=== PATIENT | female | born 1930 | race Caucasian/White ===

== ENCOUNTER 2016-12-18 11:19 | Observation (INO) ==
--- NOTE | 2016-12-18 11:42 | Emergency Department Note ---
Disposition Clinical Impression: Near syncope, Acute kidney injury Nausea & vomiting Qualifiers: Vomiting type: unspecified Vomiting Intractability: unspecified Qualified Code( s): R11.2 - Nausea with vomiting, unspecified Disposition: Admitted As Inpatient Condition: Fair Referrals: El Carrillo DO [Primary Care Provider] - Forms: ED Satisfaction Letter Time of Disposition: 13:46 Nausea/Vomiting/Diarrhea HPI - General Chief complaint: ED Nausea/Vomiting/Diarrhea Stated complaint: Nausea Time Seen by Provider: 12/18/16 11:37 Source: patient, EMS Mode of arrival: EMS Limitations: no limitations Nursing Notes Reviewed: Yes Vital Signs Reviewed: Yes - History of Present Illness HPI Narrative: 85-year-old female comes in with nausea vomiting also was had diarrhea. Feels somewhat dehydrated. This morning she had a near syncopal episode since she got dizzy felt like she is going pass out. Pt Subjective Complaint: nausea, vomiting, diarrhea Onset (ago): day(s) Description of emesis: food contents Description of Diarrhea: water If pain, Location of pain: diffuse Severity: mild, moderate Quality: cramping, aching Consistency: constant Improves with: nothing Worsens with: nonthing Associated symptoms: Reports: diaphoresis, nausea/vomiting - Related Data Home Medications Medication Instructions Recorded Confirmed Aspirin Enteric Coated [Aspirin EC] 162 mg PO DAILY 02/17/15 08/24/15 Lisinopril/Hydrochlorothiazide 1 tab PO DAILY 02/17/15 08/24/15 [Zestoretic 20-12.5 mg Tablet] TraMADol [Ultram] 50 mg PO TID 02/17/15 08/24/15 Zolpidem [Ambien] 10 mg PO HS 02/17/15 08/24/15 Previous Rx's Medication Instructions Recorded Levofloxacin [Levaquin] 750 mg PO DAILY #7 tablet 08/25/15 Nystatin Cream [Mycostatin Cream] 1 appl TP TID PRN #1 tube 08/25/15 Allergies Allergy/AdvReac Type Severity Reaction Status Date / Time Penicillins Allergy Rash Verified 08/24/15 11:43 All systems ED: reviewed and negative except as stated. Constitutional: Denies: fever, chills, weakness, weight change Eyes: Denies: eye pain, eye discharge, vision change ENT ED: Denies: ear pain, throat pain, dental pain, hearing loss, epistaxis, congestion, dysphagia Cardiovascular: Denies: chest pain, palpitations, dyspnea on exertion, edema, syncope Respiratory: Denies: cough, dyspnea, wheezes, hemoptysis, stridor Gastrointestinal: Reports: nausea, vomiting, diarrhea. Denies: abdominal pain, constipation, hematemesis, melena, hematochezia Genitourinary: Denies: dysuria, frequency, hematuria, discharge Musculoskeletal: Denies: back pain, neck pain, arthralgia, myalgia Integumentary: Denies: rash, abrasion, lesions Neurological: Denies: headache, weakness, numbness, paresthesias, confusion, abnormal gait, vertigo Psychiatric: Denies: anxiety, depression, suicidal thoughts, homicidal thoughts , auditory hallucinations, visual hallucinations Endocrine: Denies: fatigue Hematological/Lymphatic: Denies: easy bleeding, easy bruising Allergic/Immunologic: Denies: facial swelling, urticaria Past Medical History - Past Medical History Medical history: Reports: hypertension Surgical history: Reports: cholecystectomy Psychiatric history: Reports: no psych history - Social History Smoking Status: Former smoker Smokeless Tobacco Status: No Alcohol use: Reports: none Drug use: Reports: none Physical Exam - General Limitations: no limitations General appearance: alert, in no apparent distress - Head Head exam: atraumatic, normocephalic, normal inspection - Eye Eye exam: Present: normal appearance, PERRL, EOMI - ENT ENT exam: mucous membranes dry, other (Very hard of hearing) - Neck Neck exam: Present: normal inspection, full ROM, trachea midline - Chest Chest inspection: Present: normal inspection, symmetric chest wall rise - Respiratory Respiratory exam: Present: normal lung sounds bilaterally - Cardiovascular Cardiovascular exam: Present: regular rate, normal rhythm, normal heart sounds - Abdominal Exam Abdominal exam: Present: soft, Non-Tender. Absent: tenderness, distention, guarding, rebound, rigidity - Extremities Exam Extremities exam: Present: normal inspection, full ROM. Absent: tenderness, pedal edema - Expanded Lower Extremity Exam Neurovascular/Tendon exam: Absent: motor deficit, sensory deficit, tendon deficit Gait: not tested/not observed - Back Exam Back exam: Present: normal inspection, full ROM. Absent: tenderness - Neurological Exam Neurological exam: Present: alert, oriented X3 - Psychiatric Psychiatric exam: Present: normal affect, normal mood - Skin Skin exam: Present: warm, dry, intact, normal color Course - Reevaluation(s) Reevaluation #1: 85-year-old whose had some nausea and not eating with some diarrhea. Workup CT shows nothing acute however creatinine is elevated more than usual looks that she has some acute kidney injury. Admit for IV fluids she does have 3-5 white cells and leukocyte esterase on her urine and the hospitalist like antibiotics started. Time: 14:37 - Consultations Consultation #1: Discussed with Dr. Mcclain, admit. Time: 14:37 Vital Signs Temperature 97.8 F 12/18/16 11:32 Pulse Rate 80 12/18/16 11:32 Respiratory Rate 18 12/18/16 11:32 Blood Pressure 160/75 12/18/16 11:32 O2 Sat by Pulse Oximetry 100 12/18/16 11:32 Temperature 97.8 F 12/18/16 11:32 Pulse Rate 72 12/18/16 13:56 Respiratory Rate 18 12/18/16 13:56 Blood Pressure 158/71 12/18/16 13:56 O2 Sat by Pulse Oximetry 96 12/18/16 13:56 Oxygen Delivery Oxygen Delivery Room Air Nausea/Vomiting/Diarrhea - Lab Data Lab results reviewed: Yes I reviewed the patient's lab results. Result diagrams: 12/18/16 12:11 12/18/16 12:11 Lab Results 12/18/16 12/18/16 12/18/16 Range/Units 12:11 12:11 12:11 WBC 9.4 (4.3-11.1) K/mcL RBC 3.42 L (3.82-4.97) M/mcL Hgb 11.3 L (11.5-15.4) g/dL Hct 36.3 (35.3-44.9) % MCV 106.1 H (83.0-100.0) fL MCH 33.0 (28.0-33.3) pg MCHC 31.1 L (31.6-35.5) g/dL RDW 14.7 H (11.5-14.5) % Plt Count 319 (140-400) K/mcL MPV 9.2 L (9.4-12.4) fL Immature Gran % 0.4 (0-4) % Seg Neutrophils % 61.4 % Lymphocytes % 25.2 % Monocytes % 9.7 % Eosinophils % 2.7 % Basophils % 0.6 % Neutrophils # 5.7 (1.6-8.9) K/mcL Lymphocytes # 2.4 (0.6-4.6) K/mcL Monocytes # 0.9 (0.0-1.3) K/mcL Eosinophils # 0.3 (0.0-0.6) K/mcL Basophils # 0.1 (0.0-0.2) K/mcL Immature Plt Fraction 1.8 (1.1-6.1) % Sodium 136 (136-145) mEq/L Potassium 4.3 (3.5-4.5) mEq/L Chloride 106 (98-109) mEq/L Carbon Dioxide 21 (19-29) mEq/L BUN 42 H (7-20) mg/dL Creatinine 1.62 H (0.57-1.11) mg/dL Est GFR ( Amer) 37 L (> 60) Est GFR (Non-Af Amer) 30 L (> 60) BUN/Creatinine Ratio 26 (6-26) Glucose 98 (70-99) mg/dL Calculated Osmolality 292 (280-300) Calcium 9.6 (8.6-10.8) mg/dL Total Bilirubin (0.2-1.2) mg/dL Direct Bilirubin (0.0-0.5) mg/dL Indirect Bilirubin (0.0-1.2) mg/dL AST (5-34) Units/L ALT (0-55) Units/L Alkaline Phosphatase (38-126) Units/L Troponin I 0.02 (0-0.03) ng/mL Serum Total Protein (6.0-8.3) g/dL Albumin (3.5-5.0) g/dL Globulin (2.4-3.5) g/dL Albumin/Globulin Ratio (1.1-2.2) Amylase (25-125) Units/L Lipase 46 (8-78) Units/L Urine Color (Yellow) Urine Clarity (Clear) Urine pH (5.0-8.0) pH Units Ur Specific [place] (1.010-1.025) Urine Protein (Neg-Trace) mg/dL Urine Glucose (UA) (Normal) mg/dL Urine Ketones (Negative) mg/dL Urine Blood (Negative) Urine Nitrite (Negative) Urine Bilirubin (Negative) Urine Urobilinogen (Normal) mg/dL Ur Leukocyte Esterase (Negative) Urine Microscopic RBC (0-3) per hpf Urine Microscopic WBC (0-3) per hpf Ur Squamous Epith Cells (None-Few) per lpf Urine Bacteria (None-Few) per hpf Hyaline Casts (None-Few) per lpf Ur Culture Indicated? (NO) 12/18/16 12/18/16 Range/Units 12:11 13:52 WBC (4.3-11.1) K/mcL RBC (3.82-4.97) M/mcL Hgb (11.5-15.4) g/dL Hct (35.3-44.9) % MCV (83.0-100.0) fL MCH (28.0-33.3) pg MCHC (31.6-35.5) g/dL RDW (11.5-14.5) % Plt Count (140-400) K/mcL MPV (9.4-12.4) fL Immature Gran % (0-4) % Seg Neutrophils % % Lymphocytes % % Monocytes % % Eosinophils % % Basophils % % Neutrophils # (1.6-8.9) K/mcL Lymphocytes # (0.6-4.6) K/mcL Monocytes # (0.0-1.3) K/mcL Eosinophils # (0.0-0.6) K/mcL Basophils # (0.0-0.2) K/mcL Immature Plt Fraction (1.1-6.1) % Sodium (136-145) mEq/L Potassium (3.5-4.5) mEq/L Chloride (98-109) mEq/L Carbon Dioxide (19-29) mEq/L BUN (7-20) mg/dL Creatinine (0.57-1.11) mg/dL Est GFR ( Amer) (> 60) Est GFR (Non-Af Amer) (> 60) BUN/Creatinine Ratio (6-26) Glucose (70-99) mg/dL Calculated Osmolality (280-300) Calcium (8.6-10.8) mg/dL Total Bilirubin 0.3 (0.2-1.2) mg/dL Direct Bilirubin 0.1 (0.0-0.5) mg/dL Indirect Bilirubin 0.2 (0.0-1.2) mg/dL AST 24 (5-34) Units/L ALT 14 (0-55) Units/L Alkaline Phosphatase 106 (38-126) Units/L Troponin I (0-0.03) ng/mL Serum Total Protein 7.5 (6.0-8.3) g/dL Albumin 3.5 (3.5-5.0) g/dL Globulin 4.0 H (2.4-3.5) g/dL Albumin/Globulin Ratio 0.9 L (1.1-2.2) Amylase 92 (25-125) Units/L Lipase (8-78) Units/L Urine Color Yellow (Yellow) Urine Clarity Cloudy A (Clear) Urine pH 5.0 (5.0-8.0) pH Units Ur Specific [place] 1.015 (1.010-1.025) Urine Protein Negative (Neg-Trace) mg/dL Urine Glucose (UA) Normal (Normal) mg/dL Urine Ketones Negative (Negative) mg/dL Urine Blood Negative (Negative) Urine Nitrite Negative (Negative) Urine Bilirubin Negative (Negative) Urine Urobilinogen Normal (Normal) mg/dL Ur Leukocyte Esterase Small H (Negative) Urine Microscopic RBC 0-3 (0-3) per hpf Urine Microscopic WBC 3-5 H (0-3) per hpf Ur Squamous Epith Cells Many H (None-Few) per lpf Urine Bacteria Few (None-Few) per hpf Hyaline Casts None Seen (None-Few) per lpf Ur Culture Indicated? YES A (NO) - Radiology Data Radiology results reviewed: Yes I reviewed the patient's radiology results. Abdomen/Pelvis CT 12/18/16 11:38 IMPRESSION: 1. No acute intra- abdominal process identified. 2. Moderate atherosclerotic disease. D/ / Mark Bryson MD / Mark Bryson MD Interpreting Provider: Mark Bryson MD - EKG Data EKG attestation: Yes I reviewed and interpreted this EKG. EKG shows normal: sinus rhythm Rate: normal Rhythm: NSR [place]/QRS: LBBB When compared to previous EKG there are: no significant changes (08/24/2015) Interpretation: no acute changes
[2016-12-18 12:18] LABS: Basophils # 0.1 K/mcL (0.0-0.2); Basophils % 0.6 %; Eosinophils # 0.3 K/mcL (0.0-0.6); Eosinophils % 2.7 %; Hematocrit 36.3 % (35.3-44.9); Hemoglobin 11.3 g/dL (11.5-15.4); Immature Granulocytes % 0.4 % (0-4); Immature Platelets 1.8 % (1.1-6.1); Lymphocytes # 2.4 K/mcL (0.6-4.6); Lymphocytes % 25.2 %; Mean Corpuscular HGB Conc 31.1 g/dL (31.6-35.5); Mean Corpuscular Volume 106.1 fL (83.0-100.0); Mean Platelet Volume 9.2 fL (9.4-12.4); Monocytes # 0.9 K/mcL (0.0-1.3); Monocytes % 9.7 %; Neutrophils # 5.7 K/mcL (1.6-8.9); Platelet Count 319 K/mcL (140-400); Red Blood Count 3.42 M/mcL (3.82-4.97); Red Cell Distribution Width 14.7 % (11.5-14.5); Segmented Neutrophils % 61.4 %
[2016-12-18 12:32] LABS: Albumin 3.5 g/dL (3.5-5.0); Albumin/Globulin Ratio 0.9 (1.1-2.2); Bilirubin,Direct 0.1 mg/dL (0.0-0.5); Bilirubin,Indirect 0.2 mg/dL (0.0-1.2); Bilirubin,Total 0.3 mg/dL (0.2-1.2); Total Protein 7.5 g/dL (6.0-8.3)
[2016-12-18 12:33] LABS: Calcium 9.6 mg/dL (8.6-10.8); Potassium 4.3 mEq/L (3.5-4.5)
[2016-12-18 14:01] LABS: Bilirubin,Urine Negative (Negative); Blood,Urine Negative (Negative); Clarity,Urine Cloudy (Clear); Color,Urine Yellow (Yellow); Glucose,Urine (UA) Normal (Normal); Ketones,Urine Negative (Negative); Leukocyte Esterase,Urine Small (Negative); Nitrite,Urine Negative (Negative); Protein,Urine Negative (Neg-Trace); Specific Gravity,Urine 1.015 (1.010-1.025); Urobilinogen,Urine Normal (Normal)
[2016-12-18 14:03] LABS: Bacteria,Urine Few per hpf (None-Few); Hyaline Casts,Urine None Seen per lpf (None-Few); RBC,Urine 0-3 per hpf (0-3); Squamous Epithelial Cell,Urine Many per lpf (None-Few)
[2016-12-18] MEDS ORDERED: Levofloxacin 500 MG/100 ML 500 MG/100 ML BAG IVPB ONE (14:36)
[2016-12-18] MEDS ORDERED: 0.9 % Sodium Chloride 1,000 ML IVC SCH (14:45)
[2016-12-18] MEDS ORDERED: Naloxone 0.4 MG/ML INJ IVP PRN (15:23)
[2016-12-18] MEDS ORDERED: Ondansetron 4 MG/2 ML VIAL IVP PRN (15:23)
[2016-12-18] MEDS ORDERED: Acetaminophen 325 MG TABLET PO PRN (15:23)
--- NOTE | 2016-12-18 15:40 | Internal Med History&Physical ---
<AmandamarizabraedenPrateek samuels - Last Filed: 12/18/16 16:04> Date of Encounter: 12/18/16 Time of Encounter: 14:30 Assessment and Plan (1) UTI (urinary tract infection) Current visit: Yes Status: Acute Patient presents with symptoms of a urinary tract infection. Patient reports getting up to use the bathroom this morning becoming extremely lightheaded and almost passing out. She states is the same symptoms she has had in the past with previous UTIs, which she has often. Initial urinalysis and ED indicated need for culture, so urine culture ordered stat. IV Levaquin 500 mg daily initiated and ED and will be continued. Follow-up labs ordered to monitor WBC and infection status. Qualifiers: Urinary tract infection type: acute cystitis Hematuria presence: without hematuria Qualified Code(s): N30.00 - Acute cystitis without hematuria (2) Nausea & vomiting Current visit: Yes Status: Acute Patient presents with acute nausea and vomiting which she reports began this morning. She also reports symptoms of feeling hot and near syncope. Patient placed nothing by mouth diet to be advanced as tolerated. Qualifiers: Vomiting type: unspecified Vomiting Intractability: unspecified Qualified Code(s): R11.2 - Nausea with vomiting, unspecified (3) Dehydration Current visit: Yes Status: Acute Patient presents with acute dehydration related to nausea and vomiting. IV fluids 0.9 normal saline ordered at 75 mL per hour due to patient's current GFR 30. Will use IV fluids judiciously. Monitor I and O and daily weight. (4) Dizziness Current visit: Yes Status: Acute Patient presents with acute dizziness related to UTI. Patient reports becoming near syncopal when using the bathroom this morning. Patient placed as falls precautions/up with assist/bedrest with bedside commode with assist only due to current dizziness and lightheadedness. (5) Hypertension Current visit: Yes Status: Chronic Patient presents with history of chronic hypertension. We will continue patient 's lisinopril and aspirin therapy. Monitor patient and vital signs every 4. Qualifiers: Hypertension type: essential hypertension Qualified Code(s): I10 - Essential (primary) hypertension (6) CKD (chronic kidney disease) stage 3, GFR 30-59 ml/min Current visit: Yes Status: Chronic Patient presents with chronic kidney disease stage III with current GFR of 30. Patient is mildly dehydrated currently, so we will administer IV fluids at 75 mL per hour judiciously. We will monitor patient's I and O and daily weight. (7) DVT prophylaxis Current visit: Yes Status: Acute Patient placed on DVT prophylaxis due to admission protocol and current bedrest status. Heparin 5,000 units SQ Q8 ordered. Internal Medicine - H&P: HPI Chief complaint: Nausea and Vomiting Admitted From: Emergency Dept Plans for Post Hospital Care: Home History of present illness: Ms. Alston is a 85 year old female who presents from the ED with chief complaint of nausea, vomiting, and dizziness that began this morning. She states that she went to get up to go to the bathroom this morning and felt like she was going to pass out due to being lightheaded. Patient denies syncope or falling. She also reports that she felt hot when this started as well as having a cough with sputum production. Patient and patient's son report that she has a history of UTIs that present with similar symptoms. Patient has a medical history of hypertension but denies any other history of cardiac issues, diabetes , or respiratory issues. Patient is hard of hearing. Patient's vitals on admission to ED are temp of 97.8, HR of 80, RR of 18, BP of 158/71, and SpO2 of 96% on room air. Patient's initial urinalysis indicated the need for culture. Patient is at moderate risk for UTI and will be admitted as observation status with continuation of IV levaquin 500 mg daily which was started in the ED. Urine culture ordered. Lactic acid ordered. Will order follow-up labs and monitor patient for signs of increased infection. Time spent with patient 40 minutes. Past Med Surg Social Fam HX - Past Medical History Source: patient, obtained from family Medical history: hypertension Psychiatric history: no psych history - Past Surgical History Surgical History: appendectomy, cholecystectomy, orthopedic, other (Left shoulder, bilateral rotator cuffs, bilateral elbows, bilateral ankles, removal of bone spur on left foot), other (Sinus surgery, tonsillectomy) - Social History Smoking Status: Former smoker Packs per day: 1 Pack per month - Quit smoking >30 years ago Smokeless Tobacco Status: No Alcohol use: none Drug use: none Current living situation: Home Activity Level: Independent ambulation, Uses cane/walker Recent Out of Country Travel Within the Last 8 Weeks: No Exposure or Possible Exposure to Illness During Travel: No - Family History Brother Race: Family Member Ethnicity: Non- Living Status: Age at : 70 Cause of : Meningitis Father Race: Family Member Ethnicity: Non- Living Status: Age at : 90 Cause of : Old age Hx Family Medical Disorders: No Mother Race: Family Member Ethnicity: Non- Living Status: Age at : 90 Cause of : Stroke Hx Family Cardiac Disorders: Yes (Stroke) Sister Race: Family Member Ethnicity: Non- Living Status: Still Living Hx Family GI Disorders: Yes (Gallbladder) Internal Medicine - H&P: Meds Aspirin Enteric Coated [Aspirin EC] 162 mg PO DAILY 02/17/15 [History] Lisinopril/Hydrochlorothiazide [Zestoretic 20-12.5 mg Tablet] 1 tab PO DAILY 01/24 [History] TraMADol [Ultram] 50 mg PO TID 02/17/15 [History] Zolpidem [Ambien] 10 mg PO HS 02/17/15 [History] Allergies Penicillins Allergy (Verified 12/18/16 14:57) Rash All Systems PM: A 10-system review of systems was performed and is negative for pertinent findings except as documented above in the HPI. - Constitutional Constitutional: as per HPI, fever(s), no chills, no night sweats - EENT Eyes: no change in vision, no discharge, no pain, no photophobia Ears: no ear discharge, no ear pain, no tinnitus Nose, mouth and throat: no dysphagia, no nasal discharge, no neck pain, no sore throat - Breasts Breasts: as per HPI - Cardiovascular Cardiovascular ROS IM: no chest pain, no diaphoresis, no dyspnea, no lightheadedness, no palpitations, no syncope - Respiratory Respiratory: no cough, no dyspnea, no wheezing, no excessive phlegm production - Gastrointestinal Gastrointestinal: as per HPI, abdominal pain, nausea, vomiting - Genitourinary Genitourinary: no change in urinary stream, no dysuria, no flank pain, no hematuria Menstruation: post menopausal - Musculoskeletal Musculoskeletal ROS IM: no numbness, no tingling - Integumentary Integumentary IM: no rash, no unusual bruising - Neurological Neurological ROS: no confusion, no convulsions, no focal weakness, no numbness, no tingling, no tremor(s) - Psychiatric Psychiatric: as per HPI - Endocrine Endocrine IM: as per HPI - Hematologic/Lymphatic Hematologic/Lymphatic: no easy bruising - Allergic/Immunologic Allergic/Immunologic: as per HPI - Constitutional Vitals: Temp Pulse Resp BP Pulse Ox 97.8 F 94 18 129/72 97 12/18/16 11:32 12/18/16 15:18 12/18/16 15:18 12/18/16 15:18 12/18/16 15:18 General appearance: Present: cooperative, A&O X 3, pleasant, no acute distress, answers questions appropriately - Head Head exam: Present: atraumatic, normocephalic - Eye Eye exam: Present: PERRL, conjuntiva pink, sclera anicteric Pupils: Present: PERRL - ENT ENT exam: Present: mucous membranes dry, normal exam, normal external ear exam - Neck Neck exam general surgery: Present: supple, trachea midline. Absent: lymphadenopathy - Respiratory Respiratory exam: Present: CTAB. Absent: accessory muscle use, rales, rhonchi, wheezes - Cardiovascular Cardiovascular exam: Present: RRR, +S1, +S2. Absent: diastolic murmur, gallop, rubs, systolic murmur - GI/Abdominal GI/Abdominal exam: Present: normal bowel sounds, soft, no peritoneal signs. Absent: distended, tenderness - Rectal Rectal exam: Present: deferred - Additional comments: exam deferred. - Extremities Exam Extremities exam: Present: warm, radial pulses palpable and symetrical. Absent : calf tenderness, cyanotic, pedal edema - Back Exam Back exam: Present: normal inspection - Neurological Exam Neurological exam: Present: CN II-XII intact, oriented X3, no focal deficits. Absent: pronater drift, facial droop, speech deficit - Psychiatric Psychiatric exam: Present: normal affect, normal mood - Skin Skin exam: Present: dry, intact Internal Med - H&P Results - Labs CBC & Chem 7: 12/18/16 12:11 12/18/16 12:11 - EKG Data EKG shows normal: sinus rhythm - EKG Data Prior EKG available for review: no EKG comments: 12/18/16 15:50 EKG dated 12/18/16 shows sinus rhythm with marked left axis deviation and left bundle branch block. - Diagnostic Studies CT scan - abdomen Additional comments: Impressions Abdomen/Pelvis CT 12/18/16 11:38 IMPRESSION: 1. No acute intra- abdominal process identified. 2. Moderate atherosclerotic disease. D/ / Mark Bryson MD / Mark Bryson MD Interpreting Provider: Mark Bryson MD <Willis Ponce - Last Filed: 12/18/16 16:59> Date of Encounter: 12/18/16 Internal Medicine - H&P: HPI History of present illness: Ms. Alston is a 85 year old female All Systems PM: A 10-system review of systems was performed and is negative for pertinent findings except as documented above in the HPI. - Constitutional Vitals: Temp Pulse Resp BP Pulse Ox 98.1 F 94 16 166/82 99 12/18/16 16:24 12/18/16 16:24 12/18/16 16:24 12/18/16 16:24 12/18/16 16:24 Internal Med - H&P Results - Labs CBC & Chem 7: 12/18/16 12:11 12/18/16 12:11 - Impressions ITS Impressions Chest X-Ray 12/18/16 15:52 IMPRESSION: No evidence for acute cardiopulmonary process. D/ / Jose Jiménez MD / Jose Jiménez MD Interpreting Provider: Jose Jiménez MD - Attending Attestation I have seen and examined the patient at around 16:45. I discussed the patient with Prateek Fritz NP. I have reviewed the note and orders. Patient is a 85-year-old female with past history hypertension and chronic kidney disease. Patient presents to ED with complaints of nausea and vomiting. She also complains of dizziness that started this morning. Patient denies having syncope or no fall. Patient states she also had a cough with some mild sputum production. On examination patient is awake and alert. Not in distress. Able to answer questions appropriately. No other acute complaints. Initial ED evaluation revealed mild dehydration with elevated creatinine and a urinary tract infection. Patient will be on IV fluids and also on IV antibiotics. Patient has been explained about her condition and plan of care. She understood and agreed. No unanswered questions. CODE STATUS full code.
[2016-12-18] MEDS: Pantoprazole 40 MG VIAL IVP SCH (18:23)
[2016-12-18] MEDS: 0.9 % Sodium Chloride 1,000 ML IVC SCH ×2 (18:23→18:24)
[2016-12-18] MEDS: *HR* Heparin 5,000 UNIT/ML VIAL SQ SCH (20:28)
[2016-12-18] MEDS: traMADol 50 MG TABLET PO SCH (20:28)
[2016-12-19 04:48] LABS: Basophils % 0.6 %; Eosinophils # 0.2 K/mcL (0.0-0.6); Eosinophils % 4.4 %; Hematocrit 31.1 % (35.3-44.9); Hemoglobin 10.1 g/dL (11.5-15.4); Immature Granulocytes % 0.2 % (0-4); Lymphocytes # 1.9 K/mcL (0.6-4.6); Lymphocytes % 36.9 %; Mean Corpuscular HGB Conc 32.5 g/dL (31.6-35.5); Mean Corpuscular Hemoglobin 34.1 pg (28.0-33.3); Mean Corpuscular Volume 105.1 fL (83.0-100.0); Mean Platelet Volume 9.6 fL (9.4-12.4); Monocytes # 0.5 K/mcL (0.0-1.3); Monocytes % 9.7 %; Neutrophils # 2.5 K/mcL (1.6-8.9); Platelet Count 211 K/mcL (140-400); Red Blood Count 2.96 M/mcL (3.82-4.97); Red Cell Distribution Width 14.6 % (11.5-14.5); Segmented Neutrophils % 48.2 %
[2016-12-19 05:09] LABS: Calcium 9.1 mg/dL (8.6-10.8); Chol/HDL Ratio 3.6 (0-4.9); Magnesium 1.7 mg/dL (1.6-2.6); Potassium 4.6 mEq/L (3.5-4.5)
[2016-12-19] MEDS: 0.9 % Sodium Chloride 1,000 ML IVC SCH ×2 (05:19→05:45)
[2016-12-19] MEDS: *HR* Heparin 5,000 UNIT/ML VIAL SQ SCH ×3 (05:20→21:06)
[2016-12-19] MEDS ORDERED: *HR* OxyCODONE Immed Rel 5 MG TABLET PO STA (05:41)
[2016-12-19 06:25] LABS: INR 1.1; Prothrombin Time 12.2 Seconds (9.4-12.1)
[2016-12-19 06:28] LABS: Activated Partial Thrombo Time 25.7 Seconds (26.0-36.0)
[2016-12-19] MEDS: traMADol 50 MG TABLET PO SCH ×3 (07:43→21:06)
[2016-12-19] MEDS: Aspirin Enteric Coated 81 MG Tablet PO SCH (07:45)
[2016-12-19] MEDS: Levofloxacin 500 MG/100 ML 500 MG/100 ML BAG IVPB SCH (07:47)
[2016-12-19] MEDS: Pantoprazole 40 MG VIAL IVP SCH (07:51)
[2016-12-19] MEDS ORDERED: Lisinopril-HCTZ 20-12.5mg TABLET PO SCH (09:00)
[2016-12-19] MEDS: D5% in 0.45% NACL 1,000 ML IVC SCH ×2 (09:33→23:32)
--- NOTE | 2016-12-19 12:17 | Electrocardiograph Report ---
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
--- NOTE | 2016-12-19 13:48 | Internal Med Progress Note ---
Date of Encounter: 12/19/16 Time of Encounter: 08:15 - Assessment and plan (1) UTI (urinary tract infection) Current Visit: Yes Status: Acute Assessment and plan: Urine culture positive for gram-negative rods. We will continue IV antibiotics while awaiting final culture results. Patient is clinically improving. Continue gentle IV hydration. Monitor vital signs and urine output. Qualifiers: Urinary tract infection type: acute cystitis Hematuria presence: without hematuria Qualified Code(s): N30.00 - Acute cystitis without hematuria (2) Nausea & vomiting Current Visit: Yes Status: Acute Assessment and plan: Improving. Has not required Zofran since yesterday. Qualifiers: Vomiting type: unspecified Vomiting Intractability: unspecified Qualified Code(s): R11.2 - Nausea with vomiting, unspecified (3) Dizziness Current Visit: Yes Status: Acute Assessment and plan: Due to dehydration. Improving. (4) Anemia Current Visit: Yes Status: Chronic Assessment and plan: Hemoglobin 10.1. This is around her baseline. We will monitor blood counts. Qualifiers: Anemia type: due to chronic kidney disease Chronic kidney disease stage: stage 3 (moderate) Qualified Code(s): N18.3 - Chronic kidney disease, stage 3 (moderate); D63.1 - Anemia in chronic kidney disease (5) CKD (chronic kidney disease) stage 3, GFR 30-59 ml/min Current Visit: Yes Status: Chronic Assessment and plan: Creatinine 1.44 today. Baseline is around 1.3. (6) Dehydration Current Visit: Yes Status: Acute Assessment and plan: Continue IV hydration. Patient's diet is improving as her nausea also improves. (7) Hypertension Current Visit: Yes Status: Chronic Assessment and plan: Blood pressure is elevated. On Prinzide. Hydrochlorothiazide. Continue lisinopril. His blood pressure persistently increased, we will add amlodipine or beta lewis. Qualifiers: Hypertension type: essential hypertension Qualified Code(s): I10 - Essential (primary) hypertension - Subjective Interval history: Patient is doing well today. Does have pain in both her shoulders from chronic the arthritis and low back pain. Denies any dysuria. No fever or chills reported overnight. No dizziness or lightheadedness. - Constitutional Vitals: Temp Pulse Resp BP Pulse Ox 98.1 F 81 15 162/69 98 12/19/16 12:37 12/19/16 12:37 12/19/16 12:37 12/19/16 12:37 12/19/16 12:37 General appearance: Present: cooperative, A&O X 3, pleasant, no acute distress, answers questions appropriately - Neck Neck exam general surgery: Present: supple, trachea midline. Absent: lymphadenopathy - Respiratory Respiratory exam: Present: CTAB. Absent: accessory muscle use, rales, rhonchi, wheezes - Cardiovascular Cardiovascular exam: Present: RRR, +S1, +S2. Absent: diastolic murmur, gallop, rubs, systolic murmur - Extremities Exam Extremities exam: Present: warm, radial pulses palpable and symetrical. Absent : calf tenderness, cyanotic, pedal edema - Neurological Exam Neurological exam: Present: alert, CN II-XII intact, oriented X3, no focal deficits. Absent: facial droop, speech deficit - Skin Skin exam: Present: dry, intact Internal Medicine: Result - Labs CBC & Chem 7: 12/19/16 04:39 12/19/16 04:39 Labs: Short CBC 12/19/16 Range/Units 04:39 WBC 5.2 (4.3-11.1) K/mcL Hgb 10.1 L (11.5-15.4) g/dL Hct 31.1 L (35.3-44.9) % Plt Count 211 (140-400) K/mcL Neutrophils # 2.5 (1.6-8.9) K/mcL BMP 12/19/16 04:39 Sodium 137 Potassium 4.6 H Chloride 110 H Carbon Dioxide 18 L BUN 33 H Creatinine 1.44 H Glucose 92 Calcium 9.1 - ABG Interpretation ABG results: PT/INR, D-dimer PT 12.2 Seconds (9.4-12.1) H 12/19/16 05:27 - Impressions Impressions Chest X-Ray 12/18/16 15:52 IMPRESSION: No evidence for acute cardiopulmonary process. D/ / Jose Jiménez MD / Jose Jiménez MD Interpreting Provider: Jose Jiménez MD Consult Discharge Plan - Plan Referrals: El Carrillo DO [Primary Care Provider] -
[2016-12-20 06:03] LABS: Basophils % 0.8 %; Eosinophils # 0.3 K/mcL (0.0-0.6); Eosinophils % 5.7 %; Hemoglobin 9.1 g/dL (11.5-15.4); Immature Granulocytes % 0.2 % (0-4); Lymphocytes # 2.1 K/mcL (0.6-4.6); Lymphocytes % 41.3 %; Mean Corpuscular HGB Conc 31.4 g/dL (31.6-35.5); Mean Corpuscular Hemoglobin 32.6 pg (28.0-33.3); Mean Corpuscular Volume 103.9 fL (83.0-100.0); Mean Platelet Volume 9.2 fL (9.4-12.4); Monocytes # 0.5 K/mcL (0.0-1.3); Monocytes % 9.8 %; Neutrophils # 2.1 K/mcL (1.6-8.9); Platelet Count 219 K/mcL (140-400); Red Blood Count 2.79 M/mcL (3.82-4.97); Red Cell Distribution Width 14.6 % (11.5-14.5); Segmented Neutrophils % 42.2 %
[2016-12-20 06:10] LABS: Calcium 8.9 mg/dL (8.6-10.8); Potassium 4.3 mEq/L (3.5-4.5)
[2016-12-20] MEDS: *HR* Heparin 5,000 UNIT/ML VIAL SQ SCH (06:42)
[2016-12-20] MEDS ORDERED: Lisinopril 20 MG TABLET PO SCH (09:00)
[2016-12-20] MEDS: Pantoprazole 40 MG VIAL IVP SCH (09:23)
[2016-12-20] MEDS: traMADol 50 MG TABLET PO SCH (09:23)
[2016-12-20] MEDS: Aspirin Enteric Coated 81 MG Tablet PO SCH (09:23)
[2016-12-20] MEDS: Levofloxacin 500 MG/100 ML 500 MG/100 ML BAG IVPB SCH (09:24)
--- NOTE | 2016-12-20 11:51 | Discharge Summary ---
Date of Encounter: 12/20/16 Time of Encounter: 11:49 - Discharge Diagnosis (1) UTI (urinary tract infection) Priority: Primary Status: Acute Qualifiers: Urinary tract infection type: acute cystitis Hematuria presence: without hematuria Qualified Code(s): N30.00 - Acute cystitis without hematuria (2) KIRA (acute kidney injury) Priority: Primary Status: Acute (3) Anemia Priority: Secondary Status: Chronic Qualifiers: Anemia type: due to chronic kidney disease Chronic kidney disease stage: stage 3 (moderate) Qualified Code(s): N18.3 - Chronic kidney disease, stage 3 (moderate); D63.1 - Anemia in chronic kidney disease (4) CKD (chronic kidney disease) stage 3, GFR 30-59 ml/min Priority: Secondary Status: Chronic - Discharge Medications Prescriptions: Carvedilol [Coreg] 3.125 mg PO BIDWM #30 tablet Lisinopril [Zestril] 20 mg PO DAILY #60 tablet Home Medications: Aspirin Enteric Coated [Aspirin EC] 162 mg PO DAILY 02/17/15 [History] TraMADol [Ultram] 50 mg PO TID 02/17/15 [History] Zolpidem [Ambien] 10 mg PO HS 02/17/15 [History] Carvedilol [Coreg] 3.125 mg PO BIDWM #30 tablet 12/20/16 [Rx] Lisinopril [Zestril] 20 mg PO DAILY #60 tablet 12/20/16 [Rx] Allergies/Adverse Reactions: Allergies Penicillins Allergy (Verified 12/18/16 14:57) Rash Date of admission: 12/18/16 15:12 Primary care physician: El Carrillo, Consults: 12/18/16 18:40 Consult to Electromatic Typist [CONS] Routine Reason for SW Consult: discharge planning 12/19/16 16:42 Consult to Occupational Therapy [CONS] Routine Comment: Evaluate, develop and implement POC Reason for Consult: Generalized weakness Consult to Physical Therapy [CONS] Routine Comment: Evaluate, develop and implement POC Reason for Consult: Generalized weakness - Patient Status Disposition: Home, Self-Care Condition: Good Functional capacity at discharge: uses cane/walker - Discharge Instructions Instructions: Urinary Tract Infection in Women (DC) Follow Up With: El Carrillo DO [Primary Care Provider] - 01/03/17 9:30 am - Diet and Activity Activity: resume usual activities as tolerated Diet: low fat, low cholesterol, low salt diet Interval History: Patient denies any abdominal pain or urinary symptoms. Hospital course: Ms. Alston is a 85 year old female with a past medical history of hypertension who presented with a chief complaint of nausea and vomiting. She was admitted with diagnosis of urinary tract infection and was started on IV Levaquin. Urine culture grew a sensitive Klebsiella pneumoniae. Patient improved clinically, she was eating and ambulating well at discharge. She completed 3 days of IV Levaquin while inpatient. PLAN: Follow-up with primary care physician in one week. - Time Spent with Patient Total time spent providing and/or coordinating discharge services: - Constitutional Vitals: Temp Pulse Resp BP Pulse Ox 98.0 F 77 16 150/77 100 12/20/16 07:37 12/20/16 07:37 12/20/16 07:37 12/20/16 07:37 12/20/16 09:00 General appearance: Present: cooperative, A&O X 3, pleasant, no acute distress, answers questions appropriately - Respiratory Respiratory exam: Present: CTAB - Cardiovascular Cardiovascular exam: Present: RRR - GI/Abdominal GI/Abdominal exam: Present: normal bowel sounds, soft. Absent: distended, tenderness - Extremities Exam Extremities exam: Absent: pedal edema - Back Exam Back exam: Absent: CVA tenderness (L), CVA tenderness (R) - Neurological Exam Neurological exam: Present: alert, oriented X3, strengths equal and symetr throughout. Absent: facial droop, speech deficit - Skin Skin exam: Absent: rash
[2016-12-20 12:18] VITALS: BP 126/78
[2016-12-21] MEDS ORDERED: Levofloxacin 250 MG/50 ML 250 MG/50 ML BAG IVPB SCH (09:00)
== END 2016-12-20 14:00 | disposition home or self-care (01) ==
LOC: 3BNU 11:19 → EMEROO 11:19 → SUATTDRO 15:12 → 3BNU 15:45
PROVIDERS: ADMIT Family Medicine; ATTEND Internal Medicine

== ENCOUNTER 2017-01-11 22:48 | Observation (INO) ==
[2017-01-11] MEDS ORDERED: Aspirin 81 MG TAB.CHEW PO STA (22:54)
--- NOTE | 2017-01-11 22:56 | Emergency Department Note ---
Disposition Clinical Impression: Elevated serum creatinine Chest pain Qualifiers: Chest pain type: precordial pain Qualified Code(s): R07.2 - Precordial pain Anemia Qualifiers: Anemia type: unspecified type Qualified Code(s): D64.9 - Anemia, unspecified Disposition: Admitted As Inpatient Condition: Good Chest Pain HPI - General Chief Complaint: ED Chest Pain Stated Complaint: Chest Pain Time Seen by Provider: 01/11/17 22:51 Source: patient, EMS Mode of arrival: EMS Limitations: no limitations Vital Signs Reviewed: Yes Nursing Notes Reviewed: Yes - History of Present Illness HPI Narrative: 86-year-old female history of hypertension who presents to the ER with a chief complaint of chest pain. Patient states that earlier today she was just feeling unwell overall. She states that she ate this evening and then went to bed. She reports that she was awoken from sleep with sharp central chest pain. She denies a prior history of any cardiac issues. EMS was called. Patient was given 3 nitroglycerin as well as 4 of morphine prior to arrival. She reports almost full resolution of her symptoms at the time of arrival. No history of cardiac disease. No stents. No history of diabetes or hyperlipidemia. She smoked but quit over 50 years ago. No other complaints. Pt complaint: chest pain Onset (ago): Just [employer] Duration: constant, now resolved Onset: during rest Pain Location: substernal Severity: severe Quality: sharp Pain Radiation: neck, jaw/teeth Improves with: nitroglycerin, medication-other Worsens with: nothing Associated symptoms: Denies: nausea, vomiting, diaphoresis, dyspnea Treatments prior to arrival chest pain: nitroglycerin, other (Morphine) - Related Data On Oral Contraceptives: No Home Medications Medication Instructions Recorded Confirmed Aspirin Enteric Coated [Aspirin EC] 162 mg PO DAILY 02/17/15 01/11/17 TraMADol [Ultram] 50 mg PO TID 02/17/15 01/11/17 Zolpidem [Ambien] 10 mg PO HS 02/17/15 01/11/17 Previous Rx's Medication Instructions Recorded Carvedilol [Coreg] 3.125 mg PO BIDWM #30 tablet 12/20/16 Lisinopril [Zestril] 20 mg PO DAILY #60 tablet 12/20/16 Allergies Allergy/AdvReac Type Severity Reaction Status Date / Time Penicillins Allergy Rash Verified 12/18/16 14:57 All systems ED: reviewed and negative except as stated. Constitutional: Denies: fever Cardiovascular: Reports: chest pain Respiratory: Denies: cough, dyspnea, wheezes Gastrointestinal: Denies: abdominal pain, nausea, vomiting, diarrhea Musculoskeletal: Reports: neck pain. Denies: back pain Chest Pain PMH - Past Medical History Medical history: Reports: hypertension Surgical history: Reports: appendectomy, cholecystectomy, orthopedic, other, other Psychiatric history: Reports: no psych history - Social History Smoking Status: Former smoker Alcohol use: Reports: none Drug use: Reports: none Physical Exam - General Limitations: no limitations General appearance: alert, in no apparent distress - Head Head exam: atraumatic, normocephalic, normal inspection - Eye Eye exam: Present: normal appearance - ENT ENT exam: normal exam - Neck Neck exam: Present: normal inspection - Chest Chest inspection: Present: normal inspection, symmetric chest wall rise. Absent : tenderness - Respiratory Respiratory exam: Present: normal lung sounds bilaterally - Cardiovascular Cardiovascular exam: Present: regular rate, normal rhythm, normal heart sounds - Abdominal Exam Abdominal exam: Present: soft, Non-Tender. Absent: tenderness - Extremities Exam Extremities exam: Present: normal inspection, full ROM - Expanded Upper Extremity Exam Shoulder exam: Present: normal inspection, full ROM Arm exam: Present: normal inspection, full ROM Elbow exam: Present: normal inspection, full ROM Forearm/Wrist exam: Present: normal inspection, full ROM Hand exam: Present: normal inspection, full ROM - Expanded Lower Extremity Exam Hip/Pelvis exam: Present: normal inspection, full ROM Upper leg exam: Present: normal inspection, full ROM Knee exam: Present: normal inspection, full ROM Lower leg exam: Present: normal inspection, full ROM Ankle exam: Present: normal inspection, full ROM Foot/toe exam: Present: normal inspection, full ROM - Neurological Exam Neurological exam: Present: alert - Psychiatric Psychiatric exam: Present: normal affect, normal mood - Skin Skin exam: Present: warm, dry, intact, normal color Course Course Narrative: Patient seen and examined. Vital signs reviewed. EMS EKG reviewed. We will repeat an EKG here, chest x-ray, labs including troponin. Her pain is improved after nitroglycerin and morphine. Patient will require admission to the hospital for ACS rule out. Vital Signs Temperature 98.3 F 01/11/17 22:50 Pulse Rate 78 01/11/17 22:50 Respiratory Rate 16 01/11/17 22:50 Blood Pressure 163/91 01/11/17 22:50 O2 Sat by Pulse Oximetry 100 01/11/17 22:50 Temperature 98.2 F 01/12/17 01:31 Pulse Rate 73 01/12/17 01:31 Respiratory Rate 17 01/12/17 01:31 Blood Pressure 161/72 01/12/17 01:31 O2 Sat by Pulse Oximetry 98 01/12/17 01:31 Oxygen Delivery Oxygen Delivery Room Air Chest Pain - MDM Narrative Medical decision making narrative: 86-year-old female presents to the ER due to chest pain. EKG here is nonischemic with a left bundle branch block that is not new. Troponin within normal limits. She is anemic with a slight elevation of her creatinine. Patient given nitroglycerin and morphine prior to arrival. Improved at this time. Admitted to the hospitalist service. - Lab Data Lab results reviewed: Yes I reviewed the patient's lab results. Result diagrams: 01/11/17 23:05 01/11/17 23:05 Lab Results 01/11/17 01/11/17 01/11/17 Range/Units 23:05 23:05 23:05 WBC 4.9 (4.3-11.1) K/mcL RBC 3.03 L (3.82-4.97) M/mcL Hgb 10.2 L (11.5-15.4) g/dL Hct 31.8 L (35.3-44.9) % MCV 105.0 H (83.0-100.0) fL MCH 33.7 H (28.0-33.3) pg MCHC 32.1 (31.6-35.5) g/dL RDW 14.6 H (11.5-14.5) % Plt Count 221 (140-400) K/mcL MPV 9.3 L (9.4-12.4) fL Immature Gran % 0.2 (0-4) % Seg Neutrophils % 33.6 % Lymphocytes % 50.2 % Monocytes % 8.6 % Eosinophils % 6.6 % Basophils % 0.8 % Neutrophils # 1.6 (1.6-8.9) K/mcL Lymphocytes # 2.5 (0.6-4.6) K/mcL Monocytes # 0.4 (0.0-1.3) K/mcL Eosinophils # 0.3 (0.0-0.6) K/mcL Basophils # 0.0 (0.0-0.2) K/mcL Sodium 135 L (136-145) mEq/L Potassium 4.5 (3.5-4.5) mEq/L Chloride 107 (98-109) mEq/L Carbon Dioxide 21 (19-29) mEq/L BUN 33 H (7-20) mg/dL Creatinine 1.47 H (0.57-1.11) mg/dL Est GFR ( Amer) 41 L (> 60) Est GFR (Non-Af Amer) 34 L (> 60) BUN/Creatinine Ratio 22 (6-26) Glucose 103 H (70-99) mg/dL Calculated Osmolality 288 (280-300) Calcium 8.8 (8.6-10.8) mg/dL Troponin I (0-0.03) ng/mL B-Natriuretic Peptide 146 H (0-100) pg/mL 01/11/17 Range/Units 23:05 WBC (4.3-11.1) K/mcL RBC (3.82-4.97) M/mcL Hgb (11.5-15.4) g/dL Hct (35.3-44.9) % MCV (83.0-100.0) fL MCH (28.0-33.3) pg MCHC (31.6-35.5) g/dL RDW (11.5-14.5) % Plt Count (140-400) K/mcL MPV (9.4-12.4) fL Immature Gran % (0-4) % Seg Neutrophils % % Lymphocytes % % Monocytes % % Eosinophils % % Basophils % % Neutrophils # (1.6-8.9) K/mcL Lymphocytes # (0.6-4.6) K/mcL Monocytes # (0.0-1.3) K/mcL Eosinophils # (0.0-0.6) K/mcL Basophils # (0.0-0.2) K/mcL Sodium (136-145) mEq/L Potassium (3.5-4.5) mEq/L Chloride (98-109) mEq/L Carbon Dioxide (19-29) mEq/L BUN (7-20) mg/dL Creatinine (0.57-1.11) mg/dL Est GFR ( Amer) (> 60) Est GFR (Non-Af Amer) (> 60) BUN/Creatinine Ratio (6-26) Glucose (70-99) mg/dL Calculated Osmolality (280-300) Calcium (8.6-10.8) mg/dL Troponin I 0.00 (0-0.03) ng/mL B-Natriuretic Peptide (0-100) pg/mL - Radiology Data Radiology results reviewed: Yes I reviewed the patient's radiology results. Chest X-Ray 01/11/17 22:51 IMPRESSION: Stable portable study. D/ / Kriss Perry Cha, MD / Kriss Perry Cha, MD Interpreting Provider: Kriss Perry Cha, MD - EKG Data EKG attestation: Yes I reviewed and interpreted this EKG. EKG results narrative: EKG demonstrates sinus rhythm with a rate of 76 bpm with a left bundle branch block. VT interval prolonged at 203, QRS duration prolonged at 144, QTC [address]-T wave changes consistent with bundle branch block. No ST elevations or depressions. No acute ischemic findings. No significant changes from previous EKG dated 12/18/16 Heart Score - Score History: Slightly Suspicious EKG: Non Specific repolarisation Disturbance Age: Greater than 65 Risk Factors: 1-2 risk factors Troponin: Less than normal limit HEART Score Total: 4 S.B.A.R. - S.B.A.R. Situation: Demographics, MOA Background: Presenting Complaint, Relevant PMH, Meds, & Allergies Assessment: Vital Signs, Course and respsone to treatment, Exam Concerns, Patient/Family Expectation, Pertinant Lab Results, Outstanding Labs Recommendation: Barrier(s) to disposition, Recommendation based on pending studies, treatments, or consults S.B.A.R. Report Given to: Dr. Kay S.B.ARalph Repor Time: 00:26 Attestation Statement - Attestation Attestation: IHarry MD, personally evaluated this patient and discussed their management with the resident physician. I reviewed the resident's note and agree with the documented findings, medical decision making, and plan of care. 86-year-old female presents to the emergency department by embolus with a complaint that she awoke from sleep tonight with severe mid chest pain radiating up into her neck and jaw bilaterally. Some mild shortness of breath associated with the chest pain. No diaphoresis. No nausea or vomiting. No palpitations. She denies any known history of heart problems previously. Patient was given nitroglycerin and baby aspirin with improvement in her chest discomfort. On examination patient is a well-developed well-nourished well-appearing elderly female in no acute distress. She is alert and oriented 3. There is no cyanosis or diaphoresis. Chest is nontender to palpation. Breath sounds are clear and equal bilaterally. Heart regular rate and rhythm. Abdomen soft and nontender with normal bowel sounds. Labs reviewed. Troponin normal. Chest x-ray negative. EKG unchanged from prior EKG. The hospitalist, Dr. Kay, was consulted and accepted admission of the patient.
[2017-01-11 23:11] LABS: Basophils % 0.8 %; Eosinophils # 0.3 K/mcL (0.0-0.6); Eosinophils % 6.6 %; Hematocrit 31.8 % (35.3-44.9); Hemoglobin 10.2 g/dL (11.5-15.4); Immature Granulocytes % 0.2 % (0-4); Lymphocytes # 2.5 K/mcL (0.6-4.6); Lymphocytes % 50.2 %; Mean Corpuscular HGB Conc 32.1 g/dL (31.6-35.5); Mean Corpuscular Hemoglobin 33.7 pg (28.0-33.3); Mean Platelet Volume 9.3 fL (9.4-12.4); Monocytes # 0.4 K/mcL (0.0-1.3); Monocytes % 8.6 %; Neutrophils # 1.6 K/mcL (1.6-8.9); Platelet Count 221 K/mcL (140-400); Red Blood Count 3.03 M/mcL (3.82-4.97); Red Cell Distribution Width 14.6 % (11.5-14.5); Segmented Neutrophils % 33.6 %
[2017-01-11 23:25] LABS: Calcium 8.8 mg/dL (8.6-10.8); Potassium 4.5 mEq/L (3.5-4.5)
[2017-01-12] MEDS ORDERED: Naloxone 0.4 MG/ML INJ IVP PRN (02:12)
[2017-01-12] MEDS ORDERED: Ondansetron 4 MG/2 ML VIAL IVP PRN (02:12)
--- NOTE | 2017-01-12 02:19 | Internal Med History&Physical ---
Date of Encounter: 01/12/17 Time of Encounter: 02:17 Assessment and Plan (1) Chest pain Current visit: Yes Status: Acute patient with no known prior CAD hx comes in with Chest pain with both typical and atypical features concerning for ACS, due to her longstanding HTN and advanced age it will be reasonable to r/o the possibility of ACS, her admission EKG was LBBB which is unchanged, her troponin level was unremarkable, we will cycle troponin Q6H x2 more, check A1c and Lipid profile for risk stratification and make NPO for stress test in AM, should the test be unremarkable she can be discharged home Qualifiers: Chest pain type: precordial pain Qualified Code(s): R07.2 - Precordial pain (2) Hypertension Current visit: Yes Status: Chronic her baseline control is unknown but she was hypertensive on presentation with her systolic in the 160's, we will continue her home regimen with BP monitoring Qualifiers: Hypertension type: essential hypertension Qualified Code(s): I10 - Essential (primary) hypertension (3) CKD (chronic kidney disease) stage 3, GFR 30-59 ml/min Current visit: Yes Status: Chronic stable and at baseline, we will minimize the use of nephrotoxins, renally dose al medications and follow BMP Internal Medicine - H&P: HPI Chief complaint: Chest pain Admitted From: Emergency Dept Plans for Post Hospital Care: Home History of present illness: Ms. Alston is a 86 year old female with no known hx of CAD comes in with chest pain. She reports that she was in her usual state of health at home last night and was reading a book when she suddenly had sharp/crushing epigastric pain that radiated through her retrosternal area to her bilateral jaws and her shoulders bilaterally. The pain was constant and had no aggravating factors though it was relieved with tramadol she had at home from a severity of 9/10 to 5/10. She reports associated dyspnea, lightheadedness, feeling of apprehension and nausea with no vomiting or diaphoresis. This is the first time she has had something like this, she is unsure if she has had a stress test before but has not had any stents placed. Past Med Surg Social Fam HX - Past Medical History Source: patient, old records reviewed Medical history: hypertension, renal disease (CKD stage 3), other (Vertigo and chronic pain syndrome) Psychiatric history: no psych history - Past Surgical History Surgical History: appendectomy, cholecystectomy, orthopedic, other, other ( Tonsillectomy, adenoidectomy, left shoulder surgery, right knee replacement, ankle surgery, 2 c-sections, right thumb surgery) - Social History Smoking Status: Former smoker (smoked briefly in her teens and quit) Smokeless Tobacco Status: No Alcohol use: none Drug use: none Current living situation: Home - Independent, With Family Activity Level: Independent ambulation Additional social history: her sons live with her - Family History Father Family Member Ethnicity: Non- Living Status: Mother Family Member Ethnicity: Non- Living Status: Hx Family Cardiac Disorders: Yes (Stroke) Sister Family Member Ethnicity: Non- Living Status: Still Living Hx Family GI Disorders: Yes (Gallbladder) Brother Family Member Ethnicity: Non- Living Status: Hx Family Neurologic Disorders: Yes - Additional Family History Additional family history: Father at the age of 90 and had no known medical problems, mother at the age of 94 years from a stroke, brother at the age of 77 years from meningitis, no known family hx of PA to her knowledge Internal Medicine - H&P: Meds Aspirin Enteric Coated [Aspirin EC] 162 mg PO DAILY 02/17/15 [History] TraMADol [Ultram] 50 mg PO TID 02/17/15 [History] Zolpidem [Ambien] 10 mg PO HS 02/17/15 [History] Carvedilol [Coreg] 3.125 mg PO BIDWM #30 tablet 12/20/16 [Rx] Lisinopril [Zestril] 20 mg PO DAILY #60 tablet 12/20/16 [Rx] Allergies Penicillins Allergy (Verified 12/18/16 14:57) Rash All Systems PM: A 10-system review of systems was performed and is negative for pertinent findings except as documented above in the HPI. - Constitutional Vitals: Temp Pulse Resp BP Pulse Ox 98.2 F 73 17 161/72 98 01/12/17 01:31 01/12/17 01:31 01/12/17 01:31 01/12/17 01:31 01/12/17 01:31 GENERAL: Elderly female, lying in bed in good spirits, Alert, not in acute distress, HEENT: NC/AT, EOMI, PERRLA, anicteric sclera, normal conjunctiva, supple, clear nares, moist mucous membranes, edentulous RESP: Lungs are clear to auscultation bilaterally, good AE bilaterally, No crackles or wheeze CARDIO: Normal hearts sounds; S1 and 2, RRR with no murmurs, no JVD, no ankle edema GI: Soft, full, no tenderness, no organomegaly felt, normal bowel sounds heard MUSCULOSKELETAL: grossly normal movements bilaterally, no deformities noted, no calf tenderness NEUROLOGIC: CN 2-12 intact grossly. No gross motor/sensory deficit appreciated, PSYCHIATRY: AAO x 3. Mood is fair, SKIN: a few patches of ecchymoses on the LUE, Seborrheic keratoses lesions on the back Internal Med - H&P Results - Labs CBC & Chem 7: 01/11/17 23:05 01/11/17 23:05 - EKG Data -: EKG Interpreted by Myself - Diagnostic Studies Chest x-ray Status: image reviewed by me
[2017-01-12] MEDS ORDERED: Ringers Solution, Lactated 1,000 ML IVC SCH (02:45)
[2017-01-12 04:47] LABS: Hemoglobin A1C 5.3 %
[2017-01-12 04:49] LABS: Chol/HDL Ratio 3.9 (0-4.9)
[2017-01-12 04:50] LABS: Calcium 8.7 mg/dL (8.6-10.8)
[2017-01-12] MEDS: *HR* Heparin 5,000 UNIT/ML VIAL SQ SCH ×2 (04:54→14:27)
[2017-01-12] MEDS ORDERED: Regadenoson 0.4 MG/5 ML SYRINGE IVP ONE (06:18)
[2017-01-12] MEDS ORDERED: Lisinopril 20 MG TABLET PO SCH (09:00)
[2017-01-12] MEDS ORDERED: Aspirin Enteric Coated 81 MG Tablet PO SCH (09:00)
--- NOTE | 2017-01-12 11:41 | Nuclear Medicine Stress Report ---
Regadenoson Nuclear Stress Name: Jennifer Alston Date of Study: 01/12/2017 Date: 1930 Ht: 63.0 in Medical Record#: [id number] Age: 86 Wt: 140.0 lb Gender: Female Order #: [id number] Location: [facility] Room: [facility] Supervising Provider: Radha Leblanc CNP Reading Physician: Amirah España DO Ordering Physician: Rasheeda Ferreira CNP Primary Care Physician: Amauri Carrillo DO Stress Technologist: Connor Bernardo CRT Senior Contracts Administrator: Jarek Dobson Indications: Chest Pain Impression: Perfusion imaging was negative for ischemia or infarct. Pharmacologic ECG was non diagnostic for ischemia due to LBBB. Patient had 3/10 chest pain prior to start of study which improved during the study and completely resolved by recovery Gated EF = 57%. History: Hypertension Hypercholesteremia Stress Test Summary: Stress Test Type: Pharmacologic Regadenoson 0.4mg/5ml given IV Baseline Information: Initial Heart Rate: 83 Blood Pressure: 168/84 Stress Information: Test Terminated Due to (primary): As per protocol Maximum Blood Pressure: 164/74 Maximum Heart Rate: 103 Percent Maximum Heart Rate Achieved: 76 Double Product: [id number] METS Reached: 1 Symptoms: Chest pain Nuclear Summary: SPECT myocardial perfusion imaging using Tc99m Sestamibi given intravenously was performed at rest and following cardiac stress testing. The resting images were obtained following initial dose of 10.5 mCi. Following stress an additional dose of 29.6 mCi was given at peak exercise or 30 seconds post regadenoson infusion. Medication Given: Time Medication Dose Units Route Findings: Stress Note * Resting ECG demonstrated normal sinus rhythm with LBBB. * Pharmacologic stress ECG is non diagnostic for ischemia due to baseline LBBB. * No arrhythmias were noted during stress. * Patient had 3/10 chest pain prior to start of study which improved during the study and completely resolved by recovery. Hemodynamic responses * Normal hemodynamic responses to pharmacologic stress. Study Quality * Study quality was fair. Gated EF % * Gated EF = 57%. Left Ventricle * The left ventricle is not dilated. TID * No evidence of transient ischemic dilatation. Lung Uptake * There is no evidence of increase lung uptake. NORMALS * Normal wall motion. PERFUSION * There is a mild to moderate intensity perfusion defect involving the mid to distal anteroseptum and apex that improves with stress. Findings represent artifact, probably secondary to LBBB. * Other segments demonstrate normal rest and stress perfusion. Updated by Amirah España on 01/12/2017 11:35:19 AM electronically signed on 01/12/2017 11:36:46 AM with status of Final
[2017-01-12] MEDS ORDERED: traMADol 50 MG TABLET PO PRN (13:44)
[2017-01-12 15:52] VITALS: BP 157/80
--- NOTE | 2017-01-12 16:27 | Discharge Summary ---
Date of Encounter: 01/12/17 Time of Encounter: 16:05 - Discharge Diagnosis (1) Chest pain Priority: Primary Status: Acute Comments: Pt reports that she had one episode of substernal chest pain that lasted approximately 1 hour, onset while lying in bed reading. She states that the pain was sharp and radiated to her wilfrid jaws and shoulders. She denies any aggravating factors and states that it got better with Tramadol. She states that she has had no chest pain here and that it had resolved prior to getting to the ED. She does say that sometimes she gets heartburn and states that she had eaten pork rinds prior to going to bed. Stress test negative, gated EF 57%. Pt had an echo in 02/2015 that showed LVEF 50 -55% with LV hypertrophy, mild LV diastolic dysfunction, atypical septal motion consistent with BBB, mild TR. EKG showed LBBB, Troponins were negative, chest xray was negative for acute processes. She states that she has never had anything like this in the past and has not had it since. Suspect GI in nature, will follow up with PCP. Qualifiers: Chest pain type: precordial pain Qualified Code(s): R07.2 - Precordial pain (2) Hypertension Priority: Secondary Status: Chronic Comments: Chronic. Continue home medications. Qualifiers: Hypertension type: essential hypertension Qualified Code(s): I10 - Essential (primary) hypertension (3) CKD (chronic kidney disease) stage 3, GFR 30-59 ml/min Priority: Secondary Status: Chronic Comments: Sr Cr 1.47 GFR 34. Avoid nephrotoxins and NSAIDS. (4) DVT prophylaxis Priority: Secondary Status: Acute Comments: SQ Heparin - Discharge Medications Home Medications: Aspirin Enteric Coated [Aspirin EC] 162 mg PO DAILY 02/17/15 [History] TraMADol [Ultram] 50 mg PO TID 02/17/15 [History] Zolpidem [Ambien] 10 mg PO HS PRN 02/17/15 [History] Carvedilol [Coreg] 3.125 mg PO BIDWM #30 tablet 12/20/16 [Rx] Lisinopril [Zestril] 20 mg PO DAILY #60 tablet 12/20/16 [Rx] Allergies/Adverse Reactions: Allergies Penicillins Allergy (Verified 01/12/17 06:43) Rash Procedures/tests Complete & Pending: Procedures Performed prior 72 hours Category Date Time Status NM belem perf SPECT multi [NM] Routine Exams 01/12/17 02:16 Taken SP pharm nuclear stress Routine Y 01/12/17 02:16 Completed Date of admission: 01/12/17 00:35 Primary care physician: PCP NONE Consults: 01/12/17 11:10 Consult to Building Service Worker [CONS] Routine Reason for SW Consult: Re-admission Discharging clinician: Rasheeda Ferreira Anticipated date of discharge: 01/12/17 - Patient Status Disposition: Home, Self-Care Condition: Good Functional capacity at discharge: independent ambulation Overall status at discharge: patient is back to baseline - Discharge Instructions Instructions: Chest Pain (DC), Urinary Tract Infection in Women (DC) Follow Up With: El Carrillo DO [Partnered Physician] - 01/23/17 9:15 am Additional Instructions: Follow up with your PCP in the next 7-10 days for a recheck. Return to the ER immediately if your symptoms return or worsen or for any other problems or concerns. Start your normal home medications again tomorrow. - Diet and Activity Activity: resume usual activities as tolerated Diet: advance to your usual diet, low fat, low cholesterol, low salt diet Hospital course: Ms. Alston is a 86 year old female with past medical history of stage III renal disease, anemia, and hypertension. Patient presented to the emergency department last night after approximately 1 hour long episode of sharp substernal chest pain with radiation to bilateral neck and jaw. Patient describes it as sharp and stabbing, with shortness of breath. Patient denies nausea or vomiting, no diaphoresis. Patient states that the chest pain had resolved prior to coming to the emergency department. She said that it was resolved with some tramadol that she had at home. It began while she was lying in bed reading a book. She has been pain-free since she has been year and denies ever having any symptoms like this in the past. Troponin was negative, patient had an echocardiogram in February, which showed LVEF of 5055% mild concentric LV hypertrophy, mild LVEDD, atypical septal motion consistent with left bundle branch block and mild TR. Stress test today showed perfusion imaging was negative for ischemia or infarct of the gated EF of 57%. Appears that she had 3/10 chest pain prior to the start of the study which improved and was completely gone by recovery. Patient's chest x -ray in the emergency department was negative for any acute processes. I suspect this pain could be GI in nature. She reports that she had eaten some pork grinds immediately prior to going to bed. She says at times she does have some heartburn intermittently. Patient's renal function is at baseline, serum creatinine is 1.47, GFR is 34. Her BNP is negative at 146. Patient's potassium this morning was 5.0, redraw shows that it is 4.1. Patient denies chest pain since prior to arrival in the emergency department last night. Her physical exam is unremarkable. Patient is extremely hard of hearing, but answers questions appropriately. Her vital signs are stable, her labs are within normal limits. Patient is appropriate and stable for discharge. - Time Spent with Patient Total time spent providing and/or coordinating discharge services: Less than 30 minutes - Constitutional Vitals: Temp Pulse Resp BP Pulse Ox 98.3 F 77 17 157/80 97 01/12/17 15:51 01/12/17 15:51 01/12/17 15:51 01/12/17 15:51 01/12/17 15:51 General appearance: Present: cooperative, A&O X 3, pleasant, no acute distress, answers questions appropriately - Head Head exam: Present: normal inspection - Eye Eye exam: Present: normal appearance, conjuntiva pink - ENT ENT exam: Present: mucous membranes moist, normal exam, normal external ear exam - Neck Neck exam general surgery: Present: normal inspection. Absent: lymphadenopathy , tenderness - Respiratory Respiratory exam: Present: decreased breath sounds, CTAB. Absent: rales, respiratory distress, rhonchi, stridor, wheezes - Cardiovascular Cardiovascular exam: Present: RRR, +S1, +S2. Absent: diastolic murmur, systolic murmur - GI/Abdominal GI/Abdominal exam: Present: soft. Absent: distended, hepatomegaly, tenderness - Extremities Exam Extremities exam: Present: warm, radial pulses palpable and symetrical. Absent : pedal edema, tenderness - Neurological Exam Neurological exam: Present: alert, oriented X3. Absent: facial droop, speech deficit - Skin Skin exam: Present: dry, intact, warm
--- NOTE | 2017-01-13 07:48 | Electrocardiograph Report ---
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
== END 2017-01-12 17:10 | disposition home or self-care (01) ==
LOC: EMEROO 22:48 → 3BNU 22:48
PROVIDERS: ADMIT Internal Medicine; ATTEND Registered Nurse

== ENCOUNTER 2017-06-20 13:46 | Inpatient (IN) ==
[2017-06-20 15:04] LABS: Basophils % 0.2 %; Eosinophils % 0.4 %; Hematocrit 23.4 % (35.3-44.9); Immature Granulocytes % 1.8 % (0-4); Lymphocytes # 0.6 K/mcL (0.6-4.6); Lymphocytes % 12.5 %; Mean Corpuscular HGB Conc 32.9 g/dL (31.6-35.5); Mean Corpuscular Volume 124.5 fL (83.0-100.0); Mean Platelet Volume 10.6 fL (9.4-12.4); Monocytes # 0.1 K/mcL (0.0-1.3); Monocytes % 1.8 %; Neutrophils # 4.2 K/mcL (1.6-8.9); Nucleated Red Blood Cells 0.6 /100 WBC (0); Platelet Count 168 K/mcL (140-400); Red Blood Count 1.88 M/mcL (3.82-4.97); Red Cell Distribution Width 16.8 % (11.5-14.5); Segmented Neutrophils % 83.3 %
[2017-06-20 15:06] LABS: Bilirubin,Urine Small (Negative); Blood,Urine Large (Negative); Clarity,Urine Turbid (Clear); Color,Urine Yellow (Yellow); Glucose,Urine (UA) Normal (Normal); Ketones,Urine Trace mg/dL (Negative); Leukocyte Esterase,Urine Large (Negative); Nitrite,Urine Negative (Negative); Protein,Urine 30 mg/dL (Neg-Trace); Specific Gravity,Urine 1.019 (1.010-1.025); Urobilinogen,Urine Normal (Normal)
[2017-06-20 15:09] LABS: Bacteria,Urine Many per hpf (None-Few); Hyaline Casts,Urine None Seen per lpf (None-Few); RBC,Urine 0-3 per hpf (0-3); Squamous Epithelial Cell,Urine Many per lpf (None-Few); WBC,Urine TNTC per hpf (0-3)
[2017-06-20 15:10] LABS: INR 1.2; Prothrombin Time 12.6 Seconds (9.4-12.1)
[2017-06-20 15:11] LABS: Hemoglobin 7.7 g/dL (11.5-15.4)
--- NOTE | 2017-06-20 15:11 | Emergency Department Note ---
Disposition Clinical Impression: Elevated troponin UTI (urinary tract infection) Qualifiers: Urinary tract infection type: site unspecified Hematuria presence: without hematuria Qualified Code(s): N39.0 - Urinary tract infection, site not specified Altered mental status Qualifiers: Altered mental status type: unspecified Qualified Code(s): R41.82 - Altered mental status, unspecified GI bleed Qualifiers: GI bleed type/associated pathology: unspecified gastrointestinal hemorrhage type Qualified Code(s): K92.2 - Gastrointestinal hemorrhage, unspecified Disposition: Transfer [facility] Condition: Fair Time of Disposition: 15:43 General Adult HPI - General Chief complaint: ED Abdominal Pain Stated complaint: "bm, high fever, upset stomach" Time Seen by Provider: 06/20/17 13:52 Source: patient Mode of arrival: EMS Limitations: no limitations Nursing Notes Reviewed: Yes Vital Signs Reviewed: Yes - History of Present Illness HPI Narrative: 86-year-old female who presents for evaluation via EMS. EMS report was given that the patient chief complaint was ill. Patient does not provide a complete history. Patient states that she has been scratching has been having problems with her bowel movements. Patient denies any fevers. Denies abdominal pain. No nausea or vomiting. EMS reports that the patient's house was not well Living alone. Notes that there was stool everywhere. Cats everywhere. There were space heaters as well. Patient had poor living hygiene. Pain Scale: 0 - Related Data Home Medications Medication Instructions Recorded Confirmed Aspirin Enteric Coated [Aspirin EC] 162 mg PO DAILY 02/17/15 06/20/17 TraMADol [Ultram] 50 mg PO BID 02/17/15 06/20/17 Zolpidem [Ambien] 10 mg PO HS PRN 02/17/15 06/20/17 Meclizine HCl [Verticalm] 25 mg PO DAILY PRN 06/20/17 06/20/17 Previous Rx's Medication Instructions Recorded Lisinopril [Zestril] 20 mg PO DAILY #60 tablet 12/20/16 Allergies Allergy/AdvReac Type Severity Reaction Status Date / Time Penicillins Allergy Rash Verified 01/12/17 06:43 All systems ED: reviewed and negative except as stated. Constitutional: Reports: as per HPI. Denies: fever Eyes: Reports: as per HPI ENT ED: Reports: as per HPI Cardiovascular: Reports: as per HPI. Denies: chest pain Respiratory: Reports: as per HPI. Denies: cough, dyspnea Gastrointestinal: Reports: as per HPI. Denies: nausea, vomiting Genitourinary: Reports: as per HPI Musculoskeletal: Reports: as per HPI Integumentary: Reports: as per HPI Neurological: Reports: as per HPI Psychiatric: Reports: as per HPI Endocrine: Reports: as per HPI Hematological/Lymphatic: Reports: as per HPI Past Medical History - Past Medical History Medical history: Reports: hypertension, renal disease, other Surgical history: Reports: appendectomy, cholecystectomy, orthopedic, other, other (Tonsillectomy, adenoidectomy, left shoulder surgery, right knee replacement, ankle surgery, 2 c-sections, right thumb surgery) Psychiatric history: Reports: no psych history - Social History Smoking Status: Former smoker Smokeless Tobacco Status: No Alcohol use: Reports: none Drug use: Reports: none Physical Exam - General Limitations: altered mental status General appearance: alert, other (Poor hygiene) - Head Head exam: atraumatic, normocephalic, normal inspection - Eye Eye exam: Present: normal appearance, EOMI - ENT ENT exam: normal exam, mucous membranes moist - Neck Neck exam: Present: normal inspection - Chest Chest inspection: Present: normal inspection, symmetric chest wall rise - Respiratory Respiratory exam: Present: normal lung sounds bilaterally. Absent: respiratory distress - Cardiovascular Cardiovascular exam: Present: regular rate - Abdominal Exam Abdominal exam: Present: soft, Non-Tender - Extremities Exam Extremities exam: Present: normal inspection. Absent: pedal edema - Back Exam Back exam: Present: normal inspection - Neurological Exam Neurological exam: Present: alert - Skin Skin exam: Present: warm, dry, intact, other (Diffuse excoriations throughout her trunk and lower extremities and upper extremities.) Course Course Narrative: Patient seen and examined. Patient's a poor historian. Social work has been involved and states that the patient has been in poor living conditions. Patient will report he reported to APS per social work recommendations. Patient will get basic lab work, urine including imaging EKG. - Reevaluation(s) Reevaluation #1: Patient was noted to be anemic. With an elevated troponin patient will be transfused 2 units of PRBCs. Pending stool guaiac. Time: 15:42 - Consultations Consultation #1: Spoke with cardiology regarding the elevated troponin and EKG. Time: 15:38 Vital Signs Temperature 98.9 F 06/20/17 13:57 Pulse Rate 101 06/20/17 13:57 Respiratory Rate 16 06/20/17 13:57 Blood Pressure 138/89 06/20/17 13:57 O2 Sat by Pulse Oximetry 100 06/20/17 13:57 Temperature 98.3 F 06/21/17 10:51 Pulse Rate 94 06/21/17 10:51 Respiratory Rate 18 06/21/17 10:51 Blood Pressure 146/67 06/21/17 10:51 O2 Sat by Pulse Oximetry 100 06/21/17 10:51 Oxygen Delivery Oxygen Delivery Room Air Medical Decision Making - MDM Narrative Medical decision making narrative: 86-year-old female with altered mental status and poor history presents for evaluation. History provided via EMS was limited. Patient was found in poor living conditions. Patient does not provide a very thorough accurate history. The patient appears not well kept. Patient had basic screening evaluation with EKG, troponin as well as labs. Patient was found to be anemic with heme- positive 0.7. In the setting of elevated troponin. Patient will be transfused. On stool guaiac the patient's stool did not appear grossly bloody. Patient was not given aspirin due to positive occult blood given the elevated troponin and negative CT head imaging. Patient will be admitted for GI bleed, elevated troponin, anemia, UTI. Patient would also benefit from social services manager input and discharge planning as the patient has had poor living conditions. - Lab Data Lab results reviewed: Yes I reviewed the patient's lab results. Result diagrams: 06/21/17 05:07 06/21/17 05:07 Lab Results 06/20/17 06/20/17 06/20/17 Range/Units 14:01 14:48 14:48 WBC 5.0 (4.3-11.1) K/mcL RBC 1.88 L (3.82-4.97) M/mcL Hgb 7.7 L (11.5-15.4) g/dL Hct 23.4 L (35.3-44.9) % MCV 124.5 H (83.0-100.0) fL MCH 41.0 H (28.0-33.3) pg MCHC 32.9 (31.6-35.5) g/dL RDW 16.8 H (11.5-14.5) % Plt Count 168 (140-400) K/mcL MPV 10.6 (9.4-12.4) fL Immature Gran % 1.8 (0-4) % Seg Neutrophils % 83.3 % Lymphocytes % 12.5 % Monocytes % 1.8 % Eosinophils % 0.4 % Basophils % 0.2 % Neutrophils # 4.2 (1.6-8.9) K/mcL Lymphocytes # 0.6 (0.6-4.6) K/mcL Monocytes # 0.1 (0.0-1.3) K/mcL Eosinophils # 0.0 (0.0-0.6) K/mcL Basophils # 0.0 (0.0-0.2) K/mcL Nucleated RBCs/100 WBC 0.6 H (0) /100 WBC Platelet Estimate Normal (Normal) Hypochromasia (Not Present) Anisocytosis 2+ A (Not Present) Macrocytosis Present A (Not Present) PT 12.6 H (9.4-12.1) Seconds INR 1.2 APTT 22.4 L (26.0-36.0) Seconds Sodium (136-145) mEq/L Potassium (3.5-5.1) mEq/L Chloride (98-107) mEq/L Carbon Dioxide (23-29) mEq/L BUN (8-23) mg/dL Creatinine (0.60-1.20) mg/dL Est GFR ( Amer) (> 60) Est GFR (Non-Af Amer) (> 60) BUN/Creatinine Ratio (6-26) Glucose (70-105) mg/dL Calculated Osmolality (280-300) Lactic Acid (0.5-2.2) mmol/L Calcium (8.6-10.3) mg/dL Magnesium (1.6-2.6) mg/dL Iron (50-170) mcg/dL % Saturation Transferrin (203-362) mg/dL Ferritin (10-120) ng/ml Total Bilirubin (0.3-1.0) mg/dL Direct Bilirubin (0.0-0.2) mg/dL Indirect Bilirubin (0.0-1.2) mg/dL AST (13-39) Units/L ALT (7-52) Units/L Alkaline Phosphatase (34-104) Units/L Troponin I (< 0.04) ng/mL Serum Total Protein (6.4-8.9) g/dL Albumin (3.5-5.7) g/dL Globulin (2.4-3.5) g/dL Albumin/Globulin Ratio (1.1-2.2) Lipase (11-82) Units/L Vitamin B12 (250-1100) pg/mL Folate (3.0-16.0) ng/mL Urine Color Yellow (Yellow) Urine Clarity Turbid A (Clear) Urine pH 5.0 (5.0-8.0) pH Units Ur Specific [place] 1.019 (1.010-1.025) Urine Protein 30 H (Neg-Trace) mg/dL Urine Glucose (UA) Normal (Normal) mg/dL Urine Ketones Trace H (Negative) mg/dL Urine Blood Large H (Negative) Urine Nitrite Negative (Negative) Urine Bilirubin Small H (Negative) Urine Urobilinogen Normal (Normal) mg/dL Ur Leukocyte Esterase Large H (Negative) Urine Microscopic RBC 0-3 (0-3) per hpf Urine Microscopic WBC TNTC H (0-3) per hpf Ur Squamous Epith Cells Many H (None-Few) per lpf Urine Bacteria Many H (None-Few) per hpf Hyaline Casts None Seen (None-Few) per lpf Ur Culture Indicated? NO. (NO) Stool Occult Blood (Negative) Blood Type Antibody Screen Crossmatch 06/20/17 06/20/17 06/20/17 Range/Units 14:48 14:48 14:48 WBC (4.3-11.1) K/mcL RBC (3.82-4.97) M/mcL Hgb (11.5-15.4) g/dL Hct (35.3-44.9) % MCV (83.0-100.0) fL MCH (28.0-33.3) pg MCHC (31.6-35.5) g/dL RDW (11.5-14.5) % Plt Count (140-400) K/mcL MPV (9.4-12.4) fL Immature Gran % (0-4) % Seg Neutrophils % % Lymphocytes % % Monocytes % % Eosinophils % % Basophils % % Neutrophils # (1.6-8.9) K/mcL Lymphocytes # (0.6-4.6) K/mcL Monocytes # (0.0-1.3) K/mcL Eosinophils # (0.0-0.6) K/mcL Basophils # (0.0-0.2) K/mcL Nucleated RBCs/100 WBC (0) /100 WBC Platelet Estimate (Normal) Hypochromasia (Not Present) Anisocytosis (Not Present) Macrocytosis (Not Present) PT (9.4-12.1) Seconds INR APTT (26.0-36.0) Seconds Sodium 133 L (136-145) mEq/L Potassium 4.1 (3.5-5.1) mEq/L Chloride 103 (98-107) mEq/L Carbon Dioxide 22 L (23-29) mEq/L BUN 26 H (8-23) mg/dL Creatinine 1.56 H (0.60-1.20) mg/dL Est GFR ( Amer) 38 L (> 60) Est GFR (Non-Af Amer) 32 L (> 60) BUN/Creatinine Ratio 17 (6-26) Glucose 111 H (70-105) mg/dL Calculated Osmolality 281 (280-300) Lactic Acid 1.4 (0.5-2.2) mmol/L Calcium 8.6 (8.6-10.3) mg/dL Magnesium (1.6-2.6) mg/dL Iron (50-170) mcg/dL % Saturation Transferrin (203-362) mg/dL Ferritin (10-120) ng/ml Total Bilirubin 1.1 H (0.3-1.0) mg/dL Direct Bilirubin 0.4 H (0.0-0.2) mg/dL Indirect Bilirubin 0.7 (0.0-1.2) mg/dL AST 21 (13-39) Units/L ALT 9 (7-52) Units/L Alkaline Phosphatase 70 (34-104) Units/L Troponin I 0.31 H* (< 0.04) ng/mL Serum Total Protein 6.0 L (6.4-8.9) g/dL Albumin 3.3 L (3.5-5.7) g/dL Globulin 2.7 (2.4-3.5) g/dL Albumin/Globulin Ratio 1.2 (1.1-2.2) Lipase 5 L (11-82) Units/L Vitamin B12 (250-1100) pg/mL Folate (3.0-16.0) ng/mL Urine Color (Yellow) Urine Clarity (Clear) Urine pH (5.0-8.0) pH Units Ur Specific [place] (1.010-1.025) Urine Protein (Neg-Trace) mg/dL Urine Glucose (UA) (Normal) mg/dL Urine Ketones (Negative) mg/dL Urine Blood (Negative) Urine Nitrite (Negative) Urine Bilirubin (Negative) Urine Urobilinogen (Normal) mg/dL Ur Leukocyte Esterase (Negative) Urine Microscopic RBC (0-3) per hpf Urine Microscopic WBC (0-3) per hpf Ur Squamous Epith Cells (None-Few) per lpf Urine Bacteria (None-Few) per hpf Hyaline Casts (None-Few) per lpf Ur Culture Indicated? (NO) Stool Occult Blood (Negative) Blood Type Antibody Screen Crossmatch 06/20/17 06/20/17 06/20/17 Range/Units 15:34 16:13 22:29 WBC (4.3-11.1) K/mcL RBC (3.82-4.97) M/mcL Hgb (11.5-15.4) g/dL Hct (35.3-44.9) % MCV (83.0-100.0) fL MCH (28.0-33.3) pg MCHC (31.6-35.5) g/dL RDW (11.5-14.5) % Plt Count (140-400) K/mcL MPV (9.4-12.4) fL Immature Gran % (0-4) % Seg Neutrophils % % Lymphocytes % % Monocytes % % Eosinophils % % Basophils % % Neutrophils # (1.6-8.9) K/mcL Lymphocytes # (0.6-4.6) K/mcL Monocytes # (0.0-1.3) K/mcL Eosinophils # (0.0-0.6) K/mcL Basophils # (0.0-0.2) K/mcL Nucleated RBCs/100 WBC (0) /100 WBC Platelet Estimate (Normal) Hypochromasia (Not Present) Anisocytosis (Not Present) Macrocytosis (Not Present) PT (9.4-12.1) Seconds INR APTT (26.0-36.0) Seconds Sodium (136-145) mEq/L Potassium (3.5-5.1) mEq/L Chloride (98-107) mEq/L Carbon Dioxide (23-29) mEq/L BUN (8-23) mg/dL Creatinine (0.60-1.20) mg/dL Est GFR ( Amer) (> 60) Est GFR (Non-Af Amer) (> 60) BUN/Creatinine Ratio (6-26) Glucose (70-105) mg/dL Calculated Osmolality (280-300) Lactic Acid (0.5-2.2) mmol/L Calcium (8.6-10.3) mg/dL Magnesium (1.6-2.6) mg/dL Iron (50-170) mcg/dL % Saturation Transferrin (203-362) mg/dL Ferritin (10-120) ng/ml Total Bilirubin (0.3-1.0) mg/dL Direct Bilirubin (0.0-0.2) mg/dL Indirect Bilirubin (0.0-1.2) mg/dL AST (13-39) Units/L ALT (7-52) Units/L Alkaline Phosphatase (34-104) Units/L Troponin I 0.32 H* (< 0.04) ng/mL Serum Total Protein (6.4-8.9) g/dL Albumin (3.5-5.7) g/dL Globulin (2.4-3.5) g/dL Albumin/Globulin Ratio (1.1-2.2) Lipase (11-82) Units/L Vitamin B12 (250-1100) pg/mL Folate (3.0-16.0) ng/mL Urine Color (Yellow) Urine Clarity (Clear) Urine pH (5.0-8.0) pH Units Ur Specific [place] (1.010-1.025) Urine Protein (Neg-Trace) mg/dL Urine Glucose (UA) (Normal) mg/dL Urine Ketones (Negative) mg/dL Urine Blood (Negative) Urine Nitrite (Negative) Urine Bilirubin (Negative) Urine Urobilinogen (Normal) mg/dL Ur Leukocyte Esterase (Negative) Urine Microscopic RBC (0-3) per hpf Urine Microscopic WBC (0-3) per hpf Ur Squamous Epith Cells (None-Few) per lpf Urine Bacteria (None-Few) per hpf Hyaline Casts (None-Few) per lpf Ur Culture Indicated? (NO) Stool Occult Blood Positive A (Negative) Blood Type O POSITIVE Antibody Screen NEGATIVE Crossmatch See Detail 06/21/17 06/21/17 06/21/17 Range/Units 05:07 05:07 05:07 WBC 4.8 (4.3-11.1) K/mcL RBC 1.81 L (3.82-4.97) M/mcL Hgb 7.5 L (11.5-15.4) g/dL Hct 22.8 L (35.3-44.9) % MCV 126.0 H (83.0-100.0) fL MCH 41.4 H (28.0-33.3) pg MCHC 32.9 (31.6-35.5) g/dL RDW 17.4 H (11.5-14.5) % Plt Count 122 L (140-400) K/mcL MPV 11.2 (9.4-12.4) fL Immature Gran % 1.5 (0-4) % Seg Neutrophils % 74.1 % Lymphocytes % 20.7 % Monocytes % 2.9 % Eosinophils % 0.6 % Basophils % 0.2 % Neutrophils # 3.6 (1.6-8.9) K/mcL Lymphocytes # 1.0 (0.6-4.6) K/mcL Monocytes # 0.1 (0.0-1.3) K/mcL Eosinophils # 0.0 (0.0-0.6) K/mcL Basophils # 0.0 (0.0-0.2) K/mcL Nucleated RBCs/100 WBC 0.4 H (0) /100 WBC Platelet Estimate Slight Decrease L (Normal) Hypochromasia Present A (Not Present) Anisocytosis (Not Present) Macrocytosis (Not Present) PT (9.4-12.1) Seconds INR APTT (26.0-36.0) Seconds Sodium 134 L (136-145) mEq/L Potassium 3.9 (3.5-5.1) mEq/L Chloride 104 (98-107) mEq/L Carbon Dioxide 19 L (23-29) mEq/L BUN 29 H (8-23) mg/dL Creatinine 1.58 H (0.60-1.20) mg/dL Est GFR ( Amer) 38 L (> 60) Est GFR (Non-Af Amer) 31 L (> 60) BUN/Creatinine Ratio 18 (6-26) Glucose 97 (70-105) mg/dL Calculated Osmolality 284 (280-300) Lactic Acid (0.5-2.2) mmol/L Calcium 8.7 (8.6-10.3) mg/dL Magnesium 1.8 (1.6-2.6) mg/dL Iron < 10 L (50-170) mcg/dL % Saturation TNP Transferrin 144 L (203-362) mg/dL Ferritin 176 H (10-120) ng/ml Total Bilirubin (0.3-1.0) mg/dL Direct Bilirubin (0.0-0.2) mg/dL Indirect Bilirubin (0.0-1.2) mg/dL AST (13-39) Units/L ALT (7-52) Units/L Alkaline Phosphatase (34-104) Units/L Troponin I 0.29 H* (< 0.04) ng/mL Serum Total Protein (6.4-8.9) g/dL Albumin (3.5-5.7) g/dL Globulin (2.4-3.5) g/dL Albumin/Globulin Ratio (1.1-2.2) Lipase (11-82) Units/L Vitamin B12 (250-1100) pg/mL Folate (3.0-16.0) ng/mL Urine Color (Yellow) Urine Clarity (Clear) Urine pH (5.0-8.0) pH Units Ur Specific [place] (1.010-1.025) Urine Protein (Neg-Trace) mg/dL Urine Glucose (UA) (Normal) mg/dL Urine Ketones (Negative) mg/dL Urine Blood (Negative) Urine Nitrite (Negative) Urine Bilirubin (Negative) Urine Urobilinogen (Normal) mg/dL Ur Leukocyte Esterase (Negative) Urine Microscopic RBC (0-3) per hpf Urine Microscopic WBC (0-3) per hpf Ur Squamous Epith Cells (None-Few) per lpf Urine Bacteria (None-Few) per hpf Hyaline Casts (None-Few) per lpf Ur Culture Indicated? (NO) Stool Occult Blood (Negative) Blood Type Antibody Screen Crossmatch 06/21/17 Range/Units 05:07 WBC (4.3-11.1) K/mcL RBC (3.82-4.97) M/mcL Hgb (11.5-15.4) g/dL Hct (35.3-44.9) % MCV (83.0-100.0) fL MCH (28.0-33.3) pg MCHC (31.6-35.5) g/dL RDW (11.5-14.5) % Plt Count (140-400) K/mcL MPV (9.4-12.4) fL Immature Gran % (0-4) % Seg Neutrophils % % Lymphocytes % % Monocytes % % Eosinophils % % Basophils % % Neutrophils # (1.6-8.9) K/mcL Lymphocytes # (0.6-4.6) K/mcL Monocytes # (0.0-1.3) K/mcL Eosinophils # (0.0-0.6) K/mcL Basophils # (0.0-0.2) K/mcL Nucleated RBCs/100 WBC (0) /100 WBC Platelet Estimate (Normal) Hypochromasia (Not Present) Anisocytosis (Not Present) Macrocytosis (Not Present) PT (9.4-12.1) Seconds INR APTT (26.0-36.0) Seconds Sodium (136-145) mEq/L Potassium (3.5-5.1) mEq/L Chloride (98-107) mEq/L Carbon Dioxide (23-29) mEq/L BUN (8-23) mg/dL Creatinine (0.60-1.20) mg/dL Est GFR ( Amer) (> 60) Est GFR (Non-Af Amer) (> 60) BUN/Creatinine Ratio (6-26) Glucose (70-105) mg/dL Calculated Osmolality (280-300) Lactic Acid (0.5-2.2) mmol/L Calcium (8.6-10.3) mg/dL Magnesium (1.6-2.6) mg/dL Iron (50-170) mcg/dL % Saturation Transferrin (203-362) mg/dL Ferritin (10-120) ng/ml Total Bilirubin (0.3-1.0) mg/dL Direct Bilirubin (0.0-0.2) mg/dL Indirect Bilirubin (0.0-1.2) mg/dL AST (13-39) Units/L ALT (7-52) Units/L Alkaline Phosphatase (34-104) Units/L Troponin I (< 0.04) ng/mL Serum Total Protein (6.4-8.9) g/dL Albumin (3.5-5.7) g/dL Globulin (2.4-3.5) g/dL Albumin/Globulin Ratio (1.1-2.2) Lipase (11-82) Units/L Vitamin B12 < 50 L (250-1100) pg/mL Folate > 44.6 H (3.0-16.0) ng/mL Urine Color (Yellow) Urine Clarity (Clear) Urine pH (5.0-8.0) pH Units Ur Specific [place] (1.010-1.025) Urine Protein (Neg-Trace) mg/dL Urine Glucose (UA) (Normal) mg/dL Urine Ketones (Negative) mg/dL Urine Blood (Negative) Urine Nitrite (Negative) Urine Bilirubin (Negative) Urine Urobilinogen (Normal) mg/dL Ur Leukocyte Esterase (Negative) Urine Microscopic RBC (0-3) per hpf Urine Microscopic WBC (0-3) per hpf Ur Squamous Epith Cells (None-Few) per lpf Urine Bacteria (None-Few) per hpf Hyaline Casts (None-Few) per lpf Ur Culture Indicated? (NO) Stool Occult Blood (Negative) Blood Type Antibody Screen Crossmatch - Radiology Data Radiology results reviewed: Yes I reviewed the patient's radiology results. Chest X-Ray 06/20/17 14:20 IMPRESSION: No acute cardiopulmonary disease. D/ / Ignacio Calderon MD / Ignacio Calderon MD Interpreting Provider: Ignacio Calderon MD - EKG Data EKG #1 EKG attestation: Yes I reviewed and interpreted this EKG. EKG shows normal: sinus rhythm Rate: normal Rhythm: NSR Mcwilliams/QRS: left axis deviation Q waves: v1, v2, v3 Interpretation: no acute changes, unchanged when compared to prior tracing (date ) Attestation Statement - Attestation Attestation: I examined this patient and my medical decision-making was reviewed with the Resident Physician. I agree with the documented findings, disposition and treatment plan as described except to the extent set forth below. 86 yo F BIB EMS for failure to thrive. EMS was initially called for "lady sick " when they arrived the place was covered in feces, cats and space heaters. EMS was concerned for CO poisoning but house tested negative by fire department. Pt is unable to give a full history regarding her case and presentation but is incontinent of loose stool in the ED. Pt has UTI on eval in the ED. Given Abx in ED and will be admitted. Pt also has elevated trop. Not given heparin or ASA secondary to anemia and positive blood in stool. Pt will be admitted for further care and eval.
[2017-06-20 15:13] LABS: Activated Partial Thrombo Time 22.4 Seconds (26.0-36.0)
[2017-06-20] MEDS ORDERED: cefTRIAXone 1,000 MG in Water for inj. (sterile) 20 ML 10 ML IVP ONE (15:17)
[2017-06-20 15:23] LABS: Albumin 3.3 g/dL (3.5-5.7); Albumin/Globulin Ratio 1.2 (1.1-2.2); Bilirubin,Direct 0.4 mg/dL (0.0-0.2); Bilirubin,Indirect 0.7 mg/dL (0.0-1.2); Bilirubin,Total 1.1 mg/dL (0.3-1.0); Calcium 8.6 mg/dL (8.6-10.3); Globulin 2.7 g/dL (2.4-3.5); Potassium 4.1 mEq/L (3.5-5.1)
[2017-06-20] MEDS ORDERED: 0.9 % Sodium Chloride 1,000 ML IVC ONE (15:27)
[2017-06-20 15:29] LABS: Anisocytosis 2+ (Not Present); Macrocytosis Present (Not Present); Platelet Estimate Normal (Normal)
[2017-06-20] MEDS ORDERED: Aspirin 81 MG TAB.CHEW PO ONE (16:41)
[2017-06-20] MEDS ORDERED: Naloxone 0.4 MG/ML INJ IVP PRN (20:56)
[2017-06-20] MEDS ORDERED: Ondansetron 4 MG/2 ML VIAL IVP PRN (20:56)
[2017-06-20] MEDS ORDERED: Acetaminophen 325 MG TABLET PO PRN (20:56)
[2017-06-20] MEDS ORDERED: 0.9 % Sodium Chloride 1,000 ML IVC SCH (21:00)
--- NOTE | 2017-06-20 21:41 | Internal Med History&Physical ---
Date of Encounter: 06/20/17 Time of Encounter: 20:00 Assessment and Plan (1) DVT prophylaxis Current visit: No Status: Acute EPCD, no AC b/o GI bleed. (2) UTI (urinary tract infection) Current visit: Yes Status: Acute Will place pt on rocephin iv daily. F/U urine culture. Qualifiers: Urinary tract infection type: site unspecified Hematuria presence: without hematuria Qualified Code(s): N39.0 - Urinary tract infection, site not specified (3) Hypertension Current visit: No Status: Chronic Cont home medication, f/u BP Qualifiers: Hypertension type: essential hypertension Qualified Code(s): I10 - Essential (primary) hypertension (4) Chest pain Current visit: No Status: Acute Pt c/o intermittent chest pain, atypical. No significant EKG changes. However, she has elevated troponin to 0.31. - Place pt on cardiac monitoring. - Track 3 set of troponin. - No anticoagulation b/o low H/H and positive FOBT. - Order an Echo - Cardiac consult in AM Qualifiers: Chest pain type: precordial pain Qualified Code(s): R07.2 - Precordial pain (5) Anemia Current visit: No Status: Acute Pt has anemia with Hgb 7.7. MCV 124. Will check anemia workup. Qualifiers: Anemia type: unspecified type Qualified Code(s): D64.9 - Anemia, unspecified (6) CKD (chronic kidney disease) stage 3, GFR 30-59 ml/min Current visit: No Status: Chronic Cr is stable at baseline (7) GI bleed Current visit: Yes Status: Acute Pt has decreased Hgb and positive FOBT. Need to r/o GI bleeding. No massive or aggressive bleed identified now. - Clear liquid diet. - Low rate IVF. - Closely monitor vitals and H/H - IV PPI - GI consult. Qualifiers: GI bleed type/associated pathology: unspecified gastrointestinal hemorrhage type Qualified Code(s): K92.2 - Gastrointestinal hemorrhage, unspecified Internal Medicine - H&P: HPI Chief complaint: chest pain Admitted From: Home Plans for Post Hospital Care: Home History of present illness: Ms. Alston is a 86 year old female with Hx of HTN present to ER for chest pain. Pt is a poor historian. Pt said pain started since this morning. Located on her mid chest. Intermittent. She feels the pain every time when she eats. Pt has mild SOB. No nausea or diaphoresis. When I saw pt, she is pain free, she is comfortable w/o any acute distress. In ER, she was found elevated troponin. Cardio was consulted. Pt was also found low Hgb and FOBT positive. She was ordered PRBC but pt refuse transfusion per RN. I, together with RN, discussed CODE status with pt, she clearly told me she doesn't want CPR or intubation, DNR/DNI placed. Past Med Surg Social Fam HX - Past Medical History Medical history: hypertension, renal disease, other Psychiatric history: no psych history - Past Surgical History Surgical History: appendectomy, cholecystectomy, orthopedic, other, other ( Tonsillectomy, adenoidectomy, left shoulder surgery, right knee replacement, ankle surgery, 2 c-sections, right thumb surgery) - Social History Smoking Status: Former smoker Smokeless Tobacco Status: No Alcohol use: none Drug use: none - Family History Father Family Member Ethnicity: Non- Living Status: Mother Family Member Ethnicity: Non- Living Status: Hx Family Cardiac Disorders: Yes (Stroke) Hx Family Neurologic Disorders: Yes (CEREBRAL VASCULAR ACCIDENT.) Sister Family Member Ethnicity: Non- Living Status: Still Living Hx Family GI Disorders: Yes (Gallbladder) Brother Family Member Ethnicity: Non- Living Status: Hx Family Neurologic Disorders: Yes Internal Medicine - H&P: Meds Aspirin Enteric Coated [Aspirin EC] 162 mg PO DAILY 02/17/15 [History] TraMADol [Ultram] 50 mg PO BID 02/17/15 [History] Zolpidem [Ambien] 10 mg PO HS PRN 02/17/15 [History] Lisinopril [Zestril] 20 mg PO DAILY #60 tablet 12/20/16 [Rx] Meclizine HCl [Verticalm] 25 mg PO DAILY PRN 06/20/17 [History] 3 Allergy/AdvReac Type Severity Reaction Status Date / Time Penicillins Allergy Rash Verified 01/12/17 06:43 All Systems PM: A 10-system review of systems was performed and is negative for pertinent findings except as documented above in the HPI. - Constitutional Vitals: Temp Pulse Resp BP Pulse Ox 99.6 F 99 17 126/71 96 06/20/17 20:26 06/20/17 20:26 06/20/17 20:26 06/20/17 20:26 06/20/17 20:26 General appearance: Present: A&O X 2, no acute distress, answers questions appropriately - Head Head exam: Present: atraumatic, normocephalic - Eye Eye exam: Present: PERRL, conjuntiva pink, sclera anicteric Pupils: Present: PERRL - Neck Neck exam general surgery: Present: supple, trachea midline. Absent: lymphadenopathy - Respiratory Respiratory exam: Present: CTAB. Absent: accessory muscle use, rales, rhonchi, wheezes - Cardiovascular Cardiovascular exam: Present: RRR, +S1, +S2. Absent: diastolic murmur, gallop, rubs, systolic murmur - GI/Abdominal GI/Abdominal exam: Present: normal bowel sounds, soft, no peritoneal signs. Absent: distended, tenderness - Extremities Exam Extremities exam: Present: warm, radial pulses palpable and symmetrical. Absent : calf tenderness, cyanotic, pedal edema - Neurological Exam Neurological exam: Present: CN II-XII intact, oriented X3, no focal deficits. Absent: pronater drift, facial droop, speech deficit - Skin Skin exam: Present: dry, intact Internal Med - H&P Results - Labs CBC & Chem 7: 06/20/17 14:48 06/20/17 14:48 - EKG Data -: EKG Interpreted by Myself EKG shows normal: sinus rhythm Rate: normal
[2017-06-20] MEDS: cefTRIAXone 1,000 MG in Water for inj. (sterile) 20 ML 10 ML IVP SCH (22:35)
[2017-06-20] MEDS: 0.9 % Sodium Chloride 1,000 ML IVC SCH (22:36)
[2017-06-21 05:39] LABS: Basophils % 0.2 %; Eosinophils % 0.6 %; Hematocrit 22.8 % (35.3-44.9); Hemoglobin 7.5 g/dL (11.5-15.4); Immature Granulocytes % 1.5 % (0-4); Lymphocytes % 20.7 %; Mean Corpuscular HGB Conc 32.9 g/dL (31.6-35.5); Mean Corpuscular Hemoglobin 41.4 pg (28.0-33.3); Mean Platelet Volume 11.2 fL (9.4-12.4); Monocytes # 0.1 K/mcL (0.0-1.3); Monocytes % 2.9 %; Neutrophils # 3.6 K/mcL (1.6-8.9); Nucleated Red Blood Cells 0.4 /100 WBC (0); Platelet Count 122 K/mcL (140-400); Red Blood Count 1.81 M/mcL (3.82-4.97); Red Cell Distribution Width 17.4 % (11.5-14.5); Segmented Neutrophils % 74.1 %
[2017-06-21] MEDS ORDERED: Pantoprazole 40 MG VIAL IVP SCH (06:00)
[2017-06-21 06:21] LABS: BUN/Creatinine Ratio 18 (6-26); Blood Urea Nitrogen 29 mg/dL (8-23); Calcium 8.7 mg/dL (8.6-10.3); Carbon Dioxide 19 mEq/L (23-29); Chloride 104 mEq/L (98-107); Ferritin 176 ng/ml (10-120); Glucose 97 mg/dL (70-105); Iron < 10 mcg/dL (50-170); Magnesium 1.8 mg/dL (1.6-2.6); Osmolality,Calculated 284 (280-300); Potassium 3.9 mEq/L (3.5-5.1); Sodium 134 mEq/L (136-145); Transferrin 144 mg/dL (203-362); eGFR For African Americans 38 (> 60); eGFR For Non-African Americans 31 (> 60)
[2017-06-21 06:40] LABS: Hypochromasia Present (Not Present); Platelet Estimate Slight Decrease (Normal)
[2017-06-21 07:07] LABS: Folate > 44.6 ng/mL (3.0-16.0); Vitamin B12 < 50 pg/mL (250-1100)
[2017-06-21] MEDS: Lisinopril 20 MG TABLET PO SCH (07:48)
--- NOTE | 2017-06-21 08:58 | Internal Med Progress Note ---
Date of Encounter: 06/21/17 Time of Encounter: 08:55 - Assessment and plan (1) UTI (urinary tract infection) Current Visit: Yes Status: Acute Assessment and plan: Urinalysis suggestive of UTI. Patient also has fever up to 102.2 degrees Fahrenheit. Continue IV Rocephin, follow up urine culture. Qualifiers: Urinary tract infection type: acute cystitis Hematuria presence: without hematuria Qualified Code(s): N30.00 - Acute cystitis without hematuria (2) Elevated troponin Current Visit: Yes Status: Acute Assessment and plan: Noted to have troponin leak, currently trending down at 0.29. Peak troponin 0.32. Flat and adynamic. Cardiology consulted. echocardiogram shows ejection fraction around 50%, no segmental wall motion abnormalities. Hold aspirin due to anemia and concern for GI bleed. Continue beta lewis and statin. Patient underwent nuclear stress test in January 2017 which was negative for ischemia or infarct. Continue telemetry monitoring. (3) Anemia Current Visit: Yes Status: Chronic Assessment and plan: Noted to have acute on chronic anemia, hemoglobin today 7.5. GI consulted, EGD shows severe atrophic gastritis. Iron profile shows low iron stores with serum iron at 10. Serum B12 noted to be low, serum folate above normal limits. Start parenteral Vitamin B12 and PO ferrous sulfate supplements; continue to monitor closely; Qualifiers: Anemia type: B12 deficiency Vitamin B12 deficiency anemia type: other B12 deficiency Qualified Code(s): D51.8 - Other vitamin B12 deficiency anemias (4) CKD (chronic kidney disease) stage 3, GFR 30-59 ml/min Current Visit: Yes Status: Chronic Assessment and plan: Serum creatinine noted to be stable around 1.5. Continue to monitor closely. (5) Hypertension Current Visit: Yes Status: Chronic Qualifiers: Hypertension type: essential hypertension Qualified Code(s): I10 - Essential (primary) hypertension (6) Chest pain Current Visit: Yes Status: Acute Assessment and plan: Continues to complain of intermittent chest and epigastric pain. Plan as above. Qualifiers: Chest pain type: precordial pain Qualified Code(s): R07.2 - Precordial pain (7) GI bleed Current Visit: Yes Status: Ruled-out Assessment and plan: EGD shows severe atrophic gastritis. No evidence of active bleeding. Case discussed with GI, no plan for colonoscopy at this time. No signs of overt bleeding. Qualifiers: GI bleed type/associated pathology: unspecified gastrointestinal hemorrhage type Qualified Code(s): K92.2 - Gastrointestinal hemorrhage, unspecified - Subjective Interval history: Slightly drowsy but able to answer appropriately, very hard of hearing. Reports diarrhea and epigastric and lower abdominal pain; noted to have fever spike this morning upto 102.2; per medical staffing coordinator, refused blood transfusion due to judaism reasons; also noted to have dark bowel movements, no diarrhea, nausea , vomiting; - Constitutional Vitals: Temp Pulse Resp BP Pulse Ox 102.2 F H 111 18 128/72 100 06/21/17 06:51 06/21/17 06:51 06/21/17 06:51 06/21/17 06:51 06/21/17 08:03 General appearance: Present: A&O X 2, answers questions appropriately - Respiratory Respiratory exam: Present: CTAB. Absent: accessory muscle use, rales, rhonchi, wheezes - Cardiovascular Cardiovascular exam: Present: RRR, +S1, +S2. Absent: diastolic murmur, gallop, rubs, systolic murmur - GI/Abdominal GI/Abdominal exam: Present: normal bowel sounds, soft (mild tenderness in epigastrium and lower abdomen), no peritoneal signs. Absent: distended, tenderness - Extremities Exam Extremities exam: Present: full ROM, warm, radial pulses palpable and symmetrical. Absent: calf tenderness, cyanotic, pedal edema - Neurological Exam Neurological exam: Present: CN II-XII intact, oriented X3, no focal deficits. Absent: pronater drift, facial droop, speech deficit Internal Medicine: Result - Labs CBC & Chem 7: 06/22/17 08:12 06/22/17 04:41 Labs: Short CBC 06/21/17 Range/Units 05:07 WBC 4.8 (4.3-11.1) K/mcL Hgb 7.5 L (11.5-15.4) g/dL Hct 22.8 L (35.3-44.9) % Plt Count 122 L (140-400) K/mcL Neutrophils # 3.6 (1.6-8.9) K/mcL BMP 06/21/17 05:07 Sodium 134 L Potassium 3.9 Chloride 104 Carbon Dioxide 19 L BUN 29 H Creatinine 1.58 H Glucose 97 Calcium 8.7 Cardiac Enzymes 06/20/17 06/21/17 Range/Units 22:29 05:07 Troponin I 0.32 H* 0.29 H* (< 0.04) ng/mL - ABG Interpretation ABG results: PT/INR, D-dimer PT 12.6 Seconds (9.4-12.1) H 06/20/17 14:48 - VTE Documentation of Mechanical Device: Intermittent pneumatic compression device Consult Discharge Plan - Plan Referrals: El Carrillo DO [Primary Care Provider] - (SNF placement)
[2017-06-21] MEDS ORDERED: Aspirin Enteric Coated 81 MG Tablet PO SCH (09:00)
[2017-06-21] MEDS ORDERED: traMADol 50 MG TABLET PO SCH (09:00)
--- NOTE | 2017-06-21 09:42 | Electrocardiograph Report ---
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
[2017-06-21] MEDS: 0.9 % Sodium Chloride 1,000 ML IVC SCH (10:55)
--- NOTE | 2017-06-21 10:55 | Cardiology Consult Note ---
<Blanca Sofia - Last Filed: 06/21/17 10:52> Date of Encounter: 06/21/17 Time of Encounter: 09:00 Assessment and Plan (1) GI bleed Current Visit: Yes Status: Acute Per cardiology: -Hemoglobin 7.5, baseline 9-10. -Stool positive for OB. -GI consulted. -Patient reports diarrhea. -Management per primary and GI services. Qualifiers: GI bleed type/associated pathology: unspecified gastrointestinal hemorrhage type Qualified Code(s): K92.2 - Gastrointestinal hemorrhage, unspecified (2) UTI (urinary tract infection) Current Visit: No Status: Acute Per cardiology: -UTI noted. -ON IV ATB. -Of note, reported altered mental status on admission. Currently alert and oriented x3. -Management per primary services. Qualifiers: Urinary tract infection type: acute cystitis Hematuria presence: without hematuria Qualified Code(s): N30.00 - Acute cystitis without hematuria (3) Elevated troponin Current Visit: Yes Status: Acute Per cardiology: -Troponin 0.31, 0.32, 0.29. Troponins flat and adynamic in the setting of anemia , GI bleed, UTI. -Denies chest pain. -ECG with no acute ischemic changes, known LBBB. -TTE this admission with LVEF 50%, no segmental wall motion abnormalities. -Previous TTE 02/2015 with LVEF 50-55%, no segmental wall motion abnormalities. -Nuclear stress 01/2017 negative for ischemia or infarct. -Not on asa, plavix, or anticoagulation due to acute GI bleed. -Of note, during previous admission 2014 for UTI, also had elevated troponin 0.72. -Do not suspect NSTEMI, suspect demand ischemia related to above. NO cardiac rehab warranted. -Started home beta lewis. Started statin. -Anticipate cardiology sign off. (4) CKD (chronic kidney disease) stage 3, GFR 30-59 ml/min Current Visit: No Status: Chronic Per cardiology: -Known CKD. -Creatinine 1.58. -Management per primary service. Discussion w patient/family: The assessment and plan as outlined above was discussed with the patient who expressed understanding and agreement. All questions were answered. Thank you for involving us in the care of your patient. Please call with any questions. Discussed and reviewed with . History of Present Illness Consult date: 06/20/17 Requesting physician: Laith Slater Consult reason: elevated troponin Chief complaint: diarrhea History of present illness: Ms. Alston is a 86 year old female with a relevant past medical history of HTN , CKD, syncope. Patient presented to [facility] with complaints of diarrhea. Per review of ER records, patient's living conditions are poor with multiple animals in the house and animal feces in the house. Cardiology has been consulted for elevated troponin. Patient denies chest pain. Denies shortness of breath or increased fatigue. Past Med Surg Social Fam HX - Past Medical History Attestation: Yes The following information was validated with the patient. Source: patient, old records reviewed Medical history: hypertension, renal disease, other Psychiatric history: no psych history - Past Surgical History Surgical History: appendectomy, cholecystectomy, orthopedic, other, other - Social History Smoking Status: Former smoker Smokeless Tobacco Status: No Alcohol use: none Drug use: none - Family History Father Family Member Ethnicity: Non- Living Status: Mother Family Member Ethnicity: Non- Living Status: Hx Family Cardiac Disorders: Yes (Stroke) Hx Family Neurologic Disorders: Yes (CEREBRAL VASCULAR ACCIDENT.) Sister Family Member Ethnicity: Non- Living Status: Still Living Hx Family GI Disorders: Yes (Gallbladder) Brother Family Member Ethnicity: Non- Living Status: Hx Family Neurologic Disorders: Yes Medications and Allergies Aspirin Enteric Coated [Aspirin EC] 162 mg PO DAILY 02/17/15 [History] TraMADol [Ultram] 50 mg PO BID 02/17/15 [History] Zolpidem [Ambien] 10 mg PO HS PRN 02/17/15 [History] Lisinopril [Zestril] 20 mg PO DAILY #60 tablet 12/20/16 [Rx] Meclizine HCl [Verticalm] 25 mg PO DAILY PRN 06/20/17 [History] 3 Allergy/AdvReac Type Severity Reaction Status Date / Time Penicillins Allergy Rash Verified 01/12/17 06:43 All Systems Review: A 10-system review of systems was performed and is negative for pertinent findings except as documented above in the HPI. - Cardiovascular Cardiovascular: as per HPI - Gastrointestinal Gastrointestinal: diarrhea Physical Examination Vital Signs, Last 4 Hours Temp 06/21/17 10:10 98.3 F Vital Signs Temperature 98.9 F 06/20/17 13:57 Pulse Rate 101 01/09/18 13:57 Respiratory Rate 16 06/20/17 13:57 Blood Pressure 138/89 06/20/17 13:57 O2 Sat by Pulse Oximetry 100 06/20/17 13:57 Temperature 98.3 F 06/21/17 10:51 Pulse Rate 94 06/21/17 10:51 Respiratory Rate 18 06/21/17 10:51 Blood Pressure 146/67 06/21/17 10:51 O2 Sat by Pulse Oximetry 100 06/21/17 10:51 Oxygen Delivery Oxygen Delivery Room Air General: Conversant, No Apparent Distress HEENT: Atraumatic, Normocephaly, Mucus Membranes Moist Neck: No JVD, Normal carotid pulses Cardiac: Reg Rate and Rhythm, Normal S1 and S2, No Murmur Lungs: Normal Breath Sounds, No Wheeze, Rales, Rhonchi Neuro: Alert and responsive, No focal deficits noted Abdomen: Soft, Non-Tender Skin: No rashes noted on visualized skin Musculoskeletal: No Chest Wall Tenderness Extremities: No Clubbing, No Cyanosis, No Edema, Normal Pulses Results 06/21/17 05:07 06/21/17 05:07 Impressions Chest X-Ray 06/20/17 14:20 IMPRESSION: No acute cardiopulmonary disease. D/ / Ignacio Calderon MD / Ignacio Calderon MD Interpreting Provider: Ignacio Calderon MD Head CT 06/20/17 14:21 IMPRESSION: No hemorrhage or mass. Atrophy with periventricular and scattered frontal parietal white matter disease, likely due small-vessel ischemic change, increased compared to 05/14/2013 D/ / Mark Muñoz MD / Mark Muñoz MD Interpreting Provider: Mark Muñoz MD Echocardiogram 06/20/17 21:02 Impressions: LVEF 50%. Suboptimal evaluation of LVEF due to tachycardia. Overall, LV function appeared low normal. Normal LV chamber size and wall thickness. Indeterminate diastolic function. Atypical septal motion consistent with bundle branch block. Normal right ventricular structure and function. No evidence of pulmonary hypertension. No significant valvular dysfunction. Left Ventricular Wall Motion: Rest Echo Findings All wall segments showed normal motion. Findings: Study Quality * Technically sub-optimal due to clinical status. ECG Findings * Sinus tachycardia, bundle branch block. Left Ventricle * LVEF 50%. Suboptimal evaluation of LVEF dueto tachycardia. Overall, LV function appeared low normal. * Normal LV chamber size and wall thickness. * Indeterminate diastolic function. * Atypical septal motion consistent with bundle branch block. Right Ventricle * Normal right ventricular structure and function. Left Atrium * Normal left atrial size. Right Atrium * Normal right atrial size. Aortic Valve * Aortic valve not well visualized. * Trace aortic regurgitation. * No aortic stenosis. Mitral Valve * Normal mitral valve structure and function. * No mitral regurgitation. * No mitral stenosis. Tricuspid Valve * Normal tricuspid valve structure and function. * Trace tricuspid regurgitation. * No evidence of pulmonary hypertension. Pulmonic Valve * Normal pulmonic valve structure and function. * No pulmonic regurgitation. Aorta * Normally sized aortic root. Pericardium * The pericardium appears normal. IVC * Normal IVC dimensions and inspiratory collapse. Pulmonary Artery * Normal visualized portions of the main pulmonary artery. Active Medications Acetaminophen (Tylenol) 650 mg PO Q6HR PRN PRN Reason: Mild Pain (1-3) Stop: 12/20/17 20:57 Last Admin: 06/21/17 07:47 Dose: 650 mg Aspirin (Aspirin Ec) 162 mg PO DAILY [facility] Stop: 12/21/17 09:01 Last Admin: 06/21/17 07:48 Dose: 162 mg Atorvastatin Calcium (Lipitor) 40 mg PO HS [facility] Stop: 12/21/17 21:01 Carvedilol (Coreg) 3.125 mg PO BIDWM [facility] PRN Reason: Protocol Stop: 12/21/17 17:01 Ceftriaxone Sodium 1,000 mg/ (Sterile Water) 10 mls @ 300 mls/hr IVP Q24H [facility] Stop: 12/20/17 22:01 Last Admin: 06/20/17 22:35 Dose: 300 mls/hr Sodium Chloride (0.9 % Sodium Chloride) 1,000 mls @ 30 mls/hr IVC .Q24H [facility] Stop: 06/22/17 21:52 Last Admin: 06/20/17 22:36 Dose: 30 mls/hr Sodium Chloride (0.9 % Sodium Chloride) 1,000 mls @ 50 mls/hr IVC .Q20H [facility] Stop: 12/21/17 11:01 Last Admin: 06/21/17 10:55 Dose: 50 mls/hr Lisinopril (Zestril) 20 mg PO DAILY [facility] PRN Reason: Protocol Stop: 12/21/17 09:01 Last Admin: 06/21/17 07:48 Dose: 20 mg Meclizine HCl (Antivert) 25 mg PO DAILY PRN PRN Reason: DIZZINESS Naloxone HCl (Narcan) 0.4 mg IVP Q2MIN PRN PRN Reason: Opioid Reversal Stop: 12/20/17 20:57 Ondansetron HCl (Zofran) 4 mg IVP Q8HR PRN PRN Reason: Nausea And Vomiting Stop: 12/20/17 20:57 Pantoprazole Sodium (Protonix) 40 mg IVP Q12HR [facility] Stop: 12/21/17 06:01 Last Admin: 06/21/17 05:31 Dose: 40 mg Tramadol HCl (Ultram) 50 mg PO BID PRN PRN Reason: Moderate Pain (4-6) Stop: 12/21/17 09:01 Zolpidem Tartrate (Ambien) 5 mg PO HS PRN; Protocol PRN Reason: Sleep Stop: 12/20/17 21:12 Laboratory Tests 12/20/16 01/11/17 01/12/17 05:29 23:05 03:59 Hgb 9.1 L 10.2 L Creatinine 1.47 H Troponin I 06/20/17 06/20/17 06/20/17 14:48 14:48 14:48 Hgb 7.7 L Creatinine 1.56 H Troponin I 0.31 H* 06/20/17 06/21/17 06/21/17 22:29 05:07 05:07 Hgb 7.5 L Creatinine Troponin I 0.32 H* 0.29 H* 06/21/17 05:07 Hgb Creatinine 1.58 H Troponin I - Imaging and Cardiology Chest Xray: report reviewed Stress Test: report reviewed Echo: report reviewed - EKG Interpretation EKG results cardiology: personally reviewed (ECG with Sinus tachycardia, LBBB, HR 108.), other (Telemetry reviewed with average HR previous 12 hours noted to be 99, sinus rhythm. PVCs and PACs noted.) Consult Discharge Plan - Plan Referrals: El Carrillo DO [Primary Care Provider] - (SNF placement) <[email or web address] - Last Filed: 06/21/17 16:28> Date of Encounter: 06/21/17 - Attending Attestation I have personally performed a face to face evaluation on this patient. I have reviewed and agree with the care plan. History and Exam by me shows: 86 YOF with adynamic troponins previously unremarkable NST 01/26 She denies any chest pain, possible sepsis from UTI ECHO with EF 50% No RWMA Continue medical management Assessment and Plan Discussion w patient/family: The assessment and plan as outlined above was discussed with the patient and/or family members who expressed understanding and agreement. All questions were answered. Thank you for involving us in the care of your patient. Please call with any questions. History of Present Illness History of present illness: Ms. Alston is a 86 year old female All Systems Review: A 10-system review of systems was performed and is negative for pertinent findings except as documented above in the HPI. Physical Examination Vital Signs, Last 4 Hours Pulse Resp BP Pulse Ox 06/21/17 14:00 16 105/59 100 06/21/17 13:30 117/62 100 06/21/17 13:00 70 115/50 100 06/21/17 12:45 87 16 117/53 100 06/21/17 12:30 122/58 100 Results 06/21/17 05:07 06/21/17 05:07
--- NOTE | 2017-06-21 11:20 | Anesthesia Evaluation PreOp ---
Date of Encounter: 06/21/17 Time of Encounter: 11:15 - Past History Planned Operation: EGD Cardiac History: HTN, Hyperlipidemia, Other (Anemia) Pulmonary History: Denies Any Significant HX EDI DEVELOPER History: Denies Any Significant HX Other Medical History: Renal (CKD) Anesthesia History: No Prior Anesthetic Complications : No Alcohol Use: none Drug use: none Medications and Allergies Aspirin Enteric Coated [Aspirin EC] 162 mg PO DAILY 02/17/15 [History] TraMADol [Ultram] 50 mg PO BID 02/17/15 [History] Zolpidem [Ambien] 10 mg PO HS PRN 02/17/15 [History] Lisinopril [Zestril] 20 mg PO DAILY #60 tablet 12/20/16 [Rx] Meclizine HCl [Verticalm] 25 mg PO DAILY PRN 06/20/17 [History] 3 Allergy/AdvReac Type Severity Reaction Status Date / Time Penicillins Allergy Rash Verified 01/12/17 06:43 - Meds/Allergy Pre-op Review Medications Reviewed: Yes Allergies Reviewed: Yes Beta Blockers on Current Med List: Yes (Coreg today) Anesthesia Results - Labs 06/21/17 05:07 06/21/17 05:07 - Imaging Additional studies: LVEF 50% Anesthesia Exam O2 Sat Height 1.63 m Weight 66.1 kg Weight 65.317 kg O2 Sat by Pulse Oximetry 100 O2 Sat by Pulse Oximetry 100 O2 Sat by Pulse Oximetry 100 O2 Sat by Pulse Oximetry 100 O2 Sat by Pulse Oximetry 96 O2 Sat by Pulse Oximetry 98 O2 Sat by Pulse Oximetry 100 Vital Signs Temp Pulse Resp BP Pulse Ox 98.9 F 101 16 138/89 100 06/20/17 13:57 06/20/17 13:57 06/20/17 13:57 06/20/17 13:57 06/20/17 13:57 Height: 5'4 Weight: 145 lbs NPO (# of Hours): MN Pain Scale: 0 - HEENT Pupil (Motor): Pupils equal, EOMI Mallampati: III Teeth: Edentulous Oral Opening: Less than or equal to 3 - EDI DEVELOPER LOC: Oriented EDI DEVELOPER Motor: Normal RUE, Normal LUE, Normal RLE, Normal LLE, Normal Face EDI DEVELOPER Sensory: Normal: RUE, LUE, RLE, LLE, Face - Cardiac Rhythm: Regular Murmur: None JVD: No Carotid Bruit: No - Pulmonary Breath Sounds: bilateral Clear Respiratory Effort: Symmetrical Anesthesia Assess/Plan ASA Score: 3 Modified Shanae Scale for Level of Consciousness: Cooperative, oriented, and tranquil Anesthetic Plan: MAC Monitoring Plan: Standard Monitors Recovery Plan: Other (Discussed MAC, agrees to proceed)
[2017-06-21] MEDS ORDERED: *HR* Propofol 200 MG/20 ML VIAL IVP ONE (11:25)
--- NOTE | 2017-06-21 11:31 | Gastroenterology Consult Note ---
<Juno Hayden - Last Filed: 06/21/17 11:29> Date of Encounter: 06/21/17 Time of Encounter: 10:15 - Assessment and plan (1) GI bleed Current Visit: Yes Status: Acute Assessment and plan: Pt with black stool for the past 2 weeks. Fecal occult blood test positive. Plan for EGD today to r/o esophagitis, gastritis, duodenitis, PUD, MW tear, or AVM. Keep NPO. Qualifiers: GI bleed type/associated pathology: unspecified gastrointestinal hemorrhage type Qualified Code(s): K92.2 - Gastrointestinal hemorrhage, unspecified (2) Anemia Current Visit: No Status: Chronic Assessment and plan: Hgb 7.7 on admission and 7.5 this AM. Continue to monitor CBC and transfuse PRBC as needed. Plan for EGD today, keep NPO. Qualifiers: Anemia type: due to chronic kidney disease Chronic kidney disease stage: stage 3 (moderate) Qualified Code(s): N18.3 - Chronic kidney disease, stage 3 (moderate); D63.1 - Anemia in chronic kidney disease (3) Elevated troponin Current Visit: Yes Status: Acute Assessment and plan: Cardiology has been consulted. - Time Spent With Patient Total time spent is greater than 50% in coordination of care (as documented) at patient's floor/unit and/or counseling patient: GI History of Present Illness - Data of Consult Patient: new to practice Consult date: 06/21/17 Requesting Physician: Lisa Montejo MD - Consult Narrative Reason for consult: 1015 History of present illness: Ms. Alston is a 86 year old female with PMHx of HTN, CKD who presented to the ED with intermittent chest pain and mild SOB that started the day of admission. Pain is worsened with eating. Troponin peaked at 0.32 and cardiology was consulted. We were consulted to evaluate her anemia. Hgb 7.7 on admission, and 7.5 this AM. Pt was ordered PRBC but refused transfusion. Fecal occult blood test was positive on admission. Pt reports black tarry stools for the past 2 weeks. Procedures: None NSAIDs: ASA Anticoagulation: None Past Med Surg Social Fam HX - Past Medical History Medical history: hypertension, renal disease, other Psychiatric history: no psych history - Past Surgical History Surgical History: appendectomy, cholecystectomy, orthopedic, other, other - Social History Smoking Status: Former smoker Smokeless Tobacco Status: No Alcohol use: none Drug use: none - Family History Father Family Member Ethnicity: Non- Living Status: Mother Family Member Ethnicity: Non- Living Status: Hx Family Cardiac Disorders: Yes (Stroke) Hx Family Neurologic Disorders: Yes (CEREBRAL VASCULAR ACCIDENT.) Sister Family Member Ethnicity: Non- Living Status: Still Living Hx Family GI Disorders: Yes (Gallbladder) Brother Family Member Ethnicity: Non- Living Status: Hx Family Neurologic Disorders: Yes - Gastrointestinal Gastrointestinal: Present: as per HPI - Constitutional Constitutional: as per HPI - EENT Eyes: as per HPI Ears: Present: as per HPI Nose, mouth and throat: Present: as per HPI - Cardiovascular Cardiovascular ROS: Present: as per HPI - Respiratory Respiratory IM: Present: as per HPI - Genitourinary Genitourinary: Absent: change in color, Urinary frequency - Neurological ROS Neurological GI: Present: as per HPI - Hematologic/Lymphatic Hematologic/Lymphatic pediatric: Present: as per HPI - Musculoskeletal Musculoskeletal ROS GI: Present: as per HPI - Integumentary Integumentary GI: Present: as per HPI - Psychiatric ROS Psychiatric GI: Present: as per HPI - Endocrine Endocrine IM: Present: as per HPI - Constitutional Vitals: Temp Pulse Resp BP Pulse Ox 98.3 F 94 18 146/67 100 06/21/17 10:51 06/21/17 10:51 06/21/17 10:51 06/21/17 10:51 06/21/17 10:51 General appearance: Present: cooperative, A&O X 3, no acute distress, answers questions appropriately - Head Head exam: Present: atraumatic, normocephalic - Eye Eye exam: Present: normal appearance, sclera anicteric - ENT ENT exam: Present: mucous membranes dry - Neck Neck exam general surgery: Present: normal inspection, trachea midline - Respiratory Respiratory exam: Present: CTAB. Absent: rales, rhonchi - Cardiovascular Cardiovascular exam: Present: RRR, +S1, +S2 - GI/Abdominal GI/Abdominal exam: Present: soft, no peritoneal signs. Absent: distended, firm , guarding, tenderness - Rectal Rectal exam: Present: deferred - Extremities Exam Extremities exam: Present: warm - Neurological Exam Neurological exam: Present: no focal deficits - Psychiatric Psychiatric exam: Present: normal affect, normal mood - Skin Skin exam: Present: dry, intact, normal color, warm Results - Labs CBC & Chem 7: 06/21/17 05:07 06/21/17 05:07 Labs: Last Result Calcium 8.7 mg/dL (8.6-10.3) 06/21/17 05:07 Iron < 10 mcg/dL (50-170) L 06/21/17 05:07 % Saturation TNP 06/21/17 05:07 Transferrin 144 mg/dL (203-362) L 06/21/17 05:07 Ferritin 176 ng/ml (10-120) H 06/21/17 05:07 Troponin I 0.29 ng/mL (< 0.04) H* 06/21/17 05:07 Vitamin B12 < 50 pg/mL (250-1100) L 06/21/17 05:07 Folate > 44.6 ng/mL (3.0-16.0) H 06/21/17 05:07 Stool Occult Blood Positive (Negative) A 06/20/17 15:34 Entire Visit Hgb 7.5 g/dL (11.5-15.4) L 06/21/17 05:07 Hct 22.8 % (35.3-44.9) L 06/21/17 05:07 PT 12.6 Seconds (9.4-12.1) H 06/20/17 14:48 Ferritin 176 ng/ml (10-120) H 06/21/17 05:07 Total Bilirubin 1.1 mg/dL (0.3-1.0) H 06/20/17 14:48 AST 21 Units/L (13-39) 06/20/17 14:48 ALT 9 Units/L (7-52) 06/20/17 14:48 Lipase 5 Units/L (11-82) L 06/20/17 14:48 Folate > 44.6 ng/mL (3.0-16.0) H 06/21/17 05:07 - ABG ABG results: PT/INR, D-dimer PT 12.6 Seconds (9.4-12.1) H 06/20/17 14:48 Consult Discharge Plan - Plan Referrals: El Carrillo DO [Primary Care Provider] - (SNF placement) <Beka Davis - Last Filed: 06/21/17 11:55> Date of Encounter: 06/21/17 Time of Encounter: 11:30 - Time Spent With Patient Total time spent is greater than 50% in coordination of care (as documented) at patient's floor/unit and/or counseling patient: GI History of Present Illness - Data of Consult Requesting Physician: Lisa Montejo MD - Consult Narrative History of present illness: Ms. Alston is a 86 year old female - Constitutional Vitals: Temp Pulse Resp BP Pulse Ox 98.3 F 94 18 146/67 100 06/21/17 10:51 06/21/17 10:51 06/21/17 10:51 06/21/17 10:51 06/21/17 10:51 Results - Labs CBC & Chem 7: 06/21/17 05:07 06/21/17 05:07 Labs: Last Result Calcium 8.7 mg/dL (8.6-10.3) 06/21/17 05:07 Iron < 10 mcg/dL (50-170) L 06/21/17 05:07 % Saturation TNP 06/21/17 05:07 Transferrin 144 mg/dL (203-362) L 06/21/17 05:07 Ferritin 176 ng/ml (10-120) H 06/21/17 05:07 Troponin I 0.29 ng/mL (< 0.04) H* 06/21/17 05:07 Vitamin B12 < 50 pg/mL (250-1100) L 06/21/17 05:07 Folate > 44.6 ng/mL (3.0-16.0) H 06/21/17 05:07 Stool Occult Blood Positive (Negative) A 06/20/17 15:34 Entire Visit Hgb 7.5 g/dL (11.5-15.4) L 06/21/17 05:07 Hct 22.8 % (35.3-44.9) L 06/21/17 05:07 PT 12.6 Seconds (9.4-12.1) H 06/20/17 14:48 Ferritin 176 ng/ml (10-120) H 06/21/17 05:07 Total Bilirubin 1.1 mg/dL (0.3-1.0) H 06/20/17 14:48 AST 21 Units/L (13-39) 06/20/17 14:48 ALT 9 Units/L (7-52) 06/20/17 14:48 Lipase 5 Units/L (11-82) L 06/20/17 14:48 Folate > 44.6 ng/mL (3.0-16.0) H 06/21/17 05:07 - ABG ABG results: PT/INR, D-dimer PT 12.6 Seconds (9.4-12.1) H 06/20/17 14:48 - Attending Attestation I examined this patient and my medical decision-making was reviewed with the Resident Physician. I agree with the documented findings, disposition and treatment plan as described except to the extent set forth below. Patient with severe B12 deficiency due to most probably pernicious anemia as her EGD shortness atrophic gastric mucosa. Rec: B 12 IM: 1,000 mcg once daily or every other day for 1 week, then 1,000 mcg weekly for 4 to 8 weeks, then 1,000 mcg once monthly for life. Consider hematology input
--- NOTE | 2017-06-21 11:41 | Anesthesia Evaluation Post Op ---
Date of Encounter: 06/21/17 Time of Encounter: 11:40 - Vital Signs Vital Signs: Vital Signs/O2 Sat, Most Current Temp Pulse Resp BP Pulse Ox 98.3 F 94 18 146/67 100 06/21/17 10:51 06/21/17 10:51 06/21/17 10:51 06/21/17 10:51 06/21/17 10:51 - Lungs Lungs: Clear Ascult./Percussion - Airway Airway: Non-obstructed - Cardiovascular Regular Rate - Mental Status Mental Status: Alert & Oriented, Answers Appropriately - Nausea Vomiting Nausea Vomiting: Not Present - Hydration Hydration: NPO, Has not voided - Discharge PostOp Status: Transfer Patient to floor (awake, VSS, no anesthetic complications)
[2017-06-21] MEDS: Cyanocobalamin (B-12) 1,000 MCG/ML VIAL SQ SCH (17:01)
[2017-06-21] MEDS: cefTRIAXone 1,000 MG in Water for inj. (sterile) 20 ML 10 ML IVP SCH (22:28)
[2017-06-22] MEDS: 0.9 % Sodium Chloride 1,000 ML IVC SCH ×3 (03:49→21:40)
[2017-06-22] MEDS: Acetaminophen 325 MG TABLET PO PRN ×2 (04:08→16:15)
[2017-06-22 05:35] LABS: Eosinophils % 1.9 %; Hematocrit 17.5 % (35.3-44.9); Red Cell Distribution Width 17.2 % (11.5-14.5)
[2017-06-22 05:36] LABS: Eosinophils # 0.1 K/mcL (0.0-0.6); Immature Granulocytes % 1.2 % (0-4); Lymphocytes % 22.2 %; Mean Corpuscular HGB Conc 32.6 g/dL (31.6-35.5); Mean Corpuscular Hemoglobin 40.7 pg (28.0-33.3); Mean Platelet Volume 11.2 fL (9.4-12.4); Monocytes # 0.2 K/mcL (0.0-1.3); Monocytes % 5.6 %; Nucleated Red Blood Cells 0.7 /100 WBC (0); Platelet Count 114 K/mcL (140-400); Segmented Neutrophils % 69.1 %
[2017-06-22 05:42] LABS: Calcium 7.7 mg/dL (8.6-10.3); Potassium 3.8 mEq/L (3.5-5.1)
[2017-06-22 05:52] LABS: Hemoglobin 5.7 g/dL (11.5-15.4)
[2017-06-22 06:24] LABS: Macrocytosis Present (Not Present)
[2017-06-22 06:25] LABS: Anisocytosis 1+ (Not Present); Platelet Estimate Slight Decrease (Normal)
[2017-06-22] MEDS: Cyanocobalamin (B-12) 1,000 MCG/ML VIAL SQ SCH (07:35)
[2017-06-22 08:21] LABS: Basophils % 0.2 %; Eosinophils # 0.2 K/mcL (0.0-0.6); Hematocrit 18.5 % (35.3-44.9); Hemoglobin 6.2 g/dL (11.5-15.4); Immature Granulocytes % 1.6 % (0-4); Lymphocytes # 1.8 K/mcL (0.6-4.6); Lymphocytes % 32.4 %; Mean Corpuscular HGB Conc 33.5 g/dL (31.6-35.5); Mean Corpuscular Hemoglobin 41.6 pg (28.0-33.3); Mean Corpuscular Volume 124.2 fL (83.0-100.0); Mean Platelet Volume 11.6 fL (9.4-12.4); Monocytes # 0.3 K/mcL (0.0-1.3); Neutrophils # 3.1 K/mcL (1.6-8.9); Nucleated Red Blood Cells 0.7 /100 WBC (0); Red Blood Count 1.49 M/mcL (3.82-4.97); Red Cell Distribution Width 17.5 % (11.5-14.5); Segmented Neutrophils % 55.8 %
[2017-06-22 08:22] LABS: Platelet Count 92 K/mcL (140-400)
[2017-06-22 08:40] LABS: Anisocytosis 1+ (Not Present); Macrocytosis Present (Not Present); Platelet Estimate Decreased (Normal)
[2017-06-22] MEDS: Lisinopril 20 MG TABLET PO SCH (08:42)
--- NOTE | 2017-06-22 08:47 | Event Note ---
Date of Encounter: 06/22/17 Time of Encounter: 08:44 - Cardiology Event Note Elevated troponin in the setting of anemia, GI bleed, UTI. Patient denies chest pain. TTE with LVEF 50% (unchanged from previous) and no segmental wall motion abnormalities. Cardiology will sign off and will follow in outpatient setting. Follow up set.
[2017-06-22] MEDS ORDERED: 0.9 % Sodium Chloride 1,000 ML IVC SCH (08:58)
--- NOTE | 2017-06-22 09:28 | Internal Med Progress Note ---
Date of Encounter: 06/22/17 Time of Encounter: 09:26 - Assessment and plan (1) UTI (urinary tract infection) Current Visit: Yes Status: Acute Assessment and plan: Urinalysis suggestive of UTI. Patient also has fever up to 102.2 degrees Fahrenheit. Continue IV Rocephin, urine culture grows Klebsiella pneumoniae, sensitive to cephalosporins. Qualifiers: Urinary tract infection type: acute cystitis Hematuria presence: without hematuria Qualified Code(s): N30.00 - Acute cystitis without hematuria (2) Elevated troponin Current Visit: Yes Status: Acute Assessment and plan: Noted to have troponin leak, Peak troponin 0.32. Flat and adynamic. Cardiology consulted, troponin elevation likely related to anemia and UTI. Hold aspirin due to anemia and concern for GI bleed. Continue beta lewis and statin. Patient underwent nuclear stress test in January 2017 which was negative for ischemia or infarct. Continue telemetry monitoring. Superintendent Renting Managing signed off at this time. Patient reported chest pain today; EKG showed no acute ischemic changes- NSR, LBBB- old changes. 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 Patient is Jain, continues to refuse blood products infusion. GI consulted, EGD shows severe atrophic gastritis. Plan to defer colonoscopy for now. Iron profile shows low iron stores with serum iron at 10. Serum B12 noted to be low, serum folate above normal limits. Start parenteral Vitamin B12 due to malabsorption, and PO ferrous sulfate supplements; will also received IV iron supplements. Will consult Hematology for further recommendations. continue to monitor closely for ongoing drop in Hb; food services manager on board. Physical and occupational therapy evaluation cannot be completed due to severe anemia. Qualifiers: Anemia type: B12 deficiency Vitamin B12 deficiency anemia type: other B12 deficiency Qualified Code(s): D51.8 - Other vitamin B12 deficiency anemias (4) CKD (chronic kidney disease) stage 3, GFR 30-59 ml/min Current Visit: Yes Status: Chronic (5) Hypertension Current Visit: Yes Status: Chronic Qualifiers: Hypertension type: essential hypertension Qualified Code(s): I10 - Essential (primary) hypertension (6) Chest pain Current Visit: Yes Status: Acute Qualifiers: Chest pain type: precordial pain Qualified Code(s): R07.2 - Precordial pain (7) GI bleed Current Visit: Yes Status: Ruled-out Qualifiers: GI bleed type/associated pathology: unspecified gastrointestinal hemorrhage type Qualified Code(s): K92.2 - Gastrointestinal hemorrhage, unspecified - Subjective Interval history: Denies new complaints; no nausea, vomiting but does have some vague upper abdominal pain and poor appetite; improved fever; no chest pain, shortness of breath, fatigue; - Constitutional Vitals: Temp Pulse Resp BP Pulse Ox 98.3 F 84 22 102/54 95 06/22/17 07:16 06/22/17 07:16 06/22/17 07:16 06/22/17 07:45 06/22/17 07:50 General appearance: Present: A&O X 2, answers questions appropriately - Respiratory Respiratory exam: Present: CTAB. Absent: accessory muscle use, rales, rhonchi, wheezes - Cardiovascular Cardiovascular exam: Present: RRR, +S1, +S2. Absent: diastolic murmur, gallop, rubs, systolic murmur - GI/Abdominal GI/Abdominal exam: Present: normal bowel sounds, soft, no peritoneal signs. Absent: distended, tenderness - Extremities Exam Extremities exam: Present: full ROM, pedal edema, warm, radial pulses palpable and symmetrical. Absent: calf tenderness, cyanotic Internal Medicine: Result - Labs CBC & Chem 7: 06/24/17 12:00 06/24/17 12:00 Labs: Short CBC 06/22/17 06/22/17 Range/Units 04:41 08:12 WBC 4.3 5.5 (4.3-11.1) K/mcL Hgb 5.7 L* D 6.2 L (11.5-15.4) g/dL Hct 17.5 L 18.5 L (35.3-44.9) % Plt Count 114 L 92 L (140-400) K/mcL Neutrophils # 3.0 3.1 (1.6-8.9) K/mcL BMP 06/22/17 04:41 Sodium 131 L Potassium 3.8 Chloride 104 Carbon Dioxide 19 L BUN 35 H Creatinine 1.95 H Glucose 94 Calcium 7.7 L - ABG Interpretation ABG results: PT/INR, D-dimer PT 12.6 Seconds (9.4-12.1) H 06/20/17 14:48 - VTE Documentation of Mechanical Device: Intermittent pneumatic compression device Consult Discharge Plan - Plan Referrals: El Carrillo DO [Primary Care Provider] - (SNF placement)
--- NOTE | 2017-06-22 10:20 | Oncology Inp Consult Note ---
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 Patient declines blood products for islam preference. Agree with plan for Iron/B12 replacement. She is already planned to receive Iron Dextran ordered per hospitalist team. Will also order Aranesp 25 mcg dose x1 in the setting of anemia/CKD, as this patient will not be receiving blood products, which will help her hgb to nicely recover. This may be continued by hem/onc as outpatient. Patient states she does not follow with a can closing machine tender. Will arrange for hem/onc follow up. While in room, patient began to experience chest pressure and left sided jaw pain. Nurse in room to assess patient and followed up with hospitalist for management. Patient is not a candidate for anticoagulation due to picture of acute GI bleed and anemia/thrombocytopenia. Cardiology consulted previously and suspect demand ischemia secondary to anemia with recommendation for supportive care and resumed beta lewis/started statin. Qualifiers: Anemia type: due to chronic kidney disease Chronic kidney disease stage: stage 3 (moderate) Qualified Code(s): N18.3 - Chronic kidney disease, stage 3 (moderate); D63.1 - Anemia in chronic kidney disease - Data of Consult Requesting Physician: Lisa Montejo MD Primary Care Provider: El Carrillo, - Consult Narrative History of present illness: Ms. Alston is a 86 year old female with history of CKD and HTN, presented to the ER by EMS on 06/20/2017 with complaints of chest pain, generalized malaise, multiple BMs over the past few days and vertigo. Lab work reveals current hgb 6.2, hct 18.5%, MCV 124, MCH 41, iron <10, B12 <50, folate normal, BUN 35, Creatinine 1.95, GFR 24. Stool occult positive although patient has had no active GI bleeding since admission. Patient admitted with suspected GI bleed, anemia, chest pain, UTI and CKD. Cardiology consulted, suspected chest pain in the setting of demand ischemia, patient not a candidate for anticoagulation due to blood counts with suspected GI bleed. GI consulted, EGD performed and revealed gastric atrophy, biopsied and currently awaiting path report. Patient lives in [place] at home with her two sons. She reports that she typically ambulates well with her walker. Her sons help her with house work and transportation. The history and ROS were gathered to the best of my ability, patient is severely [place] making communication difficult. Past Med Surg Social Fam HX - Past Medical History Medical history: hypertension, renal disease, other Psychiatric history: no psych history - Past Surgical History Surgical History: appendectomy, cholecystectomy, orthopedic, other, other ( Tonsillectomy, adenoidectomy, left shoulder surgery, right knee replacement, ankle surgery, 2 c-sections, right thumb surgery) - Social History Smoking Status: Former smoker Smokeless Tobacco Status: No Alcohol use: none Drug use: none - Family History Father Family Member Ethnicity: Non- Living Status: Mother Family Member Ethnicity: Non- Living Status: Hx Family Cardiac Disorders: Yes (Stroke) Hx Family Neurologic Disorders: Yes (CEREBRAL VASCULAR ACCIDENT.) Sister Family Member Ethnicity: Non- Living Status: Still Living Hx Family GI Disorders: Yes (Gallbladder) Brother Family Member Ethnicity: Non- Living Status: Hx Family Neurologic Disorders: Yes Medications and Allergies Aspirin Enteric Coated [Aspirin EC] 162 mg PO DAILY 02/17/15 [History] TraMADol [Ultram] 50 mg PO BID 02/17/15 [History] Zolpidem [Ambien] 10 mg PO HS PRN 02/17/15 [History] Lisinopril [Zestril] 20 mg PO DAILY #60 tablet 12/20/16 [Rx] Meclizine HCl [Verticalm] 25 mg PO DAILY PRN 06/20/17 [History] 3 Allergy/AdvReac Type Severity Reaction Status Date / Time Penicillins Allergy Rash Verified 01/12/17 06:43 Review of systems: Difficult due to patient being very [place], no family present at this time Constitutional: Present: fatigue, weakness. Absent: fever(s), weight loss Eyes: Absent: dry eye Nose, mouth and throat: Absent: dysphagia Cardiovascular: Present: chest pain, radiating jaw, neck or arm pain. Absent: palpitations, syncope Respiratory: Absent: cough, dyspnea Gastrointestinal: Present: change in bowel habits. Absent: coffee ground emesis , diarrhea, hematemesis, hematochezia, nausea, vomiting Additional comments: patient reports increase in number of bowel movements prior to her admission Genitourinary: Absent: difficulty urinating Musculoskeletal: Present: muscle weakness Integumentary: Present: dry skin Neurological: Present: vertigo. Absent: focal weakness Hematologic/Lymphatic: Present: easy bleeding, easy bruising Oncology - Exam - Constitutional Vitals: Temp Pulse Resp BP Pulse Ox 98.3 F 84 22 102/54 95 06/22/17 07:16 06/22/17 07:16 06/22/17 07:16 06/22/17 07:45 06/22/17 07:50 General appearance: cooperative, no acute distress, no febrile - Head Head exam: Present: atraumatic - Respiratory Respiratory exam: Present: decreased breath sounds, CTAB - Cardiovascular Cardiovascular exam: Present: RRR, +S1, +S2 - GI/Abdominal GI/Abdominal exam: Present: normal bowel sounds, soft. Absent: tenderness - Extremities Exam Extremities exam: Absent: calf tenderness, pedal edema - Neurological Exam Neurological exam: Present: alert, oriented X3, strengths equal and symetr throughout. Absent: no focal deficits, facial droop - Psychiatric Psychiatric exam: Present: normal affect, normal mood - Skin Skin exam: Present: pallor, warm Oncology - Results Labs: Short CBC 06/22/17 06/22/17 Range/Units 04:41 08:12 WBC 4.3 5.5 (4.3-11.1) K/mcL Hgb 5.7 L* D 6.2 L (11.5-15.4) g/dL Hct 17.5 L 18.5 L (35.3-44.9) % Plt Count 114 L 92 L (140-400) K/mcL Neutrophils # 3.0 3.1 (1.6-8.9) K/mcL BMP 06/22/17 04:41 Sodium 131 L Potassium 3.8 Chloride 104 Carbon Dioxide 19 L BUN 35 H Creatinine 1.95 H Glucose 94 Calcium 7.7 L Consult Discharge Plan - Plan Referrals: El Carrillo DO [Primary Care Provider] - (SNF placement) <Chai Engel - Last Filed: 06/22/17 15:20> Date of Encounter: 06/22/17 - Data of Consult Requesting Physician: Lisa Montejo MD Primary Care Provider: El Carrillo, - Consult Narrative History of present illness: Ms. Alsotn is a 86 year old female Oncology - Exam - Constitutional Vitals: Temp Pulse Resp BP Pulse Ox 100.6 F H 101 18 130/57 99 06/22/17 15:10 06/22/17 15:10 06/22/17 15:10 06/22/17 15:10 06/22/17 15:10 Oncology - Results Labs: Short CBC 06/22/17 06/22/17 Range/Units 04:41 08:12 WBC 4.3 5.5 (4.3-11.1) K/mcL Hgb 5.7 L* D 6.2 L (11.5-15.4) g/dL Hct 17.5 L 18.5 L (35.3-44.9) % Plt Count 114 L 92 L (140-400) K/mcL Neutrophils # 3.0 3.1 (1.6-8.9) K/mcL BMP 06/22/17 04:41 Sodium 131 L Potassium 3.8 Chloride 104 Carbon Dioxide 19 L BUN 35 H Creatinine 1.95 H Glucose 94 Calcium 7.7 L - Attending Attestation Seen and examined patient and agree with A/P. Ms. Alston is an 86 y.o. Jehovas witness who presents with a significant macrocytic anemia. Macrocytosis has been evolving over a number of years. She was found to have significant B12 and iron deficiency although folic acid levels were high. given her islam persuasion, she declines blood products. Therefore, agree with subcut B12 and IV iron. Will add darbepo also. EGD does indicate there could be a malabsorptive process. Will plan to monitor patient as outpatient after discharge. thank you for involving us in the care of this lady.
[2017-06-22] MEDS ORDERED: IRON DEXTRAN COMPLEX IVPB ONE (11:00)
[2017-06-22] MEDS ORDERED: SODIUM CHLORIDE 0.9% IVPB ONE (11:00)
[2017-06-22] MEDS ORDERED: Darbepoetin 25 MCG/0.42 ML SYRINGE SQ ONE (15:00)
--- NOTE | 2017-06-22 15:14 | Electrocardiograph Report ---
[place] [id number] Test Date: 2017-06-22 Pat Name: Jennifer Alston Department: 112 Room: 2A Gender: F Legal Support Manager: : [id number] Requested By: Lisa Montejo Order Number: [id number] Reading MD: Amirah España Measurements Intervals [place] Rate: 86 P: 32 IN: 182 QRS: -41 QRSD: 158 T: 103 QT: 402 QTc: 445 Interpretive Statements SINUS RHYTHM LEFT BUNDLE BRANCH BLOCK Electronically Signed On 06-22-2017 15:12:51 EST by Amirah España
[2017-06-22] MEDS: cefTRIAXone 1,000 MG in Water for inj. (sterile) 20 ML 10 ML IVP SCH (21:38)
[2017-06-23] MEDS: Acetaminophen 325 MG TABLET PO PRN (01:32)
[2017-06-23 05:43] LABS: Basophils % 0.3 %; Hematocrit 17.3 % (35.3-44.9); Lymphocytes % 20.3 %; Mean Corpuscular HGB Conc 32.9 g/dL (31.6-35.5)
[2017-06-23 05:45] LABS: Eosinophils # 0.5 K/mcL (0.0-0.6); Eosinophils % 13.2 %; Immature Granulocytes % 1.1 % (0-4); Lymphocytes # 0.7 K/mcL (0.6-4.6); Mean Corpuscular Hemoglobin 41.9 pg (28.0-33.3); Mean Corpuscular Volume 127.2 fL (83.0-100.0); Mean Platelet Volume 11.6 fL (9.4-12.4); Monocytes # 0.4 K/mcL (0.0-1.3); Monocytes % 12.1 %; Neutrophils # 1.9 K/mcL (1.6-8.9); Nucleated Red Blood Cells 0.8 /100 WBC (0); Platelet Count 104 K/mcL (140-400); Red Blood Count 1.36 M/mcL (3.82-4.97); Red Cell Distribution Width 17.5 % (11.5-14.5)
[2017-06-23 05:53] LABS: Hemoglobin 5.7 g/dL (11.5-15.4)
[2017-06-23 05:58] LABS: Calcium 7.8 mg/dL (8.6-10.3); Magnesium 1.9 mg/dL (1.6-2.6); Potassium 3.6 mEq/L (3.5-5.1)
[2017-06-23 06:12] LABS: Anisocytosis 2+ (Not Present); Macrocytosis Present (Not Present); Platelet Estimate Normal (Normal); Poikilocytosis 2+ (Not Present)
[2017-06-23] MEDS: Cyanocobalamin (B-12) 1,000 MCG/ML VIAL SQ SCH (09:05)
[2017-06-23] MEDS ORDERED: Ferumoxytol 510 MG in 0.9 % Sodium Chloride 100 ML IVPB ONE ×2 (09:06→13:45)
[2017-06-23] MEDS: traMADol 50 MG TABLET PO PRN ×2 (09:15→22:16)
--- NOTE | 2017-06-23 10:44 | Internal Med Progress Note ---
Date of Encounter: 06/23/17 Time of Encounter: 10:42 - Assessment and plan (1) UTI (urinary tract infection) Current Visit: Yes Status: Acute Assessment and plan: Urinalysis suggestive of UTI. Patient also has fever up to 102.2 degrees Fahrenheit. Continue IV Rocephin, urine culture grows Klebsiella pneumoniae, sensitive to cephalosporins. Qualifiers: Urinary tract infection type: acute cystitis Hematuria presence: without hematuria Qualified Code(s): N30.00 - Acute cystitis without hematuria (2) Elevated troponin Current Visit: Yes Status: Acute Assessment and plan: Noted to have troponin leak, Peak troponin 0.32. Flat and adynamic. Cardiology consulted, troponin elevation likely related to anemia and UTI. Hold aspirin due to anemia and concern for GI bleed. Continue beta lewis and statin. Patient underwent nuclear stress test in January 2017 which was negative for ischemia or infarct. Continue telemetry monitoring. Child Development Professor signed off at this time. 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 Patient is Yarsani, continues to refuse blood products infusion. Iron profile shows low iron stores with serum iron at 10. Serum B12 noted to be low, serum folate above normal limits. Started parenteral Vitamin B12 due to malabsorption, and PO ferrous sulfate supplements; will also received IV iron supplements. Consulted Hematology, and case discussed in detail- appreciated recommendations- started further IV iron and Aranesp due to underlying CKD. Recommend to monitor for further drop and r/ o lower GI bleed, and to f/up in office; d/w GI- consider colonoscopy if she continues to have a drop in Hb or obvious bleed; procurement services manager on board; APS has been notified due to deplorable living conditions at home; Physical and occupational therapy evaluation cannot be completed due to severe anemia. Possible ECF placement is being contemplated and patient is agreeable. Qualifiers: Anemia type: B12 deficiency Vitamin B12 deficiency anemia type: other B12 deficiency Qualified Code(s): D51.8 - Other vitamin B12 deficiency anemias (4) CKD (chronic kidney disease) stage 3, GFR 30-59 ml/min Current Visit: Yes Status: Chronic (5) Hypertension Current Visit: Yes Status: Chronic Qualifiers: Hypertension type: essential hypertension Qualified Code(s): I10 - Essential (primary) hypertension (6) Chest pain Current Visit: Yes Status: Resolved Qualifiers: Chest pain type: precordial pain Qualified Code(s): R07.2 - Precordial pain (7) GI bleed Current Visit: Yes Status: Ruled-out Qualifiers: GI bleed type/associated pathology: unspecified gastrointestinal hemorrhage type Qualified Code(s): K92.2 - Gastrointestinal hemorrhage, unspecified - Subjective Interval history: Feels somewhat weak but denies chest pain, dyspnea, palpitations; asking about going home; agreeable to ECF placement if feasible; continues to have low Hb; - Constitutional Vitals: Temp Pulse Resp BP Pulse Ox 98 F 90 16 116/65 97 06/23/17 07:06 06/23/17 07:06 06/23/17 07:06 06/23/17 07:06 06/23/17 05:06 General appearance: Present: A&O X 2, answers questions appropriately - Respiratory Respiratory exam: Present: CTAB. Absent: accessory muscle use, rales, rhonchi, wheezes - Cardiovascular Cardiovascular exam: Present: RRR, +S1, +S2, systolic murmur, tachycardia. Absent: diastolic murmur, gallop, rubs - GI/Abdominal GI/Abdominal exam: Present: normal bowel sounds, soft, no peritoneal signs. Absent: distended, tenderness Internal Medicine: Result - Labs CBC & Chem 7: 06/24/17 12:00 06/24/17 12:00 Labs: Short CBC 06/23/17 Range/Units 05:10 WBC 3.6 L (4.3-11.1) K/mcL Hgb 5.7 L* (11.5-15.4) g/dL Hct 17.3 L (35.3-44.9) % Plt Count 104 L (140-400) K/mcL Neutrophils # 1.9 (1.6-8.9) K/mcL BMP 06/23/17 05:10 Sodium 133 L Potassium 3.6 Chloride 109 H Carbon Dioxide 17 L BUN 34 H Creatinine 1.86 H Glucose 76 Calcium 7.8 L - ABG Interpretation ABG results: PT/INR, D-dimer PT 12.6 Seconds (9.4-12.1) H 06/20/17 14:48 - VTE Documentation of Mechanical Device: Intermittent pneumatic compression device Consult Discharge Plan - Plan Referrals: El Carrillo DO [Primary Care Provider] - (SNF placement)
[2017-06-23] MEDS: 0.9 % Sodium Chloride 1,000 ML IVC SCH (13:34)
--- NOTE | 2017-06-23 14:07 | Oncology Inp Progress Note ---
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 Patient declines blood products for roman catholic preference (Jehov[employer]). Agree with plan for Iron/B12 replacement. Her hgb dropped back to 5.7. Plan d/w hospitalist to monitor hgb tomorrow, if improves may check for ECF placement, if drops further may consider GI consult for potential colonoscopy clearance. She received 1 gram Iron Dextran yesterday and planned to receive Feraheme again today. She is also on oral iron as well. We will plan to robustly replace her iron in conjunction with the Aranesp to stimulate her bone marrow. She received Aranesp 25 mcg dose x1 in the setting of anemia/CKD, as this patient will not be receiving blood products, which will help her hgb to nicely recover. This may be continued by hem/onc as outpatient. Patient states she does not follow with a program technician. Continue B12 daily x1 week, then can switch to weekly/monthly. She was given an appointment to follow up with Dr. Kenny next Monday along with further lab work if she is discharged prior to then, she asked that I also communicate this appointment with her son who will be providing transportation. The patient was examined in room along with Dr. Engel, attending oncologist, please refer to his attestation for any further details. Qualifiers: Anemia type: B12 deficiency Vitamin B12 deficiency anemia type: other B12 deficiency Qualified Code(s): D51.8 - Other vitamin B12 deficiency anemias Oncology: Subj Interval history: Resting comfortably, denies overt SOB, chest pain or vertigo. Reports feeling weak/fatigued. - Constitutional Vitals: Vital Signs Temp Pulse Resp BP Pulse Ox 06/23/17 10:42 99 F 91 17 121/69 93 06/23/17 07:06 98 F 90 16 116/65 06/23/17 05:06 98.3 F 85 18 109/65 97 06/23/17 00:25 98.4 F 88 17 125/69 98 06/22/17 19:25 98.2 F 88 19 114/84 97 06/22/17 16:16 130/57 06/22/17 15:10 100.6 F H 101 18 130/57 99 Intake and Output 06/22/17 06/23/17 06/23/17 23:59 07:59 15:59 Intake Total 1060 / 1060 300 / 300 1000 / 1000 Balance 1060 / 1060 300 / 300 1000 / 1000 Intake: IV Fluids 1000 / 1000 1000 / 1000 0.9 % Sodium Chloride 1,000 ML 1000 / 1000 1000 / 1000 @ 75 mls/hr IVC .[id number] FÁTIMA Rx #:[id number] Oral 60 / 60 300 / 300 0 / 0 Other: Meal Dinner Breakfast Percent of Meal Consumed 10% 40% Weight 64.2 kg Patient Weight 06/23/17 23:59 Weight 64.2 kg General appearance: cooperative, no acute distress, no febrile - Respiratory Respiratory exam: Present: decreased breath sounds, CTAB - Cardiovascular Cardiovascular exam: Present: RRR, +S1, +S2 - GI/Abdominal GI/Abdominal exam: Present: normal bowel sounds, soft. Absent: tenderness - Extremities Exam Extremities exam: Present: pedal edema. Absent: calf tenderness - Neurological Exam Neurological exam: Present: alert, oriented X3, strengths equal and symetr throughout. Absent: no focal deficits, facial droop - Psychiatric Psychiatric exam: Present: normal affect, normal mood - Skin Skin exam: Present: pallor, warm Additional comments: multiple, scattered abrasions/bruises, thin/fragile skin Oncology: Obj Data - Labs CBC & Chem 7: 06/23/17 05:10 06/23/17 05:10 Labs: Laboratory Results - last 24 hr 06/23/17 06/23/17 05:10 05:10 WBC 3.6 L RBC 1.36 L Hgb 5.7 L* Hct 17.3 L MCV 127.2 H MCH 41.9 H MCHC 32.9 RDW 17.5 H Plt Count 104 L MPV 11.6 Immature Gran % 1.1 Seg Neutrophils % 53.0 Lymphocytes % 20.3 Monocytes % 12.1 Eosinophils % 13.2 Basophils % 0.3 Neutrophils # 1.9 Lymphocytes # 0.7 Monocytes # 0.4 Eosinophils # 0.5 Basophils # 0.0 Nucleated RBCs/100 WBC 0.8 H Platelet Estimate Normal Poikilocytosis 2+ A Anisocytosis 2+ A Macrocytosis Present A Sodium 133 L Potassium 3.6 Chloride 109 H Carbon Dioxide 17 L BUN 34 H Creatinine 1.86 H Est GFR ( Amer) 31 L Est GFR (Non-Af Amer) 26 L BUN/Creatinine Ratio 18 Glucose 76 Calculated Osmolality 282 Calcium 7.8 L Magnesium 1.9 - ABG Interpretation ABG results: PT/INR, D-dimer PT 12.6 Seconds (9.4-12.1) H 06/20/17 14:48 Consult Discharge Plan - Plan Referrals: El Carrillo DO [Primary Care Provider] - (SNF placement)
[2017-06-23] MEDS: cefTRIAXone 1,000 MG in Water for inj. (sterile) 20 ML 10 ML IVP SCH (22:17)
[2017-06-24] MEDS: 0.9 % Sodium Chloride 1,000 ML IVC SCH ×2 (02:29→03:45)
[2017-06-24] MEDS: Cyanocobalamin (B-12) 1,000 MCG/ML VIAL SQ SCH (08:36)
[2017-06-24 12:23] LABS: Hematocrit 18.8 % (35.3-44.9); Nucleated Red Blood Cells 1.2 /100 WBC (0)
[2017-06-24 12:24] LABS: Eosinophils % 23.7 %; Hemoglobin 6.3 g/dL (11.5-15.4); Immature Platelets 8.1 % (1.1-6.1); Mean Corpuscular HGB Conc 33.5 g/dL (31.6-35.5); Mean Corpuscular Hemoglobin 41.7 pg (28.0-33.3); Mean Corpuscular Volume 124.5 fL (83.0-100.0); Mean Platelet Volume 11.9 fL (9.4-12.4); Monocytes % 19.7 %; Platelet Count 100 K/mcL (140-400); Red Blood Count 1.51 M/mcL (3.82-4.97); Red Cell Distribution Width 17.7 % (11.5-14.5); Segmented Neutrophils % 25.4 %
[2017-06-24 12:25] LABS: Basophils % 0.2 %; Eosinophils # 1.2 K/mcL (0.0-0.6); Lymphocytes # 1.5 K/mcL (0.6-4.6); Neutrophils # 1.3 K/mcL (1.6-8.9)
[2017-06-24 12:37] LABS: Albumin 2.4 g/dL (3.5-5.7); Albumin/Globulin Ratio 0.9 (1.1-2.2); Bilirubin,Indirect 0.3 mg/dL (0.0-1.2); Bilirubin,Total 0.3 mg/dL (0.3-1.0); Calcium 7.9 mg/dL (8.6-10.3); Globulin 2.6 g/dL (2.4-3.5); Potassium 4.6 mEq/L (3.5-5.1)
--- NOTE | 2017-06-24 16:17 | Internal Med Progress Note ---
Date of Encounter: 06/24/17 Time of Encounter: 11:00 - Assessment and plan (1) UTI (urinary tract infection) Current Visit: Yes Status: Acute Assessment and plan: Urinalysis suggestive of UTI. Patient also has fever up to 102.2 degrees Fahrenheit. Continue IV Rocephin, urine culture grows Klebsiella pneumoniae, sensitive to cephalosporins. Qualifiers: Urinary tract infection type: acute cystitis Hematuria presence: without hematuria Qualified Code(s): N30.00 - Acute cystitis without hematuria (2) Elevated troponin Current Visit: Yes Status: Acute Assessment and plan: Noted to have troponin leak, Peak troponin 0.32. Flat and adynamic. Cardiology consulted, troponin elevation likely related to anemia and UTI. Hold aspirin due to anemia and concern for GI bleed. Continue beta lewis and statin. Patient underwent nuclear stress test in January 2017 which was negative for ischemia or infarct. Continue telemetry monitoring. Lasting Floorworker signed off at this time. (3) Anemia Current Visit: Yes Status: Chronic Assessment and plan: Noted to have acute on chronic pernicious anemia, hemoglobin dropped to as low as 5.7 during this admission, 6.3 today . Patient is Sabianism, continues to refuse blood products infusion. GI consulted, EGD shows severe atrophic gastritis. Plan to defer colonoscopy for now unless patient truly has ongoing active blood loss or continued drop in hemoglobin. Iron profile shows low iron stores with serum iron at 10. Serum B12 noted to be low, serum folate above normal limits. Continue parenteral Vitamin B12 and PO ferrous sulfate supplements; patient also received IV iron supplements along with Aranesp due to underlying chronic kidney disease. continue to monitor closely for ongoing drop in Hb; Hematology consult appreciated, acute with current management and recommend outpatient office visit with follow-up of labs. catering convention services manager on board. Physical and occupational therapy evaluation cannot be completed due to severe anemia. Qualifiers: Anemia type: B12 deficiency Vitamin B12 deficiency anemia type: other B12 deficiency Qualified Code(s): D51.8 - Other vitamin B12 deficiency anemias (4) CKD (chronic kidney disease) stage 3, GFR 30-59 ml/min Current Visit: Yes Status: Chronic (5) Hypertension Current Visit: Yes Status: Chronic Qualifiers: Hypertension type: essential hypertension Qualified Code(s): I10 - Essential (primary) hypertension (6) Chest pain Current Visit: Yes Status: Resolved Qualifiers: Chest pain type: precordial pain Qualified Code(s): R07.2 - Precordial pain (7) GI bleed Current Visit: Yes Status: Ruled-out Qualifiers: GI bleed type/associated pathology: unspecified gastrointestinal hemorrhage type Qualified Code(s): K92.2 - Gastrointestinal hemorrhage, unspecified - Subjective Interval history: Reports no new complaints; wants to be discharged home, refuses to be placed in ECF for short term rehab; improved diarrhea; - Constitutional Vitals: Temp Pulse Resp BP Pulse Ox 98.5 F 67 16 141/68 95 06/24/17 15:54 06/24/17 15:54 06/24/17 15:54 06/24/17 15:54 06/24/17 15:54 General appearance: Present: A&O X 2, answers questions appropriately - Respiratory Respiratory exam: Present: CTAB. Absent: accessory muscle use, rales, rhonchi, wheezes - Cardiovascular Cardiovascular exam: Present: RRR, +S1, +S2. Absent: diastolic murmur, gallop, rubs, systolic murmur - GI/Abdominal GI/Abdominal exam: Present: normal bowel sounds, soft, no peritoneal signs. Absent: distended, tenderness Internal Medicine: Result - Labs CBC & Chem 7: 06/24/17 12:00 06/24/17 12:00 Labs: Short CBC 06/24/17 Range/Units 12:00 WBC 5.0 (4.3-11.1) K/mcL Hgb 6.3 L (11.5-15.4) g/dL Hct 18.8 L (35.3-44.9) % Plt Count 100 L (140-400) K/mcL Neutrophils # 1.3 L (1.6-8.9) K/mcL BMP 06/24/17 12:00 Sodium 136 Potassium 4.6 Chloride 115 H Carbon Dioxide 16 L BUN 30 H Creatinine 1.54 H Glucose 96 Calcium 7.9 L Liver Function 06/24/17 Range/Units 12:00 Total Bilirubin 0.3 (0.3-1.0) mg/dL Direct Bilirubin 0.0 (0.0-0.2) mg/dL AST 27 (13-39) Units/L ALT 10 (7-52) Units/L Alkaline Phosphatase 50 (34-104) Units/L Albumin 2.4 L (3.5-5.7) g/dL - ABG Interpretation ABG results: PT/INR, D-dimer PT 12.6 Seconds (9.4-12.1) H 06/20/17 14:48 - VTE Documentation of Mechanical Device: Intermittent pneumatic compression device Consult Discharge Plan - Plan Referrals: El Carrillo DO [Primary Care Provider] - (SNF placement)
[2017-06-24] MEDS: cefTRIAXone 1,000 MG in Water for inj. (sterile) 20 ML 10 ML IVP SCH (21:44)
[2017-06-25 05:18] LABS: Basophils % 0.2 %; Eosinophils # 1.7 K/mcL (0.0-0.6); Eosinophils % 28.1 %; Hematocrit 20.2 % (35.3-44.9); Hemoglobin 6.6 g/dL (11.5-15.4); Immature Granulocytes % 0.8 % (0-4); Lymphocytes % 32.8 %; Mean Corpuscular HGB Conc 32.7 g/dL (31.6-35.5); Mean Corpuscular Volume 125.5 fL (83.0-100.0); Mean Platelet Volume 12.4 fL (9.4-12.4); Monocytes % 16.9 %; Neutrophils # 1.3 K/mcL (1.6-8.9); Platelet Count 115 K/mcL (140-400); Red Blood Count 1.61 M/mcL (3.82-4.97); Red Cell Distribution Width 17.8 % (11.5-14.5); Segmented Neutrophils % 21.2 %
[2017-06-25 05:19] LABS: Monocytes # 1.1 K/mcL (0.0-1.3)
[2017-06-25 05:47] LABS: Anisocytosis 1+ (Not Present); Microcytosis Present (Not Present); Platelet Estimate Decreased (Normal)
[2017-06-25 05:49] LABS: Macrocytosis Present (Not Present)
[2017-06-25] MEDS: Cyanocobalamin (B-12) 1,000 MCG/ML VIAL SQ SCH (08:01)
--- NOTE | 2017-06-25 12:21 | Internal Med Progress Note ---
Date of Encounter: 06/25/17 Time of Encounter: 12:20 - Assessment and plan (1) UTI (urinary tract infection) Current Visit: Yes Status: Acute Assessment and plan: Urinalysis suggestive of UTI. Patient also has fever up to 102.2 degrees Fahrenheit. Continue IV Rocephin- day 5, urine culture grows Klebsiella pneumoniae, sensitive to cephalosporins. Qualifiers: Urinary tract infection type: acute cystitis Hematuria presence: without hematuria Qualified Code(s): N30.00 - Acute cystitis without hematuria (2) Elevated troponin Current Visit: Yes Status: Acute (3) Anemia Current Visit: Yes Status: Chronic Assessment and plan: Noted to have acute on chronic pernicious anemia. Patient is Baptism, continues to refuse blood products infusion. Hb improving- 6.6 today. Iron profile shows low iron stores with serum iron at 10. Serum B12 noted to be low, serum folate above normal limits. Started parenteral Vitamin B12 due to malabsorption, and PO and IV ferrous sulfate supplements; Consulted Hematology, appreciate recommendations, and to f/ up in office; d/w GI- consider colonoscopy if she continues to have a drop in Hb or obvious bleed; account services associate on board; APS has been notified due to deplorable living conditions at home; Physical and occupational therapy evaluation cannot be completed due to severe anemia. Patient refuses ECF placement; Qualifiers: Anemia type: B12 deficiency Vitamin B12 deficiency anemia type: other B12 deficiency Qualified Code(s): D51.8 - Other vitamin B12 deficiency anemias (4) CKD (chronic kidney disease) stage 3, GFR 30-59 ml/min Current Visit: Yes Status: Chronic (5) Hypertension Current Visit: Yes Status: Chronic Assessment and plan: BP well-controlled; continue current meds; Qualifiers: Hypertension type: essential hypertension Qualified Code(s): I10 - Essential (primary) hypertension (6) Chest pain Current Visit: Yes Status: Resolved Qualifiers: Chest pain type: precordial pain Qualified Code(s): R07.2 - Precordial pain (7) GI bleed Current Visit: Yes Status: Ruled-out Qualifiers: GI bleed type/associated pathology: unspecified gastrointestinal hemorrhage type Qualified Code(s): K92.2 - Gastrointestinal hemorrhage, unspecified - Subjective Interval history: Denies new complaints; asks when she can go home; no rectal bleeding, hematemesis; continues to report itching on her back; - Constitutional Vitals: Temp Pulse Resp BP Pulse Ox 98.2 F 97 16 115/90 98 06/25/17 11:16 06/25/17 11:16 06/25/17 11:16 06/25/17 11:16 06/25/17 11:16 General appearance: Present: A&O X 2, answers questions appropriately - Respiratory Respiratory exam: Present: CTAB. Absent: accessory muscle use, rales, rhonchi, wheezes - Cardiovascular Cardiovascular exam: Present: RRR, +S1, +S2. Absent: diastolic murmur, gallop, rubs, systolic murmur - GI/Abdominal GI/Abdominal exam: Present: normal bowel sounds, soft, no peritoneal signs. Absent: distended, tenderness Internal Medicine: Result - Labs CBC & Chem 7: 06/25/17 04:37 06/24/17 12:00 Labs: Short CBC 06/24/17 06/25/17 Range/Units 12:00 04:37 WBC 5.0 6.2 (4.3-11.1) K/mcL Hgb 6.3 L 6.6 L (11.5-15.4) g/dL Hct 18.8 L 20.2 L (35.3-44.9) % Plt Count 100 L 115 L (140-400) K/mcL Neutrophils # 1.3 L 1.3 L (1.6-8.9) K/mcL BMP 06/24/17 12:00 Sodium 136 Potassium 4.6 Chloride 115 H Carbon Dioxide 16 L BUN 30 H Creatinine 1.54 H Glucose 96 Calcium 7.9 L Liver Function 06/24/17 Range/Units 12:00 Total Bilirubin 0.3 (0.3-1.0) mg/dL Direct Bilirubin 0.0 (0.0-0.2) mg/dL AST 27 (13-39) Units/L ALT 10 (7-52) Units/L Alkaline Phosphatase 50 (34-104) Units/L Albumin 2.4 L (3.5-5.7) g/dL - ABG Interpretation ABG results: PT/INR, D-dimer PT 12.6 Seconds (9.4-12.1) H 06/20/17 14:48 - VTE Documentation of Mechanical Device: Intermittent pneumatic compression device Consult Discharge Plan - Plan Referrals: El Carrillo DO [Primary Care Provider] - (SNF placement)
[2017-06-25] MEDS: cefTRIAXone 1,000 MG in Water for inj. (sterile) 20 ML 10 ML IVP SCH (21:36)
[2017-06-25] MEDS: traMADol 50 MG TABLET PO PRN (21:47)
[2017-06-26 06:11] LABS: Basophils % 0.1 %; Eosinophils # 2.1 K/mcL (0.0-0.6); Eosinophils % 28.3 %; Hematocrit 21.4 % (35.3-44.9); Immature Granulocytes % 0.7 % (0-4); Lymphocytes # 1.9 K/mcL (0.6-4.6); Lymphocytes % 25.1 %; Mean Corpuscular HGB Conc 32.7 g/dL (31.6-35.5); Mean Corpuscular Hemoglobin 41.2 pg (28.0-33.3); Mean Corpuscular Volume 125.9 fL (83.0-100.0); Mean Platelet Volume 11.9 fL (9.4-12.4); Monocytes # 1.3 K/mcL (0.0-1.3); Monocytes % 17.7 %; Neutrophils # 2.1 K/mcL (1.6-8.9); Nucleated Red Blood Cells 0.3 /100 WBC (0); Platelet Count 174 K/mcL (140-400); Red Cell Distribution Width 18.9 % (11.5-14.5); Segmented Neutrophils % 28.1 %
[2017-06-26 06:52] LABS: Platelet Estimate Normal (Normal); Polychromasia 1+ (Not Present)
[2017-06-26 06:53] LABS: Anisocytosis 1+ (Not Present)
[2017-06-26 07:27] VITALS: BP 145/73
[2017-06-26] MEDS: Cyanocobalamin (B-12) 1,000 MCG/ML VIAL SQ SCH (08:07)
--- NOTE | 2017-06-26 10:07 | Discharge Summary ---
Date of Encounter: 06/26/17 Time of Encounter: 09:20 - Discharge Diagnosis (1) UTI (urinary tract infection) Priority: Primary Status: Acute Qualifiers: Urinary tract infection type: acute cystitis Hematuria presence: without hematuria Qualified Code(s): N30.00 - Acute cystitis without hematuria (2) Elevated troponin Priority: Primary Status: Acute (3) Anemia Priority: Primary Status: Chronic Qualifiers: Anemia type: B12 deficiency Vitamin B12 deficiency anemia type: other B12 deficiency Qualified Code(s): D51.8 - Other vitamin B12 deficiency anemias (4) CKD (chronic kidney disease) stage 3, GFR 30-59 ml/min Priority: Secondary Status: Chronic (5) Hypertension Priority: Secondary Status: Chronic Qualifiers: Hypertension type: essential hypertension Qualified Code(s): I10 - Essential (primary) hypertension (6) Chest pain Priority: Primary Status: Resolved Qualifiers: Chest pain type: precordial pain Qualified Code(s): R07.2 - Precordial pain (7) GI bleed Priority: Primary Status: Ruled-out Qualifiers: GI bleed type/associated pathology: unspecified gastrointestinal hemorrhage type Qualified Code(s): K92.2 - Gastrointestinal hemorrhage, unspecified - Discharge Medications Prescriptions: Atorvastatin [Lipitor] 40 mg PO HS #30 tablet Cyanocobalamin (Vitamin B-12) [Vitamin B12] 1,000 mcg PO DAILY #10 tablet DiphenhydraMINE [Benadryl] 12.5 mg PO Q8H PRN #20 udc PRN Reason: Itching Ferrous Sulfate 325 mg PO BIDWM #60 tablet Omeprazole [PriLOSEC] 40 mg PO BIDAC #120 capsule.dr Home Medications: TraMADol [Ultram] 50 mg PO BID 02/17/15 [History] Zolpidem [Ambien] 10 mg PO HS PRN 02/17/15 [History] Meclizine HCl [Verticalm] 25 mg PO DAILY PRN 06/20/17 [History] Atorvastatin [Lipitor] 40 mg PO HS #30 tablet 06/26/17 [Rx] Carvedilol [Coreg] 3.125 mg PO BIDWM tablet 06/26/17 [Rx] Cyanocobalamin (Vitamin B-12) [Vitamin B12] 1,000 mcg PO DAILY #10 tablet [Rx] DiphenhydraMINE [Benadryl] 12.5 mg PO Q8H PRN #20 udc 06/26/17 [Rx] Ferrous Sulfate 325 mg PO BIDWM #60 tablet 06/26/17 [Rx] Omeprazole [PriLOSEC] 40 mg PO BIDAC #120 capsule. 06/26/17 [Rx] Allergies/Adverse Reactions: 3 Allergy/AdvReac Type Severity Reaction Status Date / Time Penicillins Allergy Rash Verified 01/12/17 06:43 Date of admission: 06/21/17 09:18 Primary care physician: El Carrillo, Consults: 06/21/17 10:35 Consult to Legal Entity Controller [CONS] Routine Reason for SW Consult: follow up with APS 06/22/17 09:25 Consult to Oncology Hematology [CONS] Routine Consulting Provider: Yoko Stoddard Reason for Consult: Macrocytic anemia, iron and B12 deficiency, refuses blood products Call Completed: Yes 06/23/17 09:57 Consult to Occupational Therapy [CONS] Routine Comment: Evaluate, develop and implement POC Reason for Consult: poss ecf Consult to Physical Therapy [CONS] Routine Comment: Evaluate, develop and implement POC Reason for Consult: poss ecf Discharging clinician: Lisa Montejo Anticipated date of discharge: 06/26/17 - Patient Status Disposition: Home Health Service Condition: Fair Functional capacity at discharge: uses cane/walker Overall status at discharge: patient is progressing back to baseline - Discharge Instructions Instructions: Dehydration (GEN), Urinary Tract Infection in Women (DC) Follow Up With: El Carrillo DO [Primary Care Provider] - 07/03/17 2:30 pm (Please follow up as schedule...) Additional Instructions: F/up with PCP in 1-2 weeks F/up with Hematology in 1 week - Diet and Activity Activity: as per physical therapy Diet: low fat, low cholesterol, low salt diet Hospital course: Ms. Alston is a 86 year old female with the above medical problems who was initially admitted with chest pain. She was noted to have slightly elevated troponin along with some EKG changes. She was also noted to have significant anemia and refuses blood products transfusion due to being Pentecostalism. Lower GI bleed was suspected initially and gastroenterology was consulted. Patient underwent EGD which showed significant atrophic gastritis with no active bleeding. Anemia workup was completed and patient was noted to have significantly low iron stores, serum vitamin B12 was low. Cardiology was consulted and eventually signed off as troponin elevation was thought to be related to significant anemia. Anticoagulation and antiplatelets were held due to anemia. Hematology was consulted and they treated with iron and vitamin B12 repletion with oral and IV iron, subcutaneous vitamin B12. Patient remained asymptomatic and her hemoglobin gradually improved upto about 7 during this hospitalization. Formal physical therapy evaluation could not Be completed due to her significant anemia. Placement in extended care facility was recommended due to poor and deplorable living conditions per social workers report, however patient continues to refuse placement and would like to be discharged home. Adult Protective Services was involved and patient is being discharged home with home health services. She was given outpatient followup with Hematology and Cardiology. - Time Spent with Patient Total time spent providing and/or coordinating discharge services: Greater than 30 minutes (45 min) - Constitutional Vitals: Temp Pulse Resp BP Pulse Ox 98.1 F 93 20 145/73 100 06/26/17 07:24 06/26/17 07:24 06/26/17 07:24 06/26/17 07:24 06/26/17 07:24 General appearance: Present: A&O X 2, answers questions appropriately - Respiratory Respiratory exam: Present: CTAB. Absent: accessory muscle use, rales, rhonchi, wheezes - Cardiovascular Cardiovascular exam: Present: RRR, +S1, +S2. Absent: diastolic murmur, gallop, rubs, systolic murmur - VTE Documentation of Mechanical Device: Intermittent pneumatic compression device
--- NOTE | 2017-06-26 10:09 | Physician Discharge Referral ---
Home Health/Hosp Referral Info Transfer to: Home Health Attending Provider: Lisa Montejo Provider in Charge Post Discharge: PCP - Diagnosis (1) UTI (urinary tract infection) Priority: Primary Status: Acute (2) Elevated troponin Priority: Primary Status: Acute (3) Anemia Priority: Primary Status: Chronic (4) CKD (chronic kidney disease) stage 3, GFR 30-59 ml/min Priority: Secondary Status: Chronic (5) Hypertension Priority: Secondary Status: Chronic (6) Chest pain Priority: Primary Status: Resolved - Respiratory Orders Smoking Cessation: Smoking cessation has been advised. For more information, call the [place] Tobacco Quit Line at 4-486-ZVHI-NOW. - Diet/Nutrition Diet/Nutrition Orders: Renal, Cardiac - Activity Activity Orders: Ambulate, Walker - Services Needed Following services are medically necessary services: Nursing, Physical Therapy, Occupational Therapy - Transfer Medications Prescriptions: Atorvastatin [Lipitor] 40 mg PO HS #30 tablet Cyanocobalamin (Vitamin B-12) [Vitamin B12] 1,000 mcg PO DAILY #10 tablet DiphenhydraMINE [Benadryl] 12.5 mg PO Q8H PRN #20 udc PRN Reason: Itching Ferrous Sulfate 325 mg PO BIDWM #60 tablet Omeprazole [PriLOSEC] 40 mg PO BIDAC #120 capsule. Home Medications: TraMADol [Ultram] 50 mg PO BID 02/17/15 [History] Zolpidem [Ambien] 10 mg PO HS PRN 02/17/15 [History] Meclizine HCl [Verticalm] 25 mg PO DAILY PRN 06/20/17 [History] Atorvastatin [Lipitor] 40 mg PO HS #30 tablet 06/26/17 [Rx] Carvedilol [Coreg] 3.125 mg PO BIDWM tablet 06/26/17 [Rx] Cyanocobalamin (Vitamin B-12) [Vitamin B12] 1,000 mcg PO DAILY #10 tablet [Rx] DiphenhydraMINE [Benadryl] 12.5 mg PO Q8H PRN #20 udc 06/26/17 [Rx] Ferrous Sulfate 325 mg PO BIDWM #60 tablet 06/26/17 [Rx] Omeprazole [PriLOSEC] 40 mg PO BIDAC #120 capsule. 06/26/17 [Rx] Allergies/Adverse Reactions: 3 Allergy/AdvReac Type Severity Reaction Status Date / Time Penicillins Allergy Rash Verified 01/12/17 06:43 Certification: Further, I certify that my clinical findings support that this patient is homebound (i.e. absences from home require considerable and taxing effort and are for medical reasons or episcopal services or infrequently or short duration when for other reasons) because: Homebound Reason: Patient requires assistance of a person or device to safely leave home, Leaving home requires considerable and taxing effort due to condition Attestation: My signature below is to certify that this patient is under my care and that I, or nurse practitioner, or a physician's psychiatric technician assistant working with me, has a face-to -face encounter with this patient.
[2017-06-26] MEDS ORDERED: FLUARIX QUAD 2017-18 36MOS UP/PF 0.5 ML SYRINGE IM ONE (10:14)
== END 2017-06-26 11:50 | disposition home health service (06) | DRG 690 ==
LOC: EMEROO 13:46 → 2ANU 13:46 → SUATTDRO 18:11
PROVIDERS: ADMIT Internal Medicine; ATTEND Internal Medicine
PROC: ENDOEBX (2017-06-21 12:30)

== ENCOUNTER 2017-07-12 10:46 | Inpatient (IN) ==
--- NOTE | 2017-07-12 11:04 | Emergency Department Note ---
Disposition Clinical Impression: Elevated troponin I level, HCAP (healthcare-associated pneumonia) CHF exacerbation Qualifiers: Congestive heart failure type: unspecified Qualified Code(s): I50.9 - Heart failure, unspecified Disposition: Admitted As Inpatient Condition: Fair Time of Disposition: 15:09 SOB HPI - General Chief Complaint: ED Shortness of Breath/Dyspnea Stated Complaint: TAMIKO Time Seen by Provider: 07/12/17 10:50 Nursing Notes Reviewed: Yes Vital Signs Reviewed: Yes - History of Present Illness 86-year-old female complains of shortness of breath that started this morning. Patient denies any chest pain. Patient states her symptoms are worse when she lies flat. Patient is brought in by EMS, and EMS states that patient lives in dirty living conditions. They comment on kerosene heater that was not working properly. They also state that there are numerous cats and the place smells like urine. EMS also states that she lives with her son, but the son does not appear to be able to take care of her. - Related Data Home Medications Medication Instructions Recorded Confirmed TraMADol [Ultram] 50 mg PO BID 02/17/15 07/12/17 Meclizine HCl [Verticalm] 25 mg PO DAILY PRN 06/20/17 07/12/17 Clarithromycin [Biaxin] 500 mg PO BID 07/12/17 07/12/17 Lisinopril [Zestril] 20 mg PO DAILY 07/12/17 07/12/17 Omeprazole [PriLOSEC] 40 mg PO DAILY 07/12/17 07/12/17 metroNIDAZOLE [Metronidazole] 1,000 mg PO BID 07/12/17 07/12/17 Previous Rx's Medication Instructions Recorded Atorvastatin [Lipitor] 40 mg PO HS #30 tablet 06/26/17 Cyanocobalamin (Vitamin B-12) 1,000 mcg PO DAILY #10 tablet 06/26/17 [Vitamin B12] DiphenhydraMINE [Benadryl] 12.5 mg PO Q8H PRN #20 udc 06/26/17 Ferrous Sulfate 325 mg PO BIDWM #60 tablet 06/26/17 Allergies Allergy/AdvReac Type Severity Reaction Status Date / Time Penicillins Allergy Rash Verified 01/12/17 06:43 All systems ED: reviewed and negative except as stated. Review of Systems: As Per HPI Constitutional: Reports: fever, weakness Respiratory: Reports: cough, dyspnea. Denies: wheezes Gastrointestinal: Denies: abdominal pain, nausea, vomiting, diarrhea Past Medical History - Past Medical History Attestation: Yes The following information was validated with the patient. Source: patient, nursing notes reviewed Medical history: Reports: hypertension, renal disease, other Surgical history: Reports: appendectomy, cholecystectomy, orthopedic, other, other (Tonsillectomy, adenoidectomy, left shoulder surgery, right knee replacement, ankle surgery, 2 c-sections, right thumb surgery) Psychiatric history: Reports: no psych history - Social History Smoking Status: Former smoker Smokeless Tobacco Status: No Alcohol use: Reports: none Drug use: Reports: none Physical Exam Vital Signs Temperature 98.2 F 07/12/17 10:49 Pulse Rate 106 07/12/17 10:49 Respiratory Rate 18 07/12/17 10:49 Blood Pressure 143/79 07/12/17 10:49 O2 Sat by Pulse Oximetry 98 07/12/17 10:49 Temperature 97.9 F 07/12/17 17:20 Pulse Rate 103 07/12/17 17:20 Respiratory Rate 18 07/12/17 21:40 Blood Pressure 135/85 07/12/17 17:20 O2 Sat by Pulse Oximetry 100 07/12/17 22:04 Oxygen Delivery Oxygen Delivery Room Air CONSTITUTIONAL: Alert and oriented X3, disheveled -appearing, 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 HEAD: Normocephalic; atraumatic. EYES: PERRL, no scleral icterus. NOSE: The nose is normal in appearance without rhinorrhea RESP: Normal chest excursion with respiration; breath sounds clear and equal bilaterally; no wheezes, rhonchi, or rales CARD: Regular rhythm, without murmurs, rub or gallop ABD: Non-distended; non-tender, soft,without rigidity, rebound or guarding Extremities: Bilateral lower extremity edema at ankles and feet 2+ pitting and tender to palpation. Pulses 2+ all 4 extremities SKIN: Normal for age and race; warm and dry; numerous skin lesions across his chest, upper extremities and lower extremities below the knee. They look like bug bites with associated excoriations from scratching Course - Reevaluation(s) Time: 12:51 Reevaluation #2: Temperature trop elevated at 0.19 but review against previous labs show that this is a decrease from 0.29. Time: 12:51 Vital Signs Temperature 98.2 F 07/12/17 10:49 Pulse Rate 106 07/12/17 10:49 Respiratory Rate 18 07/12/17 10:49 Blood Pressure 143/79 07/12/17 10:49 O2 Sat by Pulse Oximetry 98 07/12/17 10:49 Temperature 97.9 F 07/12/17 17:20 Pulse Rate 103 07/12/17 17:20 Respiratory Rate 18 07/12/17 21:40 Blood Pressure 135/85 07/12/17 17:20 O2 Sat by Pulse Oximetry 100 07/12/17 22:04 Oxygen Delivery Oxygen Delivery Room Air Shortness of Breath/Dyspnea - MDM Narrative Medical decision making narrative: 86-year-old female presents with cough and congestion with relatively clear lung sounds to auscultation. She also has orthopnea with bilateral lower extremity pitting edema concerning for CHF, ACS/UT, the patient has no chest pain at this time. Pertinent lab values show an elevation of BNP for CHF exacerbation, chest x-ray shows bilateral pleural effusions with possible superimposed pneumonia, patient sent for a CT of her chest for clarification. Cultures ordered, and antibiotics ordered to cover for [facility] to include levofloxacin, vancomycin, and aztreonam. On reexamination patient has no wheezing and is stable. Carboxyhemoglobin was negative, troponin is elevated but lower than previous account and patient's BUN and creatinine which also shows elevations in the past is at baseline values for her as well. Patient will need social service manager involved concerning her living conditions, as it may not be safe for her to go home at the end of her treatment and admission Dr. Mccarthy the hospitalist has accepted patient for admission at 1422 hrs. - Lab Data Lab results reviewed: Yes I reviewed the patient's lab results. Result diagrams: 07/12/17 13:12 07/12/17 11:57 Lab Results 07/12/17 07/12/17 07/12/17 Range/Units 11:57 11:57 11:57 WBC (4.3-11.1) K/mcL RBC (3.82-4.97) M/mcL Hgb (11.5-15.4) g/dL Hct (35.3-44.9) % MCV (83.0-100.0) fL MCH (28.0-33.3) pg MCHC (31.6-35.5) g/dL RDW (11.5-14.5) % Plt Count (140-400) K/mcL MPV (9.4-12.4) fL Immature Gran % (0-4) % Seg Neutrophils % % Lymphocytes % % Monocytes % % Eosinophils % % Basophils % % Neutrophils # (1.6-8.9) K/mcL Lymphocytes # (0.6-4.6) K/mcL Monocytes # (0.0-1.3) K/mcL Eosinophils # (0.0-0.6) K/mcL Basophils # (0.0-0.2) K/mcL Nucleated RBCs/100 WBC (0) /100 WBC Platelet Estimate (Normal) Anisocytosis (Not Present) Macrocytosis (Not Present) Carboxyhemoglobin (0-5) % Sodium 135 L (136-145) mEq/L Potassium 3.7 (3.5-5.1) mEq/L Chloride 107 (98-107) mEq/L Carbon Dioxide 20 L (23-29) mEq/L BUN 18 (8-23) mg/dL Creatinine 1.56 H (0.60-1.20) mg/dL Est GFR ( Amer) 38 L (> 60) Est GFR (Non-Af Amer) 32 L (> 60) BUN/Creatinine Ratio 12 (6-26) Glucose 110 H (70-105) mg/dL Calculated Osmolality 283 (280-300) Calcium 8.5 L (8.6-10.3) mg/dL Troponin I 0.19 H* (< 0.04) ng/mL B-Natriuretic Peptide 1689 H (Less than 100) pg/mL Specimen Rejected 07/12/17 07/12/17 07/12/17 Range/Units 11:57 12:46 13:12 WBC 5.3 (4.3-11.1) K/mcL RBC 2.55 L (3.82-4.97) M/mcL Hgb 9.0 L (11.5-15.4) g/dL Hct 29.6 L (35.3-44.9) % MCV 116.1 H D (83.0-100.0) fL MCH 35.3 H (28.0-33.3) pg MCHC 30.4 L (31.6-35.5) g/dL RDW 22.0 H (11.5-14.5) % Plt Count 248 (140-400) K/mcL MPV 11.1 (9.4-12.4) fL Immature Gran % 0.8 (0-4) % Seg Neutrophils % 62.5 % Lymphocytes % 19.6 % Monocytes % 14.0 % Eosinophils % 0.8 % Basophils % 2.3 % Neutrophils # 3.3 (1.6-8.9) K/mcL Lymphocytes # 1.0 (0.6-4.6) K/mcL Monocytes # 0.7 (0.0-1.3) K/mcL Eosinophils # 0.0 (0.0-0.6) K/mcL Basophils # 0.1 (0.0-0.2) K/mcL Nucleated RBCs/100 WBC 0.4 H (0) /100 WBC Platelet Estimate Normal (Normal) Anisocytosis 1+ A (Not Present) Macrocytosis Present A (Not Present) Carboxyhemoglobin 1.5 (0-5) % Sodium (136-145) mEq/L Potassium (3.5-5.1) mEq/L Chloride (98-107) mEq/L Carbon Dioxide (23-29) mEq/L BUN (8-23) mg/dL Creatinine (0.60-1.20) mg/dL Est GFR ( Amer) (> 60) Est GFR (Non-Af Amer) (> 60) BUN/Creatinine Ratio (6-26) Glucose (70-105) mg/dL Calculated Osmolality (280-300) Calcium (8.6-10.3) mg/dL Troponin I (< 0.04) ng/mL B-Natriuretic Peptide (Less than 100) pg/mL Specimen Rejected MCV Delta - Radiology Data Radiology results reviewed: Yes I reviewed the patient's radiology results. Chest X-Ray 07/12/17 10:54 IMPRESSION: Small bilateral effusions and mild pulmonary edema. Basilar opacities favored to reflect atelectasis although superimposed aspiration or pneumonia could have a similar appearance in the appropriate clinical context. D/ / Amauri Isaacs / Amauri Isaacs Interpreting Provider: Amauri Isaacs Chest CT 07/12/17 12:23 IMPRESSION: Motion limited examination. Bilateral effusions, right greater than left, with associated passive atelectasis. Superimposed pneumonia is a possibility in the appropriate clinical setting. Nodular focus of opacity in the anterior left upper lobe. Finding is favored to represent focal airspace disease/atelectasis. However, given nodular morphology, a follow-up chest CT is recommended in 3 months to document resolution (see below for full details). RECOMMENDATIONS: Fleischner Society guidelines for follow-up and management of incidentally detected pulmonary nodules: Single Solid Nodule: Nodule size greater than 8 mm In a low-risk patient, consider CT, PET/CT, or tissue sampling at 3 months. In a high-risk patient, consider CT, PET/CT, or tissue sampling at 3 months. - Low risk patients include individuals with minimal or absent history of smoking and other known risk factors. - High risk patients include individuals with a history or smoking or known risk factors. Radiology 2017 http://pubs.rsna.org/doi/full/10.1148/radiol.[email or web address] D/ / 07/12/2017 12:59:50 Mohit Greenwood MD / [facility] Inter[facility]ting Provider: Mohit Greenwood MD - EKG Data EKG attestation: Yes I reviewed and interpreted this EKG. EKG results narrative: EKG taken 07/12/2017 1160 [address] sinus tachycardia at a rate of 10 2 bpm with left bundle branch block. Previous EKG for comparison taken 06/22/2017 shows the same rhythm and morphology but at 86 bpm also sinus rhythm. Attestation Statement - Attestation Attestation: I examined this patient and my medical decision-making was reviewed with the Resident Physician. I agree with the documented findings, disposition and treatment plan as described except to the extent set forth below. Patient emergency with shortness of breath. Found by EMS with an oxygen saturation 90% on room air. No fever today. Thinks she may have had one yesterday. Patient lives in a house with multiple animals. Also has kerosene heaters. On examination she is in no distress. Lungs with rales. Diminished in bases. Plan. Cardiac workup. Patient in CHF on imaging. He is also cover for pneumonia with antibiotic. Will admit. Discussed with bilingual social worker was already submitted claim with Adult Protective Services.
[2017-07-12 12:24] LABS: Calcium 8.5 mg/dL (8.6-10.3); Potassium 3.7 mEq/L (3.5-5.1)
[2017-07-12 14:00] LABS: Basophils # 0.1 K/mcL (0.0-0.2); Basophils % 2.3 %; Eosinophils % 0.8 %; Hematocrit 29.6 % (35.3-44.9); Immature Granulocytes % 0.8 % (0-4); Lymphocytes % 19.6 %; Mean Corpuscular HGB Conc 30.4 g/dL (31.6-35.5); Mean Corpuscular Hemoglobin 35.3 pg (28.0-33.3); Mean Corpuscular Volume 116.1 fL (83.0-100.0); Mean Platelet Volume 11.1 fL (9.4-12.4); Monocytes # 0.7 K/mcL (0.0-1.3); Neutrophils # 3.3 K/mcL (1.6-8.9); Nucleated Red Blood Cells 0.4 /100 WBC (0); Platelet Count 248 K/mcL (140-400); Red Blood Count 2.55 M/mcL (3.82-4.97); Segmented Neutrophils % 62.5 %
[2017-07-12 14:02] LABS: Anisocytosis 1+ (Not Present); Macrocytosis Present (Not Present); Platelet Estimate Normal (Normal)
[2017-07-12] MEDS ORDERED: Furosemide 40 MG/4 ML VIAL IVP ONE (14:12)
[2017-07-12] MEDS ORDERED: Levofloxacin 750 MG/150 ML 750 MG/150 ML BAG IVPB ONE (14:14)
[2017-07-12] MEDS ORDERED: Aztreonam 2,000 MG in Water for inj. (sterile) 20 ML 20 ML IVP ONE (14:18)
--- NOTE | 2017-07-12 14:40 | Electrocardiograph Report ---
[place] [id number] Test Date: 2017-07-12 Pat Name: Jennifer Alston Department: 103 Room: Gender: F Software Validation Technician: : [id number] Requested By: Ger Unger Order Number: [id number] Reading MD: Rene Liao DO Measurements Intervals [place] Rate: 103 P: 11 DC: 158 QRS: 1 QRSD: 150 T: 133 QT: 412 QTc: 471 Interpretive Statements SINUS TACHYCARDIA LEFT BUNDLE BRANCH BLOCK Electronically Signed On 07-12-2017 14:38:50 EST by Rene Liao DO
[2017-07-12] MEDS ORDERED: Acetaminophen 325 MG TABLET PO PRN (15:25)
[2017-07-12] MEDS ORDERED: Naloxone 0.4 MG/ML INJ IVP PRN (15:25)
[2017-07-12] MEDS ORDERED: Benzonatate 100 MG CAPSULE PO PRN (15:38)
[2017-07-12] MEDS ORDERED: Nitroglycerin 0.4 MG TAB.SUBL SL PRN (15:57)
--- NOTE | 2017-07-12 16:01 | Internal Med History&Physical ---
Date of Encounter: 07/12/17 Time of Encounter: 14:45 Assessment and Plan (1) HCAP (healthcare-associated pneumonia) Current visit: Yes Status: Acute Acute HCAP complicated by acute exacerbation of CHF. Pt. hospitalized in mid- June. Reports SOB that began this morning at 5 a.m. Denies previous occurrence. Reports cough and chest pain w/cough and inspiration. Patient given aztreonam and Levaquin in ED. We will discontinue aztreonam and continue IVPB Levaquin 750 mg every 48, vancomycin pharmacy dosing, and cefepime 1000 mg every 12 for infection coverage. Blood cultures 2 ordered. Sputum culture ordered. Respiratory infection panel ordered. We will adjust abx coverage based on culture results. Supplemental O2 with titration and SPO2 monitoring. DuoNeb every 6 scheduled. Tessalon 100 mg 3 times a day for cough. Will use IV fluids judiciously d/t pts. current exacerbation of CHF and renal dysfunction. Pt. discussed w/Dr. Mccarthy who is in agreement w/plan of care. Pt. is high risk for further infection and possible sepsis due to current symptoms, it Diagnosis related to recent hospitalization, chest pain with currently elevated troponin, history, and risk factors. Inpatient. (2) CHF exacerbation Current visit: Yes Status: Acute Acute exacerbation of CHF w/BNP of 1689 on admission. Pt. denies hx of CHF but states she does have pedal edema. Pt. denies use of lasix or other diuretic. 20 mg IVP lasix BID. 1.5L daily fluid restriction. Monitor I&O and daily weight. Supplemental O2 w/titration and SpO2 monitoring. Monitor pt. closely for signs of cardiac and/or respiratory distress d/t current CHF exacerbation complicated by pneumonia dx and current CP. Cardiology consult ordered and I appreciate the consult. Qualifiers: Congestive heart failure type: unspecified Qualified Code(s): I50.9 - Heart failure, unspecified (3) Chest pain Current visit: Yes Status: Acute Acute chest pain that pt. describes as centralized in her chest. Pt. states chest pain worsens w/cough which could be precordial versus cardiac ischemia. Aspirin now. Continue Lipitor. Continuous cardiac telemetry. SL nitro PRN. Will trend troponin x2. Cardiology consult ordered and discussed w/Dr. Liao and I appreciate the consult. Qualifiers: Chest pain type: precordial pain Qualified Code(s): R07.2 - Precordial pain (4) Elevated troponin Current visit: Yes Status: Chronic Hx of chronically-elevated troponin. Currently 0.16 on admission. Pt. reports centralized chest pain which could be d/t current cough/pneumonia versus cardiac -related ischemia. Echocardiogram on 06/20/17 showed LVEF of 50%, suboptimal evaluation of LVEF due to tachycardia. Overall, LV function appeared low normal. Normal LV chamber size and wall thickness, indeterminate diastolic function, atypical septal motion consistent with bundle branch block, normal right ventricular structure and function, no evidence of pulmonary hypertension , and no significant valvular dysfunction. Aspirin now. Continue Lipitor. Continuous cardiac telemetry. SL nitro PRN. Will trend troponin x2. Cardiology consult ordered and discussed w/Dr. Liao and I appreciate the consult. (5) HTN (hypertension) Current visit: Yes Status: Chronic Hx of chronic HTN. Monitor pt. and VS. Continue pts. Lisinopril. Qualifiers: Hypertension type: essential hypertension Qualified Code(s): I10 - Essential (primary) hypertension (6) HLD (hyperlipidemia) Current visit: Yes Status: Chronic Hx of chronic HLD. Lipid panel in a.m. labs. Continue pts. Lipitor. Qualifiers: Hyperlipidemia type: pure hypercholesterolemia Qualified Code(s): E78.00 - Pure hypercholesterolemia, unspecified; E78.0 - Pure hypercholesterolemia (7) GERD (gastroesophageal reflux disease) Current visit: Yes Status: Chronic Hx of chronic GERD. IVP Zofran 4 mg Q8 for N/V. Continue pts. Prilosec. Qualifiers: Esophagitis presence: esophagitis presence not specified Qualified Code(s) : K21.9 - Gastro-esophageal reflux disease without esophagitis (8) Anemia Current visit: Yes Status: Chronic Hx of chronic anemia r/t B12 deficiency. Current Hgb 9.0 and Hct 29.6 which is higher than pts. baseline. Pt. denies unusual bleeding at this time but has hx of GI bleeding. Monitor H/H in a.m. labs. Continue patient' B12 and ferrous sulfate. Qualifiers: Anemia type: B12 deficiency Vitamin B12 deficiency anemia type: other B12 deficiency Qualified Code(s): D51.8 - Other vitamin B12 deficiency anemias (9) CKD (chronic kidney disease) stage 3, GFR 30-59 ml/min Current visit: Yes Status: Chronic Hx of CKD with current GFR of 32 and creatinine of 1.56. Will use IV fluids judiciously if warranted since pt. is currently in CHF exacerbation and in stage 3 CKD. Monitor I&O and daily weight. (10) DVT prophylaxis Current visit: Yes Status: Acute Bilateral SCDs on pts. LEs for DVT prophylaxis d/t hx of GI bleeds. Monitor pt. for signs of unusual bleeding. Internal Medicine - H&P: HPI Chief complaint: SOB/Dyspnea Admitted From: Emergency Dept Plans for Post Hospital Care: Home History of present illness: Ms. Alston is a 86 year old female with medical hx of vertigo, HTN, HLD, CKD, and GERD presents with the ED with chief complaint shortness of breath that began at 5 AM this morning. Patient reports this never happened before. Patient reports chest pain which is worsened with cough, orthopnea, SOB with and without exertion and weakness/unsteadiness on her feet but denies recent illness, fever, chills, nausea, vomiting, headache, changes in vision, palpitations, unusual bleeding, abdominal pain, diarrhea, constipation, dizziness, lightheadedness, presyncope, or syncope. Past Med Surg Social Fam HX - Past Medical History Source: patient, old records reviewed Medical history: GERD, hyperlipidemia, hypertension, renal disease, other ( Vertigo) Psychiatric history: no psych history - Past Surgical History Surgical History: appendectomy, cholecystectomy, orthopedic, other, other ( Tonsillectomy, adenoidectomy, left shoulder surgery, right knee replacement, ankle surgery, 2 c-sections, right thumb surgery) - Social History Smoking Status: Never smoker Smokeless Tobacco Status: No Alcohol use: none Drug use: none Current living situation: Home Activity Level: Independent ambulation Recent Out of Country Travel Within the Last 8 Weeks: No Exposure or Possible Exposure to Illness During Travel: No - Family History Father Race: Family Member Ethnicity: Non- Living Status: Age at : 90 Cause of : Old age Mother Race: Family Member Ethnicity: Non- Living Status: Age at : 90 Cause of : Old age Sister Race: Family Member Ethnicity: Non- Living Status: Still Living Hx Family Musculoskeletal Disorders: Yes (Compression fxs in spine) Brother Race: Family Member Ethnicity: Non- Living Status: Age at : 50 Cause of : Meningitis Hx Family Neurologic Disorders: Yes Internal Medicine - H&P: Meds TraMADol [Ultram] 50 mg PO BID 02/17/15 [History] Meclizine HCl [Verticalm] 25 mg PO DAILY PRN 06/20/17 [History] Atorvastatin [Lipitor] 40 mg PO HS #30 tablet 06/26/17 [Rx] Cyanocobalamin (Vitamin B-12) [Vitamin B12] 1,000 mcg PO DAILY #10 tablet [Rx] DiphenhydraMINE [Benadryl] 12.5 mg PO Q8H PRN #20 udc 06/26/17 [Rx] Ferrous Sulfate 325 mg PO BIDWM #60 tablet 06/26/17 [Rx] Clarithromycin [Biaxin] 500 mg PO BID 07/12/17 [History] Lisinopril [Zestril] 20 mg PO DAILY 07/12/17 [History] Omeprazole [PriLOSEC] 40 mg PO DAILY 07/12/17 [History] metroNIDAZOLE [Metronidazole] 1,000 mg PO BID 07/12/17 [History] 3 Allergy/AdvReac Type Severity Reaction Status Date / Time Penicillins Allergy Rash Verified 01/12/17 06:43 All Systems PM: A 10-system review of systems was performed and is negative for pertinent findings except as documented above in the HPI. - Constitutional Constitutional: as per HPI, weakness, no chills, no fever(s), no night sweats - EENT Eyes: no change in vision, no discharge, no pain, no photophobia Ears: no ear discharge, no ear pain, no tinnitus Nose, mouth and throat: no dysphagia, no nasal discharge, no neck pain, no sore throat - Breasts Breasts: as per HPI - Cardiovascular Cardiovascular ROS IM: as per HPI, chest pain, dyspnea, dyspnea on exertion, edema (Bilateral LEs), orthopnea, no diaphoresis, no lightheadedness, no palpitations, no syncope - Respiratory Respiratory: as per HPI, cough, dyspnea, dyspnea on exertion, pain on inspiration, pain with cough, no wheezing, no excessive phlegm production - Gastrointestinal Gastrointestinal: no abdominal pain, no diarrhea, no hematemesis, no hematochezia, no melena, no nausea, no vomiting - Genitourinary Genitourinary: no change in urinary stream, no dysuria, no flank pain, no hematuria Menstruation: as per HPI - Musculoskeletal Musculoskeletal ROS IM: no numbness, no tingling - Integumentary Integumentary IM: no rash, no unusual bruising - Neurological Neurological ROS: as per HPI, abnormal hearing (Patient is very hard of hearing and does not have hearing aids in place), no confusion, no convulsions, no focal weakness, no numbness, no tingling, no tremor(s) - Psychiatric Psychiatric: as per HPI - Endocrine Endocrine IM: as per HPI - Hematologic/Lymphatic Hematologic/Lymphatic: no easy bruising - Allergic/Immunologic Allergic/Immunologic: as per HPI - Constitutional Vitals: Temp Pulse Resp BP Pulse Ox 98.2 F 72 18 134/71 99 07/12/17 10:49 07/12/17 13:57 07/12/17 13:57 07/12/17 13:57 07/12/17 13:57 General appearance: Present: cooperative, mild distress (Respiratory), A&O X 3, pleasant, answers questions appropriately (With multiple attempts d/t hearing deficits) - Head Head exam: Present: atraumatic, normocephalic - Eye Eye exam: Present: PERRL, conjuntiva pink, sclera anicteric Pupils: Present: PERRL - ENT ENT exam: Present: normal exam - Neck Neck exam general surgery: Present: supple, trachea midline. Absent: lymphadenopathy - Respiratory Respiratory exam: Present: accessory muscle use, decreased breath sounds - Cardiovascular Cardiovascular exam: Present: tachycardia - GI/Abdominal GI/Abdominal exam: Present: normal bowel sounds, soft, no peritoneal signs. Absent: distended, tenderness - Rectal Rectal exam: Present: deferred - Additional comments: exam deferred. - Extremities Exam Extremities exam: Present: pedal edema, warm, radial pulses palpable and symmetrical - Back Exam Back exam: Present: normal inspection - Neurological Exam Neurological exam: Present: CN II-XII intact, oriented X3, no focal deficits. Absent: pronater drift, facial droop, speech deficit - Psychiatric Psychiatric exam: Present: normal affect, normal mood - Skin Skin exam: Present: dry Additional comments: Patient has scabbed bites covering her body that appear to be insect bites such as from fleas or bed bugs. Internal Med - H&P Results - Labs CBC & Chem 7: 07/12/17 13:12 07/12/17 11:57 - EKG Data EKG shows normal: sinus rhythm Rate: tachycardia - EKG Data Prior EKG available for review: no EKG comments: 07/12/17 16:12 EKG dated 07/12/17 shows sinus tachycardia with left bundle branch block. - Diagnostic Studies Chest x-ray Additional comments: Impressions Chest X-Ray 07/12/17 10:54 IMPRESSION: Small bilateral effusions and mild pulmonary edema. Basilar opacities favored to reflect atelectasis although superimposed aspiration or pneumonia could have a similar appearance in the appropriate clinical context. D/ / Amauri Isaacs / Amauri Isaacs Interpreting Provider: Amauri Isaacs CT scan - chest Additional comments: Impressions Chest CT 07/12/17 12:23 IMPRESSION: Motion limited examination. Bilateral effusions, right greater than left, with associated passive atelectasis. Superimposed pneumonia is a possibility in the appropriate clinical setting. Nodular focus of opacity in the anterior left upper lobe. Finding is favored to represent focal airspace disease/atelectasis. However, given nodular morphology, a follow-up chest CT is recommended in 3 months to document resolution (see below for full details). RECOMMENDATIONS: Fleischner Society guidelines for follow-up and management of incidentally detected pulmonary nodules: Single Solid Nodule: Nodule size greater than 8 mm In a low-risk patient, consider CT, PET/CT, or tissue sampling at 3 months. In a high-risk patient, consider CT, PET/CT, or tissue sampling at 3 months. - Low risk patients include individuals with minimal or absent history of smoking and other known risk factors. - High risk patients include individuals with a history or smoking or known risk factors. Radiology 2017 http://pubs.rsna.org/doi/full/10.1148/[email or web address] D/ / 07/12/2017 12:59:50 Mohit Greenwood MD / kieran Interpreting Provider: Mohit Greenwood MD
[2017-07-12] MEDS ORDERED: Vancomycin 1,000 MG in D5% in Water 250 ML IVPB SCH (17:00)
[2017-07-12] MEDS ORDERED: Vancomycin 1,000 MG in D5% in Water 250 ML IVPB ONE (17:23)
[2017-07-12] MEDS: Furosemide 20 MG/2 ML VIAL IVP SCH (17:38)
[2017-07-12] MEDS: Cefepime HCl 1,000 MG in Water for inj. (sterile) 10 ML IVP SCH (17:38)
[2017-07-12] MEDS ORDERED: Cefepime HCl 1,000 MG in D5% in Water (Mini-Bag+) 100 ML IVPB SCH (18:00)
[2017-07-12] MEDS: Aspirin Enteric Coated 81 MG Tablet PO SCH (18:06)
[2017-07-12] MEDS: Ipratropium/Albuterol Neb 3 ML IH SCH ×2 (19:33→21:39)
[2017-07-12] MEDS: traMADol 50 MG TABLET PO SCH (21:46)
[2017-07-13 03:54] LABS: Basophils # 0.1 K/mcL (0.0-0.2); Basophils % 2.6 %; Eosinophils # 0.2 K/mcL (0.0-0.6); Eosinophils % 4.3 %; Hemoglobin 8.4 g/dL (11.5-15.4); Immature Granulocytes % 0.6 % (0-4); Lymphocytes # 1.4 K/mcL (0.6-4.6); Lymphocytes % 25.8 %; Mean Corpuscular HGB Conc 31.1 g/dL (31.6-35.5); Mean Corpuscular Volume 112.5 fL (83.0-100.0); Monocytes # 0.8 K/mcL (0.0-1.3); Monocytes % 14.8 %; Neutrophils # 2.8 K/mcL (1.6-8.9); Platelet Count 220 K/mcL (140-400); Red Cell Distribution Width 22.3 % (11.5-14.5); Segmented Neutrophils % 51.9 %
[2017-07-13 03:57] LABS: Hemoglobin A1C 4.2 %
[2017-07-13] MEDS: Ipratropium/Albuterol Neb 3 ML IH SCH ×4 (04:13→22:33)
[2017-07-13 04:22] LABS: Albumin 2.7 g/dL (3.5-5.7); Albumin/Globulin Ratio 1.1 (1.1-2.2); Bilirubin,Total 0.6 mg/dL (0.3-1.0); Calcium 8.1 mg/dL (8.6-10.3); Chol/HDL Ratio 2.4 (0-4.9); Globulin 2.5 g/dL (2.4-3.5); Magnesium 1.6 mg/dL (1.6-2.6); Potassium 3.8 mEq/L (3.5-5.1); Total Protein 5.2 g/dL (6.4-8.9)
[2017-07-13 04:30] LABS: Anisocytosis 3+ (Not Present)
[2017-07-13 04:31] LABS: Macrocytosis Present (Not Present); Platelet Estimate Normal (Normal)
[2017-07-13] MEDS: Cefepime HCl 1,000 MG in Water for inj. (sterile) 10 ML IVP SCH (06:39)
[2017-07-13] MEDS: Lisinopril 20 MG TABLET PO SCH (08:02)
[2017-07-13] MEDS: Cyanocobalamin (B-12) 1,000 MCG TABLET PO SCH (08:02)
[2017-07-13] MEDS: Aspirin Enteric Coated 81 MG Tablet PO SCH (08:02)
[2017-07-13] MEDS: traMADol 50 MG TABLET PO SCH ×2 (08:02→20:13)
[2017-07-13] MEDS: Furosemide 20 MG/2 ML VIAL IVP SCH ×2 (08:03→17:30)
[2017-07-13] MEDS ORDERED: Aminoglycoside Consult 1 EACH MC ONE (08:50)
[2017-07-13] MEDS ORDERED: Levofloxacin 250 MG/50 ML 250 MG/50 ML BAG IVPB SCH (09:00)
--- NOTE | 2017-07-13 12:11 | Cardiology Consult Note ---
<Radha Leblanc Zeeshan - Last Filed: 07/13/17 12:16> Date of Encounter: 07/13/17 Time of Encounter: 10:00 Assessment and Plan (1) Elevated troponin Current Visit: Yes Status: Chronic Troponin 0.19, 0.17, 0.15 in the setting of HCAP, anemia, and CKD; non- diagnostic for ACS. Likely demand ischemia. Patient reports reproducible chest pain with cough, likely pleuritic in etiology. ECG unchanged, LBBB. Jun 2017: EF 50%, normal wall motion Nuclear stress January 2017: negative for ischemia or infarct. Recommend conservative medical mgmt, patient [id number]. Continue asa and statin. Will resume home BB. No further inpatient recommendations from cardiology. (2) CKD (chronic kidney disease) stage 3, GFR 30-59 ml/min Current Visit: Yes Status: Chronic Mgmt Primary team. SCr today 1.51. (3) GI bleed Current Visit: Yes Status: Chronic Recent GI bleed . HgB 5.7 H/H now stable, remains anemic, Hbg 8.4 today. Mgmt per primary service. Qualifiers: GI bleed type/associated pathology: unspecified gastrointestinal hemorrhage type Qualified Code(s): K92.2 - Gastrointestinal hemorrhage, unspecified (4) HCAP (healthcare-associated pneumonia) Current Visit: Yes Status: Acute Mgmt per primary team. Discussion w patient/family: The assessment and plan as outlined above was discussed with the patient and/or family members who expressed understanding and agreement. All questions were answered. Thank you for involving us in the care of your patient. Please call with any questions. The patient will be discussed and reviewed with Dr. Rashid Mishra; changes to be made accordingly. History of Present Illness Consult date: 07/13/17 Requesting physician: Prateek Fritz Consult reason: Elevated troponin Chief complaint: Shortness of breath History of present illness: Ms. Alston is a 86 year old female with PMHx significant for HTN, known LBBB, GERD, and recent GI bleed who presented to the ED with shortness of breath. CT chest concerning for PNA. Recent discharge on 06/26/17 after prolonged admission for profound anemia with HgB 5.7. Patient states she does not take blood. Cardiology consulted for elevated troponin. ECG shows LBBB, unchanged from previous. Patient reports chest discomfort that occurs with cough. Otherwise denies chest discomfort. Of note, patient is hard of hearing which limits HPI. Prior CV testing: TTE 2017: EF 50%, normal wall motion Nuclear stress 01/2017: perfusion imaging negative for ischemia or infarct. Past Med Surg Social Fam HX - Past Medical History Attestation: Yes The following information was validated with the patient. Source: patient Medical history: hypertension, renal disease, other Psychiatric history: no psych history - Past Surgical History Surgical History: appendectomy, cholecystectomy, orthopedic, other, other ( Tonsillectomy, adenoidectomy, left shoulder surgery, right knee replacement, ankle surgery, 2 c-sections, right thumb surgery) - Social History Smoking Status: Former smoker Smokeless Tobacco Status: No Alcohol use: none Drug use: none - Family History Father Race: Family Member Ethnicity: Non- Living Status: Age at : 90 Cause of : Old age Mother Race: Family Member Ethnicity: Non- Living Status: Age at : 90 Cause of : Old age Hx Family Cardiac Disorders: Yes (Stroke) Hx Family Neurologic Disorders: Yes (CEREBRAL VASCULAR ACCIDENT.) Sister Race: Family Member Ethnicity: Non- Living Status: Still Living Hx Family GI Disorders: Yes (Gallbladder) Hx Family Musculoskeletal Disorders: Yes (Compression fxs in spine) Brother Race: Family Member Ethnicity: Non- Living Status: Age at : 50 Cause of : Meningitis Hx Family Neurologic Disorders: Yes Medications and Allergies TraMADol [Ultram] 50 mg PO BID 02/17/15 [History] Meclizine HCl [Verticalm] 25 mg PO DAILY PRN 06/20/17 [History] Atorvastatin [Lipitor] 40 mg PO HS #30 tablet 06/26/17 [Rx] Cyanocobalamin (Vitamin B-12) [Vitamin B12] 1,000 mcg PO DAILY #10 tablet [Rx] DiphenhydraMINE [Benadryl] 12.5 mg PO Q8H PRN #20 udc 06/26/17 [Rx] Ferrous Sulfate 325 mg PO BIDWM #60 tablet 06/26/17 [Rx] Clarithromycin [Biaxin] 500 mg PO BID 07/12/17 [History] Lisinopril [Zestril] 20 mg PO DAILY 07/12/17 [History] Omeprazole [PriLOSEC] 40 mg PO DAILY 07/12/17 [History] metroNIDAZOLE [Metronidazole] 1,000 mg PO BID 07/12/17 [History] 3 Allergy/AdvReac Type Severity Reaction Status Date / Time Penicillins Allergy Rash Verified 01/12/17 06:43 All Systems Review: A 10-system review of systems was performed and is negative for pertinent findings except as documented above in the HPI. - Cardiovascular Cardiovascular: as per HPI Physical Examination Vital Signs, Last 4 Hours Pulse Resp BP Pulse Ox 07/13/17 11:00 115 20 138/71 100 07/13/17 10:25 18 100 General: Conversant, Other (hard of hearing ) Cardiac: Reg Rate and Rhythm, Normal S1 and S2 Lungs: Other (decreased bases) Neuro: Alert and responsive Abdomen: Soft Skin: No rashes noted on visualized skin Musculoskeletal: No Chest Wall Tenderness Extremities: Other (mild BLE edema) Results 07/13/17 02:59 07/13/17 02:59 Lab Results 07/12/17 07/12/17 07/12/17 16:38 16:38 21:05 WBC Hgb Hct Plt Count D-Dimer 1199 H Sodium Potassium Chloride Carbon Dioxide BUN Creatinine Glucose Calcium Magnesium Total Bilirubin AST ALT Alkaline Phosphatase Troponin I 0.17 H* 0.15 H* 07/13/17 07/13/17 02:59 02:59 WBC 5.3 Hgb 8.4 L Hct 27.0 L Plt Count 220 D-Dimer Sodium 134 L Potassium 3.8 Chloride 107 Carbon Dioxide 19 L BUN 19 Creatinine 1.51 H Glucose 98 Calcium 8.1 L Magnesium 1.6 Total Bilirubin 0.6 AST 42 H ALT 18 Alkaline Phosphatase 56 Troponin I Active Medications Acetaminophen (Tylenol) 650 mg PO Q6HR PRN PRN Reason: Mild Pain/Fever Stop: 01/11/18 15:26 Albuterol/Ipratropium (Duoneb) 3 ml IH [id number] FÁTIMA Stop: 01/11/18 16:01 Last Admin: 07/13/17 10:25 Dose: 3 ml Aspirin (Aspirin Ec) 81 mg PO DAILY FÁTIMA Stop: 01/11/18 16:01 Last Admin: 07/13/17 08:02 Dose: 81 mg Atorvastatin Calcium (Lipitor) 40 mg PO HS FÁTIMA Stop: 01/11/18 21:01 Last Admin: 07/12/17 21:47 Dose: 40 mg Benzonatate (Tessalon) 100 mg PO TID PRN PRN Reason: Cough Stop: 01/11/18 15:39 Calcium Carbonate (Tums) 1,000 mg PO TID FÁTIMA PRN Reason: Protocol Stop: 01/11/18 21:01 Last Admin: 07/13/17 08:02 Dose: 1,000 mg Cyanocobalamin (Vitamin B12) 1,000 mcg PO DAILY FÁTIMA Stop: 01/12/18 09:01 Last Admin: 07/13/17 08:02 Dose: 1,000 mcg Diphenhydramine HCl (Benadryl) 12.5 mg PO Q8H PRN PRN Reason: Itching Stop: 01/11/18 15:46 Ferrous Sulfate (Ferrous Sulfate) 325 mg PO BIDWM [facility] Stop: 01/11/18 17:01 Last Admin: 07/13/17 08:02 Dose: 325 mg Furosemide (Lasix) 20 mg IVP BIDDIURETIC FÁTIMA Stop: 01/11/18 17:01 Last Admin: 07/13/17 08:03 Dose: 20 mg Levofloxacin/Dextrose (Levaquin Premix 750mg/150 Ml) 750 mg in 150 mls @ 100 mls/hr IVPB Q48H FÁTIMA PRN Reason: Protocol Stop: 01/13/18 15:01 Cefepime HCl 1,000 mg/ Sterile (Water) 10 mls @ 150 mls/hr IVP Q12HR FÁTIMA Stop: 01/11/18 18:01 Last Admin: 07/13/17 06:39 Dose: 150 mls/hr Lisinopril (Zestril) 20 mg PO DAILY FÁTIMA PRN Reason: Protocol Stop: 01/12/18 09:01 Last Admin: 07/13/17 08:02 Dose: 20 mg Meclizine HCl (Antivert) 25 mg PO DAILY PRN PRN Reason: DIZZINESS Naloxone HCl (Narcan) 0.4 mg IVP Q2MIN PRN PRN Reason: SEE COMMENTS Stop: 01/11/18 15:26 Nitroglycerin (Nitroglycerin) 0.4 mg SL Q5MIN PRN PRN Reason: Chest Pain Stop: 01/11/18 15:58 Omeprazole (Prilosec) 40 mg PO 0630 FÁTIMA PRN Reason: Protocol Stop: 01/12/18 06:31 Last Admin: 07/13/17 06:40 Dose: 40 mg Tramadol HCl (Ultram) 50 mg PO BID [facility] Stop: 01/11/18 21:01 Last Admin: 07/13/17 08:02 Dose: 50 mg Vancomycin HCl (Vancocin) 0 each IVPB AD [facility] Stop: 01/11/18 18:01 - Imaging and Cardiology Echo: report reviewed - EKG Interpretation EKG results cardiology: personally reviewed Consult Discharge Plan - Plan Referrals: El Carrillo DO [Primary Care Provider] - <Rashid Mishra - Last Filed: 07/13/17 12:30> Date of Encounter: 07/13/17 - Attending Attestation I have personally performed a face to face evaluation on this patient. I have reviewed and agree with the care plan. History and Exam by me shows: Mild troponin elevation in setting of pneumonia. No further cardiac testing needed. Assessment and Plan Discussion w patient/family: The assessment and plan as outlined above was discussed with the patient and/or family members who expressed understanding and agreement. All questions were answered. Thank you for involving us in the care of your patient. Please call with any questions. History of Present Illness History of present illness: Ms. Alston is a 86 year old female All Systems Review: A 10-system review of systems was performed and is negative for pertinent findings except as documented above in the HPI. Physical Examination Vital Signs, Last 4 Hours Pulse Resp BP Pulse Ox 07/13/17 11:00 115 20 138/71 100 07/13/17 10:25 18 100 Results 07/13/17 02:59 07/13/17 02:59 Lab Results 07/12/17 07/12/17 07/12/17 16:38 16:38 21:05 WBC Hgb Hct Plt Count D-Dimer 1199 H Sodium Potassium Chloride Carbon Dioxide BUN Creatinine Glucose Calcium Magnesium Total Bilirubin AST ALT Alkaline Phosphatase Troponin I 0.17 H* 0.15 H* 07/13/17 07/13/17 02:59 02:59 WBC 5.3 Hgb 8.4 L Hct 27.0 L Plt Count 220 D-Dimer Sodium 134 L Potassium 3.8 Chloride 107 Carbon Dioxide 19 L BUN 19 Creatinine 1.51 H Glucose 98 Calcium 8.1 L Magnesium 1.6 Total Bilirubin 0.6 AST 42 H ALT 18 Alkaline Phosphatase 56 Troponin I
--- NOTE | 2017-07-13 15:25 | Internal Med Progress Note ---
<JohnErik tee - Last Filed: 07/13/17 16:10> Date of Encounter: 07/13/17 Time of Encounter: 09:00 - Assessment and plan (1) CHF exacerbation Current Visit: Yes Status: Acute Assessment and plan: - Patient complaint of SOB. - Most recent Echo on 06/20/17 showing EF of 50% and indeterminate diastolic dysfunction - BNP of 1199 on presentation. Currently tolerating 2L O2 - WBC wnl, afebrile - CXR, CT chest shows bilateral pleural effusions and pulmonary edema - V/Q scan shows low probability for PE Plan - Diuresis with Lasix 40mg IV BID, Strict I/Os, Fluid restriction diet - Supplemental O2 as needed. - Cardiology following, appreciate recommendations Qualifiers: Congestive heart failure type: systolic Qualified Code(s): I50.23 - Acute on chronic systolic (congestive) heart failure (2) Elevated troponin Current Visit: Yes Status: Acute Assessment and plan: Troponin of 0.19/0.17/0.15 - Likely secondary demand ischemia in the setting of CHF exacerbation, CKD stage III - Unlikely ACS at this time. - Cardio following Plan Continue to monitor. 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 - VSS, no WBC, tolerating 2L at 97% Plan - Will continue Vanc, Cefepime, levaquin - De-escalate as able (5) CKD (chronic kidney disease) stage 3, GFR 30-59 ml/min Current Visit: Yes Status: Chronic Assessment and plan: BUN/Cr of 19/1.51, near baseline 1.4-1.5 - Avoid nephrotoxic agents, continue to monitor given heavy diuresis planned. (6) Hypertension Current Visit: Yes Status: Chronic Assessment and plan: Well controlled at 137/69 Continue home meds Qualifiers: Hypertension type: essential hypertension Qualified Code(s): I10 - Essential (primary) hypertension (7) HTN (hypertension) Current Visit: Yes Status: Chronic Qualifiers: Hypertension type: essential hypertension Qualified Code(s): I10 - Essential (primary) hypertension (8) HLD (hyperlipidemia) Current Visit: Yes Status: Chronic Assessment and plan: Continue home meds Qualifiers: Hyperlipidemia type: pure hypercholesterolemia Qualified Code(s): E78.00 - Pure hypercholesterolemia, unspecified; E78.0 - Pure hypercholesterolemia (9) GERD (gastroesophageal reflux disease) Current Visit: Yes Status: Chronic Assessment and plan: No complaints of reflux - Will monitor and continue home meds. Qualifiers: Esophagitis presence: esophagitis presence not specified Qualified Code(s) : K21.9 - Gastro-esophageal reflux disease without esophagitis (10) DVT prophylaxis Current Visit: Yes Status: Acute - Time Spent With Patient 25 - 35 minutes - Subjective Interval history: Patient was seen and examined this morning at bedside. She is very hard of hearing which is making it difficult to communicate her complaints. She does state that she is experiencing a non productive cough. - Constitutional Vitals: Temp Pulse Resp BP Pulse Ox 98.2 F 110 22 132/70 100 07/13/17 15:00 07/13/17 15:00 07/13/17 15:00 07/13/17 15:00 07/13/17 15:00 General appearance: Present: cooperative, mild distress (Respiratory), A&O X 3, pleasant, answers questions appropriately (With multiple attempts d/t hearing deficits) Exam: Gen.: Vitals noted. No acute distress. Difficulty hearing. HEENT: PERRL/EOMI, oropharynx clear, Normocephalic, atraumatic, MMM Cardiac: RRR, no murmur, +S1/S2 Pulmonary: Moderate rales, most prominent on RLL. equal chest expansion Abdomen: soft, nontender, BS noted, no guarding Extremities: no BLE edema, nontender calf, no cyanosis or clubbing Neuro: Unable to assess due to difficulty hearing. Psych: Appropriate mood and behavior Internal Medicine: Result - Labs CBC & Chem 7: 07/13/17 02:59 07/13/17 02:59 Labs: Short CBC 07/13/17 Range/Units 02:59 WBC 5.3 (4.3-11.1) K/mcL Hgb 8.4 L (11.5-15.4) g/dL Hct 27.0 L (35.3-44.9) % Plt Count 220 (140-400) K/mcL Neutrophils # 2.8 (1.6-8.9) K/mcL BMP 07/13/17 02:59 Sodium 134 L Potassium 3.8 Chloride 107 Carbon Dioxide 19 L BUN 19 Creatinine 1.51 H Glucose 98 Calcium 8.1 L Cardiac Enzymes 07/12/17 07/12/17 Range/Units 16:38 21:05 Troponin I 0.17 H* 0.15 H* (< 0.04) ng/mL Liver Function 07/13/17 Range/Units 02:59 Total Bilirubin 0.6 (0.3-1.0) mg/dL AST 42 H (13-39) Units/L ALT 18 (7-52) Units/L Alkaline Phosphatase 56 (34-104) Units/L Albumin 2.7 L (3.5-5.7) g/dL - ABG Interpretation ABG results: PT/INR, D-dimer D-Dimer 1199 ng/mLFEU (0-500) H 07/12/17 16:38 - Impressions Impressions Pulmonary Perfusion Imaging 07/12/17 21:15 IMPRESSION: Multiple moderate matching defects. Low probability for PE appear D/ / Jose Robb MD / Jose Robb MD Interpreting Provider: Jose Robb MD Consult Discharge Plan - Plan Referrals: El Carrillo DO [Primary Care Provider] - <Jesse Mallory - Last Filed: 07/13/17 18:05> Date of Encounter: 07/13/17 - Constitutional Vitals: Temp Pulse Resp BP Pulse Ox 98.2 F 110 18 132/70 100 07/13/17 15:00 07/13/17 15:00 07/13/17 15:38 07/13/17 15:00 07/13/17 15:38 Internal Medicine: Result - Labs CBC & Chem 7: 07/13/17 02:59 07/13/17 02:59 Labs: Short CBC 07/13/17 Range/Units 02:59 WBC 5.3 (4.3-11.1) K/mcL Hgb 8.4 L (11.5-15.4) g/dL Hct 27.0 L (35.3-44.9) % Plt Count 220 (140-400) K/mcL Neutrophils # 2.8 (1.6-8.9) K/mcL BMP 07/13/17 02:59 Sodium 134 L Potassium 3.8 Chloride 107 Carbon Dioxide 19 L BUN 19 Creatinine 1.51 H Glucose 98 Calcium 8.1 L Cardiac Enzymes 07/12/17 Range/Units 21:05 Troponin I 0.15 H* (< 0.04) ng/mL Liver Function 07/13/17 Range/Units 02:59 Total Bilirubin 0.6 (0.3-1.0) mg/dL AST 42 H (13-39) Units/L ALT 18 (7-52) Units/L Alkaline Phosphatase 56 (34-104) Units/L Albumin 2.7 L (3.5-5.7) g/dL - ABG Interpretation ABG results: PT/INR, D-dimer D-Dimer 1199 ng/mLFEU (0-500) H 07/12/17 16:38 - Impressions Impressions Pulmonary Perfusion Imaging 07/12/17 21:15 IMPRESSION: Multiple moderate matching defects. Low probability for PE appear D/ / Jose Robb MD / Jose Robb MD Interpreting Provider: Jose Robb MD - Attending Attestation I examined this patient and my medical decision-making was reviewed with the Resident Physician. I agree with the documented findings, disposition and treatment plan as described except to the extent set forth below.
[2017-07-13] MEDS: Cefepime HCl 2,000 MG in Water for inj. (sterile) 20 ML IVP SCH (17:30)
[2017-07-13] MEDS ORDERED: Vancomycin 1,000 MG in D5% in Water 250 ML IVPB ONE (19:24)
[2017-07-14] MEDS: Ipratropium/Albuterol Neb 3 ML IH SCH ×4 (03:54→22:34)
[2017-07-14 04:43] LABS: Basophils # 0.1 K/mcL (0.0-0.2); Eosinophils # 0.3 K/mcL (0.0-0.6); Eosinophils % 6.3 %; Hematocrit 26.3 % (35.3-44.9); Hemoglobin 8.2 g/dL (11.5-15.4); Immature Granulocytes % 0.4 % (0-4); Lymphocytes # 1.2 K/mcL (0.6-4.6); Mean Corpuscular HGB Conc 31.2 g/dL (31.6-35.5); Mean Corpuscular Hemoglobin 34.2 pg (28.0-33.3); Mean Corpuscular Volume 109.6 fL (83.0-100.0); Monocytes # 0.7 K/mcL (0.0-1.3); Monocytes % 14.2 %; Neutrophils # 2.8 K/mcL (1.6-8.9); Platelet Count 215 K/mcL (140-400); Red Cell Distribution Width 22.2 % (11.5-14.5); Segmented Neutrophils % 54.1 %
[2017-07-14 04:57] LABS: Albumin 2.7 g/dL (3.5-5.7); Bilirubin,Total 0.6 mg/dL (0.3-1.0); Calcium 8.2 mg/dL (8.6-10.3); Globulin 2.7 g/dL (2.4-3.5); Potassium 3.6 mEq/L (3.5-5.1); Total Protein 5.4 g/dL (6.4-8.9)
[2017-07-14] MEDS: Furosemide 20 MG/2 ML VIAL IVP SCH ×2 (07:58→18:00)
[2017-07-14] MEDS: Aspirin Enteric Coated 81 MG Tablet PO SCH (07:59)
[2017-07-14] MEDS: Lisinopril 20 MG TABLET PO SCH (08:00)
[2017-07-14] MEDS: traMADol 50 MG TABLET PO SCH (08:00)
[2017-07-14] MEDS: Cyanocobalamin (B-12) 1,000 MCG TABLET PO SCH (08:00)
[2017-07-14] MEDS ORDERED: *HR* LORazepam 2 MG/ML VIAL IVP ONE (09:54)
--- NOTE | 2017-07-14 10:52 | Internal Med Progress Note ---
<Erik Mcgrath - Last Filed: 07/14/17 15:07> Date of Encounter: 07/14/17 Time of Encounter: 10:49 - Assessment and plan (1) CHF exacerbation Current Visit: Yes Status: Acute Assessment and plan: - Patient complaint of SOB. - Most recent Echo on 06/20/17 showing EF of 50% and indeterminate diastolic dysfunction - BNP of 1199 on presentation. Currently tolerating 2L O2 - WBC wnl, afebrile - CXR, CT chest shows bilateral pleural effusions and pulmonary edema - V/Q scan shows low probability for PE - Minimal I/O of -300 yesterday, however she has had difficulty with IV access. - Increased SOB today, repeat CXR on 07/14/17 showed similar findings of bilateral pleural effusions and pulmonary edema. No new process. Plan - Diuresis with Lasix 40mg IV BID, Strict I/Os, Fluid restriction diet - Supplemental O2 as needed. - Cardiology following, appreciate recommendations Qualifiers: Congestive heart failure type: systolic Qualified Code(s): I50.23 - Acute on chronic systolic (congestive) heart failure (2) Elevated troponin Current Visit: Yes Status: Acute Assessment and plan: Troponin of 0.19/0.17/0.15 - Likely secondary demand ischemia in the setting of CHF exacerbation, CKD stage III - Unlikely ACS at this time. - Cardio following Plan Continue to monitor. No complaints of CP (3) Anemia Current Visit: Yes Status: Chronic Assessment and plan: - Macrocytic anemia with component of iron deficiency - Workup at last visit in June reveled B12 deficiency and iron deficiency - H/H stable at 8.2/26.3, stable from 8.4 - Continue iron and B12 supplementation which was started as outpatient - EGD in June 2017 showed no evidence of bleed. - Patient is notably a [employer] and does not receive blood transfusions -Will continue to carefully monitor given initiation of heparin for DVT as below. Qualifiers: Anemia type: B12 deficiency Vitamin B12 deficiency anemia type: other B12 deficiency Qualified Code(s): D51.8 - Other vitamin B12 deficiency anemias (4) HCAP (healthcare-associated pneumonia) Current Visit: Yes Status: Acute Assessment and plan: Possible underlying PNA on CXR in LLL - Recent admission to hospital less than a month ago. - VSS, no WBC, tolerating 2L at 97% Plan - Will continue Cefepime, levaquin, day 2 - De-escalate as able, will discontinue vancomycin today. (5) CKD (chronic kidney disease) stage 3, GFR 30-59 ml/min Current Visit: Yes Status: Chronic Assessment and plan: BUN/Cr of 20/1.61, near baseline 1.4-1.5 -Mildly increased Cr due to diuresis likely. Will continue current regimen. - Avoid nephrotoxic agents, continue to monitor given heavy diuresis planned. (6) Hypertension Current Visit: Yes Status: Chronic Assessment and plan: Well controlled at 131/67 Continue home meds Qualifiers: Hypertension type: essential hypertension Qualified Code(s): I10 - Essential (primary) hypertension (7) HLD (hyperlipidemia) Current Visit: Yes Status: Chronic Assessment and plan: Continue home meds Qualifiers: Hyperlipidemia type: pure hypercholesterolemia Qualified Code(s): E78.00 - Pure hypercholesterolemia, unspecified; E78.0 - Pure hypercholesterolemia (8) GERD (gastroesophageal reflux disease) Current Visit: Yes Status: Chronic Assessment and plan: No complaints of reflux - Will monitor and continue home meds. Qualifiers: Esophagitis presence: esophagitis presence not specified Qualified Code(s) : K21.9 - Gastro-esophageal reflux disease without esophagitis (9) DVT (deep venous thrombosis) Current Visit: Yes Status: Acute Assessment and plan: - Vascular studies showing positive DVT in right femoral - Patient has a history of anemia with a Hgb of 5.7 at last visit in June - Workup reveled B12 deficiency macrocytic anemia also with iron deficiency. - EGD in June revealed no bleeding. - Patient is notably a Syn[employer] and cannot receive blood transfusions per chart review. - Vascular surgery consulted, appreciate recommendations. Plan - Will start heparin gtt without bolus today. - Pending vascular surgery recommendations. Qualifiers: DVT location: lower extremity Affected thrombotic vein of extremity: femoral Chronicity: unspecified Laterality: right Qualified Code(s): I82.411 - Acute embolism and thrombosis of right femoral vein (10) DVT prophylaxis Current Visit: Yes Status: Acute Assessment and plan: - Start Heparin gtt today - Time Spent With Patient 25 - 35 minutes - Subjective Interval history: Patient was seen and examined this morning at bedside. She is very hard of hearing which is making it difficult to communicate her complaints. She does state is experiencing increased SOB today and is noticeably gasping in short intervals. O2 saturation in high 90s. Nursing reports that she was coughing after her breakfast this morning and bedside swallow evaluation failed. - Constitutional Vitals: Temp Pulse Resp BP Pulse Ox 98.7 F 107 17 131/67 97 07/14/17 06:53 07/14/17 06:53 07/14/17 06:53 07/14/17 06:53 07/14/17 08:13 General appearance: Present: cooperative, mild distress (Respiratory), A&O X 3, pleasant, answers questions appropriately (With multiple attempts d/t hearing deficits) Exam: Gen.: Vitals noted. No acute distress. AAOx3 HEENT: PERRL/EOMI, oropharynx clear, Normocephalic, atraumatic, MMM Cardiac: RRR, no murmur, +S1/S2 Pulmonary: Rales diffusely, stable from previous. Diminished in bases. equal chest expansion Abdomen: soft, nontender, BS noted, no guarding Extremities: no BLE edema, nontender calf, no cyanosis or clubbing Neuro: A&Ox3, moves all extremities, no focal deficits Psych: Appropriate mood and behavior Internal Medicine: Result - Labs CBC & Chem 7: 07/14/17 03:59 07/14/17 03:59 Labs: Short CBC 07/14/17 Range/Units 03:59 WBC 5.1 (4.3-11.1) K/mcL Hgb 8.2 L (11.5-15.4) g/dL Hct 26.3 L (35.3-44.9) % Plt Count 215 (140-400) K/mcL Neutrophils # 2.8 (1.6-8.9) K/mcL BMP 07/14/17 03:59 Sodium 134 L Potassium 3.6 Chloride 105 Carbon Dioxide 20 L BUN 20 Creatinine 1.61 H Glucose 103 Calcium 8.2 L Liver Function 07/14/17 Range/Units 03:59 Total Bilirubin 0.6 (0.3-1.0) mg/dL AST 50 H (13-39) Units/L ALT 22 (7-52) Units/L Alkaline Phosphatase 54 (34-104) Units/L Albumin 2.7 L (3.5-5.7) g/dL - ABG Interpretation ABG results: PT/INR, D-dimer D-Dimer 1199 ng/mLFEU (0-500) H 07/12/17 16:38 - Impressions Impressions Chest X-Ray 07/14/17 09:08 IMPRESSION: No significant change from prior exam. Moderate pleural effusions and bibasilar atelectasis. D/ / Martin Asencio MD / Martin Asencio MD Interpreting Provider: Martin Asencio MD Consult Discharge Plan - Plan Referrals: El Carrillo DO [Primary Care Provider] - 07/20/17 9:30 am <Jesse Mallory - Last Filed: 07/14/17 16:06> Date of Encounter: 07/14/17 - Constitutional Vitals: Temp Pulse Resp BP Pulse Ox 98.4 F 110 16 135/73 100 07/14/17 15:00 07/14/17 15:00 07/14/17 15:54 07/14/17 15:00 07/14/17 15:54 Internal Medicine: Result - Labs CBC & Chem 7: 07/14/17 03:59 07/14/17 03:59 Labs: Short CBC 07/14/17 Range/Units 03:59 WBC 5.1 (4.3-11.1) K/mcL Hgb 8.2 L (11.5-15.4) g/dL Hct 26.3 L (35.3-44.9) % Plt Count 215 (140-400) K/mcL Neutrophils # 2.8 (1.6-8.9) K/mcL BMP 07/14/17 03:59 Sodium 134 L Potassium 3.6 Chloride 105 Carbon Dioxide 20 L BUN 20 Creatinine 1.61 H Glucose 103 Calcium 8.2 L Liver Function 07/14/17 Range/Units 03:59 Total Bilirubin 0.6 (0.3-1.0) mg/dL AST 50 H (13-39) Units/L ALT 22 (7-52) Units/L Alkaline Phosphatase 54 (34-104) Units/L Albumin 2.7 L (3.5-5.7) g/dL Urine 07/14/17 Range/Units 11:30 Urine Color Yellow (Yellow) Urine Clarity Cloudy A (Clear) Urine pH 6.0 (5.0-8.0) pH Units Ur Specific [place] 1.014 (1.010-1.025) Urine Protein Negative (Neg-Trace) mg/dL Urine Glucose (UA) Normal (Normal) mg/dL - ABG Interpretation ABG results: PT/INR, D-dimer PT 15.8 Seconds (9.4-12.1) H 07/14/17 11:52 D-Dimer 1199 ng/mLFEU (0-500) H 07/12/17 16:38 - Impressions Impressions Chest X-Ray 07/14/17 09:08 IMPRESSION: No significant change from prior exam. Moderate pleural effusions and bibasilar atelectasis. D/ / Martin Asencio MD / Martin Asencio MD Interpreting Provider: Martin Asencio MD - Attending Attestation I examined this patient and my medical decision-making was reviewed with the Resident Physician. I agree with the documented findings, disposition and treatment plan as described except to the extent set forth below. 82/female Admitted with CHF exacerbation/elevated troponin. Noted to have an extensive acute deep vein thrombosis. Have a protestant believes for blood transfusion. Evaluated by vascular surgery and recommended anticoagulation. We will follow this patient very closely
[2017-07-14] MEDS ORDERED: *HR* Heparin 5,000 UNIT/ML VIAL IVP PRN (11:29)
[2017-07-14 11:51] LABS: Bilirubin,Urine Negative (Negative); Blood,Urine Negative (Negative); Clarity,Urine Cloudy (Clear); Color,Urine Yellow (Yellow); Glucose,Urine (UA) Normal (Normal); Ketones,Urine Negative (Negative); Leukocyte Esterase,Urine Negative (Negative); Nitrite,Urine Negative (Negative); Protein,Urine Negative (Neg-Trace); Specific Gravity,Urine 1.014 (1.010-1.025); Urobilinogen,Urine Normal (Normal)
[2017-07-14 11:54] LABS: Bacteria,Urine None Seen per hpf (None-Few); Hyaline Casts,Urine None Seen per lpf (None-Few); Squamous Epithelial Cell,Urine Many per lpf (None-Few); WBC,Urine 0-3 per hpf (0-3)
[2017-07-14] MEDS ORDERED: Levofloxacin 750 MG/150 ML 750 MG/150 ML BAG IVPB SCH (12:00)
[2017-07-14 12:13] LABS: INR 1.5; Prothrombin Time 15.8 Seconds (9.4-12.1)
[2017-07-14 12:16] LABS: Activated Partial Thrombo Time 26.7 Seconds (26.0-36.0)
[2017-07-14] MEDS: Heparin 25,000 UNIT/500 ML D5W 25,000 UNIT/500 ML BAG IVC SCH (13:29)
--- NOTE | 2017-07-14 15:11 | Vascular/Endovasc Consult Note ---
Date of Encounter: 07/14/17 Time of Encounter: 13:30 Assessment and Plan (1) Anemia Current Visit: Yes Status: Chronic Patient has chronic anemia. She has mandaen objections to blood transfusions. Qualifiers: Anemia type: unspecified type Qualified Code(s): D64.9 - Anemia, unspecified (2) HCAP (healthcare-associated pneumonia) Current Visit: Yes Status: Acute Patient has been treated with intravenous antibiotics for healthcare associated pneumonia. (3) DVT (deep venous thrombosis) Current Visit: Yes Status: Acute The patient has a nonocclusive right superficial femoral vein deep venous thrombosis. I recommend the patient be treated with anticoagulation. She has a very poor candidate and I do not recommend placement of an IVC filter. Should the patient developed significant anemia the patient will need to be treated without anticoagulation. Qualifiers: DVT location: lower extremity Affected thrombotic vein of extremity: femoral Chronicity: acute Laterality: right Qualified Code(s): I82.411 - Acute embolism and thrombosis of right femoral vein - History of Present Illness Consult date: 07/14/17 Consult reason: Right lower extremity DVT History of present illness: Ms. Alston is a 86 year old female Admitted via the emergency room with blanks of pulmonary issues. The patient was evaluated and is being treated for pneumonia as well as chronic COPD. As part of her evaluation at venous duplex scan was performed yesterday. This demonstrates a partially occlusive acute right thigh superficial femoral vein DVT. Vascular surgery was asked to see the patient for, in regards to her treatment. She has a history of anemia. She recently had had a hemoglobin in the 5-6 g range. Her present hemoglobin is 8.2. The patient objects to transfusion from mandaen standpoint. In addition she is a DNR. Complicating this issue is that is that she is extremely hard of hearing and I' m unable to obtain any information specifically and directly from the patient herself. Past Med Surg Social Fam HX - Past Medical History Medical history: hypertension, renal disease, other Psychiatric history: no psych history - Past Surgical History Surgical History: appendectomy, cholecystectomy, orthopedic, other, other ( Tonsillectomy, adenoidectomy, left shoulder surgery, right knee replacement, ankle surgery, 2 c-sections, right thumb surgery) - Social History Smoking Status: Former smoker Smokeless Tobacco Status: No Alcohol use: none Drug use: none - Family History Father Race: Family Member Ethnicity: Non- Living Status: Age at : 90 Cause of : Old age Mother Race: Family Member Ethnicity: Non- Living Status: Age at : 90 Cause of : Old age Hx Family Cardiac Disorders: Yes (Stroke) Hx Family Neurologic Disorders: Yes (CEREBRAL VASCULAR ACCIDENT.) Sister Race: Family Member Ethnicity: Non- Living Status: Still Living Hx Family GI Disorders: Yes (Gallbladder) Hx Family Musculoskeletal Disorders: Yes (Compression fxs in spine) Brother Race: Family Member Ethnicity: Non- Living Status: Age at : 50 Cause of : Meningitis Hx Family Neurologic Disorders: Yes Medications and Allergies TraMADol [Ultram] 50 mg PO BID 02/17/15 [History] Meclizine HCl [Verticalm] 25 mg PO DAILY PRN 06/20/17 [History] Atorvastatin [Lipitor] 40 mg PO HS #30 tablet 06/26/17 [Rx] Cyanocobalamin (Vitamin B-12) [Vitamin B12] 1,000 mcg PO DAILY #10 tablet [Rx] DiphenhydraMINE [Benadryl] 12.5 mg PO Q8H PRN #20 udc 06/26/17 [Rx] Ferrous Sulfate 325 mg PO BIDWM #60 tablet 06/26/17 [Rx] Clarithromycin [Biaxin] 500 mg PO BID 07/12/17 [History] Lisinopril [Zestril] 20 mg PO DAILY 07/12/17 [History] Omeprazole [PriLOSEC] 40 mg PO DAILY 07/12/17 [History] metroNIDAZOLE [Metronidazole] 1,000 mg PO BID 07/12/17 [History] 3 Allergy/AdvReac Type Severity Reaction Status Date / Time Penicillins Allergy Rash Verified 01/12/17 06:43 All Systems Review: A 10-system review of systems was performed and is negative for pertinent findings except as documented above in the HPI. Exam Vital Signs, Last 4 Hours Temp Pulse Resp BP Pulse Ox 07/14/17 15:00 98.4 F 110 16 135/73 100 General: Present: No Apparent Distress HEENT: Present: Atraumatic, Normocephaly, Trachea midline Neck: Absent: JVD, Left Carotid bruit, Right Carotid bruit, Midline deformity, Tracheal deviation Cardiac: Present: Reg Rate and Rhythm, No Murmur Lungs: Present: Decreased breath sounds Neuro: Present: Alert and responsive, No focal deficits noted Abdomen: Present: Soft, Non-tender Vascular: Present: Pulse, normal, Other (The patient has tenderness on gentle manipulation of both extremities both at the thigh and calf level.). Absent: Cyanosis, Amputation(s) Skin: Present: Other (The patient has diffuse excoriations on her extremities and trunk. By history it is noted that at home there are multiple animals.) Consult Discharge Plan - Plan Referrals: El Carrillo DO [Primary Care Provider] - 07/20/17 9:30 am
[2017-07-14] MEDS ORDERED: traMADol 50 MG TABLET PO PRN (15:30)
[2017-07-14] MEDS: Cefepime HCl 2,000 MG in Water for inj. (sterile) 20 ML IVP SCH (17:59)
[2017-07-14 20:49] LABS: Activated Partial Thrombo Time 130.5 Seconds (26.0-36.0)
[2017-07-14 21:06] LABS: Heparin anti-factor XA UFH 0.64 IU/mL (0.30-0.70)
[2017-07-15] MEDS: Ipratropium/Albuterol Neb 3 ML IH SCH ×4 (03:48→21:44)
[2017-07-15 04:43] LABS: Basophils # 0.1 K/mcL (0.0-0.2); Basophils % 2.1 %; Eosinophils # 0.3 K/mcL (0.0-0.6); Hematocrit 26.4 % (35.3-44.9); Hemoglobin 8.7 g/dL (11.5-15.4); Immature Granulocytes % 0.6 % (0-4); Lymphocytes # 1.1 K/mcL (0.6-4.6); Lymphocytes % 23.6 %; Mean Corpuscular Hemoglobin 34.4 pg (28.0-33.3); Mean Corpuscular Volume 104.3 fL (83.0-100.0); Mean Platelet Volume 11.1 fL (9.4-12.4); Monocytes # 0.7 K/mcL (0.0-1.3); Monocytes % 14.9 %; Neutrophils # 2.6 K/mcL (1.6-8.9); Platelet Count 226 K/mcL (140-400); Red Blood Count 2.53 M/mcL (3.82-4.97); Segmented Neutrophils % 52.8 %
[2017-07-15 05:02] LABS: Albumin 2.8 g/dL (3.5-5.7); Bilirubin,Total 0.6 mg/dL (0.3-1.0); Calcium 8.5 mg/dL (8.6-10.3); Globulin 2.7 g/dL (2.4-3.5); Potassium 3.1 mEq/L (3.5-5.1); Total Protein 5.5 g/dL (6.4-8.9)
[2017-07-15] MEDS: Cyanocobalamin (B-12) 1,000 MCG TABLET PO SCH (08:12)
[2017-07-15] MEDS: Lisinopril 20 MG TABLET PO SCH (08:12)
[2017-07-15] MEDS: Aspirin Enteric Coated 81 MG Tablet PO SCH (08:12)
[2017-07-15] MEDS: Furosemide 20 MG/2 ML VIAL IVP SCH (08:18)
[2017-07-15 11:18] LABS: Adenovirus Not Detected (Not Detect); Bordetella Pertussis Not Detected (Not Detect); Chlamydophila pneumoniae Not Detected (Not Detect); Coronavirus 229E Not Detected (Not Detect); Coronavirus HKU1 Not Detected (Not Detect); Coronavirus NL63 Not Detected (Not Detect); Coronavirus OC43 Not Detected (Not Detect); Human Metapneumovirus Not Detected (Not Detect); Human Rhinovirus/Enterovirus Not Detected (Not Detect); Influenza A Subtype 2009 H1 Not Detected (Not Detect); Influenza A Untypeable Not Detected (Not Detect); Influenza B Not Detected (Not Detect); Mycoplasma pneumoniae Not Detected (Not Detect); Parainfluenza Virus 1 Not Detected (Not Detect); Parainfluenza Virus 2 Not Detected (Not Detect); Parainfluenza Virus 3 Not Detected (Not Detect); Parainfluenza Virus 4 Not Detected (Not Detect); Respiratory Syncytial Virus Not Detected (Not Detect)
--- NOTE | 2017-07-15 15:15 | Internal Med Progress Note ---
Date of Encounter: 07/15/17 Time of Encounter: 15:13 - Assessment and plan (1) CHF exacerbation Current Visit: Yes Status: Acute Assessment and plan: - Patient complaint of SOB. - Most recent Echo on 06/20/17 showing EF of 50% and indeterminate diastolic dysfunction - BNP of 1199 on presentation. Currently tolerating 2L O2 - WBC wnl, afebrile - CXR, CT chest shows bilateral pleural effusions and pulmonary edema - V/Q scan shows low probability for PE - Minimal I/O of -300 yesterday, however she has had difficulty with IV access. - Increased SOB today, repeat CXR on 07/14/17 showed similar findings of bilateral pleural effusions and pulmonary edema. No new process. Plan - Diuresis with Lasix 40mg IV BID, Strict I/Os, Fluid restriction diet - Supplemental O2 as needed. - Cardiology following, appreciate recommendations 07/15/2017 Admitted with worsening of diastolic failure. Responded well to diuretic therapy. Noted that patient has a deep vein thrombosis of the femoral vein. Vascular surgery consultation and recommended anticoagulation. Presently on heparin drip. Overall she is feeling better. Plan: Regarding his CHF exacerbation: Decrease IV Lasix once a day. Close monitoring of the electrolytes and replace as needed. We will talk to family tomorrow regarding plan. Cardiology on the board and we will follow the recommendations Qualifiers: Congestive heart failure type: systolic Qualified Code(s): I50.23 - Acute on chronic systolic (congestive) heart failure (2) HCAP (healthcare-associated pneumonia) Current Visit: Yes Status: Acute Assessment and plan: Possible underlying PNA on CXR in [facility] - Recent admission to hospital less than a month ago. - VSS, no WBC, tolerating 2L at 97% Plan - Will continue Cefepime, levaquin, day 2 - De-escalate as able, will discontinue vancomycin today. 07/15/2017 Continue same antibiotics for now. Today is the third day of antibiotics. (3) Anemia Current Visit: Yes Status: Chronic Assessment and plan: - Macrocytic anemia with component of iron deficiency - Workup at last visit in June reveled B12 deficiency and iron deficiency - H/H stable at 8.2/26.3, stable from 8.4 - Continue iron and B12 supplementation which was started as outpatient - EGD in June 2017 showed no evidence of bleed. - Patient is notably a Congregational and does not receive blood transfusions -Will continue to carefully monitor given initiation of heparin for DVT as below. 07/15/2017 Noted that patient has a persistent drop in hemoglobin. Today's hemoglobin is 8.7. Patient does have some shinto believes that she cannot take blood/blood products. F tomorrow there is a persistent drop in the hemoglobin then we will rethink about heparin drip. Qualifiers: Anemia type: B12 deficiency Vitamin B12 deficiency anemia type: other B12 deficiency Qualified Code(s): D51.8 - Other vitamin B12 deficiency anemias (4) CKD (chronic kidney disease) stage 3, GFR 30-59 ml/min Current Visit: Yes Status: Chronic Assessment and plan: BUN/Cr of 20/1.61, near baseline 1.4-1.5 -Mildly increased Cr due to diuresis likely. Will continue current regimen. - Avoid nephrotoxic agents, continue to monitor given heavy diuresis planned. 07/15/2017 Noted that patient has a worsening trend of creatinine. This is likely secondary to diuretics. Present creatinine is 1.7. Present dose of Lasix is 40 mg twice a day. Patient's potassium is 3.1. Plan: IV Lasix 40 mg once a day. Labs tomorrow. Replace potassium intravenously. (5) Hypertension Current Visit: Yes Status: Chronic Assessment and plan: Well controlled at 129/79 Continue home meds Qualifiers: Hypertension type: essential hypertension Qualified Code(s): I10 - Essential (primary) hypertension (6) DVT prophylaxis Current Visit: Yes Status: Acute Assessment and plan: - Start Heparin gtt today Medical decision making: This patient has a moderate to severe risk of worsening in spite of being on appropriate medication to the underlying chronic comorbid conditions. - Subjective Interval history: Patient seen and examined. Chart reviewed. Patient is comfortably lying in bed. Patient denies any chest pain, shortness of breath, nausea, vomiting, abdominal pain, dizziness and diarrhea. - Constitutional Vitals: Temp Pulse Resp BP Pulse Ox 97.8 F 108 18 129/79 99 18 13:16 07/15/17 13:16 07/15/17 13:16 07/15/17 13:16 07/15/17 13:16 General appearance: Present: cooperative, mild distress (Respiratory), A&O X 3, pleasant, answers questions appropriately (With multiple attempts d/t hearing deficits) - Head Head exam: Present: atraumatic, normocephalic - Eye Eye exam: Present: PERRL, conjuntiva pink, sclera anicteric Pupils: Present: PERRL - Neck Neck exam general surgery: Present: supple, trachea midline. Absent: lymphadenopathy - Respiratory Respiratory exam: Present: CTAB. Absent: accessory muscle use, rales, rhonchi, wheezes - Cardiovascular Cardiovascular exam: Present: RRR, +S1, +S2. Absent: diastolic murmur, gallop, rubs, systolic murmur - GI/Abdominal GI/Abdominal exam: Present: normal bowel sounds, soft, no peritoneal signs. Absent: distended, tenderness - Extremities Exam Extremities exam: Present: warm, radial pulses palpable and symmetrical. Absent : calf tenderness, cyanotic, pedal edema - Neurological Exam Neurological exam: Present: CN II-XII intact, oriented X3, no focal deficits. Absent: pronater drift, facial droop, speech deficit - Skin Skin exam: Present: dry, intact Internal Medicine: Result - Labs CBC & Chem 7: 07/15/17 04:00 07/15/17 04:00 Labs: Short CBC 07/15/17 Range/Units 04:00 WBC 4.8 (4.3-11.1) K/mcL Hgb 8.7 L (11.5-15.4) g/dL Hct 26.4 L (35.3-44.9) % Plt Count 226 (140-400) K/mcL Neutrophils # 2.6 (1.6-8.9) K/mcL BMP 07/15/17 04:00 Sodium 134 L Potassium 3.1 L Chloride 100 Carbon Dioxide 23 BUN 19 Creatinine 1.70 H Glucose 99 Calcium 8.5 L Liver Function 07/15/17 Range/Units 04:00 Total Bilirubin 0.6 (0.3-1.0) mg/dL AST 48 H (13-39) Units/L ALT 24 (7-52) Units/L Alkaline Phosphatase 55 (34-104) Units/L Albumin 2.8 L (3.5-5.7) g/dL - ABG Interpretation ABG results: PT/INR, D-dimer PT 15.8 Seconds (9.4-12.1) H 07/14/17 11:52 D-Dimer 1199 ng/mLFEU (0-500) H 07/12/17 16:38 - Impressions Impressions Videofluoroscopic Swallow 07/15/17 16:20 IMPRESSION: Intermittent shallow transient penetration of pudding thick and thin consistency. No aspiration. Please see separate speech pathology report for full discussion of findings and recommendations. D/ / 07/15/2017 13:55:30 Martin Asencio MD / vilma Interpreting Provider: Martin Asencio MD Consult Discharge Plan - Plan Referrals: El Carrillo DO [Primary Care Provider] - 07/20/17 9:30 am
[2017-07-15] MEDS: Cefepime HCl 2,000 MG in Water for inj. (sterile) 20 ML IVP SCH (17:57)
--- NOTE | 2017-07-15 17:57 | Event Note ---
<Constantino Han - Last Filed: 07/15/17 17:54> Date of Encounter: 07/15/17 Time of Encounter: 17:54 Patient refuses all medications and antibiotics due to her concerns that the medications are all "synthetic". Repeated multiple times to patient importance of medication and the role they play in aiding in her health recovery. At this time, patient is refusing medications. Will consult palliative care for goals of therapy. <Jesse Mallory - Last Filed: 07/16/17 14:45> Date of Encounter: 07/16/17 I examined this patient and my medical decision-making was reviewed with the Resident Physician. I agree with the documented findings, disposition and treatment plan as described except to the extent set forth below.
[2017-07-15] MEDS: Heparin 25,000 UNIT/500 ML D5W 25,000 UNIT/500 ML BAG IVC SCH (23:19)
[2017-07-16] MEDS: Ipratropium/Albuterol Neb 3 ML IH SCH ×2 (04:17→10:04)
[2017-07-16 04:31] LABS: Basophils # 0.1 K/mcL (0.0-0.2); Basophils % 1.5 %; Eosinophils # 0.4 K/mcL (0.0-0.6); Eosinophils % 7.9 %; Hematocrit 24.4 % (35.3-44.9); Hemoglobin 8.3 g/dL (11.5-15.4); Immature Granulocytes % 0.4 % (0-4); Lymphocytes # 1.4 K/mcL (0.6-4.6); Lymphocytes % 28.9 %; Mean Corpuscular Hemoglobin 34.7 pg (28.0-33.3); Mean Corpuscular Volume 102.1 fL (83.0-100.0); Mean Platelet Volume 10.9 fL (9.4-12.4); Monocytes # 0.7 K/mcL (0.0-1.3); Neutrophils # 2.2 K/mcL (1.6-8.9); Platelet Count 201 K/mcL (140-400); Red Blood Count 2.39 M/mcL (3.82-4.97); Red Cell Distribution Width 22.1 % (11.5-14.5); Segmented Neutrophils % 47.3 %
[2017-07-16 04:52] LABS: Albumin 2.6 g/dL (3.5-5.7); Bilirubin,Total 0.5 mg/dL (0.3-1.0); Globulin 2.5 g/dL (2.4-3.5); Total Protein 5.1 g/dL (6.4-8.9)
--- NOTE | 2017-07-16 07:54 | Palliative - Consult Note ---
Date of Encounter: 07/16/17 Time of Encounter: 07:20 - Assessment and Plan (1) Goals of care, counseling/discussion Current Visit: Yes Status: Acute Assessment and plan: No family is available patient is currently DNR [facility] DNI. I believe this is an appropriate status for her. Reviewed the chart rather extensively and found that the patient does live alone, is caused problems with social work in the past. She was reported to go protective services due to the deplorable conditions reported. She is goal is to return home at this time she is agreeable to taking her meds and returning home. Mentation is not complete, and I am not entirely sure if she can fully understand what is going on, however at this time she is compliant. Consultation may be necessary ultimately. Discussed this with Dr. Banerjee from the hospitalist service. I did note in the social work notes that there was some talk about the patient going to a [facility], I also noted that the patient had adamantly refused this in asked discussions. Today she told me her goal was to go home. Already noted I am not entirely sure the patient is able to fully make decisions for herself at this time. This with the hospitalist team. Hospice hospitalist expected to talk to family later today palliative we will continue to follow. (2) UTI (urinary tract infection) Current Visit: No Status: Acute Assessment and plan: And per hospitalist team Qualifiers: Urinary tract infection type: acute cystitis Hematuria presence: without hematuria Qualified Code(s): N30.00 - Acute cystitis without hematuria (3) Failure to thrive in adult Current Visit: No Status: Chronic Assessment and plan: plan per hospitalist team (4) HCAP (healthcare-associated pneumonia) Current Visit: Yes Status: Acute Assessment and plan: She is currently on antibiotics and agrees to take them. Plan per hospitalist team Palliative-CN HPI - Data of Consult Patient: new to practice Requesting Physician: Jesse Mallory MD Primary Care Provider: El Carrillo, - Consult Narrative Palliative Care/Comfort Measures: Palliative care History of present illness: Ms. Alston is a 86 year old female Patient readmitted to the hospital with healthcare associated pneumonia and CHF exacerbation after having been recently seen for and treated for urinary tract infection as well as an elevated troponin at that time. She apparently lives at home alone and the living conditions have been reported in the past. Land had been for patient to go out with [facility]cc, however the patient has been adamantly against this. Yesterday the patient started refusing medications and when the hospitalist team try to discuss things with her she would not discuss things with them. He was therefore consult regarding goals of care. Today the patient is very pleasantly confused is agreeable to treatment. Does wish to go home after treatment is done. See the assessment and plan Is no complaint of pain at this time and states her breathing is okay. CC: Jesse Mallory MD Shortness of breath Past Med Surg Social Fam HX - Past Medical History Medical history: hypertension, renal disease, other Psychiatric history: no psych history - Past Surgical History Surgical History: appendectomy, cholecystectomy, orthopedic, other, other ( Tonsillectomy, adenoidectomy, left shoulder surgery, right knee replacement, ankle surgery, 2 c-sections, right thumb surgery) - Social History Smoking Status: Former smoker Smokeless Tobacco Status: No Alcohol use: none Drug use: none - Family History Father Race: Family Member Ethnicity: Non- Living Status: Age at : 90 Cause of : Old age Mother Race: Family Member Ethnicity: Non- Living Status: Age at : 90 Cause of : Old age Hx Family Cardiac Disorders: Yes (Stroke) Hx Family Neurologic Disorders: Yes (CEREBRAL VASCULAR ACCIDENT.) Sister Race: Family Member Ethnicity: Non- Living Status: Still Living Hx Family GI Disorders: Yes (Gallbladder) Hx Family Musculoskeletal Disorders: Yes (Compression fxs in spine) Brother Race: Family Member Ethnicity: Non- Living Status: Age at : 50 Cause of : Meningitis Hx Family Neurologic Disorders: Yes Medications and Allergies TraMADol [Ultram] 50 mg PO BID 02/17/15 [History] Meclizine HCl [Verticalm] 25 mg PO DAILY PRN 06/20/17 [History] Atorvastatin [Lipitor] 40 mg PO HS #30 tablet 06/26/17 [Rx] Cyanocobalamin (Vitamin B-12) [Vitamin B12] 1,000 mcg PO DAILY #10 tablet [Rx] DiphenhydraMINE [Benadryl] 12.5 mg PO Q8H PRN #20 udc 06/26/17 [Rx] Ferrous Sulfate 325 mg PO BIDWM #60 tablet 06/26/17 [Rx] Clarithromycin [Biaxin] 500 mg PO BID 07/12/17 [History] Lisinopril [Zestril] 20 mg PO DAILY 07/12/17 [History] Omeprazole [PriLOSEC] 40 mg PO DAILY 07/12/17 [History] metroNIDAZOLE [Metronidazole] 1,000 mg PO BID 07/12/17 [History] 3 Allergy/AdvReac Type Severity Reaction Status Date / Time Penicillins Allergy Rash Verified 01/12/17 06:43 Review of systems: Although the patient was able to give me a review of systems she is pleasantly confused and this is very suspect. She really essentially denied everything. At this time she did admit to having had trouble shortness breath and cough earlier. - Constitutional Constitutional ROS PAL: no decreased appetite, no anorexia, no chills - EENT Eyes: no dry eye, no pain Ears: no ear discharge, no ear pain Ears, nose, mouth, throat: no facial pain, no hoarseness, no lip swelling - Cardiovascular Cardiovascular ROS: no chest pain, no chest pain at rest, no chest pain with activity - Respiratory Respiratory: no cough, no dyspnea, no dyspnea on exertion (None at present per patient) - Gastrointestinal Gastrointestinal: no constipation, no nausea, no vomiting - Genitourinary Palliative ROS female: no urinary frequency, no urinary hesitancy, no urinary incontinence - Musculoskeletal Musculoskeletal ROS IM: no back pain, no joint swelling, no muscle weakness - Integumentary ROS Integumentary: no rash, no skin pain, no skin ulcer - Neurological Neurological ROS: no confusion (She denies confusion, liver she does seem to be somewhat confused at times.), no convulsions, no disequilibrium - Psychiatric Psychiatric general PM: no depression, no difficulty concentrating, no homicidal ideation, no suicidal ideation - Endocrine Endocrine IM: as per HPI Palliative Care-Exam - Constitutional Vitals: Temp Pulse Resp BP Pulse Ox 98.5 F 85 14 143/64 100 07/16/17 07:19 07/16/17 07:19 07/16/17 07:19 07/16/17 07:19 07/16/17 07:19 General appearance: Present: no acute distress - Head Head Exam: Present: atraumatic, normal inspection - Eye Eye exam: Present: normal appearance - Respiratory Respiratory exam: Present: decreased breath sounds - Cardiovascular Cardiovascular exam: Present: RRR - GI/Abdominal Exam GI/Abdominal exam: Present: normal bowel sounds, soft. Absent: tenderness - Extremities Exam Extremities exam: Present: normal inspection. Absent: pedal edema, tenderness - Neurological Exam Neurological exam: Present: alert. Absent: oriented X3 (She is oriented to person and place however she thinks that I am somebody that she knows from somewhere else. After reorientation she did I looked just like him. However she Slipping back into that not pattern.) - Psychiatric Psychiatric exam: Absent: agitated, anxious (None at this time.) - Skin Skin exam: Present: dry, warm Internal Medicine - CN: Reslt - Labs CBC & Chem 7: 07/16/17 04:15 07/16/17 04:15 Labs: Short CBC 07/16/17 Range/Units 04:15 WBC 4.7 (4.3-11.1) K/mcL Hgb 8.3 L (11.5-15.4) g/dL Hct 24.4 L (35.3-44.9) % Plt Count 201 (140-400) K/mcL Neutrophils # 2.2 (1.6-8.9) K/mcL BMP 07/16/17 04:15 Sodium 135 L Potassium 3.0 L Chloride 101 Carbon Dioxide 25 BUN 19 Creatinine 1.68 H Glucose 98 Calcium 8.0 L Liver Function 07/16/17 Range/Units 04:15 Total Bilirubin 0.5 (0.3-1.0) mg/dL AST 36 (13-39) Units/L ALT 19 (7-52) Units/L Alkaline Phosphatase 48 (34-104) Units/L Albumin 2.6 L (3.5-5.7) g/dL - ABG Interpretation ABG results: PT/INR, D-dimer PT 15.8 Seconds (9.4-12.1) H 07/14/17 11:52 D-Dimer 1199 ng/mLFEU (0-500) H 07/12/17 16:38 - Impressions Impressions Videofluoroscopic Swallow 07/15/17 16:20 IMPRESSION: Intermittent shallow transient penetration of pudding thick and thin consistency. No aspiration. Please see separate speech pathology report for full discussion of findings and recommendations. D/ / 07/15/2017 13:55:30 Martin Asencio MD / vilma Interpreting Provider: Martin Asencio MD Consult Discharge Plan - Plan Referrals: El Carrillo DO [Primary Care Provider] - 07/20/17 9:30 am Palliative Quality Palliative Quality: Screen for Code Status: Yes, Screen for Goals of Care: Yes, Screen for Pain: Yes, If Pain Regimen Started, Initiate Bowel Regimen: Yes, Screen for Nausea/Vomitting: Yes Code Status: 07/12/17 15:25 Resuscitation Status: Active [RES] Routine Comment: Resuscitation Status: [id number]
[2017-07-16] MEDS ORDERED: Furosemide 40 MG/4 ML VIAL IVP SCH (09:00)
[2017-07-16] MEDS: Aspirin Enteric Coated 81 MG Tablet PO SCH (11:25)
[2017-07-16] MEDS: Lisinopril 20 MG TABLET PO SCH (11:25)
[2017-07-16] MEDS: Cyanocobalamin (B-12) 1,000 MCG TABLET PO SCH (11:25)
[2017-07-16] MEDS ORDERED: Levofloxacin 500 MG/100 ML 500 MG/100 ML BAG IVPB SCH (12:00)
[2017-07-16] MEDS ORDERED: Ipratropium/Albuterol Neb 3 ML IH PRN (14:12)
--- NOTE | 2017-07-16 14:50 | Internal Med Progress Note ---
Date of Encounter: 07/16/17 Time of Encounter: 14:45 - Assessment and plan (1) CHF exacerbation Current Visit: Yes Status: Acute Assessment and plan: - Patient complaint of SOB. - Most recent Echo on 06/20/17 showing EF of 50% and indeterminate diastolic dysfunction - BNP of 1199 on presentation. Currently tolerating 2L O2 - WBC wnl, afebrile - CXR, CT chest shows bilateral pleural effusions and pulmonary edema - V/Q scan shows low probability for PE - Minimal I/O of -300 yesterday, however she has had difficulty with IV access. - Increased SOB today, repeat CXR on 07/14/17 showed similar findings of bilateral pleural effusions and pulmonary edema. No new process. Plan - Diuresis with Lasix 40mg IV BID, Strict I/Os, Fluid restriction diet - Supplemental O2 as needed. - Cardiology following, appreciate recommendations 07/15/2017 Admitted with worsening of diastolic failure. Responded well to diuretic therapy. Noted that patient has a deep vein thrombosis of the femoral vein. Vascular surgery consultation and recommended anticoagulation. Presently on heparin drip. Overall she is feeling better. Plan: Regarding his CHF exacerbation: Decrease IV Lasix once a day. Close monitoring of the electrolytes and replace as needed. We will talk to family tomorrow regarding plan. Cardiology on the board and we will follow the recommendations 07/16/2017 Admitted for worsening diastolic failure She is feeling better. Noted that her potassium is still 3 and creatinine is 1.7(appears to be plateaued) Plan: Will continue present treatment for now. I called personally Mr. Maximino Alston [phone]. Mr. Stanton works in the cancer Center of this hospital. He is willing to come over here tomorrow and will be happy to talk regarding his mother's health. We will discuss regarding plan of care tomorrow. Qualifiers: Congestive heart failure type: systolic Qualified Code(s): I50.23 - Acute on chronic systolic (congestive) heart failure (2) HCAP (healthcare-associated pneumonia) Current Visit: Yes Status: Acute Assessment and plan: Possible underlying PNA on CXR in [facility] - Recent admission to hospital less than a month ago. - VSS, no WBC, tolerating 2L at 97% Plan - Will continue Cefepime, levaquin, day 2 - De-escalate as able, will discontinue vancomycin today. 07/15/2017 Continue same antibiotics for now. Today is the third day of antibiotics. 07/16/2017 Continue antibiotics for now. (3) Anemia Current Visit: Yes Status: Chronic Assessment and plan: - Macrocytic anemia with component of iron deficiency - Workup at last visit in June reveled B12 deficiency and iron deficiency - H/H stable at 8.2/26.3, stable from 8.4 - Continue iron and B12 supplementation which was started as outpatient - EGD in June 2017 showed no evidence of bleed. - Patient is notably a Rastafari and does not receive blood transfusions -Will continue to carefully monitor given initiation of heparin for DVT as below. 07/15/2017 Noted that patient has a persistent drop in hemoglobin. Today's hemoglobin is 8.7. Patient does have some temple believes that she cannot take blood/blood products. F tomorrow there is a persistent drop in the hemoglobin then we will rethink about heparin drip. 07/16/2017 Hemoglobin is 8.3. Close monitoring. Qualifiers: Anemia type: B12 deficiency Vitamin B12 deficiency anemia type: other B12 deficiency Qualified Code(s): D51.8 - Other vitamin B12 deficiency anemias (4) CKD (chronic kidney disease) stage 3, GFR 30-59 ml/min Current Visit: Yes Status: Chronic Assessment and plan: BUN/Cr of 20/1.61, near baseline 1.4-1.5 -Mildly increased Cr due to diuresis likely. Will continue current regimen. - Avoid nephrotoxic agents, continue to monitor given heavy diuresis planned. 07/15/2017 Noted that patient has a worsening trend of creatinine. This is likely secondary to diuretics. Present creatinine is 1.7. Present dose of Lasix is 40 mg twice a day. Patient's potassium is 3.1. Plan: IV Lasix 40 mg once a day. Labs tomorrow. Replace potassium intravenously. 07/16/2017 Creatinine 1.68 It appears that creatinine has plateaued. We will continue present treatment (5) Hypertension Current Visit: Yes Status: Chronic Assessment and plan: Well controlled at 129/79 Continue home meds Qualifiers: Hypertension type: essential hypertension Qualified Code(s): I10 - Essential (primary) hypertension (6) DVT prophylaxis Current Visit: Yes Status: Acute Assessment and plan: - Start Heparin gtt today Medical decision making: This patient has a moderate to severe risk of worsening in spite of being on appropriate medication to the underlying chronic comorbid conditions. - Subjective Interval history: Patient seen and examined. Chart reviewed. Patient is comfortably lying in bed. Patient denies any chest pain, shortness of breath, nausea, vomiting, abdominal pain, dizziness and diarrhea. 07/16/2017 Patient seen and examined. Chart reviewed. Patient is comfortably sitting up in bed. Patient still actively refusing all medications. Patient denies that she is in pain. - Constitutional Vitals: Temp Pulse Resp BP Pulse Ox 98.5 F 85 14 143/64 100 07/16/17 07:19 07/16/17 07:19 07/16/17 10:05 07/16/17 07:19 07/16/17 10:05 General appearance: Present: cooperative, mild distress (Respiratory), A&O X 3, pleasant, answers questions appropriately (With multiple attempts d/t hearing deficits) - Head Head exam: Present: atraumatic, normocephalic - Eye Eye exam: Present: PERRL, conjuntiva pink, sclera anicteric Pupils: Present: PERRL - Neck Neck exam general surgery: Present: supple, trachea midline. Absent: lymphadenopathy - Respiratory Respiratory exam: Present: CTAB. Absent: accessory muscle use, rales, rhonchi, wheezes - Cardiovascular Cardiovascular exam: Present: RRR, +S1, +S2. Absent: diastolic murmur, gallop, rubs, systolic murmur - GI/Abdominal GI/Abdominal exam: Present: normal bowel sounds, soft, no peritoneal signs. Absent: distended, tenderness - Extremities Exam Extremities exam: Present: warm, radial pulses palpable and symmetrical. Absent : calf tenderness, cyanotic, pedal edema - Neurological Exam Neurological exam: Present: CN II-XII intact, oriented X3, no focal deficits. Absent: pronater drift, facial droop, speech deficit - Skin Skin exam: Present: dry, intact Internal Medicine: Result - Labs CBC & Chem 7: 07/16/17 04:15 07/16/17 04:15 Labs: Short CBC 07/16/17 Range/Units 04:15 WBC 4.7 (4.3-11.1) K/mcL Hgb 8.3 L (11.5-15.4) g/dL Hct 24.4 L (35.3-44.9) % Plt Count 201 (140-400) K/mcL Neutrophils # 2.2 (1.6-8.9) K/mcL BMP 07/16/17 04:15 Sodium 135 L Potassium 3.0 L Chloride 101 Carbon Dioxide 25 BUN 19 Creatinine 1.68 H Glucose 98 Calcium 8.0 L Liver Function 07/16/17 Range/Units 04:15 Total Bilirubin 0.5 (0.3-1.0) mg/dL AST 36 (13-39) Units/L ALT 19 (7-52) Units/L Alkaline Phosphatase 48 (34-104) Units/L Albumin 2.6 L (3.5-5.7) g/dL - ABG Interpretation ABG results: PT/INR, D-dimer PT 15.8 Seconds (9.4-12.1) H 07/14/17 11:52 D-Dimer 1199 ng/mLFEU (0-500) H 07/12/17 16:38 - Impressions Impressions Videofluoroscopic Swallow 07/15/17 16:20 IMPRESSION: Intermittent shallow transient penetration of pudding thick and thin consistency. No aspiration. Please see separate speech pathology report for full discussion of findings and recommendations. D/ / 07/15/2017 13:55:30 Martin Asencio MD / bcarter Interpreting Provider: Martin Asencio MD Consult Discharge Plan - Plan Referrals: El Carrillo DO [Primary Care Provider] - 07/20/17 9:30 am
[2017-07-16] MEDS: Cefepime HCl 2,000 MG in Water for inj. (sterile) 20 ML IVP SCH (18:54)
[2017-07-17 04:36] LABS: Basophils # 0.1 K/mcL (0.0-0.2); Basophils % 1.7 %; Eosinophils # 0.5 K/mcL (0.0-0.6); Eosinophils % 10.4 %; Hematocrit 26.7 % (35.3-44.9); Hemoglobin 8.8 g/dL (11.5-15.4); Immature Granulocytes % 0.2 % (0-4); Lymphocytes # 1.5 K/mcL (0.6-4.6); Mean Corpuscular Hemoglobin 33.7 pg (28.0-33.3); Mean Corpuscular Volume 102.3 fL (83.0-100.0); Monocytes # 0.7 K/mcL (0.0-1.3); Monocytes % 15.4 %; Neutrophils # 1.9 K/mcL (1.6-8.9); Platelet Count 226 K/mcL (140-400); Red Blood Count 2.61 M/mcL (3.82-4.97); Red Cell Distribution Width 21.9 % (11.5-14.5); Segmented Neutrophils % 40.3 %
[2017-07-17 04:52] LABS: Albumin 2.6 g/dL (3.5-5.7); Bilirubin,Total 0.6 mg/dL (0.3-1.0); Globulin 2.5 g/dL (2.4-3.5); Potassium 3.3 mEq/L (3.5-5.1); Total Protein 5.1 g/dL (6.4-8.9)
[2017-07-17] MEDS: Heparin 25,000 UNIT/500 ML D5W 25,000 UNIT/500 ML BAG IVC SCH ×2 (05:31→14:46)
[2017-07-17] MEDS ORDERED: Potassium Chloride 40 MEQ, Lidocaine 1% 2 ML in D5% in Water 500 ML IVPB ONE (08:56)
--- NOTE | 2017-07-17 09:33 | Internal Med Progress Note ---
<JohnErik tee - Last Filed: 07/17/17 14:01> Date of Encounter: 07/17/17 Time of Encounter: 09:32 - Assessment and plan (1) CHF exacerbation Current Visit: Yes Status: Acute Assessment and plan: - Patient complaint of SOB. - Most recent Echo on 06/20/17 showing EF of 50% and indeterminate diastolic dysfunction - BNP of 1199 on presentation. Currently tolerating RA - WBC wnl, afebrile - CXR, CT chest shows bilateral pleural effusions and pulmonary edema - V/Q scan shows low probability for PE - Minimal I/O of -2800 mL since admission - Repeat CXR on 07/14/17 showed similar findings of bilateral pleural effusions and pulmonary edema. No new process. - Patient is notably refusing almost all treatment at this time including diet. Plan - Holding diuresis while family is deciding further treatment plan, Strict I/Os , Fluid restriction diet - Supplemental O2 as needed. - Cardiology following, appreciate recommendations - Attempted to contact son, Mr. Maximino Alston [phone]. - Hopeful to discuss further plan with him this afternoon. Qualifiers: Congestive heart failure type: systolic Qualified Code(s): I50.23 - Acute on chronic systolic (congestive) heart failure (2) Elevated troponin Current Visit: Yes Status: Acute Assessment and plan: Troponin of 0.19/0.17/0.15 - Likely secondary demand ischemia in the setting of CHF exacerbation, CKD stage III - Unlikely ACS at this time. - Cardio following Plan Continue to monitor. No complaints of CP (3) Anemia Current Visit: Yes Status: Chronic Assessment and plan: - Macrocytic anemia with component of iron deficiency - Workup at last visit in June reveled B12 deficiency and iron deficiency - H/H stable at 8.8, stable from 8.3 - Continue iron and B12 supplementation which was started as outpatient - EGD in June 2017 showed no evidence of bleed. - Patient is notably a [employer] and does not receive blood transfusions -Will continue to carefully monitor given initiation of heparin for DVT as below. Qualifiers: Anemia type: B12 deficiency Vitamin B12 deficiency anemia type: other B12 deficiency Qualified Code(s): D51.8 - Other vitamin B12 deficiency anemias (4) HCAP (healthcare-associated pneumonia) Current Visit: Yes Status: Acute Assessment and plan: Possible underlying PNA on CXR in [facility] - Recent admission to hospital less than a month ago. - VSS, no WBC, tolerating room air Plan - Will continue Cefepime, levaquin, day 5 - De-escalate as able - Clinically improving (5) CKD (chronic kidney disease) stage 3, GFR 30-59 ml/min Current Visit: Yes Status: Chronic Assessment and plan: BUN/Cr of 18/1.35 near baseline 1.4-1.5 -Stable, previous mild increase due to diuresis likely. Will continue current regimen. - Avoid nephrotoxic agents, continue to monitor given heavy diuresis planned. - K noted to be 3.3 today, will replace IV if patient agrees. (6) Hypertension Current Visit: Yes Status: Chronic Assessment and plan: Well controlled at 139/76 Continue home meds Qualifiers: Hypertension type: essential hypertension Qualified Code(s): I10 - Essential (primary) hypertension (7) HLD (hyperlipidemia) Current Visit: Yes Status: Chronic Assessment and plan: Continue home meds Qualifiers: Hyperlipidemia type: pure hypercholesterolemia Qualified Code(s): E78.00 - Pure hypercholesterolemia, unspecified; E78.0 - Pure hypercholesterolemia (8) GERD (gastroesophageal reflux disease) Current Visit: Yes Status: Chronic Assessment and plan: No complaints of reflux - Will monitor and continue home meds. Qualifiers: Esophagitis presence: esophagitis presence not specified Qualified Code(s) : K21.9 - Gastro-esophageal reflux disease without esophagitis (9) DVT (deep venous thrombosis) Current Visit: Yes Status: Acute Assessment and plan: - Vascular studies showing positive DVT in right femoral - Patient has a history of anemia with a Hgb of 5.7 at last visit in June - Workup reveled B12 deficiency macrocytic anemia also with iron deficiency. - EGD in June revealed no bleeding. - Patient is notably a [employer] and cannot receive blood transfusions per chart review. - Vascular surgery consulted, appreciate recommendations. Plan - Continue heparin gtt - Plan for half-way anticoagulation pending family meeting today Qualifiers: DVT location: lower extremity Affected thrombotic vein of extremity: femoral Chronicity: acute Laterality: right Qualified Code(s): I82.411 - Acute embolism and thrombosis of right femoral vein (10) DVT prophylaxis Current Visit: Yes Status: Acute Assessment and plan: - on heparin gtt - Time Spent With Patient 25 - 35 minutes - Subjective Interval history: Patient was seen and examined this morning at bedside. Patient is very lethargic this morning but is able to communicate that she does not have any complaints or needs at this time. - Constitutional Vitals: Temp Pulse Resp BP Pulse Ox 98.2 F 106 16 139/76 100 07/17/17 07:17 07/17/17 07:17 07/17/17 07:17 07/17/17 07:17 07/17/17 07:17 General appearance: Present: cooperative, mild distress (Respiratory), A&O X 3, pleasant, answers questions appropriately (With multiple attempts d/t hearing deficits) Exam: Gen.: Vitals noted. No acute distress. Patient is sleepy this morning but does awaken to answer short questions. HEENT: PERRL/EOMI, oropharynx clear, Normocephalic, atraumatic, MMM Cardiac: RRR, no murmur, +S1/S2 Pulmonary: Rales diffusely. equal chest expansion Abdomen: soft, nontender, BS noted, no guarding MSK: ROM intact, no joint swelling noted Extremities: no BLE edema, nontender calf, no cyanosis or clubbing Neuro: moves all extremities, unable to assess further to due mental status. Psych: Appropriate mood and behavior Internal Medicine: Result - Labs CBC & Chem 7: 07/17/17 04:00 07/17/17 04:00 Labs: Short CBC 07/17/17 Range/Units 04:00 WBC 4.6 (4.3-11.1) K/mcL Hgb 8.8 L (11.5-15.4) g/dL Hct 26.7 L (35.3-44.9) % Plt Count 226 (140-400) K/mcL Neutrophils # 1.9 (1.6-8.9) K/mcL BMP 07/17/17 04:00 Sodium 136 Potassium 3.3 L Chloride 102 Carbon Dioxide 26 BUN 18 Creatinine 1.35 H Glucose 102 Calcium 8.0 L Liver Function 07/17/17 Range/Units 04:00 Total Bilirubin 0.6 (0.3-1.0) mg/dL AST 35 (13-39) Units/L ALT 17 (7-52) Units/L Alkaline Phosphatase 50 (34-104) Units/L Albumin 2.6 L (3.5-5.7) g/dL - ABG Interpretation ABG results: PT/INR, D-dimer PT 15.8 Seconds (9.4-12.1) H 07/14/17 11:52 D-Dimer 1199 ng/mLFEU (0-500) H 07/12/17 16:38 Consult Discharge Plan - Plan Referrals: El Carrillo DO [Primary Care Provider] - 07/20/17 9:30 am <Jesse Mallory - Last Filed: 07/17/17 16:43> Date of Encounter: 07/17/17 - Assessment and plan (1) CHF exacerbation Current Visit: Yes Status: Acute Qualifiers: Congestive heart failure type: systolic Qualified Code(s): I50.23 - Acute on chronic systolic (congestive) heart failure (2) HCAP (healthcare-associated pneumonia) Current Visit: Yes Status: Acute (3) Anemia Current Visit: Yes Status: Chronic Qualifiers: Anemia type: B12 deficiency Vitamin B12 deficiency anemia type: other B12 deficiency Qualified Code(s): D51.8 - Other vitamin B12 deficiency anemias (4) CKD (chronic kidney disease) stage 3, GFR 30-59 ml/min Current Visit: Yes Status: Chronic (5) Hypertension Current Visit: Yes Status: Chronic Qualifiers: Hypertension type: essential hypertension Qualified Code(s): I10 - Essential (primary) hypertension (6) DVT prophylaxis Current Visit: Yes Status: Acute - Constitutional Vitals: Temp Pulse Resp BP Pulse Ox 97.7 F 102 16 129/78 100 07/17/17 15:16 07/17/17 15:16 07/17/17 15:16 07/17/17 15:16 07/17/17 15:16 Internal Medicine: Result - Labs CBC & Chem 7: 07/17/17 04:00 07/17/17 04:00 Labs: Short CBC 07/17/17 Range/Units 04:00 WBC 4.6 (4.3-11.1) K/mcL Hgb 8.8 L (11.5-15.4) g/dL Hct 26.7 L (35.3-44.9) % Plt Count 226 (140-400) K/mcL Neutrophils # 1.9 (1.6-8.9) K/mcL BMP 07/17/17 04:00 Sodium 136 Potassium 3.3 L Chloride 102 Carbon Dioxide 26 BUN 18 Creatinine 1.35 H Glucose 102 Calcium 8.0 L Liver Function 07/17/17 Range/Units 04:00 Total Bilirubin 0.6 (0.3-1.0) mg/dL AST 35 (13-39) Units/L ALT 17 (7-52) Units/L Alkaline Phosphatase 50 (34-104) Units/L Albumin 2.6 L (3.5-5.7) g/dL - ABG Interpretation ABG results: PT/INR, D-dimer PT 15.8 Seconds (9.4-12.1) H 07/14/17 11:52 D-Dimer 1199 ng/mLFEU (0-500) H 07/12/17 16:38 - Attending Attestation I examined this patient and my medical decision-making was reviewed with the Resident Physician. I agree with the documented findings, disposition and treatment plan as described except to the extent set forth below. spoke with son Mr Maximino Alston he is POA He prefers to continue ongoing treatment.
[2017-07-17] MEDS: Lisinopril 20 MG TABLET PO SCH (09:46)
[2017-07-17] MEDS: Aspirin Enteric Coated 81 MG Tablet PO SCH (11:53)
[2017-07-17] MEDS: Cyanocobalamin (B-12) 1,000 MCG TABLET PO SCH (11:53)
[2017-07-17] MEDS: Cefepime HCl 2,000 MG in Water for inj. (sterile) 20 ML IVP SCH (17:05)
[2017-07-18] MEDS: *HR* Heparin 5,000 UNIT/ML VIAL IVP PRN (00:28)
[2017-07-18 05:12] LABS: Hematocrit 31.4 % (35.3-44.9); Hemoglobin 10.3 g/dL (11.5-15.4); Mean Corpuscular HGB Conc 32.8 g/dL (31.6-35.5); Mean Corpuscular Hemoglobin 33.7 pg (28.0-33.3); Mean Corpuscular Volume 102.6 fL (83.0-100.0); Mean Platelet Volume 11.2 fL (9.4-12.4); Platelet Count 219 K/mcL (140-400); Red Blood Count 3.06 M/mcL (3.82-4.97); Red Cell Distribution Width 22.3 % (11.5-14.5)
[2017-07-18 05:23] LABS: Calcium 8.4 mg/dL (8.6-10.3); Potassium 3.7 mEq/L (3.5-5.1)
--- NOTE | 2017-07-18 09:41 | Internal Med Progress Note ---
<Erik Mcgrath - Last Filed: 07/18/17 11:50> Date of Encounter: 07/18/17 Time of Encounter: 09:40 - Assessment and plan (1) CHF exacerbation Current Visit: Yes Status: Acute Assessment and plan: - Patient complaint of SOB. - Most recent Echo on 06/20/17 showing EF of 50% and indeterminate diastolic dysfunction - BNP of 1199 on presentation. Currently tolerating RA - WBC wnl, afebrile - CXR, CT chest shows bilateral pleural effusions and pulmonary edema - V/Q scan shows low probability for PE - I/O of -2.6L since admission - Repeat CXR on 07/14/17 showed similar findings of bilateral pleural effusions and pulmonary edema. No new process. - Patient is more willing for treatment this morning. No complaints of shortness of breath, she did have some breakfast. Plan - Currently appears euvolemic, will hold off on further diuresis. Strict I/Os, Fluid restriction diet - Supplemental O2 as needed. - Cardiology following, appreciate recommendations - Discussion with son, Maximino Alston, who wishes to pursue full treatment. Palliative care will sign off at this time - Possible discharge tomorrow. - Social work's noted the patient has repeatedly refused home health, SNF placement Qualifiers: Congestive heart failure type: systolic Qualified Code(s): I50.23 - Acute on chronic systolic (congestive) heart failure (2) Elevated troponin Current Visit: Yes Status: Acute Assessment and plan: Troponin of 0.19/0.17/0.15 - Likely secondary demand ischemia in the setting of CHF exacerbation, CKD stage III - Unlikely ACS at this time. - Cardio following - Patient reportedly complaining of chest pain last evening, troponin at that time was 0.09, EKG unchanged Plan - Unlikely acute coronary syndrome - Continue to monitor. No complaints of CP (3) Anemia Current Visit: Yes Status: Chronic Assessment and plan: - Macrocytic anemia with component of iron deficiency - Workup at last visit in June reveled B12 deficiency and iron deficiency - H/H improved at 10.3/31.4, improved from 8.8 - Continue iron and B12 supplementation which was started as outpatient - EGD in June 2017 showed no evidence of bleed. 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 Qualifiers: Anemia type: B12 deficiency Vitamin B12 deficiency anemia type: other B12 deficiency Qualified Code(s): D51.8 - Other vitamin B12 deficiency anemias (4) HCAP (healthcare-associated pneumonia) Current Visit: Yes Status: Acute Assessment and plan: Possible underlying PNA on CXR in [facility] - Recent admission to hospital less than a month ago. - VSS, no WBC, tolerating room air Plan - Will continue levaquin, day 6 - Discontinue cefepime today. - Clinically improving (5) CKD (chronic kidney disease) stage 3, GFR 30-59 ml/min Current Visit: Yes Status: Chronic Assessment and plan: BUN/Cr of 18/1.21 near baseline 1.4-1.5 -Stable. Will continue current regimen. - Avoid nephrotoxic agents, continue to monitor - K noted to be 3.7 today. (6) Hypertension Current Visit: Yes Status: Chronic Assessment and plan: Well controlled at 141/88 Continue home meds Qualifiers: Hypertension type: essential hypertension Qualified Code(s): I10 - Essential (primary) hypertension (7) HLD (hyperlipidemia) Current Visit: Yes Status: Chronic Assessment and plan: Continue home meds Qualifiers: Hyperlipidemia type: pure hypercholesterolemia Qualified Code(s): E78.00 - Pure hypercholesterolemia, unspecified (8) GERD (gastroesophageal reflux disease) Current Visit: Yes Status: Chronic Assessment and plan: No complaints of reflux - Will monitor and continue home meds. Qualifiers: Esophagitis presence: esophagitis presence not specified Qualified Code(s) : K21.9 - Gastro-esophageal reflux disease without esophagitis (9) DVT (deep venous thrombosis) Current Visit: Yes Status: Acute Assessment and plan: - Vascular studies showing positive DVT in right femoral - Patient has a history of anemia with a Hgb of 5.7 at last visit in June - Workup reveled B12 deficiency macrocytic anemia also with iron deficiency. - EGD in June revealed no bleeding. 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 - Vascular surgery consulted, appreciate recommendations. Recommend Anticoagulation, poor IVC filter candidate Plan - Continue heparin gtt - Discussion for long-term anticoagulation will need to be had with family as she is notably poor compliance with oral medications and high bleed risk and chronic anemia. Qualifiers: DVT location: lower extremity Affected thrombotic vein of extremity: femoral Chronicity: acute Laterality: right Qualified Code(s): I82.411 - Acute embolism and thrombosis of right femoral vein (10) DVT prophylaxis Current Visit: Yes Status: Acute - Subjective Interval history: Patient was seen and examined this morning at bedside. She is more awake this morning and her only complaint is itching. She denies any complaints of SOB, chest pain, fevers, chills. - Constitutional Vitals: Temp Pulse Resp BP Pulse Ox 97.5 F L 99 18 141/88 100 07/18/17 06:52 07/18/17 06:52 07/18/17 06:52 07/18/17 06:52 07/18/17 06:52 General appearance: Present: cooperative, mild distress (Respiratory), A&O X 3, pleasant, answers questions appropriately (With multiple attempts d/t hearing deficits) Exam: Gen.: Vitals noted. No acute distress. AAOx3. Very hard of hearing, however patient responds appropriately to questions. HEENT: PERRL/EOMI, oropharynx clear, Normocephalic, atraumatic Cardiac: RRR, no murmur, +S1/S2 Pulmonary: CTA bilaterally, no wheezes, rales or rhonchi, equal chest expansion Abdomen: soft, nontender, BS noted, no guarding MSK: ROM intact, no joint swelling noted Skin: Excoriations on the lower left quadrant due to patient complaint of itching. No erythema appreciated Extremities: no BLE edema, nontender calf, no cyanosis or clubbing Neuro: A&Ox3, moves all extremities, no focal deficits Psych: Appropriate mood and behavior Internal Medicine: Result - Labs CBC & Chem 7: 07/18/17 04:33 07/18/17 04:33 Labs: Short CBC 07/18/17 Range/Units 04:33 WBC 5.5 (4.3-11.1) K/mcL Hgb 10.3 L D (11.5-15.4) g/dL Hct 31.4 L (35.3-44.9) % Plt Count 219 (140-400) K/mcL BMP 07/18/17 04:33 Sodium 135 L Potassium 3.7 Chloride 103 Carbon Dioxide 26 BUN 18 Creatinine 1.21 H Glucose 119 H Calcium 8.4 L Cardiac Enzymes 07/18/17 Range/Units 04:33 Troponin I 0.09 H* (< 0.04) ng/mL - ABG Interpretation ABG results: PT/INR, D-dimer PT 15.8 Seconds (9.4-12.1) H 07/14/17 11:52 D-Dimer 1199 ng/mLFEU (0-500) H 07/12/17 16:38 - VTE Documentation of Mechanical Device: Intermittent pneumatic compression device Consult Discharge Plan - Plan Referrals: El Carrillo DO [Primary Care Provider] - 07/20/17 9:30 am <Basim Pierre - Last Filed: 07/18/17 17:59> Date of Encounter: 07/18/17 - Assessment and plan (1) DVT (deep venous thrombosis) Current Visit: Yes Status: Acute Qualifiers: DVT location: lower extremity Affected thrombotic vein of extremity: femoral Chronicity: acute Laterality: right Qualified Code(s): I82.411 - Acute embolism and thrombosis of right femoral vein (2) CHF exacerbation Current Visit: Yes Status: Acute Qualifiers: Congestive heart failure type: systolic Qualified Code(s): I50.23 - Acute on chronic systolic (congestive) heart failure (3) Community acquired pneumonia Current Visit: Yes Status: Acute Qualifiers: Laterality: unspecified laterality Qualified Code(s): J18.9 - Pneumonia, unspecified organism (4) Anemia Current Visit: Yes Status: Chronic Qualifiers: Anemia type: B12 deficiency Vitamin B12 deficiency anemia type: other B12 deficiency Qualified Code(s): D51.8 - Other vitamin B12 deficiency anemias (5) CKD (chronic kidney disease) stage 3, GFR 30-59 ml/min Current Visit: Yes Status: Chronic (6) HTN (hypertension) Current Visit: Yes Status: Chronic Qualifiers: Hypertension type: essential hypertension Qualified Code(s): I10 - Essential (primary) hypertension (7) HLD (hyperlipidemia) Current Visit: Yes Status: Chronic Qualifiers: Hyperlipidemia type: mixed hyperlipidemia Qualified Code(s): E78.2 - Mixed hyperlipidemia (8) GERD (gastroesophageal reflux disease) Current Visit: Yes Status: Chronic Qualifiers: Esophagitis presence: without esophagitis Qualified Code(s): K21.9 - Gastro -esophageal reflux disease without esophagitis - Constitutional Vitals: Temp Pulse Resp BP Pulse Ox 98.9 F 103 18 137/84 100 07/18/17 16:34 07/18/17 16:34 07/18/17 16:34 07/18/17 16:34 07/18/17 16:34 Internal Medicine: Result - Labs CBC & Chem 7: 07/18/17 04:33 07/18/17 04:33 Labs: Short CBC 07/18/17 Range/Units 04:33 WBC 5.5 (4.3-11.1) K/mcL Hgb 10.3 L D (11.5-15.4) g/dL Hct 31.4 L (35.3-44.9) % Plt Count 219 (140-400) K/mcL BMP 07/18/17 04:33 Sodium 135 L Potassium 3.7 Chloride 103 Carbon Dioxide 26 BUN 18 Creatinine 1.21 H Glucose 119 H Calcium 8.4 L Cardiac Enzymes 07/18/17 07/18/17 07/18/17 Range/Units 04:33 10:18 15:41 Troponin I 0.09 H* 0.08 H* 0.08 H* (< 0.04) ng/mL - ABG Interpretation ABG results: PT/INR, D-dimer PT 15.8 Seconds (9.4-12.1) H 07/14/17 11:52 D-Dimer 1199 ng/mLFEU (0-500) H 07/12/17 16:38 - Attending Attestation I examined this patient and my medical decision-making was reviewed with the Resident Physician on 07/18/17. I agree with the documented findings, disposition and treatment plan as described except to the extent set forth below. Ms Alston is currently admitted for acute CHF and DVT. She remains moderate to high risk due to potential for worsening clinical status. Ms Alston is trying to take her pills and having some difficulty. No fever or chills. Coughing some. Breathing OK today. Exam Alert. Mod distress due to coughing Heart reg Lungs clear at this time Abd soft No edema I/P 1. DVT 2. CHF Further diagnoses and plan as above. Pt has acute DVT. No sure of her reliability to take anticoagulant. 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
[2017-07-18] MEDS: Cyanocobalamin (B-12) 1,000 MCG TABLET PO SCH (09:42)
[2017-07-18] MEDS: Lisinopril 20 MG TABLET PO SCH (09:42)
[2017-07-18] MEDS: Aspirin Enteric Coated 81 MG Tablet PO SCH (09:43)
[2017-07-18] MEDS ORDERED: levoFLOXacin 500 MG TABLET PO SCH (13:00)
--- NOTE | 2017-07-18 14:03 | Palliative Progress Note ---
Date of Encounter: 07/18/17 Time of Encounter: 09:35 - Assessment and plan (1) Goals of care, counseling/discussion Current Visit: Yes Status: Acute Assessment and plan: She is currently DNR [facility] DNI. Her discussion with the hospitalist team Dr. Banerjee from hospitalist group met with the patient's family yesterday plan will be for the patient to go home after discharge s she has refused home health care in the past. As the patient has made her wishes known to the hospitalist team, and the family has concurred, there is nothing further to offer. I will give the opinion that the patient's sensorium has waxed and waned at times and there are definitely moments when she is not able to make decisions for herself. I have discussed this with the hospitalist team. We will go ahead and sign off please feel free to reconsult we can help in any way. (2) UTI (urinary tract infection) Current Visit: No Status: Acute Assessment and plan: Plan per hospitalist team Qualifiers: Urinary tract infection type: acute cystitis Hematuria presence: without hematuria Qualified Code(s): N30.00 - Acute cystitis without hematuria (3) Failure to thrive in adult Current Visit: No Status: Chronic Assessment and plan: Plan per hospitalist team (4) HCAP (healthcare-associated pneumonia) Current Visit: Yes Status: Acute Assessment and plan: Plan per hospitalist team - Time Spent With Patient Total time spent is greater than 50% in coordination of care (as documented) at patient's floor/unit and/or counseling patient: - Subjective Interval history: Patient is complaining of itch. No other complaints of at this time. Hospitalist team is seeing her at the same time. - Constitutional Vitals: Abnormal lab results RBC 3.06 M/mcL (3.82-4.97) L 07/18/17 04:33 Hgb 10.3 g/dL (11.5-15.4) L D 07/18/17 04:33 Hct 31.4 % (35.3-44.9) L 07/18/17 04:33 MCV 102.6 fL (83.0-100.0) H 07/18/17 04:33 MCH 33.7 pg (28.0-33.3) H 07/18/17 04:33 RDW 22.3 % (11.5-14.5) H 07/18/17 04:33 Nucleated RBCs/100 WBC 0.4 /100 WBC (0) H 07/12/17 13:12 Anisocytosis 3+ (Not Present) A 07/13/17 02:59 Macrocytosis Present (Not Present) A 07/13/17 02:59 PT 15.8 Seconds (9.4-12.1) H 07/14/17 11:52 APTT 104.8 Seconds (26.0-36.0) H D 07/18/17 07:02 D-Dimer 1199 ng/mLFEU (0-500) H 07/12/17 16:38 Sodium 135 mEq/L (136-145) L 07/18/17 04:33 Creatinine 1.21 mg/dL (0.60-1.20) H 07/18/17 04:33 Est GFR ( Amer) 51 (> 60) L 07/18/17 04:33 Est GFR (Non-Af Amer) 42 (> 60) L 07/18/17 04:33 Glucose 119 mg/dL (70-105) H 07/18/17 04:33 POC Glucose 96 (58-89) H 07/15/17 12:01 Calcium 8.4 mg/dL (8.6-10.3) L 07/18/17 04:33 Troponin I 0.08 ng/mL (< 0.04) H* 07/18/17 10:18 B-Natriuretic Peptide 1689 pg/mL (Less than 100) H 07/12/17 11:57 Serum Total Protein 5.1 g/dL (6.4-8.9) L 07/17/17 04:00 Albumin 2.6 g/dL (3.5-5.7) L 07/17/17 04:00 Albumin/Globulin Ratio 1.0 (1.1-2.2) L 07/17/17 04:00 HDL Cholesterol 28 mg/dL (40-59) L 07/13/17 02:59 Urine Clarity Cloudy (Clear) A 07/14/17 11:30 Urine Microscopic RBC 5-15 per hpf (0-3) H 07/14/17 11:30 Ur Squamous Epith Cells Many per lpf (None-Few) H 07/14/17 11:30 General appearance: Present: no acute distress - Head Head exam: Present: atraumatic, normal inspection - Eye Eye exam: Present: normal appearance - Neck Neck exam: Present: normal inspection - Respiratory Respiratory exam: Present: CTAB - Cardiovascular Cardiovascular exam: Present: RRR - GI/Abdominal GI/Abdominal exam: Present: normal bowel sounds, soft. Absent: tenderness - Extremities Exam Extremities exam: Absent: pedal edema - Neurological Exam Neurological exam: Present: alert - Psychiatric Psychiatric exam: Absent: agitated, anxious - Skin Skin exam: Present: dry, warm Palliative Quality Palliative Quality: Screen for Code Status: Yes, Screen for Goals of Care: Yes, Screen for Pain: Yes, If Pain Regimen Started, Initiate Bowel Regimen: Yes, Screen for Nausea/Vomitting: Yes Code Status: 07/12/17 15:25 Resuscitation Status: Active [RES] Routine Comment: Resuscitation Status: [id number] - Labs CBC & Chem 7: 07/18/17 04:33 07/18/17 04:33 Labs: Laboratory Results - last 24 hr 07/17/17 07/18/17 07/18/17 22:47 04:33 04:33 WBC 5.5 RBC 3.06 L Hgb 10.3 L D Hct 31.4 L MCV 102.6 H MCH 33.7 H MCHC 32.8 RDW 22.3 H Plt Count 219 MPV 11.2 APTT 51.2 H Sodium 135 L Potassium 3.7 Chloride 103 Carbon Dioxide 26 BUN 18 Creatinine 1.21 H Est GFR ( Amer) 51 L Est GFR (Non-Af Amer) 42 L BUN/Creatinine Ratio 15 Glucose 119 H Calculated Osmolality 283 Calcium 8.4 L Troponin I 07/18/17 07/18/17 07/18/17 04:33 07:02 10:18 WBC RBC Hgb Hct MCV MCH MCHC RDW Plt Count MPV APTT 104.8 H D Sodium Potassium Chloride Carbon Dioxide BUN Creatinine Est GFR ( Amer) Est GFR (Non-Af Amer) BUN/Creatinine Ratio Glucose Calculated Osmolality Calcium Troponin I 0.09 H* 0.08 H* - ABG Interpretation ABG results: PT/INR, D-dimer PT 15.8 Seconds (9.4-12.1) H 07/14/17 11:52 D-Dimer 1199 ng/mLFEU (0-500) H 07/12/17 16:38 Consult Discharge Plan - Plan Referrals: El Carrillo DO [Primary Care Provider] - 07/20/17 9:30 am
--- NOTE | 2017-07-18 21:03 | Electrocardiograph Report ---
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
[2017-07-19] MEDS: *HR* Heparin 5,000 UNIT/ML VIAL IVP PRN (00:22)
[2017-07-19] MEDS: Heparin 25,000 UNIT/500 ML D5W 25,000 UNIT/500 ML BAG IVC SCH (05:20)
[2017-07-19 06:58] LABS: Hematocrit 32.9 % (35.3-44.9); Hemoglobin 10.7 g/dL (11.5-15.4); Mean Corpuscular HGB Conc 32.5 g/dL (31.6-35.5); Mean Corpuscular Volume 104.4 fL (83.0-100.0); Mean Platelet Volume 11.6 fL (9.4-12.4); Platelet Count 204 K/mcL (140-400); Red Blood Count 3.15 M/mcL (3.82-4.97); Red Cell Distribution Width 22.1 % (11.5-14.5)
[2017-07-19] MEDS: Cyanocobalamin (B-12) 1,000 MCG TABLET PO SCH (10:22)
[2017-07-19] MEDS: Lisinopril 20 MG TABLET PO SCH (10:23)
[2017-07-19] MEDS: Aspirin Enteric Coated 81 MG Tablet PO SCH (10:23)
[2017-07-19] MEDS: *HR* Enoxaparin 60 MG/0.6 ML SYRINGE SQ SCH (11:55)
--- NOTE | 2017-07-19 16:21 | Internal Med Progress Note ---
<Erik Mcgrath - Last Filed: 07/19/17 16:17> Date of Encounter: 07/19/17 Time of Encounter: 09:00 - Assessment and plan (1) CHF exacerbation Current Visit: Yes Status: Acute Assessment and plan: - Patient complaint of SOB. - Most recent Echo on 06/20/17 showing EF of 50% and indeterminate diastolic dysfunction - BNP of 1199 on presentation. Currently tolerating RA - WBC wnl, afebrile - CXR, CT chest shows bilateral pleural effusions and pulmonary edema - V/Q scan shows low probability for PE - I/O of -2.6L since admission Plan - Currently appears euvolemic, will hold off on further diuresis. Strict I/Os, Fluid restriction diet - Supplemental O2 as needed. - Cardiology following, appreciate recommendations - Discussion with son, Maximino Alston, who wishes to pursue full treatment. Palliative care will sign off at this time - Social work's noted the patient has repeatedly refused home health, SNF placement Patient continues to deny medications, diet, other treatment options. Concern of compliance with medication forced to patient and patient's son. She will be started on Lovenox injections. Social work is currently following for possible placement and assistance in her medications as well as a reported deplorable living situation. Qualifiers: Congestive heart failure type: systolic Qualified Code(s): I50.23 - Acute on chronic systolic (congestive) heart failure (2) Elevated troponin Current Visit: Yes Status: Acute Assessment and plan: Troponin of 0.19/0.17/0.15 - Likely secondary demand ischemia in the setting of CHF exacerbation, CKD stage III - Unlikely ACS at this time. - Cardio following - Patient reportedly complaining of chest pain last evening, troponin at that time was 0.09, EKG unchanged Plan - Unlikely acute coronary syndrome - Continue to monitor. No complaints of CP (3) Anemia Current Visit: Yes Status: Chronic Assessment and plan: - Macrocytic anemia with component of iron deficiency - Workup at last visit in June reveled B12 deficiency and iron deficiency - H/H improved at 10.7/32.9, stable - Continue iron and B12 supplementation which was started as outpatient - EGD in June 2017 showed no evidence of bleed. - Patient is notably a [employer] and does not receive blood transfusions Plan -Will continue to carefully monitor given initiation of heparin for DVT as below. Qualifiers: Anemia type: B12 deficiency Vitamin B12 deficiency anemia type: other B12 deficiency Qualified Code(s): D51.8 - Other vitamin B12 deficiency anemias (4) HCAP (healthcare-associated pneumonia) Current Visit: Yes Status: Acute Assessment and plan: Possible underlying PNA on CXR in [facility] - Recent admission to hospital less than a month ago. - VSS, no WBC, tolerating room air Plan - Will continue levaquin, day 7 - Clinically improving (5) CKD (chronic kidney disease) stage 3, GFR 30-59 ml/min Current Visit: Yes Status: Chronic Assessment and plan: BUN/Cr of 18/1.21 near baseline 1.4-1.5 -Stable. Will continue current regimen. - Avoid nephrotoxic agents, continue to monitor - K noted to be 3.7 most recently (6) Hypertension Current Visit: Yes Status: Chronic Assessment and plan: Well controlled at 128/70 Continue home meds Qualifiers: Hypertension type: essential hypertension Qualified Code(s): I10 - Essential (primary) hypertension (7) HLD (hyperlipidemia) Current Visit: Yes Status: Chronic Assessment and plan: Continue home meds Qualifiers: Hyperlipidemia type: mixed hyperlipidemia Qualified Code(s): E78.2 - Mixed hyperlipidemia (8) GERD (gastroesophageal reflux disease) Current Visit: Yes Status: Chronic Assessment and plan: No complaints of reflux - Will monitor and continue home meds. Qualifiers: Esophagitis presence: without esophagitis Qualified Code(s): K21.9 - Gastro -esophageal reflux disease without esophagitis (9) DVT (deep venous thrombosis) Current Visit: Yes Status: Acute Assessment and plan: - Vascular studies showing positive DVT in right femoral - Patient has a history of anemia with a Hgb of 5.7 at last visit in June - Workup reveled B12 deficiency macrocytic anemia also with iron deficiency. - EGD in June revealed no bleeding. 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 - Vascular surgery consulted, appreciate recommendations. Recommend Anticoagulation, poor IVC filter candidate Plan - Continue heparin gtt. we will bridge to Lovenox today with intention; home on Lovenox injections. - This was discussed with patient's son are currently pursuing nursing facilities for discharge with social work following Qualifiers: DVT location: lower extremity Affected thrombotic vein of extremity: femoral Chronicity: acute Laterality: right Qualified Code(s): I82.411 - Acute embolism and thrombosis of right femoral vein (10) DVT prophylaxis Current Visit: Yes Status: Acute Assessment and plan: - Lovenox as above - Time Spent With Patient 25 - 35 minutes - Subjective Interval history: Patient was seen and examined this morning at bedside. She is more awake this morning but dismisses any form of questioning this morning only replying with "no". - Constitutional Vitals: Temp Pulse Resp BP Pulse Ox 99.2 F 102 16 129/80 100 07/19/17 15:22 07/19/17 15:22 07/19/17 15:22 07/19/17 15:22 07/19/17 15:22 General appearance: Present: cooperative, mild distress (Respiratory), A&O X 3, pleasant, answers questions appropriately (With multiple attempts d/t hearing deficits) Exam: Gen.: Vitals noted. No acute distress. HEENT: PERRL/EOMI, oropharynx clear, Normocephalic, atraumatic Cardiac: RRR, no murmur, +S1/S2 Pulmonary: CTA bilaterally, no wheezes, rales or rhonchi, equal chest expansion Extremities: no BLE edema, nontender calf, no cyanosis or clubbing Neuro: moves all extremities, no focal deficits Psych: Appropriate mood and behavior Internal Medicine: Result - Labs CBC & Chem 7: 07/19/17 06:41 07/18/17 04:33 Labs: Short CBC 07/19/17 Range/Units 06:41 WBC 6.3 (4.3-11.1) K/mcL Hgb 10.7 L (11.5-15.4) g/dL Hct 32.9 L (35.3-44.9) % Plt Count 204 (140-400) K/mcL Cardiac Enzymes 07/18/17 Range/Units 15:41 Troponin I 0.08 H* (< 0.04) ng/mL - ABG Interpretation ABG results: PT/INR, D-dimer PT 15.8 Seconds (9.4-12.1) H 07/14/17 11:52 D-Dimer 1199 ng/mLFEU (0-500) H 07/12/17 16:38 - VTE Documentation of Mechanical Device: Intermittent pneumatic compression device Consult Discharge Plan - Plan Referrals: El Carrillo DO [Primary Care Provider] - 07/20/17 9:30 am <Basim Pierre - Last Filed: 07/19/17 17:47> Date of Encounter: 07/19/17 - Assessment and plan (1) DVT (deep venous thrombosis) Current Visit: Yes Status: Acute Qualifiers: DVT location: lower extremity Affected thrombotic vein of extremity: femoral Chronicity: acute Laterality: right Qualified Code(s): I82.411 - Acute embolism and thrombosis of right femoral vein (2) CHF exacerbation Current Visit: Yes Status: Acute Qualifiers: Congestive heart failure type: systolic Qualified Code(s): I50.23 - Acute on chronic systolic (congestive) heart failure (3) Community acquired pneumonia Current Visit: Yes Status: Acute Qualifiers: Laterality: unspecified laterality Qualified Code(s): J18.9 - Pneumonia, unspecified organism (4) Anemia Current Visit: Yes Status: Chronic Qualifiers: Anemia type: B12 deficiency Vitamin B12 deficiency anemia type: other B12 deficiency Qualified Code(s): D51.8 - Other vitamin B12 deficiency anemias (5) CKD (chronic kidney disease) stage 3, GFR 30-59 ml/min Current Visit: Yes Status: Chronic (6) HTN (hypertension) Current Visit: Yes Status: Chronic Qualifiers: Hypertension type: essential hypertension Qualified Code(s): I10 - Essential (primary) hypertension (7) HLD (hyperlipidemia) Current Visit: Yes Status: Chronic Qualifiers: Hyperlipidemia type: mixed hyperlipidemia Qualified Code(s): E78.2 - Mixed hyperlipidemia (8) GERD (gastroesophageal reflux disease) Current Visit: Yes Status: Chronic Qualifiers: Esophagitis presence: without esophagitis Qualified Code(s): K21.9 - Gastro -esophageal reflux disease without esophagitis - Constitutional Vitals: Temp Pulse Resp BP Pulse Ox 99.2 F 102 16 129/80 100 07/19/17 15:22 07/19/17 15:22 07/19/17 15:22 07/19/17 15:22 07/19/17 15:22 Internal Medicine: Result - Labs CBC & Chem 7: 07/19/17 06:41 07/18/17 04:33 Labs: Short CBC 07/19/17 Range/Units 06:41 WBC 6.3 (4.3-11.1) K/mcL Hgb 10.7 L (11.5-15.4) g/dL Hct 32.9 L (35.3-44.9) % Plt Count 204 (140-400) K/mcL - ABG Interpretation ABG results: PT/INR, D-dimer PT 15.8 Seconds (9.4-12.1) H 07/14/17 11:52 D-Dimer 1199 ng/mLFEU (0-500) H 07/12/17 16:38 - Attending Attestation I examined this patient and my medical decision-making was reviewed with the Resident Physician on 07/19/17. I agree with the documented findings, disposition and treatment plan as described except to the extent set forth below. Ms Alston is currently admitted for acute CHF exacerbation. She remains moderate to high risk due to potential for worsening clinical status. Ms Alston continues to refuse meds, diet, blood draws. Her son was contacted and now will be working to get her to SNF. She will be transitioned to Lovenox today. Exam alert. Moderate distress Heart distant Lungs with scattered rhonchi. Abd soft I/P 1. CHF 2. anemia Due to continued fluctuation in mental status and her refusal of meds, etc. I do not feel she is competent to be making decisions at this time. Her son is POA. Further diagnoses and plan as above
[2017-07-20 06:22] LABS: Hematocrit 36.5 % (35.3-44.9); Hemoglobin 11.4 g/dL (11.5-15.4); Mean Corpuscular HGB Conc 31.2 g/dL (31.6-35.5); Mean Corpuscular Volume 105.8 fL (83.0-100.0); Mean Platelet Volume 11.5 fL (9.4-12.4); Platelet Count 210 K/mcL (140-400); Red Blood Count 3.45 M/mcL (3.82-4.97); Red Cell Distribution Width 22.1 % (11.5-14.5)
[2017-07-20 06:43] LABS: Calcium 8.8 mg/dL (8.6-10.3); Potassium 3.9 mEq/L (3.5-5.1)
[2017-07-20 06:56] VITALS: BP 153/86
[2017-07-20] MEDS: Lisinopril 20 MG TABLET PO SCH (08:52)
[2017-07-20] MEDS: Cyanocobalamin (B-12) 1,000 MCG TABLET PO SCH (08:52)
[2017-07-20] MEDS: Aspirin Enteric Coated 81 MG Tablet PO SCH (08:52)
--- NOTE | 2017-07-20 09:25 | Discharge Summary ---
<Erik Mcgrath - Last Filed: 07/20/17 14:39> Date of Encounter: 07/20/17 Time of Encounter: 09:23 - Discharge Diagnosis (1) CHF exacerbation Priority: Primary Status: Acute Qualifiers: Congestive heart failure type: systolic Qualified Code(s): I50.23 - Acute on chronic systolic (congestive) heart failure (2) Elevated troponin Priority: Secondary Status: Acute (3) Anemia Priority: Secondary Status: Chronic Qualifiers: Anemia type: B12 deficiency Vitamin B12 deficiency anemia type: other B12 deficiency Qualified Code(s): D51.8 - Other vitamin B12 deficiency anemias (4) HCAP (healthcare-associated pneumonia) Priority: Secondary Status: Acute (5) CKD (chronic kidney disease) stage 3, GFR 30-59 ml/min Priority: Secondary Status: Chronic (6) Hypertension Priority: Secondary Status: Chronic Qualifiers: Hypertension type: essential hypertension Qualified Code(s): I10 - Essential (primary) hypertension (7) HLD (hyperlipidemia) Priority: Secondary Status: Chronic Qualifiers: Hyperlipidemia type: mixed hyperlipidemia Qualified Code(s): E78.2 - Mixed hyperlipidemia (8) GERD (gastroesophageal reflux disease) Priority: Secondary Status: Chronic Qualifiers: Esophagitis presence: without esophagitis Qualified Code(s): K21.9 - Gastro -esophageal reflux disease without esophagitis (9) DVT (deep venous thrombosis) Priority: Secondary Status: Acute Qualifiers: DVT location: lower extremity Affected thrombotic vein of extremity: femoral Chronicity: acute Laterality: right Qualified Code(s): I82.411 - Acute embolism and thrombosis of right femoral vein (10) DVT prophylaxis Priority: Secondary Status: Acute - Discharge Medications Prescriptions: Enoxaparin [Lovenox] 60 mg SQ Q24H #14 syringe Home Medications: TraMADol [Ultram] 50 mg PO BID 02/17/15 [History] Meclizine HCl [Verticalm] 25 mg PO DAILY PRN 06/20/17 [History] Atorvastatin [Lipitor] 40 mg PO HS #30 tablet 06/26/17 [Rx] Cyanocobalamin (Vitamin B-12) [Vitamin B12] 1,000 mcg PO DAILY #10 tablet [Rx] DiphenhydraMINE [Benadryl] 12.5 mg PO Q8H PRN #20 udc 06/26/17 [Rx] Ferrous Sulfate 325 mg PO BIDWM #60 tablet 06/26/17 [Rx] Clarithromycin [Biaxin] 500 mg PO BID 07/12/17 [History] Lisinopril [Zestril] 20 mg PO DAILY 07/12/17 [History] Omeprazole [PriLOSEC] 40 mg PO DAILY 07/12/17 [History] metroNIDAZOLE [Metronidazole] 1,000 mg PO BID 07/12/17 [History] Enoxaparin [Lovenox] 60 mg SQ Q24H #14 syringe 07/20/17 [Rx] Allergies/Adverse Reactions: 3 Allergy/AdvReac Type Severity Reaction Status Date / Time Penicillins Allergy Rash Verified 01/12/17 06:43 Procedures/tests Complete & Pending: Procedures Performed prior 72 hours Category Date Time Status EKG [ECG 12 lead ECG] [ECG] Stat Y 07/18/17 03:28 Completed Date of admission: 07/12/17 15:24 Primary care physician: El Carrillo, Consults: 07/12/17 15:28 Consult to Airplane Navigator [CONS] Routine Reason for SW Consult: Patient, according to EMS, lives in terrible living conditions w/multiple animals and smell of feces/urine inside and outside house. Pt. also has scabbed bites all over body which could be d/t fleas and/or bed bugs. Please assess patient for possible placement post-discharge. 07/12/17 15:30 Consult to Occupational Therapy [CONS] Routine Comment: Evaluate, develop and implement POC Reason for Consult: Patient reports some weakness/instability w/ambulation. Please assess patient for ambulation strength, stability, safety, and possible home assistive needs for post-discharge planning. 07/12/17 15:31 Consult to Physical Therapy [CONS] Routine Comment: Evaluate, develop and implement POC Reason for Consult: Patient reports some weakness/instability w/ambulation. Please assess patient for ambulation strength, stability, safety, and possible home assistive needs for post-discharge planning. 07/12/17 15:48 Consult to Cardiology [CONS] Routine Comment: Consulting Provider: Cardiology Jeni Reason for Consult: Elevated initial troponin of 0.16. Pt. has hx of chronically elevated troponin but is reporting chest pain centralized in chest. Pt. had echo on 06/20/17 which showed LVEF of 50%. Trending trop x2 w/continuous tele. SL nitro PRN. Aspirin. Continue Lipitor. Call Completed: Yes 07/14/17 09:50 Consult to Speech Therapy [CONS] Routine Comment: Evaluate, develop and implement POC Reason for Consult: Failed [place] swallow test Time Notified: 09:51 Call Completed: Yes 07/14/17 11:15 Consult to Vascular Surgery [CONS] Routine Consulting Provider: Vascular Surgery Jeni Reason for Consult: DVT, anemia, restoration Call Completed: Yes 07/15/17 17:59 Consult to Palliative Care [CONS] Routine Comment: Consulting Provider: Palliative Care Jeni Reason for Consult: goals of therapy Call Completed: Yes Discharging clinician: Erik Mcgrath Anticipated date of discharge: 07/20/17 - Patient Status Disposition: Transfer SNF Condition: Fair Overall status at discharge: patient is progressing back to baseline - Discharge Instructions Instructions: Chest Pain (DC), Urinary Tract Infection in Women (DC), Sepsis ( DC), Chronic Hypertension (DC), Anemia (GEN), Fall Prevention (DC) Follow Up With: El Carrillo DO [Primary Care Provider] - 07/20/17 9:30 am Additional Instructions: Please follow up with her primary care physician within one week of discharge. Take All medications as prescribed - Diet and Activity Activity: increase activity as tolerated, resume usual activities as tolerated Diet: advance to your usual diet Hospital course: Ms. Alston is a 86 year old female with past medical history of reflux, hyperlipidemia, hypertension, stage III CKD present emergency department with a chief complaint of shortness of breath 1 day. She also complained of chest pain which was pleuritic, orthopnea at rest and weakness. Vital signs in emergency room is significant for tachycardia at 106, blood pressure of 143/79. Chest x-ray in emergency department showed bilateral pleural effusions with mild pulmonary edema and bibasilar opacities which may represent either atelectasis or pneumonia. Labs significant for stable chronic anemia at 9.0/ 29.6, BUNs/creatinine of 18/1.56, troponin elevated at 0.19, BNP of 1689 and d- dimer at 1199. CT chest on emergency department showing similar bilateral pleural effusions with atelectasis versus pneumonia. V/q scan showed low probability of pulmonary embolism. Patient was admitted to the hospital for further evaluation and management of CHF exacerbation with possible underlying pneumonia. During course possible study, patient gradually improved. She was treated with diuretics and Anaprox including vancomycin, cefepime, Levaquin which were de- escalating this patient improved to Levaquin. Patient was found to have a right femoral DVT for which she was placed on heparin drip and transitioned to Lovenox injections. Patient is notably a [employer] and at most recent hospital visit in June 2017 had a hemoglobin as low as 5.7. Vascular surgery was consult and agreed with adequate ablation but felt she was a candidate for IVC filter. Cardiology also followed during admission and assisted with diuresis. Troponin was trended and is adynamic, likely secondary to demand ischemia. She is breathing status improved and on day of discharge she is currently tolerating room air. Labs were trended and return to baseline levels. We also had a discussion with patient's son who is power of deputy attorney general regarding her disposition and we have agreed to senior living facility on discharge. Patient has notably refused medication, blood draws, diet the previous 3 days and she was deemed not able to make her own decisions. She will be discharged to SNF in stable medical condition and instructed to take all medications as prescribed. She will be sent home with Lovenox injections as we feel she would be a poor candidate for Coumadin or NOAC given poor compliance. - Time Spent with Patient Total time spent providing and/or coordinating discharge services: - Constitutional Vitals: Temp Pulse Resp BP Pulse Ox 98.1 F 105 14 153/86 100 07/20/17 06:49 07/20/17 06:49 07/20/17 06:49 07/20/17 06:49 07/20/17 06:49 General appearance: Present: mild distress (Respiratory), A&O X 3, answers questions appropriately (With multiple attempts d/t hearing deficits) Exam: Gen.: Vitals noted. No acute distress. Un cooperative. HEENT: PERRL/EOMI, oropharynx clear, Normocephalic, atraumatic Cardiac: RRR, no murmur, +S1/S2 Pulmonary: Mild rhonchi. Otherwise CTA bilaterally, no wheezes, rales or rhonchi , equal chest expansion Abdomen: soft, nontender, BS noted, no guarding Extremities: no BLE edema, nontender calf, no cyanosis or clubbing Neuro: Unable to assess. Patient only states "go home" - VTE Documentation of Mechanical Device: Intermittent pneumatic compression device <Basim Pierre Ольга - Last Filed: 07/20/17 18:27> Date of Encounter: 07/20/17 - Discharge Diagnosis (1) DVT (deep venous thrombosis) Status: Acute Qualifiers: DVT location: lower extremity Affected thrombotic vein of extremity: femoral Chronicity: acute Laterality: right Qualified Code(s): I82.411 - Acute embolism and thrombosis of right femoral vein (2) CHF exacerbation Status: Acute Qualifiers: Congestive heart failure type: systolic Qualified Code(s): I50.23 - Acute on chronic systolic (congestive) heart failure (3) Community acquired pneumonia Priority: Secondary Status: Acute Qualifiers: Laterality: unspecified laterality Qualified Code(s): J18.9 - Pneumonia, unspecified organism (4) Anemia Status: Chronic Qualifiers: Anemia type: B12 deficiency Vitamin B12 deficiency anemia type: other B12 deficiency Qualified Code(s): D51.8 - Other vitamin B12 deficiency anemias (5) CKD (chronic kidney disease) stage 3, GFR 30-59 ml/min Status: Chronic (6) HTN (hypertension) Priority: Secondary Status: Chronic Qualifiers: Hypertension type: essential hypertension Qualified Code(s): I10 - Essential (primary) hypertension (7) HLD (hyperlipidemia) Status: Chronic Qualifiers: Hyperlipidemia type: mixed hyperlipidemia Qualified Code(s): E78.2 - Mixed hyperlipidemia (8) GERD (gastroesophageal reflux disease) Status: Chronic Qualifiers: Esophagitis presence: without esophagitis Qualified Code(s): K21.9 - Gastro -esophageal reflux disease without esophagitis Procedures/tests Complete & Pending: Procedures Performed prior 72 hours Category Date Time Status EKG [ECG 12 lead ECG] [ECG] Stat Y 07/18/17 03:28 Completed Date of admission: 07/12/17 15:24 Primary care physician: El Carrillo, Consults: 07/12/17 15:28 Consult to Airplane Navigator [CONS] Routine Reason for SW Consult: Patient, according to EMS, lives in terrible living conditions w/multiple animals and smell of feces/urine inside and outside house. Pt. also has scabbed bites all over body which could be d/t fleas and/or bed bugs. Please assess patient for possible placement post-discharge. 07/12/17 15:30 Consult to Occupational Therapy [CONS] Routine Comment: Evaluate, develop and implement POC Reason for Consult: Patient reports some weakness/instability w/ambulation. Please assess patient for ambulation strength, stability, safety, and possible home assistive needs for post-discharge planning. 07/12/17 15:31 Consult to Physical Therapy [CONS] Routine Comment: Evaluate, develop and implement POC Reason for Consult: Patient reports some weakness/instability w/ambulation. Please assess patient for ambulation strength, stability, safety, and possible home assistive needs for post-discharge planning. 07/12/17 15:48 Consult to Cardiology [CONS] Routine Comment: Consulting Provider: Cardiology Jeni Reason for Consult: Elevated initial troponin of 0.16. Pt. has hx of chronically elevated troponin but is reporting chest pain centralized in chest. Pt. had echo on 06/20/17 which showed LVEF of 50%. Trending trop x2 w/continuous tele. SL nitro PRN. Aspirin. Continue Lipitor. Call Completed: Yes 07/14/17 09:50 Consult to Speech Therapy [CONS] Routine Comment: Evaluate, develop and implement POC Reason for Consult: Failed [place] swallow test Time Notified: 09:51 Call Completed: Yes 07/14/17 11:15 Consult to Vascular Surgery [CONS] Routine Consulting Provider: Vascular Surgery Jeni Reason for Consult: DVT, anemia, restoration Call Completed: Yes 07/15/17 17:59 Consult to Palliative Care [CONS] Routine Comment: Consulting Provider: Palliative Care Jeni Reason for Consult: goals of therapy Call Completed: Yes Hospital course: Ms. Alston is a 86 year old female - Time Spent with Patient Total time spent providing and/or coordinating discharge services: 37min - Constitutional Vitals: Temp Pulse Resp BP Pulse Ox 98.1 F 105 14 153/86 100 07/20/17 06:49 07/20/17 06:49 07/20/17 06:49 07/20/17 06:49 07/20/17 09:00 - VTE Deep Vein Thrombosis/Pulmonary Embolism Present on Admission: Yes - Attending Attestation I examined this patient and my medical decision-making was reviewed with the Resident Physician on 07/20/17. I agree with the documented findings, disposition and treatment plan as described except to the extent set forth below. Ms Alston has been admitted for pneumonia. She has been intermittently refusing treatments and meds. She has been noted to have a DVT on admit. She has been placed on Lovenox. Discussion with son occurred and she will be admitted to SNF. She is currently with stable vitals. Exam alert. Heart distant - she pushes my hands away so no other exam can be done Plan D/C to SNF.
--- NOTE | 2017-07-20 09:30 | Physician Discharge Referral ---
ExtendedCare Referral Info Provider in Charge after Transfer: PCP Institutional Level of Care: Skilled - Diagnosis (1) CHF exacerbation Priority: Primary Status: Acute (2) Elevated troponin Priority: Secondary Status: Acute (3) Anemia Priority: Secondary Status: Chronic (4) HCAP (healthcare-associated pneumonia) Priority: Secondary Status: Acute (5) CKD (chronic kidney disease) stage 3, GFR 30-59 ml/min Priority: Secondary Status: Chronic (6) Hypertension Priority: Secondary Status: Chronic (7) HLD (hyperlipidemia) Priority: Secondary Status: Chronic (8) GERD (gastroesophageal reflux disease) Priority: Secondary Status: Chronic (9) DVT (deep venous thrombosis) Priority: Secondary Status: Acute (10) DVT prophylaxis Priority: Secondary Status: Acute Prognosis: Poor Aware of Diagnosis: Family Aware of Prognosis: Family - Transfer Medications Prescriptions: Enoxaparin [Lovenox] 60 mg SQ Q24H #14 syringe Home Medications: TraMADol [Ultram] 50 mg PO BID 02/17/15 [History] Meclizine HCl [Verticalm] 25 mg PO DAILY PRN 06/20/17 [History] Atorvastatin [Lipitor] 40 mg PO HS #30 tablet 06/26/17 [Rx] Cyanocobalamin (Vitamin B-12) [Vitamin B12] 1,000 mcg PO DAILY #10 tablet [Rx] DiphenhydraMINE [Benadryl] 12.5 mg PO Q8H PRN #20 udc 06/26/17 [Rx] Ferrous Sulfate 325 mg PO BIDWM #60 tablet 06/26/17 [Rx] Clarithromycin [Biaxin] 500 mg PO BID 07/12/17 [History] Lisinopril [Zestril] 20 mg PO DAILY 07/12/17 [History] Omeprazole [PriLOSEC] 40 mg PO DAILY 07/12/17 [History] metroNIDAZOLE [Metronidazole] 1,000 mg PO BID 07/12/17 [History] Enoxaparin [Lovenox] 60 mg SQ Q24H #14 syringe 07/20/17 [Rx] Allergies/Adverse Reactions: 3 Allergy/AdvReac Type Severity Reaction Status Date / Time Penicillins Allergy Rash Verified 01/12/17 06:43 - Respiratory Orders Smoking Cessation: Smoking cessation has been advised. For more information, call the [facility] Tobacco Quit Line at 7-983-CCVD-NOW. - Mobility Orders Ambulate - Rehabiliation Orders Rehab Potential: Fair Rehab Orders: Evaluation for Physical Therapy, Evaluation for Occupational Therapy - Diet Orders Regular CERTIFICATION: I certify that the transfer of the above named patient to an Extended Care Facility is necessary for the continuing treatment of the diagnosis listed. The above information is true and accurate reflection of patient's current condition. Confidential - Redisclosure prohibited without a patient's written consent.
[2017-07-20] MEDS: *HR* Enoxaparin 60 MG/0.6 ML SYRINGE SQ SCH (12:06)
== END 2017-07-20 15:19 | DRG 291 ==
LOC: EMEROO 10:46 → 2NENU 15:24 → SUATTDRO 15:24 → 2NENU 16:59
PROVIDERS: ADMIT Internal Medicine Cardiovascular Disease; ATTEND Internal Medicine

== ENCOUNTER 2017-11-14 12:07 | Inpatient (IN) ==
--- NOTE | 2017-11-14 12:19 | Emergency Department Note ---
Disposition Clinical Impression: Congestive heart failure Qualifiers: Heart failure type: unspecified Heart failure chronicity: acute Qualified Code( s): I50.9 - Heart failure, unspecified Disposition: Admitted As Inpatient Condition: Fair Referrals: El Carrillo DO [Primary Care Provider] - Forms: ED Satisfaction Letter Time of Disposition: 13:38 SOB HPI - General Chief Complaint: ED Shortness of Breath/Dyspnea Stated Complaint: TAMIKO Time Seen by Provider: 11/14/17 12:10 Source: patient, EMS Mode of arrival: EMS Limitations: no limitations Nursing Notes Reviewed: Yes Vital Signs Reviewed: Yes - History of Present Illness 86-year-old female who comes in with shortness of breath since last night she has had a cough that began last night and said that her shirt was soaked last night thinks she may have had a fever. Pneumonia 3 times in the past Pt Subjective Complaint: shortness of breath, cough Onset (ago): Just [employer] Context: recent illness Severity: moderate Consistency/Duration: constant Improves with: nothing Worsens with: nothing Known history of: recurrent pneumonia Associated symptoms: Reports: denies other symptoms Cough present: Yes Cough Description: Involuntary Cough Frequency: Intermittent - Related Data Home Medications Medication Instructions Recorded Confirmed TraMADol [Ultram] 50 mg PO BID 02/17/15 07/12/17 Meclizine HCl [Verticalm] 25 mg PO DAILY PRN 06/20/17 07/12/17 Clarithromycin [Biaxin] 500 mg PO BID 07/12/17 07/12/17 Lisinopril [Zestril] 20 mg PO DAILY 07/12/17 07/12/17 Omeprazole [PriLOSEC] 40 mg PO DAILY 07/12/17 07/12/17 metroNIDAZOLE [Metronidazole] 1,000 mg PO BID 07/12/17 07/12/17 Previous Rx's Medication Instructions Recorded Atorvastatin [Lipitor] 40 mg PO HS #30 tablet 06/26/17 Cyanocobalamin (Vitamin B-12) 1,000 mcg PO DAILY #10 tablet 06/26/17 [Vitamin B12] DiphenhydraMINE [Benadryl] 12.5 mg PO Q8H PRN #20 udc 06/26/17 Ferrous Sulfate 325 mg PO BIDWM #60 tablet 06/26/17 Enoxaparin [Lovenox] 60 mg SQ Q24H #14 syringe 07/20/17 Allergies Allergy/AdvReac Type Severity Reaction Status Date / Time Penicillins Allergy Rash Verified 01/12/17 06:43 All systems ED: reviewed and negative except as stated. Constitutional: Denies: fever, chills, weakness, weight change Eyes: Denies: eye pain, eye discharge, vision change ENT ED: Denies: ear pain, throat pain, dental pain, hearing loss, epistaxis, congestion, dysphagia Cardiovascular: Denies: chest pain, palpitations, dyspnea on exertion, edema, syncope Respiratory: Reports: cough, dyspnea. Denies: wheezes, hemoptysis, stridor Gastrointestinal: Denies: abdominal pain, nausea, vomiting, diarrhea, constipation, hematemesis, melena, hematochezia Genitourinary: Denies: dysuria, frequency, hematuria, discharge Musculoskeletal: Denies: back pain, neck pain, arthralgia, myalgia Integumentary: Denies: rash, abrasion, lesions Neurological: Denies: headache, weakness, numbness, paresthesias, confusion, abnormal gait, vertigo Psychiatric: Denies: anxiety, depression, suicidal thoughts, homicidal thoughts , auditory hallucinations, visual hallucinations Endocrine: Denies: fatigue Hematological/Lymphatic: Denies: easy bleeding, easy bruising Allergic/Immunologic: Denies: facial swelling, urticaria Past Medical History - Past Medical History Medical history: Reports: hypertension, renal disease, other Surgical history: Reports: appendectomy, cholecystectomy, orthopedic, other, other (Tonsillectomy, adenoidectomy, left shoulder surgery, right knee replacement, ankle surgery, 2 c-sections, right thumb surgery) Psychiatric history: Reports: no psych history - Social History Smoking Status: Former smoker Smokeless Tobacco Status: No Alcohol use: Reports: none Drug use: Reports: none Physical Exam - General Limitations: no limitations General appearance: alert, in no apparent distress - Head Head exam: atraumatic, normocephalic, normal inspection - Eye Eye exam: Present: normal appearance, PERRL, EOMI - ENT ENT exam: normal exam, normal oropharynx, mucous membranes moist - Neck Neck exam: Present: normal inspection, full ROM, trachea midline - Chest Chest inspection: Present: normal inspection, symmetric chest wall rise - Respiratory Respiratory exam: Present: normal lung sounds bilaterally - Cardiovascular Cardiovascular exam: Present: regular rate, normal rhythm, normal heart sounds - Abdominal Exam Abdominal exam: Present: soft, Non-Tender. Absent: tenderness, distention, guarding, rebound, rigidity - Extremities Exam Extremities exam: Present: normal inspection, full ROM. Absent: tenderness, pedal edema - Expanded Lower Extremity Exam Neurovascular/Tendon exam: Absent: motor deficit, sensory deficit, tendon deficit Gait: observed and normal - Back Exam Back exam: Present: normal inspection, full ROM. Absent: tenderness - Neurological Exam Neurological exam: Present: alert, oriented X3 - Psychiatric Psychiatric exam: Present: normal affect, normal mood - Skin Skin exam: Present: warm, dry, intact, normal color Course - Reevaluation(s) Reevaluation #1: 86-year-old with shortness of breath is found to have an elevated BNP and findings of congestive heart failure on her chest x-ray. Her troponin is slightly positive at 0.07. Patient will be admitted for further evaluation and treatment. Time: 13:38 - Consultations Consultation #1: Discussed with , admit. Time: 13:49 Vital Signs Temperature 97.8 F 11/14/17 12:12 Pulse Rate 100 11/14/17 12:12 Respiratory Rate 19 11/14/17 12:12 Blood Pressure 155/104 11/14/17 12:12 O2 Sat by Pulse Oximetry 97 11/14/17 12:12 Temperature 97.8 F 11/14/17 12:12 Pulse Rate 100 11/14/17 12:12 Respiratory Rate 19 11/14/17 12:12 Blood Pressure 155/104 11/14/17 12:12 O2 Sat by Pulse Oximetry 97 11/14/17 12:18 Oxygen Delivery Oxygen Delivery Room Air Shortness of Breath/Dyspnea - Lab Data Lab results reviewed: Yes I reviewed the patient's lab results. Result diagrams: 11/14/17 12:11 11/14/17 12:11 Lab Results 11/14/17 11/14/17 11/14/17 Range/Units 12:11 12:11 12:11 WBC 5.3 (4.3-11.1) K/mcL RBC 3.69 L (3.82-4.97) M/mcL Hgb 12.3 (11.5-15.4) g/dL Hct 39.5 (35.3-44.9) % MCV 107.0 H (83.0-100.0) fL MCH 33.3 (28.0-33.3) pg MCHC 31.1 L (31.6-35.5) g/dL RDW 16.8 H (11.5-14.5) % Plt Count 230 (140-400) K/mcL MPV 11.0 (9.4-12.4) fL Immature Gran % 0.4 (0-4) % Seg Neutrophils % 61.0 % Lymphocytes % 26.6 % Monocytes % 7.6 % Eosinophils % 3.4 % Basophils % 1.0 % Neutrophils # 3.2 (1.6-8.9) K/mcL Lymphocytes # 1.4 (0.6-4.6) K/mcL Monocytes # 0.4 (0.0-1.3) K/mcL Eosinophils # 0.2 (0.0-0.6) K/mcL Basophils # 0.1 (0.0-0.2) K/mcL Sodium 137 (136-145) mEq/L Potassium 4.9 (3.5-5.1) mEq/L Chloride 108 H (98-107) mEq/L Carbon Dioxide 22 L (23-29) mEq/L BUN 28 H (8-23) mg/dL Creatinine 1.12 (0.60-1.20) mg/dL Est GFR ( Amer) 56 L (> 60) Est GFR (Non-Af Amer) 46 L (> 60) BUN/Creatinine Ratio 25 (6-26) Glucose 107 H (70-105) mg/dL Calculated Osmolality 290 (280-300) Lactic Acid (0.5-2.2) mmol/L Calcium 9.5 (8.6-10.3) mg/dL Troponin I 0.05 H* (< 0.04) ng/mL B-Natriuretic Peptide 3860 H (Less than 100) pg/mL 11/14/17 Range/Units 12:32 WBC (4.3-11.1) K/mcL RBC (3.82-4.97) M/mcL Hgb (11.5-15.4) g/dL Hct (35.3-44.9) % MCV (83.0-100.0) fL MCH (28.0-33.3) pg MCHC (31.6-35.5) g/dL RDW (11.5-14.5) % Plt Count (140-400) K/mcL MPV (9.4-12.4) fL Immature Gran % (0-4) % Seg Neutrophils % % Lymphocytes % % Monocytes % % Eosinophils % % Basophils % % Neutrophils # (1.6-8.9) K/mcL Lymphocytes # (0.6-4.6) K/mcL Monocytes # (0.0-1.3) K/mcL Eosinophils # (0.0-0.6) K/mcL Basophils # (0.0-0.2) K/mcL Sodium (136-145) mEq/L Potassium (3.5-5.1) mEq/L Chloride (98-107) mEq/L Carbon Dioxide (23-29) mEq/L BUN (8-23) mg/dL Creatinine (0.60-1.20) mg/dL Est GFR ( Amer) (> 60) Est GFR (Non-Af Amer) (> 60) BUN/Creatinine Ratio (6-26) Glucose (70-105) mg/dL Calculated Osmolality (280-300) Lactic Acid 1.5 (0.5-2.2) mmol/L Calcium (8.6-10.3) mg/dL Troponin I (< 0.04) ng/mL B-Natriuretic Peptide (Less than 100) pg/mL - Radiology Data Radiology results reviewed: Yes I reviewed the patient's radiology results. Chest X-Ray 11/14/17 12:11 IMPRESSION: Cardiomegaly with pulmonary vascular congestion, interstitial edema, and pleural effusions D/ / Shine Blanca MD / Shine Blanca MD Interpreting Provider: Shine Blanca MD - EKG Data EKG attestation: Yes I reviewed and interpreted this EKG. Rate: Reports: normal Rhythm: Reports: NSR [place]/QRS: Reports: LBBB When compared to previous EKG there are: no significant changes (07/18/2017) Interpretation: Reports: no acute changes
[2017-11-14 12:58] LABS: Basophils # 0.1 K/mcL (0.0-0.2); Eosinophils # 0.2 K/mcL (0.0-0.6); Eosinophils % 3.4 %; Hematocrit 39.5 % (35.3-44.9); Hemoglobin 12.3 g/dL (11.5-15.4); Immature Granulocytes % 0.4 % (0-4); Lymphocytes # 1.4 K/mcL (0.6-4.6); Lymphocytes % 26.6 %; Mean Corpuscular HGB Conc 31.1 g/dL (31.6-35.5); Mean Corpuscular Hemoglobin 33.3 pg (28.0-33.3); Monocytes # 0.4 K/mcL (0.0-1.3); Monocytes % 7.6 %; Neutrophils # 3.2 K/mcL (1.6-8.9); Platelet Count 230 K/mcL (140-400); Red Blood Count 3.69 M/mcL (3.82-4.97); Red Cell Distribution Width 16.8 % (11.5-14.5)
[2017-11-14 13:27] LABS: Calcium 9.5 mg/dL (8.6-10.3); Potassium 4.9 mEq/L (3.5-5.1); Troponin I 0.05 ng/mL (< 0.04)
[2017-11-14] MEDS ORDERED: Furosemide 40 MG/4 ML VIAL IVP ONE (13:37)
[2017-11-14 13:56] LABS: Bilirubin,Urine Negative (Negative); Blood,Urine Moderate (Negative); Color,Urine Dark Yellow (Yellow); Glucose,Urine (UA) Normal (Normal); Ketones,Urine Negative (Negative); Leukocyte Esterase,Urine Moderate (Negative); Nitrite,Urine Positive (Negative); PH,Urine 5.5 pH Units (5.0-8.0); Protein,Urine 30 mg/dL (Neg-Trace); Specific Gravity,Urine 1.027 (1.010-1.025); Urobilinogen,Urine Normal (Normal)
[2017-11-14 13:58] LABS: Bacteria,Urine Many per hpf (None-Few); Hyaline Casts,Urine None Seen per lpf (None-Few); Squamous Epithelial Cell,Urine Many per lpf (None-Few); WBC,Urine 50-100 per hpf (0-3)
[2017-11-14 14:01] LABS: Clarity,Urine Clear (Clear)
[2017-11-14 14:16] LABS: RBC,Urine 0-3 per hpf (0-3)
--- NOTE | 2017-11-14 15:41 | Internal Med History&Physical ---
Date of Encounter: 11/14/17 Time of Encounter: 15:40 Internal Medicine - H&P: HPI Admitted From: Home Plans for Post Hospital Care: Home History of present illness: Ms. Alston is a 86 year old female Pt states she developed SOB 2 days ago. Pt states she lives with her 2 sons. She is poorly groomed and foul smelling. States about the same time she also noted some chest discomfort. Denies SOB or diaphoresis. Denies radiation of chest discomfort. Denies chest discomfort at this time and states it's resolved. She denies LE edema. She denies previous hx of CHF. Past Med Surg Social Fam HX - Past Medical History Medical history: hypertension, renal disease, other Additional medical history: vertigo, Psychiatric history: no psych history - Past Surgical History Surgical History: appendectomy, cholecystectomy, orthopedic, other, other ( Tonsillectomy, adenoidectomy, left shoulder surgery, right knee replacement, ankle surgery, 2 c-sections, right thumb surgery) Additional surgical history: TONSILECTOMY AND ADNOIDECTOMY, BILATERAL ROTATOR CUFF REPAIRS, RIGHT KNEE REPLACEMENT, LEFT SHOULDER REPLACEMENT, BILATERAL CARPAL TUNNEL SURGERIES, BILATERAL ANKLE SURGERIES, - Social History Smoking Status: Former smoker Smokeless Tobacco Status: No Alcohol use: none Drug use: none - Family History Father Family Member Ethnicity: Non- Living Status: Mother Family Member Ethnicity: Non- Living Status: Hx Family Cardiac Disorders: Yes (Stroke) Hx Family Neurologic Disorders: Yes (CEREBRAL VASCULAR ACCIDENT.) Sister Family Member Ethnicity: Non- Living Status: Still Living Hx Family GI Disorders: Yes (Gallbladder) Brother Family Member Ethnicity: Non- Living Status: Hx Family Neurologic Disorders: Yes Internal Medicine - H&P: Meds Ferrous Sulfate 325 mg PO BIDWM #60 tablet 06/26/17 [Rx] Lisinopril [Zestril] 20 mg PO DAILY 07/12/17 [History] Omeprazole [PriLOSEC] 40 mg PO DAILY 07/12/17 [History] Tramadol HCl [Ultram] 50 mg PO BID PRN 11/14/17 [History] Warfarin [Coumadin] 2 mg PO MORGAN 11/14/17 [History] Warfarin [Coumadin] 3 mg PO [id number] 11/14/17 [History] 3 Allergy/AdvReac Type Severity Reaction Status Date / Time Penicillins Allergy Rash Verified 01/12/17 06:43 All Systems PM: A 10-system review of systems was performed and is negative for pertinent findings except as documented above in the HPI. - Constitutional Vitals: Temp Pulse Resp BP Pulse Ox 97.8 F 100 19 155/104 97 11/14/17 12:12 11/14/17 12:12 11/14/17 12:12 11/14/17 12:12 11/14/17 12:18 General appearance: Present: A&O X 3, no acute distress Exam: Pt is poorly groomed, and foul smelling. She is extremely hard of hearing but reads lips. - Head Head exam: Present: atraumatic, normocephalic - Eye Eye exam: Present: PERRL, conjuntiva pink, sclera anicteric Pupils: Present: PERRL - Neck Neck exam general surgery: Present: supple, trachea midline. Absent: lymphadenopathy - Respiratory Respiratory exam: Present: CTAB. Absent: accessory muscle use, rales, rhonchi, wheezes - Cardiovascular Cardiovascular exam: Present: RRR, +S1, +S2. Absent: diastolic murmur, gallop, rubs, systolic murmur - GI/Abdominal GI/Abdominal exam: Present: normal bowel sounds, soft, no peritoneal signs. Absent: distended, tenderness - Extremities Exam Extremities exam: Present: warm, radial pulses palpable and symmetrical. Absent : calf tenderness, cyanotic, pedal edema - Neurological Exam Neurological exam: Present: CN II-XII intact, oriented X3, no focal deficits. Absent: pronater drift, facial droop, speech deficit Internal Med - H&P Results - Labs CBC & Chem 7: 11/14/17 12:11 11/14/17 12:11 Labs: Short CBC 11/14/17 Range/Units 12:11 WBC 5.3 (4.3-11.1) K/mcL Hgb 12.3 (11.5-15.4) g/dL Hct 39.5 (35.3-44.9) % Plt Count 230 (140-400) K/mcL Neutrophils # 3.2 (1.6-8.9) K/mcL BMP 11/14/17 12:11 Sodium 137 Potassium 4.9 Chloride 108 H Carbon Dioxide 22 L BUN 28 H Creatinine 1.12 Glucose 107 H Calcium 9.5 Cardiac Enzymes 11/14/17 Range/Units 12:11 Troponin I 0.05 H* (< 0.04) ng/mL Urine 11/14/17 Range/Units 13:23 Urine Color Dark Yellow (Yellow) Urine Clarity Clear (Clear) Urine pH 5.5 (5.0-8.0) pH Units Ur Specific [place] 1.027 H (1.010-1.025) Urine Protein 30 H (Neg-Trace) mg/dL Urine Glucose (UA) Normal (Normal) mg/dL - Impressions ITS Impressions Chest X-Ray 11/14/17 12:11 IMPRESSION: Cardiomegaly with pulmonary vascular congestion, interstitial edema, and pleural effusions D/ / Shine Blanca MD / Shine Blanca MD Interpreting Provider: Shine Blanca MD - Assessment and plan (1) CHF exacerbation Current Visit: No Status: Acute Assessment and plan: Given Lasix in ED and will give another dose. Will check Echo. Will monitor I and O's, fluid and slat restriction. Daily weights. Qualifiers: Qualified Code(s): I50.23 - Acute on chronic systolic (congestive) heart failure (2) Chest pain Current Visit: No Status: Acute Assessment and plan: Pt denies CP at this time. WIll cycle troponin. Nitro SL pn. ASA daily. Lipid panel in am. Qualifiers: Chest pain type: precordial pain Qualified Code(s): R07.2 - Precordial pain (3) UTI (urinary tract infection) Current Visit: No Status: Acute Assessment and plan: urine analysis appears abnormal. Will straight cath and repeat urine analysis . First UA has too many squamous cells. Qualifiers: Urinary tract infection type: acute cystitis Hematuria presence: without hematuria Qualified Code(s): N30.00 - Acute cystitis without hematuria (4) CKD (chronic kidney disease) stage 3, GFR 30-59 ml/min Current Visit: No Status: Chronic Assessment and plan: Will monitor renal function. (5) DVT (deep venous thrombosis) Current Visit: No Status: Acute Assessment and plan: On Coumadin. Will monitor PT/INR daily Qualifiers: DVT location: lower extremity Affected thrombotic vein of extremity: femoral Chronicity: acute Laterality: right Qualified Code(s): I82.411 - Acute embolism and thrombosis of right femoral vein (6) HTN (hypertension) Current Visit: No Status: Chronic Assessment and plan: Lisinopril Qualifiers: Hypertension type: essential hypertension Qualified Code(s): I10 - Essential (primary) hypertension - Time Spent With Patient Total time spent is greater than 50% in coordination of care (as documented) at patient's floor/unit and/or counseling patient: 25 - 35 minutes
[2017-11-14] MEDS ORDERED: Nitroglycerin 0.4 MG TAB.SUBL SL PRN (17:13)
[2017-11-14 18:43] LABS: INR 1.4
[2017-11-14] MEDS: *HR* Warfarin 3 MG TABLET PO SCH (20:36)
[2017-11-15] MEDS: traMADol 50 MG TABLET PO PRN ×2 (00:08→20:43)
[2017-11-15 01:27] LABS: Bilirubin,Urine Negative (Negative); Blood,Urine Small (Negative); Clarity,Urine Cloudy (Clear); Color,Urine Yellow (Yellow); Glucose,Urine (UA) Normal (Normal); Ketones,Urine Negative (Negative); Leukocyte Esterase,Urine Negative (Negative); Nitrite,Urine Positive (Negative); Protein,Urine Negative (Neg-Trace); Specific Gravity,Urine 1.015 (1.010-1.025); Urobilinogen,Urine Normal (Normal)
[2017-11-15 01:29] LABS: Bacteria,Urine Many per hpf (None-Few); Hyaline Casts,Urine None Seen per lpf (None-Few); RBC,Urine 0-3 per hpf (0-3); Squamous Epithelial Cell,Urine Moderate per lpf (None-Few)
[2017-11-15 07:30] LABS: INR 1.3; Prothrombin Time 13.8 Seconds (9.4-12.1)
[2017-11-15 07:45] LABS: Calcium 9.5 mg/dL (8.6-10.3); Chol/HDL Ratio 3.5 (0-4.9); Potassium 4.2 mEq/L (3.5-5.1)
[2017-11-15 08:35] LABS: Eosinophils # 0.1 K/mcL (0.0-0.6); Eosinophils % 3.1 %; Hematocrit 37.8 % (35.3-44.9); Immature Granulocytes % 0.2 % (0-4); Lymphocytes # 1.1 K/mcL (0.6-4.6); Lymphocytes % 26.4 %; Mean Corpuscular HGB Conc 31.7 g/dL (31.6-35.5); Mean Corpuscular Hemoglobin 33.1 pg (28.0-33.3); Mean Corpuscular Volume 104.4 fL (83.0-100.0); Mean Platelet Volume 11.4 fL (9.4-12.4); Monocytes # 0.4 K/mcL (0.0-1.3); Monocytes % 8.7 %; Platelet Count 165 K/mcL (140-400); Red Blood Count 3.62 M/mcL (3.82-4.97); Red Cell Distribution Width 16.6 % (11.5-14.5); Segmented Neutrophils % 60.6 %
[2017-11-15 09:22] LABS: Macrocytosis Present (Not Present); Neutrophils # 2.6 K/mcL (1.6-8.9); Platelet Estimate Normal (Normal)
[2017-11-15] MEDS: Furosemide Oral Soln 40 MG/4 ML UDC PO SCH (09:27)
[2017-11-15] MEDS: Lisinopril 20 MG TABLET PO SCH (09:27)
--- NOTE | 2017-11-15 10:51 | Electrocardiograph Report ---
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
[2017-11-15] MEDS: Aspirin 81 MG TAB.CHEW PO SCH (12:27)
[2017-11-15] MEDS: cefTRIAXone 1,000 MG in Water for inj. (sterile) 20 ML 10 ML IVP SCH (13:18)
[2017-11-15] MEDS: *HR* Warfarin 3 MG TABLET PO SCH (16:30)
[2017-11-15 18:20] LABS: Magnesium 1.8 mg/dL (1.6-2.6)
[2017-11-15 18:33] LABS: Thyroid Stimulating Hormone 0.952 mcIU/mL (0.340-5.600)
--- NOTE | 2017-11-15 20:04 | Internal Med Progress Note ---
Date of Encounter: 11/15/17 Time of Encounter: 10:50 - Assessment and plan (1) Chest pain Current Visit: Yes Status: Acute Assessment and plan: Echocardiogram still pending. Patient denies chest pain during exam this morning. Patient with mild, flat, adynamic troponin elevation in the setting of acute exacerbation of CHF. EKG shows sinus rhythm with left bundle branch block. Chest x-ray shows cardiomegaly with pulmonary vascular congestion, interstitial edema, pleural effusions. Continue telemetry Treat chest pain aspirin nitroglycerin when necessary Qualifiers: Chest pain type: precordial pain Qualified Code(s): R07.2 - Precordial pain (2) CHF exacerbation Current Visit: Yes Status: Acute Assessment and plan: Patient with acute exacerbation of CHF. Chest x-ray shows cardiomegaly with pulmonary vascular congestion, interstitial edema, pleural effusions. Patient reports shortness of breath and orthopnea at home. Elevated BNP. Patient has no peripheral edema. She is on room air. Continue Lasix 40 mg by mouth daily Continue strict I and O, daily weights, fluid and sodium restriction. Qualifiers: Qualified Code(s): I50.23 - Acute on chronic systolic (congestive) heart failure (3) CKD (chronic kidney disease) stage 3, GFR 30-59 ml/min Current Visit: Yes Status: Chronic Assessment and plan: GFR 48, serum creatinine 1.09. Within normal limits. Continue to avoid nephrotoxins and monitor labs. (4) DVT prophylaxis Current Visit: Yes Status: Acute Assessment and plan: Patient is on warfarin. Pharmacy to dose. INR is currently subtherapeutic at 1.3. (5) HLD (hyperlipidemia) Current Visit: Yes Status: Chronic Assessment and plan: Chronic. Continue home medications. Qualifiers: Hyperlipidemia type: mixed hyperlipidemia Qualified Code(s): E78.2 - Mixed hyperlipidemia (6) HTN (hypertension) Current Visit: Yes Status: Chronic Assessment and plan: Chronic. Stable. Continue home medications. Qualifiers: Hypertension type: essential hypertension Qualified Code(s): I10 - Essential (primary) hypertension (7) UTI (urinary tract infection) Current Visit: Yes Status: Acute Assessment and plan: Urine was repeated today, indicative of UTI. Culture is indicated. Continue Rocephin narrowing antibiotic choices with final culture and sensitivity. Qualifiers: Urinary tract infection type: acute cystitis Hematuria presence: without hematuria Qualified Code(s): N30.00 - Acute cystitis without hematuria - Time Spent With Patient Total time spent is greater than 50% in coordination of care (as documented) at patient's floor/unit and/or counseling patient: less than 15 minutes - Subjective Interval history: Patient was seen and assessed at bedside at 10:50 AM. She denies any chest pain , nausea, vomiting, diarrhea. She reports shortness of breath but does not report any orthopnea. Patient is exceptionally hard of hearing. At this time in the morning, echocardiogram was still pending. - Constitutional Vitals: Temp Pulse Resp BP Pulse Ox 97.9 F 97 16 149/84 99 11/15/17 19:40 11/15/17 19:40 11/15/17 19:40 11/15/17 19:40 11/15/17 19:40 General appearance: Present: cooperative, A&O X 3, no acute distress, answers questions appropriately - Head Head exam: Present: atraumatic, normal inspection, normocephalic - Eye Eye exam: Present: normal appearance, conjuntiva pink, sclera anicteric - Neck Neck exam general surgery: Present: supple, trachea midline. Absent: lymphadenopathy - Respiratory Respiratory exam: Present: CTAB. Absent: accessory muscle use, rales, respiratory distress, rhonchi, wheezes - Cardiovascular Cardiovascular exam: Present: RRR, +S1, +S2. Absent: diastolic murmur, gallop, rubs, systolic murmur - GI/Abdominal GI/Abdominal exam: Present: normal bowel sounds, soft, no peritoneal signs. Absent: distended, hepatomegaly, tenderness - Extremities Exam Extremities exam: Present: normal capillary refill, normal inspection, warm, radial pulses palpable and symmetrical. Absent: calf tenderness, cyanotic, pedal edema, tenderness - Neurological Exam Neurological exam: Present: alert, oriented X3, no focal deficits. Absent: facial droop, speech deficit - Skin Skin exam: Present: dry, intact, normal color, warm. Absent: rash Internal Medicine: Result - Labs CBC & Chem 7: 11/15/17 06:57 11/15/17 06:57 Labs: Short CBC 11/15/17 Range/Units 06:57 WBC 4.2 L (4.3-11.1) K/mcL Hgb 12.0 (11.5-15.4) g/dL Hct 37.8 (35.3-44.9) % Plt Count 165 (140-400) K/mcL Neutrophils # 2.6 (1.6-8.9) K/mcL BMP 11/15/17 06:57 Sodium 138 Potassium 4.2 Chloride 105 Carbon Dioxide 23 BUN 26 H Creatinine 1.09 Glucose 85 Calcium 9.5 Cardiac Enzymes 11/14/17 11/15/17 Range/Units 22:54 06:57 Troponin I 0.05 H* 0.05 H* (< 0.04) ng/mL Urine 11/15/17 Range/Units 01:15 Urine Color Yellow (Yellow) Urine Clarity Cloudy A (Clear) Urine pH 5.0 (5.0-8.0) pH Units Ur Specific [place] 1.015 (1.010-1.025) Urine Protein Negative (Neg-Trace) mg/dL Urine Glucose (UA) Normal (Normal) mg/dL - ABG Interpretation ABG results: PT/INR, D-dimer PT 13.8 Seconds (9.4-12.1) H 11/15/17 06:57 - Impressions Impressions Chest X-Ray 11/15/17 04:00 IMPRESSION: CHF and pulmonary edema with stable small pleural effusions. D/ / Ignacio Melendrez MD / Ignacio Melendrez MD Interpreting Provider: Ignacio Melendrez MD Consult Discharge Plan - Plan Referrals: El Carrillo DO [Primary Care Provider] -
[2017-11-16 02:07] LABS: INR 1.4
[2017-11-16] MEDS: Aspirin 81 MG TAB.CHEW PO SCH (08:29)
[2017-11-16] MEDS: Furosemide Oral Soln 40 MG/4 ML UDC PO SCH (08:29)
[2017-11-16] MEDS: cefTRIAXone 1,000 MG in Water for inj. (sterile) 20 ML 10 ML IVP SCH (08:30)
[2017-11-16] MEDS: Lisinopril 20 MG TABLET PO SCH (08:30)
--- NOTE | 2017-11-16 14:42 | Cardiology Consult Note ---
Date of Encounter: 11/16/17 Time of Encounter: 14:35 Assessment and Plan (1) Acute systolic CHF (congestive heart failure), NYHA class 3 Current Visit: Yes Status: Acute Presents with acute systolic CHFrEF. EF newly reduced at 25%. NYHA class III symptoms. Previous TTE 06/2017 showed EF 50%. CXR showed pulmonary edema/ CHF. BNP 3860. Will give IV lasix 40 mg x1 now. Repeat as needed. Low sodium diet. Daily weights, and strict I&O. Mild troponin elevation at 0.05 x4. Suspect demand ischemia from CHF. Ideally LHC would be recommended for ischemic evaluation. R/B/A discussed. She is considering. Reports that she is a Jehovah witness and does not want blood transfusion. Hold coumadin for possible LHC. NPO after midnight. (2) Elevated troponin Current Visit: No Status: Acute Mild troponin elevation likely demand ischemia in the setting of CHF. EKG shows LBBB, unchanged from previous. See plan above. Discussion w patient/family: The assessment and plan as outlined above was discussed with the patient and/or family members who expressed understanding and agreement. All questions were answered. Thank you for involving us in the care of your patient. Please call with any questions. History of Present Illness Consult date: 11/16/17 Requesting physician: Rasheeda Ferreira Consult reason: New cardiomyoapthy Chief complaint: SOB for two days History of present illness: Ms. Alston is a 86 year old female with past medical history of LBBB, DVT on coumadin, CKD stage III, GI bleed 06/2017 who presents with SOB for two days. C/ O SOB with activity and chest tightness. Cardiology consulted after she was found to have newly low EF at 25%. Previously 50% in June. She was previously seen by cardiology 07/2017 for elevated troponin up to 0.19 and LBBB. Medical management recommended in the setting of anemia with GI bleed, CKD stage III, and pneumonia. She denies prior history of CAD. She notes that she is a johava witness and does not want blood transfusion for any reason. Past Med Surg Social Fam HX - Past Medical History Medical history: DVT, hypertension, renal disease, other (LBBB) Additional medical history: vertigo, spinal stenosis Psychiatric history: no psych history - Past Surgical History Surgical History: appendectomy, cholecystectomy, orthopedic, other, other Additional surgical history: TONSILECTOMY AND ADNOIDECTOMY, BILATERAL ROTATOR CUFF REPAIRS, RIGHT KNEE REPLACEMENT, LEFT SHOULDER REPLACEMENT, BILATERAL CARPAL TUNNEL SURGERIES, BILATERAL ANKLE SURGERIES, - Social History Smoking Status: Former smoker Smokeless Tobacco Status: No Alcohol use: none Drug use: none - Family History Father Family Member Ethnicity: Non- Living Status: Mother Family Member Ethnicity: Non- Living Status: Hx Family Cardiac Disorders: Yes (Stroke) Hx Family Neurologic Disorders: Yes (CEREBRAL VASCULAR ACCIDENT.) Sister Family Member Ethnicity: Non- Living Status: Still Living Hx Family GI Disorders: Yes (Gallbladder) Brother Family Member Ethnicity: Non- Living Status: Hx Family Neurologic Disorders: Yes Medications and Allergies Ferrous Sulfate 325 mg PO BIDWM #60 tablet 06/26/17 [Rx] Lisinopril [Zestril] 20 mg PO DAILY 07/12/17 [History] Omeprazole [PriLOSEC] 40 mg PO DAILY 07/12/17 [History] Tramadol HCl [Ultram] 50 mg PO BID PRN 11/14/17 [History] Warfarin [Coumadin] 2 mg PO MORGAN 11/14/17 [History] Warfarin [Coumadin] 3 mg PO [id number] 11/14/17 [History] 3 Allergy/AdvReac Type Severity Reaction Status Date / Time Iodinated Contrast- Oral and Allergy Chest Pain Verified 11/15/17 06:12 IV Dye Penicillins Allergy Rash Verified 01/12/17 06:43 All Systems Review: The remainder of the systems were reviewed and are negative Physical Examination Vital Signs, Last 4 Hours Temp Pulse Resp BP Pulse Ox 11/16/17 12:23 97.8 F 90 18 143/83 96 General: Conversant, No Apparent Distress, Other (Very [place]) HEENT: Atraumatic, Normocephaly, Mucus Membranes Moist Neck: No JVD, Normal carotid pulses Cardiac: Reg Rate and Rhythm, Normal S1 and S2, No Murmur Lungs: Normal Breath Sounds, No Wheeze, Rales, Rhonchi Neuro: Alert and responsive, No focal deficits noted Abdomen: Soft, Non-Tender Skin: No rashes noted on visualized skin Musculoskeletal: No Chest Wall Tenderness Extremities: No Clubbing, No Cyanosis, No Edema, Normal Pulses Results 11/15/17 06:57 11/15/17 06:57 Lab Results 11/15/17 11/16/17 06:57 01:44 INR 1.4 Sodium 138 Potassium 4.2 Chloride 105 Carbon Dioxide 23 BUN 26 H Creatinine 1.09 Glucose 85 Calcium 9.5 Magnesium 1.8 TSH 0.952 Chest X-Ray 11/15/17 04:00 IMPRESSION: CHF and pulmonary edema with stable small pleural effusions. D/ / Ignacio Melendrez MD / Ignacio Melendrez MD Interpreting Provider: Ignacio Melendrez MD Echocardiogram 11/15/17 17:09 Impressions: LVEF 25%. Normal LV chamber size. Global left ventricular systolic dysfunction. Indeterminate diastolic function. Normal right ventricular structure and function. No evidence of pulmonary hypertension. Ordering physician notified via [employer]. Left Ventricular Wall Motion: Rest Echo Findings The apex, apical inferior, mid inferior, basal inferior, apical anterior, mid anterior, basal anterior, apical septal, mid inferior septal, basal inferior septal, apical lateral, mid anterior lateral, basal anterior lateral, mid anterior septal, mid inferior lateral, basal anterior septal and basal inferior lateral mckeon were hypokinetic. Findings: Study Quality * Technically adequate exam. ECG Findings * Normal sinus rhythm. Left Ventricle * LVEF 25%. * Normal LV chamber size. * Global left ventricular systolic dysfunction. * Indeterminate diastolic function. Right Ventricle * Normal right ventricular structure and function. Left Atrium * Normal left atrial size. Right Atrium * Normal right atrial size. Aortic Valve * Trileaflet aortic valve. * Mildly sclerotic aortic valve leaflets. * Trace aortic regurgitation. * No aortic stenosis. Mitral Valve * Mildly thickened mitral valve leaflets. * Trace mitral regurgitation. * No mitral stenosis. Tricuspid Valve * Normal tricuspid valve structure and function. * Trace tricuspid regurgitation. * No evidence of pulmonary hypertension. Pulmonic Valve * Normal pulmonic valve structure and function. * Trace pulmonic regurgitation. Aorta * Normally sized aortic root. Pericardium * There is a trivial pericardial effusion present. IVC * Normal IVC dimensions and inspiratory collapse. Pulmonary Artery * Normal visualized portions of the main pulmonary artery. Pleural Effusion * Pleural effusion noted. - Imaging and Cardiology Chest Xray: report reviewed Echo: report reviewed - EKG Interpretation EKG results cardiology: personally reviewed Consult Discharge Plan - Plan Referrals: El Carrillo DO [Primary Care Provider] -
[2017-11-16] MEDS ORDERED: Furosemide 40 MG/4 ML VIAL IVP ONE (14:44)
[2017-11-16] MEDS: traMADol 50 MG TABLET PO PRN (16:50)
--- NOTE | 2017-11-16 17:21 | Internal Med Progress Note ---
Date of Encounter: 11/16/17 Time of Encounter: 11:05 - Assessment and plan (1) Chest pain Current Visit: Yes Status: Acute Assessment and plan: Patient denies chest pain during exam this morning. Patient with mild, flat, adynamic troponin elevation in the setting of acute exacerbation of CHF. EKG shows sinus rhythm with left bundle branch block. Chest x-ray shows cardiomegaly with pulmonary vascular congestion, interstitial edema, pleural effusions. Echocardiogram with LVEF of 25% which is decreased from 50% approximately 6 months ago. There is global LV systolic dysfunction. Cardiology has been consulted and has seen the patient today. They have recommended LHC, will proceed in the morning. Coumadin is been held. Nothing by mouth after midnight. Continue telemetry Treat chest pain aspirin nitroglycerin when necessary Qualifiers: Chest pain type: precordial pain Qualified Code(s): R07.2 - Precordial pain (2) CHF exacerbation Current Visit: Yes Status: Acute Assessment and plan: Patient with acute exacerbation of CHF. Chest x-ray shows cardiomegaly with pulmonary vascular congestion, interstitial edema, pleural effusions. Patient reports shortness of breath and orthopnea at home. Elevated BNP. Echo with EF 25%. LHC plan for morning. Cardiology was given IV Lasix 40 mg 1 dose now. Patient has no peripheral edema. She is on room air. Continue Lasix 40 mg by mouth daily Continue strict I and O, daily weights, fluid and sodium restriction. Qualifiers: Qualified Code(s): I50.23 - Acute on chronic systolic (congestive) heart failure (3) CKD (chronic kidney disease) stage 3, GFR 30-59 ml/min Current Visit: Yes Status: Chronic Assessment and plan: Stable Continue to avoid nephrotoxins and monitor labs. (4) DVT prophylaxis Current Visit: Yes Status: Acute Assessment and plan: Patient is on warfarin. Pharmacy to dose. Holding dose tonight for LHC in the morning. INR is currently subtherapeutic at 1.4. (5) HLD (hyperlipidemia) Current Visit: Yes Status: Chronic Assessment and plan: Chronic. Continue home medications. Qualifiers: Hyperlipidemia type: mixed hyperlipidemia Qualified Code(s): E78.2 - Mixed hyperlipidemia (6) HTN (hypertension) Current Visit: Yes Status: Chronic Assessment and plan: Chronic. Stable and within normal limits. Continue home medications. Qualifiers: Hypertension type: essential hypertension Qualified Code(s): I10 - Essential (primary) hypertension (7) UTI (urinary tract infection) Current Visit: Yes Status: Acute Assessment and plan: Urine was repeated today, indicative of UTI. Initial culture shows gram- negative rods. Continue Rocephin narrowing antibiotic choices with final culture and sensitivity. Qualifiers: Urinary tract infection type: acute cystitis Hematuria presence: without hematuria Qualified Code(s): N30.00 - Acute cystitis without hematuria - Time Spent With Patient Total time spent is greater than 50% in coordination of care (as documented) at patient's floor/unit and/or counseling patient: less than 15 minutes - Subjective Interval history: Patient was seen and assessed at bedside at 1105 AM. She denies any chest pain , nausea, vomiting, diarrhea. She reports shortness of breath but does not report any orthopnea. Patient is exceptionally hard of hearing. She was made aware of echocardiogram results, cardiology is following patient. - Constitutional Vitals: Temp Pulse Resp BP Pulse Ox 97.8 F 89 18 131/73 96 11/16/17 15:25 11/16/17 15:25 11/16/17 15:25 11/16/17 15:25 11/16/17 12:23 General appearance: Present: cooperative, A&O X 3, pleasant, no acute distress, answers questions appropriately - Head Head exam: Present: atraumatic, normal inspection, normocephalic - Eye Eye exam: Present: normal appearance, conjuntiva pink, sclera anicteric - Neck Neck exam general surgery: Present: supple, trachea midline. Absent: lymphadenopathy, tenderness - Respiratory Respiratory exam: Present: CTAB. Absent: accessory muscle use, rales, rhonchi, wheezes - Cardiovascular Cardiovascular exam: Present: RRR, +S1, +S2. Absent: diastolic murmur, gallop, rubs, systolic murmur - GI/Abdominal GI/Abdominal exam: Present: normal bowel sounds, soft, no peritoneal signs. Absent: distended, hepatomegaly, tenderness - Extremities Exam Extremities exam: Present: normal capillary refill, normal inspection, warm, radial pulses palpable and symmetrical. Absent: calf tenderness, cyanotic, pedal edema, tenderness - Neurological Exam Neurological exam: Present: alert, oriented X3, no focal deficits. Absent: altered, facial droop, speech deficit - Skin Skin exam: Present: dry, intact, normal color, warm. Absent: rash Internal Medicine: Result - Labs CBC & Chem 7: 11/15/17 06:57 11/15/17 06:57 Labs: BMP 11/15/17 06:57 Sodium 138 Potassium 4.2 Chloride 105 Carbon Dioxide 23 BUN 26 H Creatinine 1.09 Glucose 85 Calcium 9.5 - ABG Interpretation ABG results: PT/INR, D-dimer PT 15.0 Seconds (9.4-12.1) H 11/16/17 01:44 - Impressions Impressions Echocardiogram 11/15/17 17:09 Impressions: LVEF 25%. Normal LV chamber size. Global left ventricular systolic dysfunction. Indeterminate diastolic function. Normal right ventricular structure and function. No evidence of pulmonary hypertension. Ordering physician notified via [employer]. Left Ventricular Wall Motion: Rest Echo Findings The apex, apical inferior, mid inferior, basal inferior, apical anterior, mid anterior, basal anterior, apical septal, mid inferior septal, basal inferior septal, apical lateral, mid anterior lateral, basal anterior lateral, mid anterior septal, mid inferior lateral, basal anterior septal and basal inferior lateral mckeon were hypokinetic. Findings: Study Quality * Technically adequate exam. ECG Findings * Normal sinus rhythm. Left Ventricle * LVEF 25%. * Normal LV chamber size. * Global left ventricular systolic dysfunction. * Indeterminate diastolic function. Right Ventricle * Normal right ventricular structure and function. Left Atrium * Normal left atrial size. Right Atrium * Normal right atrial size. Aortic Valve * Trileaflet aortic valve. * Mildly sclerotic aortic valve leaflets. * Trace aortic regurgitation. * No aortic stenosis. Mitral Valve * Mildly thickened mitral valve leaflets. * Trace mitral regurgitation. * No mitral stenosis. Tricuspid Valve * Normal tricuspid valve structure and function. * Trace tricuspid regurgitation. * No evidence of pulmonary hypertension. Pulmonic Valve * Normal pulmonic valve structure and function. * Trace pulmonic regurgitation. Aorta * Normally sized aortic root. Pericardium * There is a trivial pericardial effusion present. IVC * Normal IVC dimensions and inspiratory collapse. Pulmonary Artery * Normal visualized portions of the main pulmonary artery. Pleural Effusion * Pleural effusion noted. Consult Discharge Plan - Plan Referrals: El Carrillo DO [Primary Care Provider] -
[2017-11-16] MEDS ORDERED: Melatonin 3 MG TABLET PO PRN (20:58)
[2017-11-17 06:10] LABS: Basophils # 0.1 K/mcL (0.0-0.2); Basophils % 0.7 %; Eosinophils # 0.1 K/mcL (0.0-0.6); Eosinophils % 2.1 %; Hematocrit 40.4 % (35.3-44.9); Hemoglobin 13.1 g/dL (11.5-15.4); Immature Granulocytes % 0.3 % (0-4); Lymphocytes # 1.1 K/mcL (0.6-4.6); Lymphocytes % 15.8 %; Mean Corpuscular HGB Conc 32.4 g/dL (31.6-35.5); Mean Corpuscular Hemoglobin 33.2 pg (28.0-33.3); Mean Corpuscular Volume 102.3 fL (83.0-100.0); Monocytes # 0.6 K/mcL (0.0-1.3); Monocytes % 8.6 %; Neutrophils # 4.9 K/mcL (1.6-8.9); Platelet Count 259 K/mcL (140-400); Red Blood Count 3.95 M/mcL (3.82-4.97); Red Cell Distribution Width 16.4 % (11.5-14.5); Segmented Neutrophils % 72.5 %
[2017-11-17 06:19] LABS: INR 1.3; Prothrombin Time 14.1 Seconds (9.4-12.1)
[2017-11-17 06:25] LABS: Calcium 9.5 mg/dL (8.6-10.3); Potassium 3.4 mEq/L (3.5-5.1)
--- NOTE | 2017-11-17 08:47 | Event Note ---
Date of Encounter: 11/17/17 Time of Encounter: 08:45 - Cardiology Event Note Patient agreeable to [facility] today for ischemic evaluation. Found to have new CMP with EF 25%. IV lasix given yesterday for acute CHF. Will hold lasix. Noted that Scr 1.37, still within patients baseline. She has CKD stage III. Net negative 2500ml currently. Euvolemic on exam.
[2017-11-17] MEDS: Metoprolol XL (24 HR) Succ 25 MG TAB.ER.24H PO SCH (10:27)
[2017-11-17] MEDS: Lisinopril 20 MG TABLET PO SCH (10:27)
[2017-11-17] MEDS: Aspirin 81 MG TAB.CHEW PO SCH (10:27)
[2017-11-17] MEDS: Cefdinir 300 MG CAPSULE PO SCH (10:27)
[2017-11-17] MEDS ORDERED: 0.9 % Sodium Chloride 1,000 ML ONE ×2 (13:25→13:59)
[2017-11-17] MEDS ORDERED: Heparin 1,000 UNITS/500 mL 500 ML ONE (13:25)
[2017-11-17] MEDS ORDERED: *HR* Heparin 10,000 UNIT/10 ML VIAL ONE (13:25)
[2017-11-17] MEDS ORDERED: Nitroglycerin 1,000 MCG/10 ML VIAL IV ONE (13:26)
[2017-11-17] MEDS ORDERED: ISOVUE-370 200 ML INFUS..BTL IV ONE (13:26)
[2017-11-17] MEDS ORDERED: Verapamil 5 MG/2 ML VIAL ONE (13:36)
[2017-11-17] MEDS ORDERED: Potassium Chloride Elixir 20 MEQ/15 ML UDC PO ONE (13:50)
[2017-11-17] MEDS ORDERED: *HR* Midazolam HCl 2 MG/2 ML VIAL ONE (13:54)
[2017-11-17] MEDS ORDERED: *HR* FentaNYL (PF) 100 MCG/2 ML VIAL ONE (13:55)
[2017-11-17] MEDS ORDERED: Ondansetron 4 MG/2 ML VIAL ONE ×2 (13:55→13:57)
[2017-11-17] MEDS ORDERED: Nitroglycerin Spray 4.9 GM BOTTLE ONE (13:55)
--- NOTE | 2017-11-17 14:11 | Pre-Sedation Evaluation ---
Pre-sedation evaluation - Pre-sedation checklist Date of procedure: 11/17/17 Procedure: heart cath Recent Vitals: Last Vital Signs Temp 97.6 F 11/17/17 11:38 Pulse 94 11/17/17 11:38 Resp 16 11/17/17 11:38 BP 120/68 11/17/17 11:38 Pulse Ox 95 11/17/17 11:38 H&P (including ROS) documented in medical record: Yes Previous reaction to sedatives/anesthetics: No Dietary Status: NPO after Midnight Dentition: dentures removed ASA Classification *see protocol: CLASS II-Mild systemic disease Plan of Care: Pt appropriate candidate for procedure/moderate/conscious sedation , Risks/benefits of procedure/sedation discussed w/ patient/family
[2017-11-17] MEDS ORDERED: methylPREDNISolone 125 MG/2 ML VIAL ONE (14:12)
[2017-11-17] MEDS ORDERED: Tirofiban 5 MG/100 mL 5 MG/100 ML VIAL IV ONE (14:39)
[2017-11-17] MEDS ORDERED: Acetaminophen 325 MG TABLET PO PRN (15:03)
--- NOTE | 2017-11-17 15:03 | Internal Med Progress Note ---
Date of Encounter: 11/17/17 Time of Encounter: 10:55 - Assessment and plan (1) Chest pain Current Visit: Yes Status: Acute Assessment and plan: Patient denies chest pain. [facility] today Continue telemetry Qualifiers: Chest pain type: precordial pain Qualified Code(s): R07.2 - Precordial pain (2) CHF exacerbation Current Visit: Yes Status: Acute Assessment and plan: Patient with acute exacerbation of CHF. Echo with EF 25%. [facility] today. Patient has no peripheral edema. She is on room air. Continue Lasix 40 mg by mouth daily Continue strict I and O, daily weights, fluid and sodium restriction. Qualifiers: Qualified Code(s): I50.23 - Acute on chronic systolic (congestive) heart failure (3) CKD (chronic kidney disease) stage 3, GFR 30-59 ml/min Current Visit: Yes Status: Chronic Assessment and plan: Stable Serum creatinine 1.37, GFR 37. Continue to avoid nephrotoxins and monitor labs. (4) DVT prophylaxis Current Visit: Yes Status: Acute Assessment and plan: Patient is on warfarin. Pharmacy to dose. Dose held for [facility] today INR is currently subtherapeutic at 1.3. (5) HLD (hyperlipidemia) Current Visit: Yes Status: Chronic Assessment and plan: Chronic. Continue home medications. Qualifiers: Hyperlipidemia type: mixed hyperlipidemia Qualified Code(s): E78.2 - Mixed hyperlipidemia (6) HTN (hypertension) Current Visit: Yes Status: Chronic Assessment and plan: Stable, within normal limits. Continue home medications. Qualifiers: Hypertension type: essential hypertension Qualified Code(s): I10 - Essential (primary) hypertension (7) UTI (urinary tract infection) Current Visit: Yes Status: Acute Assessment and plan: Urine indicative of UTI. Initial culture shows gram-negative rods. Discussed antibiotic choices with pharmacy, decided on Omnicef 300mg po daily for 10 days. Qualifiers: Urinary tract infection type: acute cystitis Hematuria presence: without hematuria Qualified Code(s): N30.00 - Acute cystitis without hematuria - Time Spent With Patient Total time spent is greater than 50% in coordination of care (as documented) at patient's floor/unit and/or counseling patient: less than 15 minutes - Subjective Interval history: Patient was seen and assessed at bedside at 1055 AM. She denies any chest pain , nausea, vomiting, diarrhea. She states that she is nervous for the heart cath and I explained the procedure to her again. Patient is exceptionally hard of hearing. She has been made aware of her UTI and that we are waiting on culture results and will treat it and watch sensitivity. - Constitutional Vitals: Temp Pulse Resp BP Pulse Ox 97.6 F 94 16 120/68 95 11/17/17 11:38 11/17/17 11:38 11/17/17 11:38 11/17/17 11:38 11/17/17 11:38 General appearance: Present: cooperative, A&O X 3, pleasant, no acute distress, answers questions appropriately - Head Head exam: Present: atraumatic, normal inspection, normocephalic - Eye Eye exam: Present: normal appearance, conjuntiva pink, sclera anicteric - Neck Neck exam general surgery: Present: normal inspection, supple, trachea midline. Absent: lymphadenopathy, tenderness - Respiratory Respiratory exam: Present: CTAB. Absent: accessory muscle use, rales, rhonchi, wheezes - Cardiovascular Cardiovascular exam: Present: RRR, +S1, +S2. Absent: diastolic murmur, gallop, rubs, systolic murmur - GI/Abdominal GI/Abdominal exam: Present: normal bowel sounds, soft. Absent: distended, hepatomegaly, tenderness - Extremities Exam Extremities exam: Present: normal inspection, warm, radial pulses palpable and symmetrical. Absent: calf tenderness, cyanotic, pedal edema - Neurological Exam Neurological exam: Present: alert, oriented X3, no focal deficits. Absent: facial droop, speech deficit - Skin Skin exam: Present: dry, intact, normal color, warm. Absent: rash Internal Medicine: Result - Labs CBC & Chem 7: 11/17/17 05:12 11/17/17 05:12 Labs: Short CBC 11/17/17 Range/Units 05:12 WBC 6.8 D (4.3-11.1) K/mcL Hgb 13.1 (11.5-15.4) g/dL Hct 40.4 (35.3-44.9) % Plt Count 259 D (140-400) K/mcL Neutrophils # 4.9 (1.6-8.9) K/mcL BMP 11/17/17 05:12 Sodium 138 Potassium 3.4 L Chloride 97 L Carbon Dioxide 31 H BUN 34 H Creatinine 1.37 H Glucose 88 Calcium 9.5 - ABG Interpretation ABG results: PT/INR, D-dimer PT 14.1 Seconds (9.4-12.1) H 11/17/17 05:12 Consult Discharge Plan - Plan Referrals: El Carrillo DO [Primary Care Provider] -
[2017-11-17] MEDS ORDERED: Tirofiban 12.5 MG/250ML 12.5 MG/250 ML BAG IVC SCH (15:15)
--- NOTE | 2017-11-17 15:19 | Invasive Diagnostic Lab Proc ---
Name: Jennifer Alston Date of Study: 11/17/2017 Date: 1930 Ht: 61.0in Medical Record#: [id number] Age: 86 Wt: 108.03lb Gender: Female BSA: 1.45 Order #: [id number] BMI: 20.4 Physicians Procedure Physician: Jas Cardona MD, FACC Referring MD: Referring MD: Staff Name Position Time In Alexia Dario RN Analytical Technician 01:53 PM Alexis Spear RT (R) 01:53 PM Chelsy Rabago RT (R) Scrub 01:58 PM Yves Han RN Monitor 02:01 PM Yves Han RN Monitor 02:06 PM Indications Indication Unstable Angina Procedures Performed Procedure L HRT ARTERY/VENTRICLE ANGIO PRQ CARD ZO STENT W/ANGIO 1 VSL Pre-Procedure Checklist Informed consent is complete signed and on chart. H&P is on chart. ID band is on and ID verified with patient. Patient NPO for procedure The procedure was described for the patient and questions were answered. ECG is on chart. Plan of Care Patient will tolerate the procedure without complications. Adequate level of comfort will be maintained. Hemodynamics will remain stable Patient will recover from procedure without complications. Respiratory function will be maintained. Cardiac rhythm will remain stable. Patient temperature will be maintained. Patient and/or family have verbalized understanding of the procedure. Patient Education Chief Complaint/Reason for Test: Cardiac Cath Developmental Category: Geriatric (65+ years) Developmentally Appropriate for Age: Yes Learning Barriers: None Education Needs: Procedure Education Method: Verbal Information Taught: Cardiac Cath Educational Evaluation: Able to repeat information Intravenous Access Time IV Size Location DC'd Fluid/Drip Rate Units RN 22g 1" Patent On Arrival Lt Arm Allergies PCN,PLAVIX,VICODIN,IVP DYE,NEURONTIN,PERCOCET Iodinated Contrast- Oral and IV Dye Penicillin Contrast Media, Iodine Related Acetaminophen Oxycodone Hydrocodone Penicillins Vital Signs Time BP (mmHg) HR (bpm) O2 Sat. RR (bpm) LOC 104 / 72 91 96 % 16 02:13 PM / % 5 = Fully awake and oriented or at pre-proc level 02:13 PM / % 4 = Oriented but drowsy 02:24 PM 127 / 55 76 100 % 02:28 PM 137 / 61 75 100 % 02:33 PM 137 / 64 75 100 % 02:38 PM 131 / 67 73 100 % 02:43 PM 143 / 72 72 100 % 02:48 PM 148 / 75 74 % 02:04 PM 139 / 79 83 96 % 02:08 PM 142 / 70 80 100 % 02:13 PM 129 / 71 81 100 % 02:18 PM 116 / 61 81 100 % Procedural Medications Time Medication Dose Units Method Given By 01:56 PM Oxygen 2 L/min nasal cannula Alexis Spear RT (R) 02:10 PM Versed 2 mg Intravenous Henthorne, Dario RN 02:11 PM Fentanyl 25 mcg Intravenous Henthorne, Dario RN 02:11 PM Nitroglycerin 1 spray Sublingual [place]enthorne, Dario RN 02:11 PM Zofran 8 mg Intravenous Henthorne, Dario RN 02:14 PM Lidocaine 2% 0.5 ml Subcutaneous Jas Cardona MD, FAC 02:14 PM Benadryl 25 mg Intravenous [place]ent[place]ne, Dario RN 02:14 PM Solu-medrol 125 mg Intravenous Henthorne, Dario RN 02:17 PM Benadryl 25 mg Intravenous Henthorne, Dario RN 02:17 PM Heparin 4000 units Nitroglycerin 200 mcg Verapamil 2.5 mg Intraarterial Jas Cardona MD, FACC 02:38 PM Nitroglycerin 200 mcg Intracoronary Jas Cardona MD 02:55 PM Plavix 300 mg Orally Henthorne, Dario RN 02:42 PM Aggrastat Bolus: 25 ml Intravenous Henthorne, Dario RN 02:42 PM Aggrastat 5mg/100ml 4.5 ml/hr Intravenous Henthorndavid, Dario KERR ASA Classification: CLASS II- Mild systemic disease (i.e. well-controlled diabetes, hypertension, asthma, cigarette smoking) Eliud Score Preprocedure Postprocedure Activity 2- Moves 4 extremities sustained head lift Activity 2- Moves 4 extremities sustained head lift Circulation 2- SBP +/= 20 points of pre-anesthetic level Circulation 2- SBP +/= 20 points of pre-anesthetic level Consciousness 2- Awake and alert oriented x 3 Consciousness 2- Awake and alert oriented x 3 O2 Saturation 2- Able to maintain O2 satruation of 92% on room air O2 Saturation 2- Able to maintain O2 satruation of 92% on room air Respiratory 2- Able to deep breathe and cough well Respiratory 2- Able to deep breathe and cough well Total Score 10 Total Score 10 Contrast Agent: Isovue Diagnostic Contrast: 76 ml Total Contrast: 76 ml Fluoro Dose: 185 mGy Activated Clotting Time Time Seconds to Clot 02:37 PM 362 Procedure Log Time Note Enter By 01:53 PM CathStat 01:53 PM Pt arrived to slab lifting engineer 2 at 13:53 [email or web address] 01:53 PM Dario Hale RN Position: Analytical Technician Time in: 13:53 [email or web address] 01:53 PM Alexis Spear RT (R) Position: Scrub Time in: 13:53 [email or web address] :54 PM Patient charges- Angio tray pack, Navilyst 3mm J, Pulse Oximetry and ACIST tubing and transducer kkallner :54 PM IV Supplies used: J loop Angio Cath. kkallner :54 PM Case Delayed No kkallner :54 PM Physician arrived 13:54 kkner :54 PM Meet and greet completed kk:54 PM Sign in performed according to hospital policy. kkallner :54 PM Procedure start 13:54 [email or web address] 01:57 PM Time: 13:56 Oxygen on at 2 L/min per nasal cannula by Alexis Spear RT (R) [email or web address] 01:58 PM Recorded ECG: HR=88 Condition=Condition 1 01:59 PM Chelsy Rabago RT (R) Position:Scrub Time in: 13:58 dspell 02:02 PM Vitals capture started with the following parameters, Patient=Adult, Interval=5 min, Initial Jdkiqdsk=316 mmHg, Deflation Rate=5 mmHg, Cuff placed on Right Arm 02:04 PM HR=83 bpm, NYGM=883/79 mmhg, SpO2=96.0 %, Comment=sr bbb 02:07 PM Yves Han RN Position: Monitor [facility]: 14:[facility] 02:08 PM HR=80 bpm, WJFM=213/70 mmhg, DlC0=126.0 %, Comment=sr bbb 02:09 PM Pressure channel 1 zero failed. 02:09 PM Pressure channel 1 zeroed. 02:10 PM Time: 14:10 Versed 2 mg Intravenous Given by Dario Hale RN 02:11 PM Time: 14:11 Fentanyl 25 mcg Intravenous Given by Dario Hale RN 02:11 PM Time: 14:11 Nitroglycerin 1 spray Sublingual Given by Dario Hale RN dsphemal 02:11 PM Time: 14:11 Zofran 8 mg Intravenous Given by Dario Hale RN kirk 02:13 PM HR=81 bpm, QSJJ=029/71 mmhg, RkO5=074.0 %, Comment=sr bbb 02:13 PM Time: 14:13 Patient comfortable and pain free: Yes dspell 02:13 PM Time: 14:13LOC: 5 = Fully awake and oriented or at pre-proc level dsp 02:13 PM Clinical Presentation: Unstable angina dspell 02:14 PM Time out performed according to hospital policy dsp 02:14 PM Time: 14:14 0.5 ml Lidocaine 2% to left radial Subcutaneous Given by Jas Cardona MD, [facility] dsp 02:14 PM Time: 14:14 Benadryl 25 mg Intravenous Given by Dario Hale RN dsphemal 02:15 PM Time: 14:14 Solu-medrol 125 mg Intravenous Given by Dario Hale RN hemal 02:16 PM Access obtained by percutaneous puncture. 5Fr 11cm Terumo Glidesheath sheath placed in left Radial artery. [id number] 02:17 PM Time: 14:17 Benadryl 25 mg Intravenous Given by Dario Hale RN hemal 02:17 PM Time: 14:17 Patient given 4,000 units Heparin, 200 mcg Nitroglycerin, and 2.5 mg Verapamil Intraarterial by Jas Cardona MD, [facility]. This is given to reduce risk of vessel spasm and thrombosis. dsp:18 PM 5Fr FR 4 catheter inserted over the wire [facility] :18 PM 0.035 150cm VSI Jackson-Torque wire [id number] dspell 02:18 PM HR=81 bpm, GTQH=772/61 mmhg, NvH1=850.0 %, Comment=sr bbb 02:19 PM ASA Class CLASS II- Mild systemic disease (i.e. well-controlled diabetes, hypertension, asthma, cigarette smoking) dspell 02:19 PM Recorded Pressure: Ao, HR=82, Condition=Condition 1 (Aorta) Ao 118/69/87 02:19 PM RCA angiography performed in multiple views. [email or web address] 02:21 PM Catheter removed dspellman 02:21 PM Lesion found in Proximal RCA. Pre Stenosis: 60 Pre JOSE DAVID Flow: [email or web address] 02:21 PM Lesion found in Mid RCA. Pre Stenosis: 70 Pre JOSE DAVID Flow: dspellman 02:21 PM 5Fr FL 4 catheter inserted over the wire DN dspellman 02:22 PM Lesion found in Distal RCA. Pre Stenosis: 50 Pre JOSE DAVID Flow: dspellman 02:22 PM Right Coronary, Right Posterior Descending Arteries with Right Posterolateral and Acute Marginal branches with 70 % stenosis. If graft is supplying this area, 0 % stenosis dspellman 02:22 PM Recorded Pressure: Ao, HR=79, Condition=Condition 1 (Aorta) Ao 111/77/94 02:22 PM LCA angiography performed in multiple views. dspellman 02:23 PM Recorded Pressure: Ao, HR=78, Condition=Condition 1 (Aorta) Ao 111/75/93 02:24 PM HR=76 bpm, DBWV=313/55 mmhg, SeR2=126.0 %, Comment=sr bbb 02:24 PM Lesion found in Proximal LAD. Pre Stenosis: 90 Pre JOSE DAVID Flow: dspellman 02:25 PM Lesion found in 1st Marginal. Pre Stenosis: 85 Pre JOSE DAVID Flow: dspellman 02:25 PM Proximal Left Anterior Descending Coronary Artery with 95% stenosis. If graft is supplying this territory, 0 % stenosis. dspellman 02:25 PM Circumflex, Obtuse Marginal, Left Posterior Descending, and Left Posterolateral Coronary Arteries with 85 % stenosis. If graft is supplying this area, 0 % stenosis dspellman 02:25 PM Catheter removed dspellman 02:25 PM 5Fr Pigtail catheter inserted over the wire [facility] dspellman 02:25 PM Catheter selectively placed in left ventricle dspellman 02:25 PM Pressures only being obtained. dspellman 02:26 PM Recorded Pressure: LV, HR=77, Condition=Condition 1 (Left Ventricle) LV 138/16/21 02:26 PM Pressure channel 1 zeroed. 02:26 PM Recorded Pressure: LV, HR=77, Condition=Condition 1 (Left Ventricle) LV 120/-8/1 02:26 PM Recorded Pressure: LV, Ao, HR=76, Condition=Condition 1 (Left Ventricle) LV 124/-6/4, (Aorta) Ao 123/47/76 02:27 PM Catheter removed dspellman 02:28 PM HR=75 bpm, UXOC=214/61 mmhg, RaD4=614.0 %, Comment=sr bbb :29 PM Time: 14:13LOC: 4 = Oriented but drowsy dsp:29 PM Time: 14:13 Patient comfortable and pain free: Yes dspell:30 PM PCI Status Urgent dspell:30 PM PCI Indication: PCI for high risk Non-STEMI or unstable angina dspell:30 PM 5Fr RBL 3.5 Convey guide catheter was used to cannulate the PCI vessel successfully. reused? No dspell:30 PM .014 [place] 190cm guide wire across target lesion- successful. reused? No dspell:30 PM Inflation device was opened. :31 PM 3.5mm x 16mm Synergy drug-eluting stent across target lesion- successful Lot #[id number] dspell 02:33 PM Recorded Pressure: Ao, HR=74, Condition=Condition 1 (Aorta) Ao 118/56/82 02:33 PM HR=75 bpm, IFEL=389/64 mmhg, AhB1=519.0 %, Comment=sr bbb 02:37 PM At 14:37 the ACT was 362 seconds. ell 02:37 PM Recorded Pressure: Ao, HR=73, Condition=Condition 1 (Aorta) Ao 111/56/81 02:38 PM Time: 14:38 Nitroglycerin 200 mcg Intracoronary Given by Jas Cardona MD 02:38 PM HR=73 bpm, HGMU=272/67 mmhg, XyJ6=616.0 %, Comment=sr bbb 02:39 PM Stent deployed @ 16 junie for 17 seconds dsp:42 PM Time: 14:42 Aggrastat 5mg/100ml 4.5 ml/hr Intravenous Given by Dario Hale RN Meng pump dsp:42 PM Stent delivery system removed intact. :42 PM Time: 14:42 Aggrastat Bolus: 25 ml Intravenous Given by Dario Hale RN Emng pump dspell:43 PM HR=72 bpm, IJGM=095/72 mmhg, QbJ3=093.0 %, Comment=sr bbb :43 PM Guide catheter removed intact. ell:43 PM Guide wire removed intact. ellman 02:43 PM Procedure completed at 14:43 dspell 02:43 PM Did you address JOSE DAVID flow and Dominance? Yes dspell 02:45 PM Sign out completed: Radiation Dose 185 mGy Fluoro Time: 6.6 Isovue 370 - 200ml contrast 76 ml given by Jas Cardona MD, [facility]. Complications: NoneCardiac Rehab Consult needed: YesConfirmed administered medications: Yes dspell 02:45 PM Isovue 370 - 200ml,1 Bottle(s) used. dspell 02:45 PM Arterial sheath pulled, Vasc Band closure device used and was Successful S/N. dspell 02:46 PM Estimated Blood Loss: less than 20cc dspell 02:46 PM Post ECG SR with BBB dspell 02:46 PM Post Blood Pressure 143/72 dspell 02:46 PM 14:46 Post Pulses Bilateral radial 2+ dspell 02:46 PM Information taught Cardiac Cath, PCI, and Vasc Band dspell 02:47 PM Education needs Procedure, Plan of Care, and Responsibilities of Patient in Care dspell 02:47 PM Learning barriers :None 02:47 PM Education Methods Verbal dspell 02:48 PM HR=74 bpm, MNZT=667/75 mmhg, Comment=sr bbb 02:48 PM Education evaluation Able to repeat information ell 02:53 PM Site status No bleeding/hematoma - Lt Wrist as reported by Chelsy Rabago RT (R) at 14:53 dspell 02:53 PM Plavix, Effient or Brilinta given Yes ell 02:53 PM Coronary Dominance: right dspell 02:54 PM Complications: None dspell 02:54 PM Fluoro Time: 6.6 dspell 02:54 PM Isovue 370 - 200ml contrast 76 ml given by aJs Cardona. dspell 02:54 PM Radiation Dose 185 mGy dspell 02:56 PM Time: 14:55 Plavix 300 mg Orally Given by Dario Hale RN dspell 02:58 PM No family present at this time. dspell 02:58 PM Patient out of room: 14:58 dspell 02:58 PM Small hematoma to left wrist. Cuff re-adjusted, 10 ml of air in band. dspell 02:59 PM Report given to Susi KERR Pt taken to 3B Room #23. 14:59 [email or web address] Complications Complication None None Hemodynamics Pressures Site Systolic/A Wave Diastolic/V Wave Mean AO 118 69 87 AO 111 77 94 AO 111 75 93 LV 138 16 21 LV 120 -8 1 LV 124 -6 4 AO 123 47 76 AO 118 56 82 AO 111 56 81 Post Procedure Information Blood Pressure: 143/72 mmHg Rhythm: SR with BBB Post procedural instructions were given Closure Device Time Device Success/Fail 11/17/2017 2:59:00 PM Mechanical Compression Successful Site Checks Time Location Status Staff Sheath In? Note 02:53 PM Lt Wrist No bleeding/hematoma Chelsy Rabago RT (R) Pulses Time Site Pre-Procedure Post-Procedure Note Bilateral DP & PT 2+ Bilateral radial 2+ 2:46:00 PM Bilateral radial 2+ Updated by Anu Rosenbaum, RT (R) on 11/17/2017 3:10:25 PM electronically signed on 11/17/2017 3:11:12 PM with status of Final
[2017-11-18 05:28] LABS: Immature Granulocytes % 0.5 % (0-4); Lymphocytes # 0.5 K/mcL (0.6-4.6); Lymphocytes % 9.5 %; Mean Corpuscular HGB Conc 32.6 g/dL (31.6-35.5); Mean Corpuscular Hemoglobin 33.3 pg (28.0-33.3); Mean Corpuscular Volume 102.3 fL (83.0-100.0); Mean Platelet Volume 11.3 fL (9.4-12.4); Monocytes # 0.2 K/mcL (0.0-1.3); Monocytes % 3.7 %; Neutrophils # 4.7 K/mcL (1.6-8.9); Platelet Count 201 K/mcL (140-400); Red Blood Count 3.42 M/mcL (3.82-4.97); Red Cell Distribution Width 16.2 % (11.5-14.5); Segmented Neutrophils % 86.3 %
[2017-11-18 05:30] LABS: Hemoglobin 11.4 g/dL (11.5-15.4)
[2017-11-18 05:51] LABS: BUN/Creatinine Ratio 33 (6-26); Blood Urea Nitrogen 35 mg/dL (8-23); Calcium 8.5 mg/dL (8.6-10.3); Carbon Dioxide 23 mEq/L (23-29); Chloride 106 mEq/L (98-107); Glucose 171 mg/dL (70-105); Osmolality,Calculated 292 (280-300); Potassium 3.6 mEq/L (3.5-5.1); Sodium 135 mEq/L (136-145); eGFR For African Americans > 60 (> 60); eGFR For Non-African Americans 50 (> 60)
[2017-11-18] MEDS: Aspirin 81 MG TAB.CHEW PO SCH (08:55)
[2017-11-18] MEDS: Metoprolol XL (24 HR) Succ 25 MG TAB.ER.24H PO SCH (08:55)
[2017-11-18] MEDS: Cefdinir 300 MG CAPSULE PO SCH (08:55)
[2017-11-18] MEDS: Lisinopril 20 MG TABLET PO SCH (08:55)
--- NOTE | 2017-11-18 09:32 | Cardiology Progress Note ---
Date of Encounter: 11/18/17 Time of Encounter: 09:30 Assessment and Plan (1) Acute systolic CHF (congestive heart failure), NYHA class 3 Current Visit: Yes Status: Acute Per Cardiology: Presents with acute systolic CHFrEF. EF newly reduced at 25%. NYHA class III symptoms. Previous TTE 06/2017 showed EF 50%. CXR showed pulmonary edema/ CHF. BNP 3860. Low sodium diet. Daily weights, and strict I&O. Net I&O -2480. Appears relatively euvolemic on exam. Will add lasix 20mg PO daily. Kidney fxn stable. On BB and ACEI. (2) CKD (chronic kidney disease) stage 3, GFR 30-59 ml/min Current Visit: Yes Status: Chronic Per Cardiology: Stable, s/p LHC. (3) Elevated troponin Current Visit: No Status: Acute Per Cardiology: Trops 0.05, flat and adynamic. Mild troponin elevation likely demand ischemia in the setting of CHF, however now with stenting, mild NSTEMI possibel as well. EKG shows LBBB, unchanged from previous. S/p LHC: Lesion Findings/Interventions * Left Main Coronary Artery The LMCA is angiographically free of disease. * Left Anterior Descending There is a 16 mm long, 90% stenosis in the Proximal LAD. The lesion has a JOSE DAVID flow of 3. An intervention was performed on the Proximal LAD with a final stenosis of 0%. There were no lesion complications. The final JOSE DAVID flow was 3. * Circumflex There is a 80% stenosis in inferior branch of the 1st Marginal. * Right Coronary Artery There is a 60% stenosis in the Proximal RCA. There is a 80% stenosis in the Mid RCA. There is a 50% stenosis in the Distal RCA. On asa, plavix, BB, ACEI. Will add statin. Discussed with Dr. Cardona, prelim R LE duplex negative for DVT. Will remain off Coumadin. Cardiology signing off, re- consult PRN, f/u arranged. Will eval potential needs for staged PCI of RCA in outpatient setting. Discussion w patient/family: The assessment and plan as outlined above was discussed with the patient and/or family members who expressed understanding and agreement. All questions were answered. Thank you for involving us in the care of your patient. Please call with any questions. Subjective Principal diagnosis: CHF Interval history: Patient extremely hard of hearing. She denies any chest pain, shortness of breath, palpitations. Objective Vital Signs, Last 4 Hours Temp Pulse Resp BP Pulse Ox 11/18/17 08:45 98 11/18/17 07:17 98.0 F 85 18 123/69 98 General: Conversant, No Apparent Distress HEENT: Other ([place]) Cardiac: Reg Rate and Rhythm, Normal S1 and S2, No Murmur Lungs: Normal Breath Sounds, No Wheeze, Rales, Rhonchi Neuro: Alert and responsive, No focal deficits noted Skin: Other (Radial access site stable, pulse 1+ palp, no bleeding, no hematoma) Extremities: No Edema, Normal Pulses Results 11/18/17 05:07 11/18/17 05:07 Lab Results Laboratory Tests 11/14/17 11/14/17 11/14/17 12:11 12:11 18:06 Hgb Hct INR Creatinine Est GFR (Non-Af Amer) Troponin I 0.05 H* 0.05 H* B-Natriuretic Peptide 3860 H 11/14/17 11/15/17 11/17/17 22:54 06:57 05:12 Hgb Hct INR 1.3 Creatinine Est GFR (Non-Af Amer) Troponin I 0.05 H* 0.05 H* B-Natriuretic Peptide 11/18/17 11/18/17 05:07 05:07 Hgb 11.4 L D Hct 35.0 L INR Creatinine 1.09 Est GFR (Non-Af Amer) 48 L Troponin I B-Natriuretic Peptide ITS Impressions Chest X-Ray 11/14/17 12:11 IMPRESSION: Cardiomegaly with pulmonary vascular congestion, interstitial edema, and pleural effusions D/ / Shine Blanca MD / Shine Blanca MD Interpreting Provider: Shine Blanca MD Chest X-Ray 11/15/17 04:00 IMPRESSION: CHF and pulmonary edema with stable small pleural effusions. D/ / Ignacio Melendrez MD / Ignacio Melendrez MD Interpreting Provider: Ignacio Melendrez MD Echocardiogram 11/15/17 17:09 Impressions: LVEF 25%. Normal LV chamber size. Global left ventricular systolic dysfunction. Indeterminate diastolic function. Normal right ventricular structure and function. No evidence of pulmonary hypertension. Ordering physician notified via [employer]. Left Ventricular Wall Motion: Rest Echo Findings The apex, apical inferior, mid inferior, basal inferior, apical anterior, mid anterior, basal anterior, apical septal, mid inferior septal, basal inferior septal, apical lateral, mid anterior lateral, basal anterior lateral, mid anterior septal, mid inferior lateral, basal anterior septal and basal inferior lateral mckeon were hypokinetic. Findings: Study Quality * Technically adequate exam. ECG Findings * Normal sinus rhythm. Left Ventricle * LVEF 25%. * Normal LV chamber size. * Global left ventricular systolic dysfunction. * Indeterminate diastolic function. Right Ventricle * Normal right ventricular structure and function. Left Atrium * Normal left atrial size. Right Atrium * Normal right atrial size. Aortic Valve * Trileaflet aortic valve. * Mildly sclerotic aortic valve leaflets. * Trace aortic regurgitation. * No aortic stenosis. Mitral Valve * Mildly thickened mitral valve leaflets. * Trace mitral regurgitation. * No mitral stenosis. Tricuspid Valve * Normal tricuspid valve structure and function. * Trace tricuspid regurgitation. * No evidence of pulmonary hypertension. Pulmonic Valve * Normal pulmonic valve structure and function. * Trace pulmonic regurgitation. Aorta * Normally sized aortic root. Pericardium * There is a trivial pericardial effusion present. IVC * Normal IVC dimensions and inspiratory collapse. Pulmonary Artery * Normal visualized portions of the main pulmonary artery. Pleural Effusion * Pleural effusion noted. Intake & Output 11/15/17 11/16/17 11/17/17 11/18/17 23:59 23:59 23:59 23:59 Intake Total 60 / 60 Output Total 1450 / 1450 850 / 850 100 / 100 Balance -1440 / -1440 -790 / -790 -100 / -100 Weight 51.2 kg 49.4 kg 51 kg Active Medications Acetaminophen (Tylenol) 650 mg PO Q6HR PRN PRN Reason: Mild Pain Stop: 05/19/18 15:04 Aspirin (Aspirin) 81 mg PO DAILY FÁTIMA Stop: 05/17/18 09:01 Last Admin: 11/18/17 08:55 Dose: 81 mg Calcium Carbonate (Tums) 1,000 mg PO QID FÁTIMA PRN Reason: Protocol Stop: 05/20/18 09:01 Last Admin: 11/18/17 08:53 Dose: 1,000 mg Cefdinir (Omnicef) 300 mg PO DAILY FÁTIMA PRN Reason: Protocol Stop: 05/19/18 09:01 Last Admin: 11/18/17 08:55 Dose: 300 mg Clopidogrel Bisulfate (Plavix) 75 mg PO DAILY FÁTIMA Stop: 05/20/18 09:01 Last Admin: 11/18/17 08:55 Dose: 75 mg Ferrous Sulfate (Ferrous Sulfate) 325 mg PO BIDWM FÁTIMA Stop: 05/16/18 17:01 Last Admin: 11/18/17 08:54 Dose: 325 mg Lisinopril (Zestril) 20 mg PO DAILY FÁTIMA PRN Reason: Protocol Stop: 05/17/18 09:01 Last Admin: 11/18/17 08:55 Dose: 20 mg Melatonin (Melatonin) 3 mg PO HS PRN PRN Reason: Insomnia Stop: 05/18/18 20:59 Last Admin: 11/16/17 21:25 Dose: 3 mg Metoprolol Succinate (Toprol Xl) 25 mg PO DAILY [facility] Stop: 05/19/18 09:01 Last Admin: 11/18/17 08:55 Dose: 25 mg Nitroglycerin (Nitroglycerin) 0.4 mg SL Q5MIN PRN PRN Reason: Chest Pain Stop: 05/16/18 17:14 Omeprazole (Prilosec) 40 mg PO DAILY FÁTIMA PRN Reason: Protocol Stop: 05/17/18 09:01 Last Admin: 11/18/17 08:54 Dose: 40 mg Tramadol HCl (Ultram) 50 mg PO BID PRN PRN Reason: Pain Stop: 05/16/18 16:33 Last Admin: 11/16/17 16:50 Dose: 50 mg - Imaging and Cardiology Cardiac cath: report reviewed - EKG Interpretation EKG results cardiology: other (SR, avg HR 68) Consult Discharge Plan - Plan Referrals: El Carrillo DO [Primary Care Provider] - (Your appointment has been webrequested, our offices will call you with an appointment time and date.)
[2017-11-18] MEDS ORDERED: Furosemide 20 MG TABLET PO SCH (09:45)
--- NOTE | 2017-11-18 11:01 | Discharge Summary ---
- NOTES TO OUTPATIENT PROVIDER Notes to Outpatient Provider: Pt was admitted for chest pain, [facility] 11/17 with PTCA/ ZO to proximal LAD. Pt will follow with cardiology for PCI. She will start Plavix, ASA, BB. Pt also treated for UTI with Omnicef 300mg po BID. Date of Encounter: 11/18/17 Time of Encounter: 11:30 - Discharge Diagnosis (1) Chest pain Priority: Primary Status: Acute Assessment and Plan: Patient denies chest pain, palpitations, SOB. Pt also with acute exacerbation of systolic CHF which could contribute to chest pain. [facility] 11/17 with PTCA/ZO to proximal LAD. Add Plavix, ASA, BB, Lasix 20mg po daily. Etiologies adding a statin. Patient will remain off Coumadin since preliminary right lower extremity duplex Dopplers negative for DVT. Patient also will need to follow up with cardiology outpatient for staged PCI of RCA. Qualifiers: Chest pain type: precordial pain Qualified Code(s): R07.2 - Precordial pain (2) CKD (chronic kidney disease) stage 3, GFR 30-59 ml/min Priority: Secondary Status: Chronic Assessment and Plan: Stable Serum creatinine 1.05, GFR 50. Continue to avoid nephrotoxins (3) HLD (hyperlipidemia) Priority: Secondary Status: Chronic Assessment and Plan: Chronic. Continue Lipitor. Qualifiers: Hyperlipidemia type: mixed hyperlipidemia Qualified Code(s): E78.2 - Mixed hyperlipidemia (4) HTN (hypertension) Priority: Secondary Status: Chronic Assessment and Plan: Stable, within normal limits. Continue home medications. Qualifiers: Hypertension type: essential hypertension Qualified Code(s): I10 - Essential (primary) hypertension (5) UTI (urinary tract infection) Priority: Secondary Status: Acute Assessment and Plan: Urine indicative of UTI. Final culture grew Escherichia coli. Discussed antibiotic choices with pharmacy, decided on Omnicef 300mg po daily for 10 days. Qualifiers: Urinary tract infection type: acute cystitis Hematuria presence: without hematuria Qualified Code(s): N30.00 - Acute cystitis without hematuria (6) DVT prophylaxis Priority: Secondary Status: Acute Assessment and Plan: Warfarin has been stopped. She will be on dual antiplatelet therapy for stents. (7) Systolic heart failure Priority: Secondary Status: Chronic Assessment and Plan: Acute exacerbation of CHF. Patient with -2.1 L fluid deficit. Patient appears euvolemic, lungs are clear, no peripheral edema. Continue Lasix 20 mg by mouth daily. Qualifiers: Heart failure chronicity: acute on chronic Qualified Code(s): I50.23 - Acute on chronic systolic (congestive) heart failure Hospital course: Ms. Alston is a 86 year old female admitted for chest pain. Treated for CHF exacerbation and UTI. Pt with elevated troponin, LHC yesterday with PTCA/ZO to proximal LAD. Pt states that she is feeling better and is ready to go home. She reports that her UTI symptoms have resolved and that she is pain free. Pt will follow up with cardiology for PCI on an outpatient basis. Labs are stable, -2.1 liter fluid deficit. Vitals are stable and pt is ready for discharge. Pt will be sent home with prescriptions for BB, ASA, Plavix, and Omnicef for UTI. Discharge discussed with: patient - Time Spent with Patient Total time spent providing and/or coordinating discharge services: Less than 30 minutes - Discharge Medications Prescriptions: Aspirin 81 mg PO DAILY #30 tab.chew Atorvastatin [Lipitor] 80 mg PO HS #30 tablet Cefdinir [Omnicef] 300 mg PO DAILY #9 capsule Clopidogrel [Plavix] 75 mg PO DAILY #30 Furosemide [Lasix] 20 mg PO DAILY #30 tablet Metoprolol XL (24 HR) Succ [Toprol Xl] 25 mg PO DAILY #30 tab.er.24h Home Medications: Ferrous Sulfate 325 mg PO BIDWM #60 tablet 06/26/17 [Rx] Lisinopril [Zestril] 20 mg PO DAILY 07/12/17 [History] Omeprazole [PriLOSEC] 40 mg PO DAILY 07/12/17 [History] Tramadol HCl [Ultram] 50 mg PO BID PRN 11/14/17 [History] Aspirin 81 mg PO DAILY #30 tab.chew 11/18/17 [Rx] Atorvastatin [Lipitor] 80 mg PO HS #30 tablet 11/18/17 [Rx] Cefdinir [Omnicef] 300 mg PO DAILY #9 capsule 11/18/17 [Rx] Clopidogrel [Plavix] 75 mg PO DAILY #30 11/18/17 [Rx] Furosemide [Lasix] 20 mg PO DAILY #30 tablet 11/18/17 [Rx] Metoprolol XL (24 HR) Succ [Toprol Xl] 25 mg PO DAILY #30 tab.er.24h 11/18/17 [ Rx] Allergies/Adverse Reactions: 3 Allergy/AdvReac Type Severity Reaction Status Date / Time Iodinated Contrast- Oral and Allergy Chest Pain Verified 11/15/17 06:12 IV Dye Penicillins Allergy Rash Verified 01/12/17 06:43 Date of admission: 11/14/17 21:33 Primary care physician: El Carrillo, Consults: 11/15/17 09:47 Consult to Occupational Therapy [CONS] Routine Comment: Evaluate, develop and implement POC Reason for Consult: D/C planning Does patient have active BEDREST order?: No Is patient medically & hemodynamically stable?: Yes 11/16/17 13:47 Consult to Cardiology [CONS] Routine Comment: Consulting Provider: Tami Ngo Reason for Consult: Echo: EF 25% Time Notified: 13:48 Call Completed: Yes 11/17/17 15:03 Consult to Cardiac Rehabilitation-Phase1 [CONS] Routine Comment: Reason for Consult: post op PCI Call Completed: Yes Discharging clinician: Rasheeda Ferreira Anticipated date of discharge: 11/18/17 - Constitutional Vitals: Temp Pulse Resp BP Pulse Ox 98.0 F 85 18 123/69 98 11/18/17 07:17 11/18/17 07:17 11/18/17 07:17 11/18/17 07:17 11/18/17 08:45 General appearance: Present: cooperative, A&O X 3, pleasant, no acute distress, answers questions appropriately - Head Head exam: Present: atraumatic, normal inspection, normocephalic - Eye Eye exam: Present: normal appearance, conjuntiva pink, sclera anicteric - Neck Neck exam general surgery: Present: supple, trachea midline. Absent: lymphadenopathy, tenderness - Respiratory Respiratory exam: Present: CTAB. Absent: accessory muscle use, chest wall tenderness, rales, respiratory distress, rhonchi, wheezes - Cardiovascular Cardiovascular exam: Present: RRR, +S1, +S2. Absent: diastolic murmur, gallop, rubs, systolic murmur - GI/Abdominal GI/Abdominal exam: Present: normal bowel sounds, soft. Absent: distended, hepatomegaly, tenderness - Extremities Exam Extremities exam: Present: normal capillary refill, normal inspection, warm, radial pulses palpable and symmetrical. Absent: calf tenderness, cyanotic, pedal edema, tenderness - Neurological Exam Neurological exam: Present: alert, CN II-XII intact, oriented X3, no focal deficits. Absent: facial droop, speech deficit - Skin Skin exam: Present: dry, intact, normal color, warm. Absent: rash - Patient Status Disposition: Home, Self-Care Condition: Good Functional capacity at discharge: uses cane/walker Overall status at discharge: patient is progressing back to baseline - Discharge Instructions Instructions: Cefdinir (By mouth), Heart Failure (DC), Chest Pain (DC), Left Heart Catheterization (DC), Urinary Tract Infection in Women (DC), Chronic Hypertension (DC), Anemia (GEN), Fall Prevention (DC), Pneumonia (DC) Follow Up With: El Carrillo DO [Primary Care Provider] - (Your appointment has been webrequested, our offices will call you with an appointment time and date.) Additional Instructions: Please follow-up with your primary care provider in the next 7-10 days for a recheck. Follow-up with cardiology as scheduled. Return to your normal diet and activities as tolerated. Take your new medications as directed and resume your medications. Do not continue warfarin. Follow a fluid restriction and low sodium diet and weight your self daily. - Diet and Activity Activity: increase activity as tolerated Diet: diabetic diet, low salt diet
[2017-11-18 12:16] VITALS: BP 153/73
[2017-11-19] MEDS ORDERED: *HR* Warfarin 2 MG TABLET PO SCH (18:00)
--- NOTE | 2017-11-20 16:06 | Physician Discharge Referral ---
Home Health/Hosp Referral Info Transfer to: Home Health Provider in Charge Post Discharge: PCP - Diagnosis (1) Chest pain Priority: Primary Status: Acute (2) CKD (chronic kidney disease) stage 3, GFR 30-59 ml/min Priority: Secondary Status: Chronic (3) HLD (hyperlipidemia) Priority: Secondary Status: Chronic (4) HTN (hypertension) Priority: Secondary Status: Chronic (5) UTI (urinary tract infection) Priority: Secondary Status: Acute (6) DVT prophylaxis Priority: Secondary Status: Acute (7) Systolic heart failure Priority: Secondary Status: Chronic - Respiratory Orders Oxygen / L per min Smoking Cessation: Smoking cessation has been advised. For more information, call the [place] [employer] Quit Line at 9-441-PEBT-NOW. - Diet/Nutrition Diet/Nutrition Orders: Cardiac - Activity Activity Orders: Up ad jake, Ambulate - Services Needed Following services are medically necessary services: Nursing, Home Health Aide, Physical Therapy, Occupational Therapy - Transfer Medications Prescriptions: Aspirin 81 mg PO DAILY #30 tab.chew Atorvastatin [Lipitor] 80 mg PO HS #30 tablet Cefdinir [Omnicef] 300 mg PO DAILY #9 capsule Clopidogrel [Plavix] 75 mg PO DAILY #30 Furosemide [Lasix] 20 mg PO DAILY #30 tablet Metoprolol XL (24 HR) Succ [Toprol Xl] 25 mg PO DAILY #30 tab.er.24h Home Medications: Ferrous Sulfate 325 mg PO BIDWM #60 tablet 06/26/17 [Rx] Lisinopril [Zestril] 20 mg PO DAILY 07/12/17 [History] Omeprazole [PriLOSEC] 40 mg PO DAILY 07/12/17 [History] Tramadol HCl [Ultram] 50 mg PO BID PRN 11/14/17 [History] Aspirin 81 mg PO DAILY #30 tab.chew 11/18/17 [Rx] Atorvastatin [Lipitor] 80 mg PO HS #30 tablet 11/18/17 [Rx] Cefdinir [Omnicef] 300 mg PO DAILY #9 capsule 11/18/17 [Rx] Clopidogrel [Plavix] 75 mg PO DAILY #30 11/18/17 [Rx] Furosemide [Lasix] 20 mg PO DAILY #30 tablet 11/18/17 [Rx] Metoprolol XL (24 HR) Succ [Toprol Xl] 25 mg PO DAILY #30 tab.er.24h 11/18/17 [ Rx] Allergies/Adverse Reactions: 3 Allergy/AdvReac Type Severity Reaction Status Date / Time Iodinated Contrast- Oral and Allergy Chest Pain Verified 11/15/17 06:12 IV Dye Penicillins Allergy Rash Verified 01/12/17 06:43 Certification: Further, I certify that my clinical findings support that this patient is homebound (i.e. absences from home require considerable and taxing effort and are for medical reasons or restorationism services or infrequently or short duration when for other reasons) because: Homebound Reason: Patient requires assistance of a person or device to safely leave home, Severity of cardiac or pulmonary status limits activity tolerance Attestation: My signature below is to certify that this patient is under my care and that I, or nurse practitioner, or a physician's diploma dental assistant working with me, has a face-to -face encounter with this patient.
== END 2017-11-18 13:40 | disposition home or self-care (01) | DRG 246 ==
LOC: 3BNU 12:07 → EMEROO 12:07 → SUATTDRO 21:33 → 3BNU 21:46
PROVIDERS: ADMIT Internal Medicine; ATTEND Registered Nurse

== ENCOUNTER 2017-11-30 14:34 | Inpatient (IN) ==
--- NOTE | 2017-11-30 14:54 | Emergency Department Note ---
Disposition Clinical Impression: Atypical chest pain Disposition: Admitted As Inpatient Condition: Fair Referrals: El Carrillo DO [Primary Care Provider] - Forms: ED Satisfaction Letter Time of Disposition: 20:09 Chest Pain HPI - General Chief Complaint: ED Chest Pain Stated Complaint: CP Time Seen by Provider: 11/30/17 14:38 Source: patient, EMS Mode of arrival: ambulatory Limitations: no limitations Vital Signs Reviewed: Yes Nursing Notes Reviewed: Yes - History of Present Illness HPI Narrative: 86yo female with past medical history of CAD, hypertension, DVT presented to [facility] via EMS complaining of chest pain. She reported that the chest pain started today while at rest sitting in her chair and was a dull ache. The pain went from her chest to her left arm and was improved with nitro glycerin. She had associated diaphoresis, shortness of breath, nausea. She was given nitro patch and aspirin by EMS. She reports this pain is different from when she had an ME. Of note, on 11/17/2017 she had a PCI ZO to the proximal LAD. She is to return for outpatient for staged PCI of RCA by Dr. Cardona on December. She was previously treated for a DVT diagnosed in June 2017 she is currently off her Coumadin due to recent admission that demonstrated the DVT had resolved. She is a [employer]. She denies fever , chills, headache, abdominal pain. Severity scale (1-10): 6 - Related Data Home Medications Medication Instructions Recorded Confirmed Lisinopril [Zestril] 20 mg PO DAILY 07/12/17 11/14/17 Omeprazole [PriLOSEC] 40 mg PO DAILY 07/12/17 11/14/17 Tramadol HCl [Ultram] 50 mg PO BID PRN 11/14/17 11/14/17 Previous Rx's Medication Instructions Recorded Ferrous Sulfate 325 mg PO BIDWM #60 tablet 06/26/17 Aspirin 81 mg PO DAILY #30 tab.chew 11/18/17 Atorvastatin [Lipitor] 80 mg PO HS #30 tablet 11/18/17 Cefdinir [Omnicef] 300 mg PO DAILY #9 capsule 11/18/17 Clopidogrel [Plavix] 75 mg PO DAILY #30 11/18/17 Furosemide [Lasix] 20 mg PO DAILY #30 tablet 11/18/17 Metoprolol XL (24 HR) Succ [Toprol 25 mg PO DAILY #30 tab.er.24h 11/18/17 Xl] Allergies Allergy/AdvReac Type Severity Reaction Status Date / Time Iodinated Contrast- Oral and Allergy Chest Pain Verified 11/30/17 14:39 IV Dye Penicillins Allergy Rash Verified 11/30/17 14:39 All systems ED: reviewed and negative except as stated. Review of Systems: As Per HPI Constitutional: Denies: fever, chills Eyes: Denies: vision change Cardiovascular: Reports: chest pain, other (Diaphoresis). Denies: palpitations , syncope Respiratory: Reports: dyspnea. Denies: cough, wheezes Gastrointestinal: Reports: nausea. 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 Absent: wheezes - Cardiovascular Cardiovascular exam: Present: regular rate, normal rhythm - Abdominal Exam Abdominal exam: Present: soft, Non-Tender. Absent: rigidity - Extremities Exam Extremities exam: Present: normal inspection. Absent: tenderness - Back Exam Back exam: Present: normal inspection - Neurological Exam Neurological exam: Present: alert, oriented X3 - Psychiatric Psychiatric exam: Present: normal affect, normal mood - Skin Skin exam: Present: dry, intact Course Course Narrative: 86yo female with past medical history of CAD, hypertension, DVT presented to [facility] via EMS complaining of chest pain. Left-sided chest radiating to arm, dull in nature. Improved by nitroglycerin. She had recent stent placement on 11/17/[address] Cardona with PCI to the maximal LAD. She is to have staged PCI of RCA on 12/22/2017. HEART score 6. TTE 11/15/2017 EF25% . Concern for ACS, unstable angina, pneumonia. She has an EKG, chest x-ray, BMP, [employer], troponin ordered. - Reevaluation(s) Reevaluation #1: She reports her pain is improved but still on her left side Time: 17:22 Vital Signs Temperature 98.2 F 11/30/17 14:41 Pulse Rate 85 11/30/17 14:41 Respiratory Rate 18 11/30/17 14:41 Blood Pressure 147/76 11/30/17 14:41 O2 Sat by Pulse Oximetry 100 11/30/17 14:41 Temperature 98.2 F 11/30/17 14:41 Pulse Rate 83 11/30/17 14:48 Respiratory Rate 20 11/30/17 14:48 Blood Pressure 147/76 11/30/17 14:48 O2 Sat by Pulse Oximetry 99 11/30/17 14:50 Oxygen Delivery Oxygen Delivery Room Air Chest Pain - MDM Narrative Medical decision making narrative: 86yo female with past medical history of CAD, hypertension, DVT presented to [facility] via EMS complaining of chest pain. She reported that the chest pain started today while at rest sitting in her chair and was a dull ache. The pain went from her chest to her left arm and was improved with nitro glycerin. She had associated diaphoresis, shortness of breath, nausea. She was given nitro patch and aspirin by EMS. She reports this pain is different from when she had an ME. Of note, on 11/17/2017 she had a PCI OZ to the proximal LAD. She is to return for outpatient for staged PCI of RCA by Dr. Cardona on December. She was previously treated for a DVT diagnosed in June 2017 she is currently off her Coumadin due to recent admission that demonstrated the DVT had resolved. She is a Syn[employer]. She denies fever , chills, headache, abdominal pain. HEART score 6. TTE 11/15/2017 EF25%. EKG was unchanged from prior EKG. Troponin elevated at 0.04. Her chest pain has improved from when it started. Spoke with Dr. España of cardiology whom reported trend troponin and monitoring of chest pain without heparin. This is due to EKG demonstrating unchanged from prior, improvement of chest pain, and since she is a [employer] the risk of bleeding and not able to give blood product is high. Cardiology will follow and possible stent placement while admitted since she is to get staged PCI to RCA. The hospitalist accepted admission. The patient is agreeable to the plan. - Differential Diagnosis Likely: unstable angina pectoris, atypical chest pain, st elevation myocardial infraction - Medical Records Medical records reviewed: Yes I reviewed the patient's medical records. - Lab Data Lab results reviewed: Yes I reviewed the patient's lab results. - Radiology Data Radiology results reviewed: Yes I reviewed the patient's radiology results. Chest X-Ray 11/30/17 14:39 IMPRESSION: Overall improvement of bilateral interstitial opacities/edema. Persistent small bilateral pleural effusions. D/ / Connie Gunn MD / Connie Gunn MD Interpreting Provider: Connie Gunn MD - EKG Data EKG attestation: Yes I reviewed and interpreted this EKG. EKG results narrative: EKG: HR 83, left axis deviation, LBBB unchanged from prior EKG. IN 199, QRS 165, QT/QTC 427/467 EKG shows normal: sinus rhythm Rate: normal Rhythm: NSR [place]/QRS: left axis deviation Heart Score - Score History: Moderately Suspicious EKG: Non Specific repolarisation Disturbance Age: Greater than 65 Risk Factors: Equal/Greater than 3 risk factor or history of atherosclerotic disease Troponin: 1-3x normal limit HEART Score Total: 7
[2017-11-30 16:50] LABS: Basophils # 0.1 K/mcL (0.0-0.2); Basophils % 0.8 %; Eosinophils # 0.2 K/mcL (0.0-0.6); Eosinophils % 2.7 %; Hematocrit 36.4 % (35.3-44.9); Hemoglobin 11.8 g/dL (11.5-15.4); Immature Granulocytes % 0.3 % (0-4); Lymphocytes # 1.5 K/mcL (0.6-4.6); Lymphocytes % 23.4 %; Mean Corpuscular HGB Conc 32.4 g/dL (31.6-35.5); Mean Corpuscular Hemoglobin 34.6 pg (28.0-33.3); Mean Corpuscular Volume 106.7 fL (83.0-100.0); Mean Platelet Volume 10.9 fL (9.4-12.4); Monocytes # 0.4 K/mcL (0.0-1.3); Monocytes % 6.1 %; Neutrophils # 4.2 K/mcL (1.6-8.9); Platelet Count 214 K/mcL (140-400); Red Blood Count 3.41 M/mcL (3.82-4.97); Red Cell Distribution Width 14.9 % (11.5-14.5); Segmented Neutrophils % 66.7 %
[2017-11-30 17:00] LABS: INR 1.1; Prothrombin Time 11.4 Seconds (9.4-12.1)
[2017-11-30 17:03] LABS: Activated Partial Thrombo Time 29.1 Seconds (26.0-36.0)
[2017-11-30 17:15] LABS: Troponin I 0.04 ng/mL (< 0.04)
[2017-11-30 17:30] LABS: Calcium 8.9 mg/dL (8.6-10.3); Potassium 3.8 mEq/L (3.5-5.1)
--- NOTE | 2017-11-30 18:54 | Emergency Department Note ---
Disposition Clinical Impression: Chest pain, rule out acute myocardial infarction Disposition: Admitted As Inpatient Condition: Fair Referrals: El Carrillo DO [Primary Care Provider] - Forms: ED Satisfaction Letter Time of Disposition: 18:00 Chest Pain HPI - General Chief Complaint: ED Chest Pain Stated Complaint: CP Time Seen by Provider: 11/30/17 14:38 Source: patient, EMS Mode of arrival: ambulatory Limitations: no limitations Vital Signs Reviewed: Yes Nursing Notes Reviewed: Yes - History of Present Illness Severity scale (1-10): 6 - Related Data Home Medications Medication Instructions Recorded Confirmed Lisinopril [Zestril] 20 mg PO DAILY 07/12/17 11/14/17 Omeprazole [PriLOSEC] 40 mg PO DAILY 07/12/17 11/14/17 Tramadol HCl [Ultram] 50 mg PO BID PRN 11/14/17 11/14/17 Previous Rx's Medication Instructions Recorded Ferrous Sulfate 325 mg PO BIDWM #60 tablet 06/26/17 Aspirin 81 mg PO DAILY #30 tab.chew 11/18/17 Atorvastatin [Lipitor] 80 mg PO HS #30 tablet 11/18/17 Cefdinir [Omnicef] 300 mg PO DAILY #9 capsule 11/18/17 Clopidogrel [Plavix] 75 mg PO DAILY #30 11/18/17 Furosemide [Lasix] 20 mg PO DAILY #30 tablet 11/18/17 Metoprolol XL (24 HR) Succ [Toprol 25 mg PO DAILY #30 tab.er.24h 11/18/17 Xl] Allergies Allergy/AdvReac Type Severity Reaction Status Date / Time Iodinated Contrast- Oral and Allergy Chest Pain Verified 11/30/17 14:39 IV Dye Penicillins Allergy Rash Verified 11/30/17 14:39 Constitutional: Denies: fever, chills Eyes: Denies: vision change Cardiovascular: Reports: chest pain, other (Diaphoresis). Denies: palpitations , syncope Respiratory: Reports: dyspnea. Denies: cough, wheezes Gastrointestinal: Reports: nausea. Denies: abdominal pain, vomiting Musculoskeletal: Denies: back pain Integumentary: Denies: rash Neurological: Denies: headache, weakness Endocrine: Denies: fatigue Chest Pain PMH - Past Medical History Medical history: Reports: coronary artery disease, DVT, hypertension, renal disease, other Surgical history: Reports: appendectomy, cholecystectomy, orthopedic, other, other Psychiatric history: Reports: no psych history TRAFFIC TECHNICIAN history: Reports: no TRAFFIC TECHNICIAN history - Social History Smoking Status: Former smoker Alcohol use: Reports: none Drug use: Reports: none Physical Exam - General Limitations: no limitations General appearance: alert, in no apparent distress Course Vital Signs Temperature 98.2 F 11/30/17 14:41 Pulse Rate 85 11/30/17 14:41 Respiratory Rate 18 11/30/17 14:41 Blood Pressure 147/76 11/30/17 14:41 O2 Sat by Pulse Oximetry 100 11/30/17 14:41 Temperature 98.2 F 11/30/17 14:41 Pulse Rate 70 11/30/17 17:57 Respiratory Rate 13 11/30/17 17:57 Blood Pressure 118/37 11/30/17 17:57 O2 Sat by Pulse Oximetry 100 11/30/17 17:57 Oxygen Delivery Oxygen Delivery Room Air Chest Pain - Lab Data Result diagrams: 11/30/17 16:06 11/30/17 16:06 Lab Results 11/30/17 11/30/17 11/30/17 Range/Units 16:06 16:06 16:06 WBC 6.3 (4.3-11.1) K/mcL RBC 3.41 L (3.82-4.97) M/mcL Hgb 11.8 (11.5-15.4) g/dL Hct 36.4 (35.3-44.9) % MCV 106.7 H (83.0-100.0) fL MCH 34.6 H (28.0-33.3) pg MCHC 32.4 (31.6-35.5) g/dL RDW 14.9 H (11.5-14.5) % Plt Count 214 (140-400) K/mcL MPV 10.9 (9.4-12.4) fL Immature Gran % 0.3 (0-4) % Seg Neutrophils % 66.7 % Lymphocytes % 23.4 % Monocytes % 6.1 % Eosinophils % 2.7 % Basophils % 0.8 % Neutrophils # 4.2 (1.6-8.9) K/mcL Lymphocytes # 1.5 (0.6-4.6) K/mcL Monocytes # 0.4 (0.0-1.3) K/mcL Eosinophils # 0.2 (0.0-0.6) K/mcL Basophils # 0.1 (0.0-0.2) K/mcL PT 11.4 (9.4-12.1) Seconds INR 1.1 APTT 29.1 (26.0-36.0) Seconds Sodium 139 (136-145) mEq/L Potassium 3.8 (3.5-5.1) mEq/L Chloride 108 H (98-107) mEq/L Carbon Dioxide 18 L (23-29) mEq/L BUN 30 H (8-23) mg/dL Creatinine 1.28 H (0.60-1.20) mg/dL Est GFR ( Amer) 48 L (> 60) Est GFR (Non-Af Amer) 40 L (> 60) BUN/Creatinine Ratio 23 (6-26) Glucose 91 (70-105) mg/dL Calculated Osmolality 294 (280-300) Calcium 8.9 (8.6-10.3) mg/dL Troponin I 0.04 H* (< 0.04) ng/mL Attestation Statement - Attestation Attestation: I, Rashid Trujillo, examined this patient and my medical decision-making was reviewed with the CUPOLA LINER HELPER/PA/Advanced Practice Nurse/Resident Physician. I agree with the documented findings, disposition and treatment plan as described except to the extent set forth below. 86-year-old female presents emergency Department with concerns of acute onset chest pain. Patient has a history of recent cardiac disease and was recently stented by Dr. Cardona. Patient is taking Plavix and aspirin but does not take other blood thinners. Patient reports having substernal chest pain that does not radiate. She describes it as a dull ache. Patient reported associated diaphoresis and nausea with the pain. It improved with nitroglycerin. EKG showed normal sinus rhythm with a rate of 83 with left bundle-branch block that is unchanged from previous EKG. Patient had elevated troponin at 0.04. This is not significantly changed from previous. Patient will be admitted to the hospitalist for further care and evaluation.
--- NOTE | 2017-11-30 20:03 | Internal Med History&Physical ---
Date of Encounter: 11/30/17 Time of Encounter: 20:00 Internal Medicine - H&P: HPI Chief complaint: CP Admitted From: Home Plans for Post Hospital Care: Home History of present illness: Ms. Alston is a 86 year old female with past medical history of CAD status post PCI ZO to the proximal LAD, CKD stage III, hypertension, DVT (resolved, off coumadin) who presented to the ED from home via EMS with CP. Patient states last night she started having chest pain while she was sitting down and pain radiated into her left arm. Describes the pain as dull and achy. Associated nausea, SOB. She does not wear oxygen at home. This is different from her previous VT as her chest pain radiated down not into her left arm. She sees Dr. Cardona and was to return for outpatient staged PCI of RCA on December 22, 2017. Of note patient is a [employer] refusing transfusion. She admits to rhinorrhea but no cough, congestion, or fever. She lives at home with her sons and uses a walker. While in transit, EMS gave her ASA and nitro which helped her chest pain. Upon arrival to the ED, vital signs were within normal limits. Troponin was found to be 0.04 initially. chest x-ray showed Overall improvement of bilateral interstitial opacities/edema. Persistent small bilateral pleural effusions. Patient was not given any medications in the ED. She was admitted to the floor for chest pain and ACS rule out. [employer] Operator: Dr. Cardona Echo 11/15/17: EF 25%, global left ventricular systolic dysfunction, indeterminate diastolic dysfunction. Left ventricular wall motion hypokinetic. LHC 11/17/17: There is severe multivessel vessel coronary artery disease. Proximal LAD with 90% stenosis. Patient had successful PTCA/Drug-Eluting Stent placement in the proximal LAD. * Circumflex There is a 80% stenosis in inferior branch of the 1st Marginal. * Right Coronary Artery There is a 60% stenosis in the Proximal RCA. There is a 80% stenosis in the Mid RCA. There is a 50% stenosis in the Distal RCA. Past Med Surg Social Fam HX - Past Medical History Medical history: coronary artery disease, DVT, hypertension, renal disease, other Additional medical history: vertigo, spinal stenosis Psychiatric history: no psych history - Past Surgical History Surgical History: appendectomy, cholecystectomy, orthopedic, other, other Additional surgical history: TONSILECTOMY AND ADNOIDECTOMY, BILATERAL ROTATOR CUFF REPAIRS, RIGHT KNEE REPLACEMENT, LEFT SHOULDER REPLACEMENT, BILATERAL CARPAL TUNNEL SURGERIES, BILATERAL ANKLE SURGERIES, - Social History Smoking Status: Former smoker Smokeless Tobacco Status: No Alcohol use: none Drug use: none - Family History Father Family Member Ethnicity: Non- Living Status: Mother Family Member Ethnicity: Non- Living Status: Hx Family Cardiac Disorders: Yes (Stroke) Hx Family Neurologic Disorders: Yes (CEREBRAL VASCULAR ACCIDENT.) Sister Family Member Ethnicity: Non- Living Status: Still Living Hx Family GI Disorders: Yes (Gallbladder) Brother Family Member Ethnicity: Non- Living Status: Hx Family Neurologic Disorders: Yes Internal Medicine - H&P: Meds Ferrous Sulfate 325 mg PO BIDWM #60 tablet 06/26/17 [Rx] Lisinopril [Zestril] 20 mg PO DAILY 07/12/17 [History] Omeprazole [PriLOSEC] 40 mg PO DAILY 07/12/17 [History] Tramadol HCl [Ultram] 50 mg PO BID PRN 11/14/17 [History] Aspirin 81 mg PO DAILY #30 tab.chew 11/18/17 [Rx] Atorvastatin [Lipitor] 80 mg PO HS #30 tablet 11/18/17 [Rx] Cefdinir [Omnicef] 300 mg PO DAILY #9 capsule 11/18/17 [Rx] Clopidogrel [Plavix] 75 mg PO DAILY #30 11/18/17 [Rx] Furosemide [Lasix] 20 mg PO DAILY #30 tablet 11/18/17 [Rx] Metoprolol XL (24 HR) Succ [Toprol Xl] 25 mg PO DAILY #30 tab.er.24h 11/18/17 [ Rx] 3 Allergy/AdvReac Type Severity Reaction Status Date / Time Iodinated Contrast- Oral and Allergy Chest Pain Verified 11/30/17 14:39 IV Dye Penicillins Allergy Rash Verified 11/30/17 14:39 All Systems PM: A 10-system review of systems was performed and is negative for pertinent findings except as documented above in the HPI. - Constitutional Vitals: Temp Pulse Resp BP Pulse Ox 98.2 F 70 13 118/37 100 11/30/17 14:41 11/30/17 17:57 11/30/17 17:57 11/30/17 17:57 11/30/17 17:57 Exam: Constitutional: Alert, in no acute distress, hearing impaired Head: Normocephalic, atraumatic Heart: split S2, Normal, regular rate and rhythm, no murmurs Lungs: Clear to auscultation, no wheezes, rales, or rhonchi Abdomen: Soft, nondistended, nontender, no guarding or rigidity. Extremities: No edema, No clubbing, radial pulse +2/4, capillary refill <2sec. Skin: Skin warm and dry, no lesions, no rashes, no jaundice Neurologic: strength 5/5 in all extremitites Psych: Cooperative with exam, good eye contact, cognitive function intact, speech clear, thought process logical, and goal directed Internal Med - H&P Results - Labs CBC & Chem 7: 11/30/17 16:06 11/30/17 16:06 - Assessment and plan (1) Elevated troponin Current Visit: No Status: Acute Assessment and plan: Initial troponin 0.04. Previous troponin's 0.05. Has not had a normal troponin in a year. Cardiology was consulted and recommended not starting her on a heparin drip unless EKG changes or jump in troponin. Recent echo this month. Plan: - trending troponins - cardiology consulted, they will see in the AM - continue telemetry - Diet: NPO after midnight (2) Chest pain, rule out acute myocardial infarction Current Visit: Yes Status: Acute Assessment and plan: CP relieved by ASA and nitro. Will continue to give nitro if need be but currently chest pain has resolved. (3) CKD (chronic kidney disease) stage 3, GFR 30-59 ml/min Current Visit: Yes Status: Chronic Assessment and plan: Creatinine 1.28, which is at baseline. Will continue to monitor. (4) Systolic CHF with reduced left ventricular function, NYHA class 3 Current Visit: Yes Status: Acute Assessment and plan: Recent Echo in November showed EF of 25%. Patient is currently euvolemic. CXR shows small bilateral plural effusions. Mild shortness of breath currently. Will continue to monitor fluid status. (5) CAD (coronary artery disease) Current Visit: Yes Status: Acute Assessment and plan: On 11/17/2017 she had a PCI ZO to the proximal LAD. She is to return for outpatient for staged PCI of RCA by Dr. Cardona on December. Dr. Crowell was consulted in the ED and stated not to start heparin due to the increase risk of bleed without the ability to transfuse her unless troponin becomes more elevated or EKG changes. Will make patient NPO as Dr. Cardona may desire to do a PCI of the RCA while she is here. Qualifiers: Coronary Disease-Associated Artery/Lesion type: [place] artery [place] vs. transplanted heart: [place] heart Associated angina: with unstable angina Qualified Code(s): I25.110 - Atherosclerotic heart disease of [place] coronary artery with unstable angina pectoris (6) Hyperlipidemia Current Visit: Yes Status: Acute Assessment and plan: Continue atorvastatin Qualifiers: Hyperlipidemia type: unspecified Qualified Code(s): E78.5 - Hyperlipidemia , unspecified (7) DVT prophylaxis Current Visit: Yes Status: Acute Assessment and plan: Heparin SQ (8) Anemia Current Visit: No Status: Chronic Assessment and plan: Anemia likely 2/2 to B12 deficiency but is also on iron supplements. Stable. Qualifiers: Anemia type: B12 deficiency Vitamin B12 deficiency anemia type: other B12 deficiency Qualified Code(s): D51.8 - Other vitamin B12 deficiency anemias - Time Spent With Patient Total time spent is greater than 50% in coordination of care (as documented) at patient's floor/unit and/or counseling patient:
[2017-11-30] MEDS ORDERED: Acetaminophen 325 MG TABLET PO PRN (20:37)
[2017-11-30] MEDS ORDERED: Naloxone 0.4 MG/ML INJ IVP PRN (20:37)
[2017-11-30] MEDS ORDERED: Nitroglycerin 0.4 MG TAB.SUBL SL PRN (21:46)
[2017-11-30] MEDS: *HR* Heparin 5,000 UNIT/ML VIAL SQ SCH (23:20)
[2017-11-30] MEDS: traMADol 50 MG TABLET PO PRN (23:44)
--- NOTE | 2017-12-01 02:41 | Event Note ---
Date of Encounter: 12/01/17 Time of Encounter: 20:30 I saw and evaluated the patient. I reviewed the residents note and agree with findings and plan as documented in the residents note. Continue to monitor troponins, now 0.03 from 0.04. No further chest pain since before coming to the ER. Patient is a [employer], thus will not want transfusion if it was required. Patient is very hard of hearing as well. Patient has a split S2 (S4) heart sound on exam, which is likely her baseline given her age and thin frame. Patient also has some bruising on her forearm from her previous PCI procedure a few weeks ago.
[2017-12-01] MEDS: *HR* Heparin 5,000 UNIT/ML VIAL SQ SCH ×2 (06:24→17:00)
[2017-12-01 06:28] LABS: Basophils # 0.1 K/mcL (0.0-0.2); Basophils % 0.9 %; Eosinophils # 0.1 K/mcL (0.0-0.6); Eosinophils % 2.3 %; Hematocrit 34.9 % (35.3-44.9); Hemoglobin 11.5 g/dL (11.5-15.4); Immature Granulocytes % 0.4 % (0-4); Lymphocytes # 1.4 K/mcL (0.6-4.6); Lymphocytes % 24.7 %; Mean Corpuscular Hemoglobin 34.8 pg (28.0-33.3); Mean Corpuscular Volume 105.8 fL (83.0-100.0); Mean Platelet Volume 10.9 fL (9.4-12.4); Monocytes # 0.5 K/mcL (0.0-1.3); Monocytes % 8.8 %; Neutrophils # 3.5 K/mcL (1.6-8.9); Platelet Count 208 K/mcL (140-400); Red Cell Distribution Width 14.6 % (11.5-14.5); Segmented Neutrophils % 62.9 %
[2017-12-01 06:31] LABS: Prothrombin Time 11.2 Seconds (9.4-12.1)
[2017-12-01 06:44] LABS: Calcium 8.8 mg/dL (8.6-10.3); Magnesium 1.7 mg/dL (1.6-2.6); Phosphorous 2.7 mg/dL (2.7-4.5)
[2017-12-01 06:45] LABS: Troponin I 0.03 ng/mL (< 0.04)
[2017-12-01] MEDS: traMADol 50 MG TABLET PO PRN (08:01)
[2017-12-01] MEDS: Furosemide 20 MG TABLET PO SCH (08:02)
[2017-12-01] MEDS: Aspirin 81 MG TAB.CHEW PO SCH (08:02)
[2017-12-01] MEDS: Metoprolol XL (24 HR) Succ 25 MG TAB.ER.24H PO SCH (08:02)
--- NOTE | 2017-12-01 10:02 | Cardiology Consult Note ---
Date of Encounter: 12/01/17 Time of Encounter: 09:00 Assessment and Plan (1) Unstable angina Current Visit: Yes Status: Acute Presents with left-sided chest pain with radiation to left shoulder, resolved s/ p asa/NTG. Troponin 0.04, negative x3. ECG shows LBBB (known). Recent dx of ICMP, PCI to pLAD, recommended for staged PCI of RCA as outpatient. Continue asa, statin, BB, plavix, and nitrates. Given admission with recurrent chest pain, will plan for LHC with PCI today-- alternatives, risks, and benefits discussed, she is agreeable to proceed. Hx of IVP dye allergy, no issues with LHC earlier this month with medications ( Benadryl/Solu-medrol) given prior to procedure. Further recommendations to follow. (2) Systolic CHF with reduced left ventricular function, NYHA class 3 Current Visit: Yes Status: Acute Hx of ICMP, EF 25% s/p PCI to pLAD. Clinically appears euvolemic upon exam. Continue current medical therapy including asa, plavix, statin, BB, and lasix. Has not been on ACEi d/t CKD. Na/fluid restriction, strict I&O's, and daily weights. Re-assess LVEF 3 months after trial of GDMT and revascularization. (3) CAD (coronary artery disease) Current Visit: Yes Status: Chronic Hx of ICMP, s/p recent PCI to pLAD. Recommended for staged PCI of RCA, scheduled for early December. Given recurrent chest pain, will plan for LHC with PCI today. Continue asa, statin, BB. Qualifiers: Coronary Disease-Associated Artery/Lesion type: [place] artery [place] vs. transplanted heart: [place] heart Associated angina: with unstable angina Qualified Code(s): I25.110 - Atherosclerotic heart disease of [place] coronary artery with unstable angina pectoris (4) CKD (chronic kidney disease) stage 3, GFR 30-59 ml/min Current Visit: Yes Status: Chronic Hx of CKD. Kidney function within baseline. Discussion w patient/family: The assessment and plan as outlined above was discussed with the patient and/or family members who expressed understanding and agreement. All questions were answered. Thank you for involving us in the care of your patient. Please call with any questions. The patient will be discussed and reviewed with Dr. Liao; changes to be made accordingly. History of Present Illness Consult date: 12/01/17 Requesting physician: Jose Lopez Consult reason: Chest pain Chief complaint: Chest pain History of present illness: Ms. Alston is a 86 year old female with PMHx significant of DVT (resolved, off coumadin), GI bleed (2017), ICMP, CAD s/p recent PCI who presented to the ED via EMS with complaints of left-sided chest aching. Chest pain radiated to left shoulder/arm, lasted for several minutes which prompted her son to call EMS. Was given ASA/NTG in squad which resolved pain. Upon arrival to ED, ECG demonstrated LBBB (old) and mildly elevated troponin 0.04. She is chest pain free upon exam, denies any other symptoms including shortness of breath, leg edema, or leg edema. Prior CV testing: TTE 11/17/17: LVEF 25% LHC 11/17/17: s/p successful PCI to pLAD, recommended staged PCI to RCA (pRCA 60%, mRCA 80%, dRCA 50%); 80% OM. Past Med Surg Social Fam HX - Past Medical History Attestation: Yes The following information was validated with the patient. Source: patient Medical history: cardiomyopathy, coronary artery disease, DVT, hypertension, renal disease, other Additional medical history: vertigo, spinal stenosis Psychiatric history: no psych history - Past Surgical History Surgical History: angioplasty/stent, appendectomy, cholecystectomy, orthopedic, other, other Additional surgical history: TONSILECTOMY AND ADNOIDECTOMY, BILATERAL ROTATOR CUFF REPAIRS, RIGHT KNEE REPLACEMENT, LEFT SHOULDER REPLACEMENT, BILATERAL CARPAL TUNNEL SURGERIES, BILATERAL ANKLE SURGERIES, - Social History Smoking Status: Former smoker Smokeless Tobacco Status: No Alcohol use: none Drug use: none - Family History Father Family Member Ethnicity: Non- Living Status: Age at : 90 Hx Family Cardiac Disorders: No Hx Family Respiratory Disorders: No Hx Family Cancer: No Mother Family Member Ethnicity: Non- Living Status: Age at : 90 Hx Family Cardiac Disorders: Yes (Stroke) Hx Family Respiratory Disorders: No Hx Family Cancer: No Hx Family GI Disorders: No Hx Family Genitourinary Disorders: No Hx Family Endocrine Disorder: No Hx Family Musculoskeletal Disorders: No Hx Family Neuromuscular Disorders: No Hx Family Neurologic Disorders: Yes (CEREBRAL VASCULAR ACCIDENT.) Hx Family HEENT Disorders: No Hx Family Autoimmune Disorders: No Hx Family Reproductive Disorders: No Hx Family Psychosocial Disorders: No Hx Family Medical Disorders: No Sister Family Member Ethnicity: Non- Living Status: Still Living Hx Family GI Disorders: Yes (Gallbladder) Brother Family Member Ethnicity: Non- Living Status: Hx Family Neurologic Disorders: Yes Medications and Allergies Ferrous Sulfate 325 mg PO BIDWM #60 tablet 06/26/17 [Rx] Lisinopril [Zestril] 20 mg PO DAILY 07/12/17 [History] Omeprazole [PriLOSEC] 40 mg PO DAILY 07/12/17 [History] Tramadol HCl [Ultram] 50 mg PO BID PRN 11/14/17 [History] Aspirin 81 mg PO DAILY #30 tab.chew 11/18/17 [Rx] Atorvastatin [Lipitor] 80 mg PO HS #30 tablet 11/18/17 [Rx] Cefdinir [Omnicef] 300 mg PO DAILY #9 capsule 11/18/17 [Rx] Clopidogrel [Plavix] 75 mg PO DAILY #30 11/18/17 [Rx] Furosemide [Lasix] 20 mg PO DAILY #30 tablet 11/18/17 [Rx] Metoprolol XL (24 HR) Succ [Toprol Xl] 25 mg PO DAILY #30 tab.er.24h 11/18/17 [ Rx] 3 Allergy/AdvReac Type Severity Reaction Status Date / Time Iodinated Contrast- Oral and Allergy Chest Pain Verified 11/30/17 14:39 IV Dye Penicillins Allergy Rash Verified 11/30/17 14:39 All Systems Review: The remainder of the systems were reviewed and are negative - Cardiovascular Cardiovascular: as per HPI Physical Examination Vital Signs, Last 4 Hours Temp Pulse Resp BP Pulse Ox 12/01/17 06:58 98.1 F 74 16 133/75 98 General: Conversant, No Apparent Distress, Other (hard of hearing) Cardiac: Reg Rate and Rhythm, Normal S1 and S2 Lungs: Normal Breath Sounds Neuro: Alert and responsive Abdomen: Soft Skin: No rashes noted on visualized skin Musculoskeletal: No Chest Wall Tenderness Extremities: No Edema, Normal Pulses Results 12/01/17 05:51 12/01/17 05:51 Lab Results 12/01/17 12/01/17 12/01/17 05:51 05:51 05:51 WBC 5.6 Hgb 11.5 Hct 34.9 L Plt Count 208 INR 1.0 Sodium 139 Potassium 4.0 Chloride 109 H Carbon Dioxide 23 BUN 25 H Creatinine 1.12 Glucose 80 Calcium 8.8 Magnesium 1.7 Troponin I 0.03 Active Medications Acetaminophen (Tylenol) 650 mg PO Q6HR PRN PRN Reason: Mild Pain/Fever Stop: 06/01/18 20:38 Aspirin (Aspirin) 81 mg PO DAILY [facility] Stop: 06/02/18 09:01 Last Admin: 12/01/17 08:02 Dose: 81 mg Atorvastatin Calcium (Lipitor) 80 mg PO HS [facility] Stop: 06/02/18 21:01 Clopidogrel Bisulfate (Plavix) 75 mg PO DAILY [facility] Stop: 06/02/18 09:01 Last Admin: 12/01/17 08:02 Dose: 75 mg Ferrous Sulfate (Ferrous Sulfate) 325 mg PO BIDWM [facility] Stop: 06/02/18 08:01 Last Admin: 12/01/17 08:02 Dose: 325 mg Furosemide (Lasix) 20 mg PO DAILY [facility] Stop: 06/02/18 09:01 Last Admin: 12/01/17 08:02 Dose: 20 mg Heparin Sodium (Porcine) (Heparin) 5,000 unit SQ Q12HCO [facility] Stop: 06/01/18 21:16 Last Admin: 12/01/17 06:24 Dose: 5,000 unit Metoprolol Succinate (Toprol Xl) 25 mg PO DAILY [facility] Stop: 06/02/18 09:01 Last Admin: 12/01/17 08:02 Dose: 25 mg Naloxone HCl (Narcan) 0.4 mg IVP Q2MIN PRN PRN Reason: SEE COMMENTS Stop: 06/01/18 20:38 Nitroglycerin (Nitroglycerin) 0.4 mg SL Q5MIN PRN PRN Reason: Chest Pain Stop: 06/01/18 21:47 Omeprazole (Prilosec) 40 mg PO DAILY [facility] PRN Reason: Protocol Stop: 06/02/18 09:01 Last Admin: 12/01/17 08:02 Dose: 40 mg Tramadol HCl (Ultram) 50 mg PO BID PRN PRN Reason: Pain Stop: 06/01/18 22:44 Last Admin: 12/01/17 08:01 Dose: 50 mg - Imaging and Cardiology Echo: report reviewed Cardiac cath: report reviewed Other Results: 12 hour tele: avg HR=68 SR. No events noted. - EKG Interpretation EKG results cardiology: personally reviewed Consult Discharge Plan - Plan Referrals: El Carrillo DO [Primary Care Provider] - 12/06/17 1:15 pm ()
--- NOTE | 2017-12-01 10:19 | Internal Med Progress Note ---
Date of Encounter: 12/01/17 Time of Encounter: 10:18 - Assessment and plan (1) Elevated troponin Current Visit: No Status: Acute Assessment and plan: Initial troponin 0.04. Previous troponin's 0.05. Has not had a normal troponin in a year. Cardiology was consulted and recommended not starting her on a heparin drip unless EKG changes or jump in troponin. Recent echo this month. Continue with telemetry cardiology consult did anticipate left heart catheter this afternoon currently nothing by mouth (2) Anemia Current Visit: No Status: Chronic Assessment and plan: Anemia likely 2/2 to B12 deficiency but is also on iron supplements. Stable at this time. We will continue to monitor Qualifiers: Anemia type: B12 deficiency Vitamin B12 deficiency anemia type: other B12 deficiency Qualified Code(s): D51.8 - Other vitamin B12 deficiency anemias (3) Chest pain, rule out acute myocardial infarction Current Visit: Yes Status: Acute Assessment and plan: Cardiology consulted Patient to undergo left heart catheter today (4) CKD (chronic kidney disease) stage 3, GFR 30-59 ml/min Current Visit: Yes Status: Chronic Assessment and plan: Creatinine 1.12, which is at baseline. Will continue to monitor. Avoid nephrotoxins (5) DVT prophylaxis Current Visit: Yes Status: Acute Assessment and plan: Heparin SQ (6) Systolic CHF with reduced left ventricular function, NYHA class 3 Current Visit: Yes Status: Acute Assessment and plan: Recent Echo in November showed EF of 25%. Patient is currently euvolemic. CXR shows small bilateral plural effusions. -Currently no shortness of breath appears to be stable we will continue to monitor . Continue with Lasix Monitor intake and output daily weights (7) CAD (coronary artery disease) Current Visit: Yes Status: Chronic Assessment and plan: On 11/17/2017 she had a PCI ZO to the proximal LAD. She is to return for outpatient for staged PCI of RCA by Dr. Cardona on December-she was initiated on heparin due to increased risk of bleed patient is a Jehovah witness Patient is to undergo left heart catheter today. Qualifiers: Coronary Disease-Associated Artery/Lesion type: [place] artery [place] vs. transplanted heart: [place] heart Associated angina: with unstable angina Qualified Code(s): I25.110 - Atherosclerotic heart disease of [place] coronary artery with unstable angina pectoris (8) Hyperlipidemia Current Visit: Yes Status: Acute Assessment and plan: Continue atorvastatin Qualifiers: Hyperlipidemia type: unspecified Qualified Code(s): E78.5 - Hyperlipidemia , unspecified - Time Spent With Patient Total time spent is greater than 50% in coordination of care (as documented) at patient's floor/unit and/or counseling patient: - Subjective Interval history: patient seen and examoned at bedside, No cp or SOB scheduled for [facility] this afternoon - Constitutional Vitals: Temp Pulse Resp BP Pulse Ox 98.1 F 74 16 133/75 98 12/01/17 06:58 12/01/17 06:58 12/01/17 06:58 12/01/17 06:58 12/01/17 06:58 General appearance: Present: A&O X 3 - Head Head exam: Present: atraumatic, normocephalic - Eye Eye exam: Present: PERRL, conjuntiva pink, sclera anicteric Pupils: Present: PERRL - ENT Additional comments: [place] - Neck Neck exam general surgery: Present: supple, trachea midline. Absent: lymphadenopathy - Respiratory Respiratory exam: Present: CTAB. Absent: accessory muscle use, rales, rhonchi, wheezes - Cardiovascular Cardiovascular exam: Present: RRR, +S1, +S2. Absent: diastolic murmur, gallop, rubs, systolic murmur - GI/Abdominal GI/Abdominal exam: Present: normal bowel sounds, soft, no peritoneal signs. Absent: distended, tenderness - Extremities Exam Extremities exam: Present: warm, radial pulses palpable and symmetrical. Absent : calf tenderness, cyanotic, pedal edema - Neurological Exam Neurological exam: Present: CN II-XII intact, oriented X3, no focal deficits. Absent: pronater drift, facial droop, speech deficit - Skin Skin exam: Present: dry, intact Internal Medicine: Result - Labs CBC & Chem 7: 12/01/17 05:51 12/01/17 05:51 Labs: Short CBC 12/01/17 Range/Units 05:51 WBC 5.6 (4.3-11.1) K/mcL Hgb 11.5 (11.5-15.4) g/dL Hct 34.9 L (35.3-44.9) % Plt Count 208 (140-400) K/mcL Neutrophils # 3.5 (1.6-8.9) K/mcL BMP 12/01/17 05:51 Sodium 139 Potassium 4.0 Chloride 109 H Carbon Dioxide 23 BUN 25 H Creatinine 1.12 Glucose 80 Calcium 8.8 Cardiac Enzymes 12/01/17 Range/Units 05:51 Troponin I 0.03 (< 0.04) ng/mL - ABG Interpretation ABG results: PT/INR, D-dimer PT 11.2 Seconds (9.4-12.1) 12/01/17 05:51 Consult Discharge Plan - Plan Referrals: El Carrillo DO [Primary Care Provider] - 12/06/17 1:15 pm ()
[2017-12-01] MEDS ORDERED: D5% in Water 1,000 ML IVC PRN ×2 (13:27→13:35)
[2017-12-01] MEDS ORDERED: Dextrose Gel 15 GM/37.5 ML TUBE PO PRN ×4 (13:27→13:35)
[2017-12-01] MEDS ORDERED: *HR* Dextrose 50 % in Water (Syg) 50 ML SYRINGE IVP PRN ×2 (13:27→13:35)
[2017-12-01] MEDS ORDERED: 0.9 % Sodium Chloride 1,000 ML ONE ×2 (14:11→15:35)
[2017-12-01] MEDS ORDERED: *HR* Heparin 10,000 UNIT/10 ML VIAL ONE (14:12)
[2017-12-01] MEDS ORDERED: Heparin 1,000 UNITS/500 mL 500 ML ONE (14:12)
[2017-12-01] MEDS ORDERED: ISOVUE-370 200 ML INFUS..BTL IV ONE (14:12)
[2017-12-01] MEDS ORDERED: Nitroglycerin 1,000 MCG/10 ML VIAL IV ONE (14:32)
[2017-12-01] MEDS ORDERED: *HR* Midazolam HCl 2 MG/2 ML VIAL ONE (15:34)
[2017-12-01] MEDS ORDERED: *HR* FentaNYL (PF) 100 MCG/2 ML VIAL ONE (15:35)
[2017-12-01] MEDS ORDERED: methylPREDNISolone 125 MG/2 ML VIAL ONE (15:38)
[2017-12-01] MEDS ORDERED: Verapamil 5 MG/2 ML VIAL ONE (15:38)
--- NOTE | 2017-12-01 15:45 | Pre-Sedation Evaluation ---
Pre-sedation evaluation - Pre-sedation checklist Date of procedure: 12/01/17 Procedure: heart cath Recent Vitals: Last Vital Signs Temp 98.0 F 12/01/17 10:58 Pulse 72 12/01/17 10:58 Resp 15 12/01/17 10:58 BP 165/71 12/01/17 11:40 Pulse Ox 98 12/01/17 10:58 H&P (including ROS) documented in medical record: Yes Previous reaction to sedatives/anesthetics: No Dietary Status: NPO after Midnight Dentition: dentures removed ASA Classification *see protocol: CLASS II-Mild systemic disease Plan of Care: Pt appropriate candidate for procedure/moderate/conscious sedation , Risks/benefits of procedure/sedation discussed w/ patient/family
[2017-12-01] MEDS ORDERED: Ondansetron 4 MG/2 ML VIAL IVP PRN (16:45)
--- NOTE | 2017-12-01 17:19 | Invasive Diagnostic Lab Proc ---
Name: Jennifer Alston Date of Study: 12/01/2017 Date: 1930 Ht: 64.2in Medical Record#: [id number] Age: 86 Wt: 110.23lb Gender: Female BSA: 1.52 Order #: [id number] BMI: 18.82 Physicians Procedure Physician: Jas Cardona MD, FACC Referring MD: Referring MD: Staff Name Position Time In Emely Yves RN Monitor 03:38 PM Samuel Noonan RN Metal Weather Stripper 03:39 PM Alexis Spear RT (R) Scrub 03:39 PM Indications Indication Unstable Angina Procedures Performed Procedure PRQ CARD ZO STENT W/ANGIO 1 VSL L HRT ARTERY/VENTRICLE ANGIO PRQ CARD STENT W/ANGIO ADDL Pre-Procedure Checklist Informed consent is complete signed and on chart. H&P is on chart. ID band is on and ID verified with patient. Patient NPO for procedure The procedure was described for the patient and questions were answered. ECG is on chart. Rhythm: NSR Plan of Care Patient will tolerate the procedure without complications. Adequate level of comfort will be maintained. Hemodynamics will remain stable Patient will recover from procedure without complications. Respiratory function will be maintained. Cardiac rhythm will remain stable. Patient temperature will be maintained. Patient and/or family have verbalized understanding of the procedure. Patient Education Chief Complaint/Reason for Test: PCI Developmental Category: Geriatric (65+ years) Developmentally Appropriate for Age: Yes Learning Barriers: None Education Needs: Procedure Education Method: Verbal Information Taught: PCI Educational Evaluation: Able to repeat information Intravenous Access Time IV Size Location DC'd Fluid/Drip Rate Units RN 22g 1" Patent On Arrival Lt Arm 0.9NaCl 25 ml/hr Allergies PCN,PLAVIX,VICODIN,IVP DYE,NEURONTIN,PERCOCET Contrast Media, Iodine Related Acetaminophen Oxycodone Hydrocodone Vital Signs Time BP (mmHg) HR (bpm) O2 Sat. RR (bpm) LOC 03:42 PM / % 5 = Fully awake and oriented or at pre-proc level 03:42 PM / % 4 = Oriented but drowsy 03:57 PM / % 4 = Oriented but drowsy 04:12 PM / % 4 = Oriented but drowsy 04:27 PM / % 4 = Oriented but drowsy 03:46 PM 107 / 68 92 88 % 03:51 PM 163 / 86 93 100 % 03:56 PM 155 / 78 84 100 % 04:01 PM 130 / 68 82 98 % 04:06 PM 132 / 63 83 97 % 04:11 PM 147 / 69 85 99 % 04:16 PM 148 / 66 77 100 % 04:21 PM 149 / 66 75 99 % 04:26 PM 147 / 70 73 99 % 04:31 PM 148 / 66 75 100 % 04:36 PM 139 / 60 74 100 % 04:41 PM 139 / 70 75 100 % Procedural Medications Time Medication Dose Units Method Given By 03:42 PM Oxygen 2 L/min nasal cannula Samuel Noonan RN 03:46 PM Solu-medrol 125 mg Intravenous Samuel Noonan RN 03:46 PM Benadryl 50 mg Intravenous Samuel Noonan RN 03:51 PM Versed 1 mg Intravenous Samuel Noonan RN 03:52 PM Fentanyl 25 mcg Intravenous Samuel Noonan RN 03:56 PM Lidocaine 2% 0.5 ml Subcutaneous Jas Cardona MD, [facility] 04:02 PM Nitroglycerin 100 mcg Intraarterial Jas Cardona MD 04:07 PM Versed 1 mg Intravenous Samuel Noonan RN 04:16 PM Nitroglycerin 200 mcg Intraarterial Jas Cardona MD 04:24 PM Heparin 2000 units Intravenous Samuel Noonan RN 04:34 PM Nitroglycerin 200 mcg Intraarterial Jas Cardona MD 04:48 PM Plavix 300 mg Orally Samuel Noonan RN 03:57 PM Heparin 4000 units Nitroglycerin 200 mcg Verapamil 2.5 mg Intraarterial Jas Cardona MD, [facility] ASA Classification: CLASS II- Mild systemic disease (i.e. well-controlled diabetes, hypertension, asthma, cigarette smoking) Eliud Score Preprocedure Postprocedure Activity 2- Moves 4 extremities sustained head lift Activity 2- Moves 4 extremities sustained head lift Circulation 2- SBP +/= 20 points of pre-anesthetic level Circulation 2- SBP +/= 20 points of pre-anesthetic level Consciousness 2- Awake and alert oriented x 3 Consciousness 2- Awake and alert oriented x 3 O2 Saturation 2- Able to maintain O2 satruation of 92% on room air O2 Saturation 2- Able to maintain O2 satruation of 92% on room air Respiratory 2- Able to deep breathe and cough well Respiratory 2- Able to deep breathe and cough well Total Score 10 Total Score 10 Contrast Agent: Isovue Diagnostic Contrast: 126 ml Total Contrast: 126 ml Fluoro Dose: 2911 mGy Activated Clotting Time Time Seconds to Clot 04:24 PM 228 Procedure Log Time Note Enter By 03:38 PM Pt arrived to cork slabs sawyer 2 at 15:38 csmith 03:39 PM Yves Han RN Position: Monitor Time in: 15:38 csmith 03:39 PM Samuel Noonan RN Position: Metal Weather Stripper Time in: 15:39 csmith 03:39 PM Alexis Spear RT (R) Position: Scrub Time in: 15:39 csmith 03:39 PM Patient charges- Angio tray pack, Navilyst 3mm J, Pulse Oximetry and ACIST tubing and transducer csmith 03:41 PM CathStat 03:41 PM Physician arrived 15:41 csmith 03:41 PM Meet and greet completed csmith 03:41 PM Sign in performed according to hospital policy. csmith 03:41 PM Procedure start 15:41 csmith 03:41 PM Time: 15:41 Patient comfortable and pain free: Yes csmith 03:42 PM Time: 15:42LOC: 5 = Fully awake and oriented or at pre-proc level csmith 03:42 PM Time: 15:42 Oxygen on at 2 L/min per nasal cannula by Samuel Noonan RN csmith 03:45 PM Vitals capture started with the following parameters, Patient=Adult, Interval=5 min, Initial Hjxgyabk=775 mmHg, Deflation Rate=5 mmHg, Cuff placed on Right Arm 03:46 PM Time: 15:46 Solu-medrol 125 mg Intravenous Given by Samuel Noonan RN csmith 03:46 PM Time: 15:46 Benadryl 50 mg Intravenous Given by Samuel Noonan RN csmith 03:46 PM HR=92 bpm, XXGI=510/68 mmhg, SpO2=88.0 %, Comment=nsr 03:51 PM HR=93 bpm, BVIE=262/86 mmhg, MhQ4=055.0 %, Comment=nsr 03:52 PM Time: 15:51 Versed 1 mg Intravenous Given by Samuel Noonan RN csmith 03:52 PM Time: 15:52 Fentanyl 25 mcg Intravenous Given by Samuel Noonan RN csmith 03:53 PM ASA Class CLASS II- Mild systemic disease (i.e. well-controlled diabetes, hypertension, asthma, cigarette smoking) csmith 03:54 PM Clinical Presentation: Unstable angina csmith 03:54 PM Time out performed according to hospital policy csmith 03:56 PM HR=84 bpm, WDZG=682/78 mmhg, OaE5=201.0 %, Comment=nsr 03:56 PM Time: 15:56 0.5 ml Lidocaine 2% to right radial Subcutaneous Given by Jas Cardona MD, [facility] csmith 03:56 PM Access obtained by percutaneous puncture. 5Fr 11cm Terumo Glidesheath sheath placed in right Radial artery. [id number] csmith 03:57 PM Time: 15:41 Patient comfortable and pain free: Yes csmith 03:57 PM Time: 15:42LOC: 4 = Oriented but drowsy csmith 03:57 PM Time: 15:57 Patient given 4,000 units Heparin, 200 mcg Nitroglycerin, and 2.5 mg Verapamil Intraarterial by Jas Cardona MD, [facility]. This is given to reduce risk of vessel spasm and thrombosis. csmith 03:58 PM PCI Status Elective csmith 03:59 PM 5Fr JR 4 Convey guide catheter was used to cannulate the PCI vessel successfully. reused? No csmith 03:59 PM .014 Whitaker 190cm guide wire across target lesion- successful. reused? No csmith 03:59 PM Inflation device was opened. csmith 04:00 PM 0.035 150cm VSI Jackson-Torque wire [id number] csmith 04:01 PM Recorded Pressure: Ao, HR=83, Condition=Condition 1 (Aorta) Ao 107/53/76 04:01 PM HR=82 bpm, RVAB=865/68 mmhg, SpO2=98.0 %, Comment=nsr 04:02 PM Time: 16:02 Nitroglycerin 100 mcg Intraarterial Given by Jas Cardona MD csmith 04:05 PM RCA angiography performed in multiple views. csmith 04:06 PM HR=83 bpm, QXBK=045/63 mmhg, SpO2=97.0 %, Comment=nsr 04:07 PM Time: 16:07 Versed 1 mg Intravenous Given by Samuel Noonan RN csmith 04:07 PM Lesion found in Proximal RCA. Pre Stenosis: 60 Pre JOSE DAVID Flow: 3 csmith 04:08 PM Right Coronary, Right Posterior Descending Arteries with Right Posterolateral and Acute Marginal branches with 80 % stenosis. If graft is supplying this area, 0 % stenosis csmith 04:08 PM Coronary Dominance: right csmith 04:08 PM 2.25mm x 12mm Synergy drug-eluting stent across target lesion- successful Lot #[id number] csmith 04:10 PM Stent deployed @ 15 junie for 30 seconds csmith 04:11 PM Stent delivery system removed intact. csmith 04:11 PM HR=85 bpm, KHBQ=625/69 mmhg, SpO2=99.0 %, Comment=nsr 04:12 PM Time: 15:57 Patient comfortable and pain free: Yes csmith 04:12 PM Time: 15:57LOC: 4 = Oriented but drowsy csmith 04:12 PM Pressure channel 1 zeroed. 04:12 PM Recorded Pressure: LV, HR=82, Condition=Condition 1 (Left Ventricle) LV 158/10/25 04:13 PM Recorded Pressure: LV, Ao, HR=81, Condition=Condition 1 (Left Ventricle) LV 161/10/25, (Aorta) Ao 159/94/122 04:13 PM Recorded Pressure: Ao, HR=80, Condition=Condition 1 (Aorta) Ao 154/82/112 04:14 PM 5Fr FL3.5 catheter inserted over the wire [id number] csmith 04:14 PM Catheter selectively placed in left ventricle csmith 04:14 PM Bolus angiogram of left Ventricle complete: 12 ml/sec for a total of 30 mls csmith 04:14 PM Catheter removed csmith 04:15 PM 4Fr FL 4 catheter inserted over the wire DNC csmith 04:15 PM Pt having radial spasm per Dr. Cardona csmith 04:16 PM HR=77 bpm, YYJS=855/66 mmhg, ElO3=258.0 %, Comment=nsr 04:16 PM Time: 16:16 Nitroglycerin 200 mcg Intraarterial Given by Jas Cardona MD csmith 04:16 PM LCA angiography performed in multiple views. csmith 04:17 PM Lesion found in 1st Marginal. Pre Stenosis: 80 Pre JOSE DAVID Flow: 3: Complete and Brisk Flow/Perfusion csmith 04:18 PM Lesion found in Mid RCA. Pre Stenosis: 80 Pre JOSE DAVID Flow: 3: Complete and Brisk Flow/Perfusion csmith 04:18 PM Lesion found in Distal RCA. Pre Stenosis: 50 Pre JOSE DAVID Flow: csmith 04:20 PM Circumflex, Obtuse Marginal, Left Posterior Descending, and Left Posterolateral Coronary Arteries with 80 % stenosis. If graft is supplying this area, 0 % stenosis csmith 04:21 PM HR=75 bpm, USNB=578/66 mmhg, SpO2=99.0 %, Comment=nsr 04:22 PM Catheter removed csmith 04:22 PM 5Fr RBL 3.5 Convey guide catheter was used to cannulate the PCI vessel successfully. reused? No csmith 04:22 PM Recorded Pressure: Ao, HR=75, Condition=Condition 1 (Aorta) Ao 150/76/107 04:24 PM At 16:24 the ACT was 228 seconds. csmith 04:24 PM Time: 16:24 Heparin 2000 units Intravenous Given by Samuel Noonan RN csmith 04:25 PM .014 Prowater 180cm guide wire across target lesion- successful. reused? No csmith 04:26 PM HR=73 bpm, VHFO=423/70 mmhg, SpO2=99.0 %, Comment=nsr 04:27 PM Time: 16:12 Patient comfortable and pain free: Yes csmith 04:27 PM reshaping prowater wire csmith 04:27 PM Time: 16:12LOC: 4 = Oriented but drowsy csmith 04:31 PM HR=75 bpm, AFWH=134/66 mmhg, ZmX0=466.0 %, Comment=nsr 04:32 PM 2.0 mm x 12 mm Emerge Monorail balloon across target lesion- successful. reused? No csmith 04:32 PM Recorded Pressure: Ao, HR=75, Condition=Condition 1 (Aorta) Ao 134/82/107 04:33 PM Balloon inflated @ 14 junie for 17 seconds csmith 04:34 PM Time: 16:34 Nitroglycerin 200 mcg Intraarterial Given by Jas Cardona MD csmith 04:36 PM HR=74 bpm, ZIWE=307/60 mmhg, GqQ9=207.0 %, Comment=nsr 04:36 PM Balloon catheter removed intact. csmith 04:37 PM 2.25mm x 12mm Synergy drug-eluting stent across target lesion- successful Lot #[id number] csmith 04:38 PM Stent deployed @ 15 junie for 24 seconds csmith 04:39 PM Stent delivery system removed intact. csmith 04:41 PM HR=75 bpm, OVZX=637/70 mmhg, NuQ6=389.0 %, Comment=nsr 04:41 PM Guide wire removed intact. csmith 04:41 PM Guide catheter removed intact. csmith 04:42 PM Time: 16:27 Patient comfortable and pain free: Yes csmith 04:43 PM Time: 16:27LOC: 4 = Oriented but drowsy csmith 04:43 PM Procedure completed at 16:43 12/01/2017 csmith 04:45 PM Did you address JOSE DAVID flow and Dominance? Yes csmith 04:46 PM Sign out completed: Radiation Dose 410 mGy 2911 mGycm2 Fluoro Time: 13.2 Isovue 370 - 200ml contrast 126 ml given by Jas Cardona MD, [facility]. Complications: NoneCardiac Rehab Consult needed: YesConfirmed administered medications: Yes csmith 04:46 PM Isovue 370 - 200ml,1 Bottle(s) used. csmith 04:46 PM Arterial sheath pulled, Vasc Band closure device used and was Successful S/N. csmith 04:46 PM 11 ml air in Vasc Band. csmith 04:46 PM Estimated Blood Loss: minimal csmith 04:46 PM Post ECG NSR csmith 04:46 PM Vitals capture stopped. 04:46 PM Post Blood Pressure 139/70 csmith 04:46 PM 16:46 Post Pulses Bilateral DP & PT 2+ csmith 04:47 PM Information taught Cardiac Cath, PCI, and Vasc Band csmith 04:47 PM Education needs Procedure, Plan of Care, and Responsibilities of Patient in Care csmith 04:47 PM Learning barriers :None csmith 04:47 PM Education Methods Verbal csmith 04:48 PM What is the NYHA Class? Class 2 csmith 04:48 PM Education evaluation Able to repeat information csmith 04:48 PM Site status No bleeding/hematoma - Rt Wrist as reported by Alexis Spear RT (R) at 16:48 csmith 04:49 PM Time: 16:48 Plavix 300 mg Orally Given by Samuel Noonan RN csmith 04:53 PM Report given to Taras KERR Pt taken to 3B Room #13. 16:53 csmith 04:53 PM Plavix, Effient or Brilinta given Yes csmith 04:53 PM Patient out of room: 16:53 csmith 04:54 PM Family placed in consult room. csmith 04:54 PM Complications: None csmith 04:54 PM Fluoro Time: 13.2 csmith 04:54 PM Isovue 370 - 200ml contrast 126 ml given by Jas Cardona. csmith 04:54 PM Radiation Dose 410 mGy csmith 04:57 PM Time: 16:42 Patient comfortable and pain free: Yes csmith 04:59 PM Lesion found in Proximal Circumflex. Pre Stenosis: 60 Pre JOSE DAVID Flow: csmith Complications Complication None None Hemodynamics Pressures Site Systolic/A Wave Diastolic/V Wave Mean AO 107 53 76 LV 158 10 25 AO 154 82 112 AO 150 76 107 AO 134 82 107 LV 161 10 25 AO 159 94 122 Post Procedure Information Blood Pressure: 139/70 mmHg Rhythm: NSR Post procedural instructions were given Closure Device Time Device Success/Fail 12/01/2017 4:45:00 PM Mechanical Compression Successful Site Checks Time Location Status Staff Sheath In? Note 04:48 PM Rt Wrist No bleeding/hematoma Alexis Spear RT (R) Pulses Time Site Pre-Procedure Post-Procedure Note Bilateral DP & PT 2+ Bilateral radial 2+ 4:46:00 PM Bilateral DP & PT 2+ Updated by Samuel Noonan RN on 12/01/2017 5:10:51 PM electronically signed on 12/01/2017 5:11:33 PM with status of Final
--- NOTE | 2017-12-01 18:23 | Electrocardiograph Report ---
[place] [id number] Test Date: 2017-11-30 Pat Name: Jennifer Alston Department: 104 Room: 3B13 Gender: F Safety Instructor: : 1930 Requested By: Rashid Trujillo Order Number: [id number] Reading MD: Jas Cardona Measurements Intervals [place] Rate: 83 P: 21 IA: 199 QRS: -49 QRSD: 165 T: 104 QT: 427 QTc: 467 Interpretive Statements SINUS RHYTHM MARKED LEFT AXIS DEVIATION LEFT BUNDLE BRANCH BLOCK Electronically Signed On 12-01-2017 18:21:46 EDT by Jas Cardona
--- NOTE | 2017-12-01 18:40 | Electrocardiograph Report ---
[place] [id number] Test Date: 2017-12-01 Pat Name: Jennifer Alston Department: 113 Room: 3B13 Gender: F Carpenter Assistant: : 1930 Requested By: Amanda Cox Order Number: [id number] Reading MD: Jas Cardona Measurements Intervals [place] Rate: 73 P: 7 [place]: 176 QRS: -45 QRSD: 150 T: 98 QT: 454 QTc: 479 Interpretive Statements SINUS RHYTHM MARKED LEFT AXIS DEVIATION LEFT BUNDLE BRANCH BLOCK BASELINE ARTIFACT Electronically Signed On 12-01-2017 18:38:24 EDT by Jas Cardona
[2017-12-02] MEDS: *HR* Heparin 5,000 UNIT/ML VIAL SQ SCH (04:58)
[2017-12-02 04:59] LABS: Basophils % 0.3 %; Hematocrit 34.2 % (35.3-44.9); Hemoglobin 11.4 g/dL (11.5-15.4); Immature Granulocytes % 1.3 % (0-4); Lymphocytes # 0.6 K/mcL (0.6-4.6); Lymphocytes % 15.6 %; Mean Corpuscular HGB Conc 33.3 g/dL (31.6-35.5); Mean Corpuscular Hemoglobin 34.4 pg (28.0-33.3); Mean Corpuscular Volume 103.3 fL (83.0-100.0); Mean Platelet Volume 10.9 fL (9.4-12.4); Monocytes # 0.1 K/mcL (0.0-1.3); Monocytes % 1.8 %; Neutrophils # 3.1 K/mcL (1.6-8.9); Platelet Count 199 K/mcL (140-400); Red Blood Count 3.31 M/mcL (3.82-4.97); Red Cell Distribution Width 14.6 % (11.5-14.5)
[2017-12-02 05:02] LABS: Calcium 8.8 mg/dL (8.6-10.3); Potassium 4.2 mEq/L (3.5-5.1)
[2017-12-02 05:41] LABS: Platelet Estimate Normal (Normal); Reactive Lymphocytes Present (Not Present); Toxic Granulation Present (Not Present)
[2017-12-02] MEDS ORDERED: 0.9 % Sodium Chloride 1,000 ML IVC SCH (07:15)
[2017-12-02] MEDS: Aspirin 81 MG TAB.CHEW PO SCH (08:00)
[2017-12-02] MEDS: Furosemide 20 MG TABLET PO SCH (08:00)
[2017-12-02] MEDS: Metoprolol XL (24 HR) Succ 25 MG TAB.ER.24H PO SCH (08:00)
[2017-12-02] MEDS: traMADol 50 MG TABLET PO PRN (08:10)
[2017-12-02] MEDS ORDERED: Isosorbide MONOnitrate (24 HR) 30 MG TAB.ER.24H PO SCH (09:00)
--- NOTE | 2017-12-02 10:25 | Cardiology Progress Note ---
Date of Encounter: 12/02/17 Time of Encounter: 10:00 Assessment and Plan (1) Unstable angina Current Visit: Yes Status: Acute Presents with left-sided chest pain with radiation to left shoulder, resolved s/ p asa/NTG. Troponin 0.04, negative x3. ECG shows LBBB (known). 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 [facility] 12/01: s/p successful PCI to mRCA and 1st OM. Importance of uninterrupted DAPT (asa + plavix) discussed, pt. verbalized understanding. No issues overnight, denies chest pain. No issues with right radial cath site. Of note, patient has home health care services. Continue asa, statin, BB, plavix, and nitrates. Cardiac rehab. Cardiology will sign-off, will coordinate outpatient f/u. (2) Systolic CHF with reduced left ventricular function, NYHA class 3 Current Visit: Yes Status: Acute Hx of ICMP, EF 25% s/p PCI to pLAD. PCI to RCA, OM on 12/01. Clinically appears euvolemic upon exam. Continue current medical therapy including asa, plavix, statin, BB, and lasix. Has not been on ACEi d/t CKD. Na/fluid restriction, strict I&O's, and daily weights. Re-assess LVEF 3 months after trial of GDMT and revascularization. (3) CAD (coronary artery disease) Current Visit: Yes Status: Chronic Hx of ICMP, s/p recent PCI to pLAD. Plan as above. Continue asa, statin, BB. Qualifiers: Coronary Disease-Associated Artery/Lesion type: [place] artery [place] vs. transplanted heart: [place] heart Associated angina: with unstable angina Qualified Code(s): I25.110 - Atherosclerotic heart disease of [place] coronary artery with unstable angina pectoris (4) CKD (chronic kidney disease) stage 3, GFR 30-59 ml/min Current Visit: Yes Status: Chronic Hx of CKD. Kidney function within baseline. Discussion w patient/family: The assessment and plan as outlined above was discussed with the patient and/or family members who expressed understanding and agreement. All questions were answered. Thank you for involving us in the care of your patient. Please call with any questions. The patient will be discussed and reviewed with Dr. Liao; changes to be made accordingly. Subjective Principal diagnosis: Unstable angina Interval history: Seen and examined. No complaints today upon exam other than chronic left arm soreness-- reproducible with movement. No chest pain reported. No issues with right radial cath site. Objective Vital Signs, Last 4 Hours Temp Pulse Resp BP Pulse Ox 12/02/17 07:14 97.9 F 65 17 125/54 98 General: Conversant, No Apparent Distress, Other (frail, elderly, [place]) HEENT: Atraumatic, Normocephaly, Mucus Membranes Moist Cardiac: Reg Rate and Rhythm, Normal S1 and S2 Lungs: Normal Breath Sounds Neuro: Alert and responsive Abdomen: Soft Skin: No rashes noted on visualized skin Musculoskeletal: No Chest Wall Tenderness Extremities: No Edema, Normal Pulses Other: right radial cath site: dressing C/D/I, no hematoma noted. Brisk cap refill. Results 12/02/17 03:20 12/02/17 03:20 Lab Results 12/02/17 12/02/17 03:20 03:20 WBC 3.8 L Hgb 11.4 L Hct 34.2 L Plt Count 199 Sodium 135 L Potassium 4.2 Chloride 106 Carbon Dioxide 22 L BUN 25 H Creatinine 1.24 H Glucose 136 H Calcium 8.8 Active Medications Acetaminophen (Tylenol) 650 mg PO Q6HR PRN PRN Reason: Mild Pain/Fever Stop: 06/01/18 20:38 Aspirin (Aspirin) 81 mg PO DAILY FÁTMIA Stop: 06/02/18 09:01 Last Admin: 12/02/17 08:00 Dose: 81 mg Atorvastatin Calcium (Lipitor) 80 mg PO HS FÁTIMA Stop: 06/02/18 21:01 Last Admin: 12/01/17 19:41 Dose: 80 mg Clopidogrel Bisulfate (Plavix) 75 mg PO DAILY FÁTIMA Stop: 06/02/18 09:01 Last Admin: 12/02/17 08:00 Dose: 75 mg Dextrose/Water (Dextrose 50% (Syg)) 25 ml IVP AD PRN PRN Reason: Hypoglycemia Stop: 06/02/18 13:36 Diphenhydramine HCl (Benadryl) 25 mg PO HS PRN PRN Reason: Insomnia Stop: 06/02/18 16:46 Ferrous Sulfate (Ferrous Sulfate) 325 mg PO BIDWM FÁTIMA Stop: 06/02/18 08:01 Last Admin: 12/02/17 08:00 Dose: 325 mg Furosemide (Lasix) 20 mg PO DAILY FÁTIMA Stop: 06/02/18 09:01 Last Admin: 12/02/17 08:00 Dose: 20 mg Glucagon (Glucagen) 1 mg IM ONCE PRN PRN Reason: Hypoglycemia Stop: 06/02/18 13:36 Glucose (Gluctose) 15 gm PO ONCE PRN PRN Reason: Hypoglycemia Stop: 06/02/18 13:36 Glucose (Gluctose) 30 gm PO ONCE PRN PRN Reason: Hypoglycemia Stop: 06/02/18 13:36 Heparin Sodium (Porcine) (Heparin) 5,000 unit SQ Q12HCO [facility] Stop: 06/01/18 21:16 Last Admin: 12/02/17 04:58 Dose: 5,000 unit Dextrose (Dextrose 5%) 1,000 mls @ 100 mls/hr IVC .Q10H PRN PRN Reason: HYPOGLYCEMIA Stop: 06/02/18 13:36 Isosorbide Mononitrate (Imdur) 30 mg PO DAILY [facility] Stop: 06/03/18 09:01 Last Admin: 12/02/17 08:00 Dose: 30 mg Metoprolol Succinate (Toprol Xl) 25 mg PO DAILY [facility] Stop: 06/02/18 09:01 Last Admin: 12/02/17 08:00 Dose: 25 mg Naloxone HCl (Narcan) 0.4 mg IVP Q2MIN PRN PRN Reason: SEE COMMENTS Stop: 06/01/18 20:38 Nitroglycerin (Nitroglycerin) 0.4 mg SL Q5MIN PRN PRN Reason: Chest Pain Stop: 06/01/18 21:47 Omeprazole (Prilosec) 40 mg PO DAILY FÁTIMA PRN Reason: Protocol Stop: 06/02/18 09:01 Last Admin: 12/02/17 08:00 Dose: 40 mg Ondansetron HCl (Zofran) 4 mg IVP Q6HR PRN; Protocol PRN Reason: Nausea And Vomiting Stop: 06/02/18 16:46 Tramadol HCl (Ultram) 50 mg PO BID PRN PRN Reason: Pain Stop: 06/01/18 22:44 Last Admin: 12/02/17 08:10 Dose: 50 mg - Imaging and Cardiology Echo: report reviewed Cardiac cath: report reviewed Other Results: 12 hour tele: avg HR=62 SR. - EKG Interpretation EKG results cardiology: personally reviewed Consult Discharge Plan - Plan Referrals: El Carrillo DO [Primary Care Provider] - 12/06/17 1:15 pm ()
[2017-12-02 11:36] VITALS: BP 108/49
--- NOTE | 2017-12-02 11:59 | Discharge Summary ---
- NOTES TO OUTPATIENT PROVIDER Notes to Outpatient Provider: Patient underwent cardiac catheter with successful PCI to an RCA and first OM patient will be on aspirin and Plavix beta lewis and nitrates statin cardiac rehabilitation follow-up with cardiology Orders not resulted at time of discharge: Pending orders 12/01/17 11:07 CL Cardiac Catheterization [CL] Routine 12/01/17 16:46 ECG 12 lead ECG [ECG] Stat 12/02/17 06:00 ECG 12 lead ECG [ECG] AM 0600 Date of Encounter: 12/02/17 Time of Encounter: 11:57 - Discharge Diagnosis (1) Elevated troponin Priority: Primary Status: Acute (2) Anemia Priority: Secondary Status: Chronic Qualifiers: Anemia type: B12 deficiency Vitamin B12 deficiency anemia type: other B12 deficiency Qualified Code(s): D51.8 - Other vitamin B12 deficiency anemias (3) Chest pain, rule out acute myocardial infarction Priority: Primary Status: Acute (4) CKD (chronic kidney disease) stage 3, GFR 30-59 ml/min Priority: Secondary Status: Chronic (5) Systolic CHF with reduced left ventricular function, NYHA class 3 Priority: Secondary Status: Acute (6) CAD (coronary artery disease) Priority: Secondary Status: Chronic Qualifiers: Coronary Disease-Associated Artery/Lesion type: [place] artery [place] vs. transplanted heart: [place] heart Associated angina: with unstable angina Qualified Code(s): I25.110 - Atherosclerotic heart disease of [place] coronary artery with unstable angina pectoris (7) Hyperlipidemia Priority: Secondary Status: Acute Qualifiers: Hyperlipidemia type: unspecified Qualified Code(s): E78.5 - Hyperlipidemia , unspecified Hospital course: Ms. Alston is a 86 year old female past medical history of DVT resolved off Coumadin GI bleed 2017 I [place] CAD status post recent PCI presented to the ED with complaints of left-sided chest aching. Chest pain radiating to left shoulder and arm lasted for several minutes which prompted her son called EMS pain was resolved with nitroglycerin EKG did demonstrate left bundle branch block which was old and a mildly elevated troponin. She was seen by cardiology and underwent LHC with PCI to MRCA and first OM-he did previously undergone catheter on December 17 with PCI. Patient tolerated procedure well. No chest pain cardiology enforcing the importance of uninterrupted DAPT-patient is to receive home health services. Advised patient to continue aspirin and statin beta lewis Plavix and nitrates follow-up in cardiac rehabilitation as well as cardiology and primary care provider since these providers know her best and can adjust medications accordingly. Patient verbalized understanding. She is hemodynamically stable at this time and ready for discharge. - Time Spent with Patient Total time spent providing and/or coordinating discharge services: - Discharge Medications Home Medications: Ferrous Sulfate 325 mg PO BIDWM #60 tablet 06/26/17 [Rx] Lisinopril [Zestril] 20 mg PO DAILY 07/12/17 [History] Omeprazole [PriLOSEC] 40 mg PO DAILY 07/12/17 [History] Tramadol HCl [Ultram] 50 mg PO BID PRN 11/14/17 [History] Aspirin 81 mg PO DAILY #30 tab.chew 11/18/17 [Rx] Atorvastatin [Lipitor] 80 mg PO HS #30 tablet 11/18/17 [Rx] Clopidogrel [Plavix] 75 mg PO DAILY #30 11/18/17 [Rx] Furosemide [Lasix] 20 mg PO DAILY #30 tablet 11/18/17 [Rx] Metoprolol XL (24 HR) Succ [Toprol Xl] 25 mg PO DAILY #30 tab.er.24h 11/18/17 [ Rx] Zolpidem [Ambien] 10 mg PO HS 12/01/17 [History] Allergies/Adverse Reactions: 3 Allergy/AdvReac Type Severity Reaction Status Date / Time Iodinated Contrast- Oral and Allergy Chest Pain Verified 11/30/17 14:39 IV Dye Penicillins Allergy Rash Verified 11/30/17 14:39 Date of admission: 11/30/17 22:47 Primary care physician: El Carrillo, Consults: 12/01/17 08:13 Consult to Nurse Navigator [CONS] Routine Comment: CHF Discharging clinician: Irena Bah Anticipated date of discharge: 12/02/17 - Constitutional Vitals: Temp Pulse Resp BP Pulse Ox 98.5 F 63 17 108/49 96 12/02/17 11:33 12/02/17 11:33 12/02/17 11:33 12/02/17 11:33 12/02/17 11:33 General appearance: Present: A&O X 3 - Head Head exam: Present: atraumatic, normocephalic - Eye Eye exam: Present: PERRL, conjuntiva pink, sclera anicteric Pupils: Present: PERRL - Neck Neck exam general surgery: Present: supple, trachea midline. Absent: lymphadenopathy - Respiratory Respiratory exam: Present: CTAB. Absent: accessory muscle use, rales, rhonchi, wheezes - Cardiovascular Cardiovascular exam: Present: RRR, +S1, +S2. Absent: diastolic murmur, gallop, rubs, systolic murmur - GI/Abdominal GI/Abdominal exam: Present: normal bowel sounds, soft, no peritoneal signs. Absent: distended, tenderness - Extremities Exam Extremities exam: Present: warm, radial pulses palpable and symmetrical. Absent : calf tenderness, cyanotic, pedal edema - Neurological Exam Neurological exam: Present: CN II-XII intact, oriented X3, no focal deficits. Absent: pronater drift, facial droop, speech deficit - Skin Skin exam: Present: dry, intact - Patient Status Disposition: Home Health Service Condition: Fair - Discharge Instructions Follow Up With: El Carrillo DO [Primary Care Provider] - 12/06/17 1:15 pm () Additional Instructions: Follow-up with cardiology- cardiac rehabilitation - Diet and Activity Activity: increase activity as tolerated Diet: advance to your usual diet
--- NOTE | 2017-12-02 12:15 | Physician Discharge Referral ---
Home Health/Hosp Referral Info Transfer to: Home Health Attending Provider: Irena Bah Provider in Charge Post Discharge: PCP - Diagnosis (1) Elevated troponin Priority: Primary Status: Acute (2) Anemia Priority: Secondary Status: Chronic (3) Chest pain, rule out acute myocardial infarction Priority: Primary Status: Acute (4) CKD (chronic kidney disease) stage 3, GFR 30-59 ml/min Priority: Secondary Status: Chronic (5) Systolic CHF with reduced left ventricular function, NYHA class 3 Priority: Secondary Status: Acute (6) CAD (coronary artery disease) Priority: Secondary Status: Chronic (7) Hyperlipidemia Priority: Secondary Status: Acute - Respiratory Orders Smoking Cessation: Smoking cessation has been advised. For more information, call the [place] Tobacco Quit Line at 7-760-GPAP-NOW. - Services Needed Following services are medically necessary services: Nursing, Physical Therapy, Occupational Therapy - Transfer Medications Home Medications: Ferrous Sulfate 325 mg PO BIDWM #60 tablet 06/26/17 [Rx] Lisinopril [Zestril] 20 mg PO DAILY 07/12/17 [History] Omeprazole [PriLOSEC] 40 mg PO DAILY 07/12/17 [History] Tramadol HCl [Ultram] 50 mg PO BID PRN 11/14/17 [History] Aspirin 81 mg PO DAILY #30 tab.chew 11/18/17 [Rx] Atorvastatin [Lipitor] 80 mg PO HS #30 tablet 11/18/17 [Rx] Clopidogrel [Plavix] 75 mg PO DAILY #30 11/18/17 [Rx] Furosemide [Lasix] 20 mg PO DAILY #30 tablet 11/18/17 [Rx] Metoprolol XL (24 HR) Succ [Toprol Xl] 25 mg PO DAILY #30 tab.er.24h 11/18/17 [ Rx] Zolpidem [Ambien] 10 mg PO HS 12/01/17 [History] Allergies/Adverse Reactions: 3 Allergy/AdvReac Type Severity Reaction Status Date / Time Iodinated Contrast- Oral and Allergy Chest Pain Verified 11/30/17 14:39 IV Dye Penicillins Allergy Rash Verified 11/30/17 14:39 Certification: Further, I certify that my clinical findings support that this patient is homebound (i.e. absences from home require considerable and taxing effort and are for medical reasons or protestant services or infrequently or short duration when for other reasons) because: Homebound Reason: Severity of cardiac or pulmonary status limits activity tolerance Attestation: My signature below is to certify that this patient is under my care and that I, or nurse practitioner, or a physician's insurance sales assistant working with me, has a face-to -face encounter with this patient.
== END 2017-12-02 15:44 | disposition home health service (06) | DRG 247 ==
LOC: EMEROO 14:34 → 3BNU 14:34
PROVIDERS: ADMIT Internal Medicine; ATTEND Internal Medicine

== ENCOUNTER 2018-03-19 22:32 | Observation (INO) ==
[2018-03-20 00:33] LABS: Basophils # 0.1 K/mcL (0.0-0.2); Basophils % 0.8 %; Eosinophils # 0.1 K/mcL (0.0-0.6); Eosinophils % 1.5 %; Hematocrit 29.5 % (35.3-44.9); Hemoglobin 9.3 g/dL (11.5-15.4); Immature Granulocytes % 0.4 % (0-4); Lymphocytes # 1.6 K/mcL (0.6-4.6); Lymphocytes % 21.9 %; Mean Corpuscular HGB Conc 31.5 g/dL (31.6-35.5); Mean Corpuscular Volume 104.6 fL (83.0-100.0); Mean Platelet Volume 9.6 fL (9.4-12.4); Monocytes # 0.9 K/mcL (0.0-1.3); Monocytes % 11.7 %; Neutrophils # 4.8 K/mcL (1.6-8.9); Platelet Count 274 K/mcL (140-400); Red Blood Count 2.82 M/mcL (3.82-4.97); Red Cell Distribution Width 12.1 % (11.5-14.5); Segmented Neutrophils % 63.7 %
[2018-03-20 00:41] LABS: Troponin I < 0.03 ng/mL (< 0.04)
--- NOTE | 2018-03-20 00:41 | Emergency Department Note ---
Disposition Clinical Impression: Chest pain, rule out acute myocardial infarction Disposition: Admitted As Inpatient Condition: Good Time of Disposition: 00:40 Chest Pain HPI - General Chief Complaint: ED Chest Pain Stated Complaint: CP Time Seen by Provider: 03/19/18 23:38 Source: patient, family, EMS Limitations: no limitations Vital Signs Reviewed: Yes Nursing Notes Reviewed: Yes - History of Present Illness HPI Narrative: Patient arrives to the ER without chest pain but while at rest at home about an hour ago she had a few minutes of chest pain. She told her son about the pain and they gave a nitroglycerin pill and the pain was relieved. No diaphoresis reported. No prodromal symptoms earlier in the day. Patient was reading a book at the time of onset. She normally does not have chest pain but had pain in November of this year for which she had a catheterization and stent placement. Pain-free at this time. EKG shows no acute injury pattern. Initial troponin is unremarkable. Carbon dioxide level noted. She will be hydrated in the ER. Accepted for admission to the hospitalist at 12:15 AM Pt complaint: chest pain Onset (ago): hour(s) Duration: now resolved Onset: during rest Pain Location: substernal Severity: mild Severity scale (1-10): 3 Quality: tightness Pain Radiation: none Improves with: nitroglycerin, rest Worsens with: nothing Associated symptoms: Denies: nausea, vomiting, diaphoresis, dyspnea, sense of impending doom Treatments prior to arrival chest pain: aspirin, nitroglycerin - Related Data Home Medications Medication Instructions Recorded Confirmed Lisinopril [Zestril] 20 mg PO DAILY 07/12/17 12/01/17 Omeprazole [PriLOSEC] 40 mg PO DAILY 07/12/17 12/01/17 Tramadol HCl [Ultram] 50 mg PO BID PRN 11/14/17 12/01/17 Zolpidem [Ambien] 10 mg PO HS 12/01/17 12/01/17 Previous Rx's Medication Instructions Recorded Ferrous Sulfate 325 mg PO BIDWM #60 tablet 06/26/17 Aspirin 81 mg PO DAILY #30 tab.chew 11/18/17 Atorvastatin [Lipitor] 80 mg PO HS #30 tablet 11/18/17 Clopidogrel [Plavix] 75 mg PO DAILY #30 11/18/17 Furosemide [Lasix] 20 mg PO DAILY #30 tablet 11/18/17 Metoprolol XL (24 HR) Succ [Toprol 25 mg PO DAILY #30 tab.er.24h 11/18/17 Xl] Allergies Allergy/AdvReac Type Severity Reaction Status Date / Time Iodinated Contrast- Oral and Allergy Chest Pain Verified 11/30/17 14:39 IV Dye Penicillins Allergy Rash Verified 11/30/17 14:39 Constitutional: Denies: fever, chills, weakness, weight change Eyes: Denies: eye pain, eye discharge, vision change ENT ED: Denies: ear pain, throat pain, dental pain, hearing loss, epistaxis, congestion, dysphagia Cardiovascular: Reports: as per HPI, chest pain Respiratory: Denies: cough, dyspnea, wheezes, hemoptysis, stridor Gastrointestinal: Denies: abdominal pain, nausea, vomiting, diarrhea, constipation, hematemesis, melena, hematochezia Genitourinary: Denies: dysuria, frequency, hematuria, discharge Musculoskeletal: Denies: back pain, neck pain, arthralgia, myalgia Integumentary: Denies: rash, abrasion, lesions Neurological: Denies: headache, weakness, numbness, paresthesias, confusion, abnormal gait, vertigo Psychiatric: Denies: anxiety, depression, suicidal thoughts, homicidal thoughts , auditory hallucinations, visual hallucinations Endocrine: Denies: fatigue Hematological/Lymphatic: Denies: easy bleeding, easy bruising Allergic/Immunologic: Denies: facial swelling, urticaria Chest Pain PMH - Past Medical History Medical history: Reports: cardiomyopathy, coronary artery disease, DVT, hyperlipidemia, hypertension, myocardial infarction, renal disease, other Surgical history: Reports: angioplasty/stent, appendectomy, cholecystectomy, orthopedic, other, other Psychiatric history: Reports: anxiety, depression WEAVING TEACHER history: Reports: no WEAVING TEACHER history - Social History Smoking Status: Former smoker Alcohol use: Reports: none Drug use: Reports: none Physical Exam - General Limitations: no limitations, other (Heart of hearing but answers questions with the assistance of son at bedside) General appearance: alert - Head Head exam: atraumatic, normocephalic - Eye Eye exam: Present: normal appearance, PERRL, EOMI - Expanded Eye Exam Pupils: Left: reactive - ENT ENT exam: normal exam, normal oropharynx, mucous membranes moist - Expanded ENT Exam External ear exam: Present: normal external inspection Mouth exam: Present: normal external inspection Teeth exam: Present: normal inspection Throat exam: Present: normal inspection - Neck Neck exam: Present: normal inspection, full ROM, trachea midline - Chest Chest inspection: Present: normal inspection, symmetric chest wall rise - Respiratory Respiratory exam: Present: normal lung sounds bilaterally - Cardiovascular Cardiovascular exam: Present: regular rate, normal rhythm, normal heart sounds - Abdominal Exam Abdominal exam: Present: soft, Non-Tender. Absent: tenderness, distention, guarding, rebound, rigidity - Extremities Exam Extremities exam: Present: normal inspection, full ROM. Absent: tenderness, pedal edema - Expanded Upper Extremity Exam Shoulder exam: Present: normal inspection, full ROM Arm exam: Present: normal inspection, full ROM Elbow exam: Present: normal inspection, full ROM Forearm/Wrist exam: Present: normal inspection, full ROM Hand exam: Present: normal inspection, full ROM Vascular exam: Normal: capillary refill, radial pulse - Expanded Lower Extremity Exam Hip/Pelvis exam: Present: normal inspection, full ROM Upper leg exam: Present: normal inspection, full ROM Knee exam: Present: normal inspection, full ROM Lower leg exam: Present: normal inspection, full ROM Ankle exam: Present: normal inspection, full ROM Foot/toe exam: Present: normal inspection, full ROM Neurovascular/Tendon exam: Absent: motor deficit, sensory deficit, tendon deficit - Back Exam Back exam: Present: normal inspection, full ROM. Absent: tenderness - Neurological Exam Neurological exam: Present: alert, oriented X3 - Expanded Neurological Exam Patient oriented to: Present: person, place, time Coma Scale Eye Opening: Spontaneous Coma Scale Motor Response: Obeys Commands Coma Scale Verbal Response: Oriented Coma Scale Total: 15 - Psychiatric Psychiatric exam: Present: normal affect, normal mood - Skin Skin exam: Present: warm, dry, intact, normal color Course Vital Signs Temperature 98.4 F 03/19/18 22:35 Pulse Rate 85 03/19/18 22:35 Respiratory Rate 18 03/19/18 22:35 Blood Pressure 135/57 03/19/18 22:35 O2 Sat by Pulse Oximetry 100 03/19/18 22:35 Temperature 98.4 F 03/19/18 22:35 Pulse Rate 82 03/20/18 00:15 Respiratory Rate 16 03/20/18 01:00 Blood Pressure 114/57 03/20/18 01:00 O2 Sat by Pulse Oximetry 100 03/20/18 00:15 Oxygen Delivery Oxygen Delivery Nasal Cannula Chest Pain - Lab Data Result diagrams: 03/20/18 00:07 03/20/18 00:07 Lab Results 03/20/18 03/20/18 Range/Units 00:07 00:07 WBC 7.5 (4.3-11.1) K/mcL RBC 2.82 L (3.82-4.97) M/mcL Hgb 9.3 L (11.5-15.4) g/dL Hct 29.5 L (35.3-44.9) % MCV 104.6 H (83.0-100.0) fL MCH 33.0 (28.0-33.3) pg MCHC 31.5 L (31.6-35.5) g/dL RDW 12.1 (11.5-14.5) % Plt Count 274 (140-400) K/mcL MPV 9.6 (9.4-12.4) fL Immature Gran % 0.4 (0-4) % Seg Neutrophils % 63.7 % Lymphocytes % 21.9 % Monocytes % 11.7 % Eosinophils % 1.5 % Basophils % 0.8 % Neutrophils # 4.8 (1.6-8.9) K/mcL Lymphocytes # 1.6 (0.6-4.6) K/mcL Monocytes # 0.9 (0.0-1.3) K/mcL Eosinophils # 0.1 (0.0-0.6) K/mcL Basophils # 0.1 (0.0-0.2) K/mcL Sodium 134 L (136-145) mEq/L Potassium 4.6 (3.5-5.1) mEq/L Chloride 110 H (98-107) mEq/L Carbon Dioxide 15 L (23-29) mEq/L BUN 46 H (8-23) mg/dL Creatinine 1.23 H (0.60-1.20) mg/dL Est GFR ( Amer) 50 L (> 60) Est GFR (Non-Af Amer) 41 L (> 60) BUN/Creatinine Ratio 37 H (6-26) Glucose 101 (70-105) mg/dL Calculated Osmolality 290 (280-300) Calcium 9.0 (8.6-10.3) mg/dL Troponin I < 0.03 (< 0.04) ng/mL - EKG Data EKG attestation: Yes I reviewed and interpreted this EKG. EKG results narrative: Normal sinus rhythm. Left BBBlock No acute injury pattern. Intervals unremarkable EKG shows normal: sinus rhythm Rate: normal Rhythm: NSR
[2018-03-20 00:58] LABS: BUN/Creatinine Ratio 37 (6-26); Blood Urea Nitrogen 46 mg/dL (8-23); Carbon Dioxide 15 mEq/L (23-29); Chloride 110 mEq/L (98-107); Glucose 101 mg/dL (70-105); Osmolality,Calculated 290 (280-300); Potassium 4.6 mEq/L (3.5-5.1); Sodium 134 mEq/L (136-145); eGFR For Non-African Americans 41 (> 60)
[2018-03-20] MEDS ORDERED: 0.9 % Sodium Chloride 1,000 ML IV ONE (01:15)
[2018-03-20] MEDS ORDERED: Naloxone 0.4 MG/ML INJ IVP PRN (07:16)
[2018-03-20] MEDS ORDERED: traMADol 50 MG TABLET PO PRN (08:15)
--- NOTE | 2018-03-20 08:19 | Internal Med History&Physical ---
Date of Encounter: 03/20/18 Time of Encounter: 07:30 Internal Medicine - H&P: HPI Chief complaint: chest pain Admitted From: Home History of present illness: Ms. Alston is a 87 year old female with past medical history of CAD status post PCI in 11/2017, hypertension, CAD, systolic heart failure, B12 deficiency, presented to the ED with 20 minute history of chest pain. Sudden onset, substernal, sharp, non-radiating, relieved with nitro, no aggravating factors. She waited for about 15 minutes to see whether it would resolve spontaneously but it didn't and hence came to the ED for further evaluation. No fever/chills , nausea/vomiting, diaphoresis, orthopnea, PND, or leg swelling. Denies any GI/ symptoms including melena, hematochezia, or hematemesis. In the ED, she was afebrile and hemodynamically stable. Labwork showed hemoglobin of 9.3 ( fluctuating from 9-12 for the last 8 months or so), creatinine 1.23 (baseline), and first troponin negative. EKG shows sinus rhythm without ST-T changes concerning for ischemia. CXR unremarkable. She has second troponin drawn this morning which came back positive at 0.04. At that point, she had near resolution of chest pain. Past Med Surg Social Fam HX - Past Medical History Attestation: Yes The following information was validated with the patient. Medical history: cardiomyopathy, coronary artery disease, DVT, hyperlipidemia, hypertension, myocardial infarction, renal disease, other Additional medical history: vertigo, spinal stenosis Psychiatric history: anxiety, depression - Past Surgical History Surgical History: angioplasty/stent, appendectomy, cholecystectomy, orthopedic, other, other Additional surgical history: BILATERAL CARPAL TUNNEL SURGERIES - Social History Smoking Status: Former smoker Smokeless Tobacco Status: No Alcohol use: none Drug use: none - Family History Father Family Member Ethnicity: Non- Living Status: Hx Family Cardiac Disorders: No Hx Family Respiratory Disorders: No Hx Family Cancer: No Mother Family Member Ethnicity: Non- Living Status: Hx Family Cardiac Disorders: Yes (Stroke) Hx Family Respiratory Disorders: No Hx Family Cancer: No Hx Family GI Disorders: No Hx Family Endocrine Disorder: No Hx Family Neuromuscular Disorders: No Hx Family Neurologic Disorders: Yes (CEREBRAL VASCULAR ACCIDENT.) Hx Family HEENT Disorders: No Hx Family Autoimmune Disorders: No Sister Family Member Ethnicity: Non- Living Status: Still Living Hx Family GI Disorders: Yes (Gallbladder) Brother Family Member Ethnicity: Non- Living Status: Hx Family Neurologic Disorders: Yes Internal Medicine - H&P: Meds Ferrous Sulfate 325 mg PO BIDWM #60 tablet 06/26/17 [Rx] Lisinopril [Zestril] 20 mg PO DAILY 07/12/17 [History] Omeprazole [PriLOSEC] 40 mg PO DAILY 07/12/17 [History] Tramadol HCl [Ultram] 50 mg PO BID PRN 11/14/17 [History] Aspirin 81 mg PO DAILY #30 tab.chew 11/18/17 [Rx] Atorvastatin [Lipitor] 80 mg PO HS #30 tablet 11/18/17 [Rx] Clopidogrel [Plavix] 75 mg PO DAILY #30 11/18/17 [Rx] Furosemide [Lasix] 20 mg PO DAILY #30 tablet 11/18/17 [Rx] Metoprolol XL (24 HR) Succ [Toprol Xl] 25 mg PO DAILY #30 tab.er.24h 11/18/17 [ Rx] Zolpidem [Ambien] 10 mg PO HS 12/01/17 [History] 3 Allergy/AdvReac Type Severity Reaction Status Date / Time Iodinated Contrast- Oral and Allergy Chest Pain Verified 11/30/17 14:39 IV Dye Penicillins Allergy Rash Verified 11/30/17 14:39 All Systems PM: A 10-system review of systems was performed and is negative for pertinent findings except as documented above in the HPI. - Constitutional Vitals: Temp Pulse Resp BP Pulse Ox 98.0 F 93 16 128/93 100 03/20/18 07:41 03/20/18 07:41 03/20/18 07:41 03/20/18 07:41 03/20/18 07:41 Exam: General: Alert and oriented, not in acute distress. Hard of hearing HEENT:EOM, pupils equal, round and reactive. Cardiovascular:Normal S1 & S2, No JVD. Pulse regular. No chest wall tenderness Lungs: clear to auscultation, no wheezes/rales Abdomen:Soft, non-tender, no rigidity. Extremities:No deformity or swelling Neurological:Normal cognition and motor skills. Non-focal Skin:Normal color, no rash, no lesions. Pulses:Carotid and radial pulses normal +2. Rest of the physical exam is non contributory Internal Med - H&P Results - Labs CBC & Chem 7: 03/20/18 00:07 03/20/18 00:07 Labs: Cardiac Enzymes 03/20/18 Range/Units 06:15 Troponin I 0.04 H* (< 0.04) ng/mL - Assessment and plan (1) NSTEMI (non-ST elevated myocardial infarction) Current Visit: Yes Status: Acute Assessment and plan: Presented with atypical chest pain with troponin 0.03 -> 0.04 EKG as above Recent cath 11/2017 reviewed: Status post ZO to obtuse marginal and mid RCA. Also had 50-60% stenosis in the proximal circumflex and proximal/distal RCA asa 324mg Resume her home meds for CAD discussed with cardiology over the phone, for cath today echocardiogram after cath (2) Anemia Current Visit: No Status: Chronic Assessment and plan: Slightly worsening anemia with persistent macrocytosis continue B12 supplement monitor -> if worsening, will repeat workup Patient is Jewish and refuses pRBC transfusion Qualifiers: Anemia type: B12 deficiency Vitamin B12 deficiency anemia type: other B12 deficiency Qualified Code(s): D51.8 - Other vitamin B12 deficiency anemias (3) Systolic CHF with reduced left ventricular function, NYHA class 3 Current Visit: No Status: Acute Assessment and plan: Not in decompensation Resume all meds (4) CKD (chronic kidney disease) Current Visit: Yes Status: Acute Assessment and plan: Stable, resume home meds Avoid nephrotoxins Qualifiers: Chronic kidney disease stage: stage 3 (moderate) Qualified Code(s): N18.3 - Chronic kidney disease, stage 3 (moderate) (5) HTN (hypertension) Current Visit: No Status: Chronic Assessment and plan: Resume home meds Qualifiers: Hypertension type: essential hypertension Qualified Code(s): I10 - Essential (primary) hypertension (6) DVT prophylaxis Current Visit: No Status: Acute Assessment and plan: SCD - Time Spent With Patient Total time spent is greater than 50% in coordination of care (as documented) at patient's floor/unit and/or counseling patient:
[2018-03-20] MEDS ORDERED: Nitroglycerin 0.4 MG TAB.SUBL SL PRN (08:29)
[2018-03-20] MEDS ORDERED: Aspirin 81 MG TAB.CHEW PO SCH (09:00)
[2018-03-20] MEDS ORDERED: Aspirin 81 MG TAB.CHEW ONE (09:08)
[2018-03-20] MEDS: Aspirin 81 MG TAB.CHEW PO ONE ×2 (09:10→09:22)
[2018-03-20] MEDS: Lisinopril 20 MG TABLET PO SCH (09:11)
[2018-03-20] MEDS: Furosemide 20 MG TABLET PO SCH (09:11)
[2018-03-20] MEDS: Metoprolol XL (24 HR) Succ 25 MG TAB.ER.24H PO SCH (09:13)
--- NOTE | 2018-03-20 13:11 | Cardiology Consult Note ---
<Radha Leblanc Zeeshan - Last Filed: 03/20/18 13:55> Date of Encounter: 03/20/18 Time of Encounter: 13:00 Assessment and Plan (1) Elevated troponin Current Visit: No Status: Acute Mild troponin elevation--0.04, 0.05. Reports x1 episode of chest discomfort, resolved after 1 NTG tablet. Of note, HgB has dropped nearly 3 grams since last month, 12.1--9.3. This is concerning given hx of GI bleed in 2017 with HgB of 5.7. ECG shows LBBB--old. Chest pain free upon exam. Recent multivessel PCI in November 2017 (PCI to RCA, Om, LAD). Has existing moderate , non-obstructive CAD, EF 25%. Reports has been compliant with DAPT (asa and plavix). Continue to trend troponin, check limited TTE. Reviewed [facility] [place] images with interventionalist (Dr. Chante Mishra); no residual high risk or severe lesions identified. Recommend medical management for now. Will continue to follow. (2) Anemia Current Visit: No Status: Chronic Hx of GI bleed in 2017. H/H normal 2017, now with nearly 3 gram drop in Hgb. Recommend rechecking CBC in AM. Patient denies abnormal or unusual bleeding. Qualifiers: Anemia type: B12 deficiency Vitamin B12 deficiency anemia type: other B12 deficiency Qualified Code(s): D51.8 - Other vitamin B12 deficiency anemias (3) CAD (coronary artery disease) Current Visit: No Status: Chronic Asa, statin, BB, plavix. Plan as above. Qualifiers: Coronary Disease-Associated Artery/Lesion type: [place] artery [place] vs. transplanted heart: [place] heart Associated angina: with stable angina Qualified Code(s): I25.118 - Atherosclerotic heart disease of [place] coronary artery with other forms of angina pectoris (4) CHF (congestive heart failure), NYHA class II Current Visit: Yes Status: Chronic Describes class II NYHA symptoms. January 2018, LVEF 25%. Clinically appears euvolemic upon exam. CXR: no acute findings. Continue BB, ACEi. Recheck limited TTE. Strict I&Os, daily weights, Na/fluid restricted diet. Qualifiers: Congestive heart failure type: systolic Congestive heart failure chronicity : chronic Qualified Code(s): I50.22 - Chronic systolic (congestive) heart failure Discussion w patient/family: The assessment and plan as outlined above was discussed with the patient and/or family members who expressed understanding and agreement. All questions were answered. Thank you for involving us in the care of your patient. Please call with any questions. The patient will be discussed and reviewed with Dr. Eric; changes to be made accordingly. History of Present Illness Consult date: 03/20/18 Requesting physician: Emeka Coley Consult reason: Chest pain Chief complaint: chest pain History of present illness: Ms. Alston is a 87 year old female with PMHx significant of systolic CHF with reduced LVEF, CAD s/p recent multi-vessel PCI, hx of DVT, GI bleed (), and CKD who presented to the ED after episode of chest pain. She reports she developed midsternal chest discomfort (sharp) with radiation up neck and down left arm, pain lasted >5 minutes so she called her son who called EMS. She was given SL NTG tab which resolved chest discomfort. No recurrent chest pain since admission. She denies shortness of breath, palpitations, leg edema, or orthopnea. Reports compliance with all medications including asa and plavix. Denies abnormal or unusual bleeding. ECG demonstrated LBBB (old), troponin 0.03, 0.04. Cardiology consulted. Prior CV testing: TTE 11/17/17: LVEF 25% C 11/17/17: s/p successful PCI to pLAD, recommended staged PCI to RCA (pRCA 60%, mRCA 80%, dRCA 50%); 80% OM. C 12/01/17: s/p successful PCI in the mRCA and 1st OM Past Med Surg Social Fam HX - Past Medical History Medical history: cardiomyopathy, coronary artery disease, DVT, hyperlipidemia, hypertension, myocardial infarction, renal disease, other Additional medical history: vertigo, spinal stenosis Psychiatric history: anxiety, depression - Past Surgical History Surgical History: angioplasty/stent, appendectomy, cholecystectomy, orthopedic, other, other Additional surgical history: BILATERAL CARPAL TUNNEL SURGERIES - Social History Smoking Status: Former smoker Smokeless Tobacco Status: No Alcohol use: none Drug use: none - Family History Father Family Member Ethnicity: Non- Living Status: Hx Family Cardiac Disorders: No Hx Family Respiratory Disorders: No Hx Family Cancer: No Mother Family Member Ethnicity: Non- Living Status: Hx Family Cardiac Disorders: Yes (Stroke) Hx Family Respiratory Disorders: No Hx Family Cancer: No Hx Family GI Disorders: No Hx Family Endocrine Disorder: No Hx Family Neuromuscular Disorders: No Hx Family Neurologic Disorders: Yes (CEREBRAL VASCULAR ACCIDENT.) Hx Family HEENT Disorders: No Hx Family Autoimmune Disorders: No Sister Family Member Ethnicity: Non- Living Status: Still Living Hx Family GI Disorders: Yes (Gallbladder) Brother Family Member Ethnicity: Non- Living Status: Hx Family Neurologic Disorders: Yes Medications and Allergies Ferrous Sulfate 325 mg PO BIDWM #60 tablet 06/26/17 [Rx] Lisinopril [Zestril] 20 mg PO DAILY 07/12/17 [History] Omeprazole [PriLOSEC] 40 mg PO DAILY 07/12/17 [History] Tramadol HCl [Ultram] 50 mg PO BID PRN 11/14/17 [History] Aspirin 81 mg PO DAILY #30 tab.chew 11/18/17 [Rx] Atorvastatin [Lipitor] 80 mg PO HS #30 tablet 11/18/17 [Rx] Clopidogrel [Plavix] 75 mg PO DAILY #30 11/18/17 [Rx] Furosemide [Lasix] 20 mg PO DAILY #30 tablet 11/18/17 [Rx] Metoprolol XL (24 HR) Succ [Toprol Xl] 25 mg PO DAILY #30 tab.er.24h 11/18/17 [ Rx] Zolpidem [Ambien] 10 mg PO HS 12/01/17 [History] Isosorbide MONOnitrate (24 HR) [Imdur] 30 mg PO DAILY 30 Days #30 tab.er.24h 03/29 [Rx] Nitroglycerin 0.4 mg SL Q5MIN PRN 30 Days #30 tab.subl 03/21/18 [Rx] 3 Allergy/AdvReac Type Severity Reaction Status Date / Time Iodinated Contrast- Oral and Allergy Chest Pain Verified 11/30/17 14:39 IV Dye Penicillins Allergy Rash Verified 11/30/17 14:39 All Systems Review: The remainder of the systems were reviewed and are negative - Cardiovascular Cardiovascular: as per HPI Physical Examination Vital Signs, Last 4 Hours Temp Pulse Resp BP Pulse Ox 03/20/18 10:55 98.2 F 75 16 117/60 94 Results 03/20/18 00:07 03/20/18 00:07 Lab Results 03/20/18 03/20/18 06:15 12:11 Troponin I 0.04 H* 0.05 H* Active Medications Aspirin (Aspirin Ec) 81 mg PO DAILY [facility] Stop: 09/20/18 09:01 Atorvastatin Calcium (Lipitor) 80 mg PO HS [facility] Stop: 09/19/18 21:01 Clopidogrel Bisulfate (Plavix) 75 mg PO DAILY [facility] Stop: 09/19/18 09:01 Last Admin: 03/20/18 09:10 Dose: 75 mg Ferrous Sulfate (Ferrous Sulfate) 325 mg PO BIDWM [facility] Stop: 09/19/18 17:01 Furosemide (Lasix) 20 mg PO DAILY [facility] Stop: 09/19/18 09:01 Last Admin: 03/20/18 09:11 Dose: 20 mg Lisinopril (Zestril) 20 mg PO DAILY [facility] PRN Reason: Protocol Stop: 09/19/18 09:01 Last Admin: 03/20/18 09:11 Dose: 20 mg Metoprolol Succinate (Toprol Xl) 25 mg PO DAILY [facility] Stop: 09/19/18 09:01 Last Admin: 03/20/18 09:13 Dose: 25 mg Naloxone HCl (Narcan) 0.4 mg IVP Q2MIN PRN PRN Reason: SEE COMMENTS Stop: 09/19/18 07:17 Nitroglycerin (Nitroglycerin) 0.4 mg SL Q5MIN PRN PRN Reason: Chest Pain Stop: 09/19/18 08:30 Omeprazole (Prilosec) 40 mg PO DAILY@0630 [facility] PRN Reason: Protocol Stop: 09/20/18 06:31 Tramadol HCl (Ultram) 50 mg PO BID PRN PRN Reason: Pain Stop: 09/19/18 08:16 Zolpidem Tartrate (Ambien) 10 mg PO HS [facility] PRN Reason: Protocol Stop: 09/19/18 21:01 - Imaging and Cardiology Echo: report reviewed Cardiac cath: report reviewed - EKG Interpretation EKG results cardiology: personally reviewed Consult Discharge Plan - Plan Instructions: Nitroglycerin, Rapid Release (By mouth), Chest Pain (DC) Additional Instructions: Follow-up appointments: If there is not an appointment listed below, please call your physician and schedule a follow-up appointment. If you have congestive heart failure and your symptoms return, make an appointment with your physician. Medication List: Carry an up to date list of medications you are taking at all time. We have given you an updated medication list including any new medications that you have been prescribed. Please provide that list to your primary provider Symptoms: If your condition changes or you experience any of the following symptoms, notify your physician immediately: Unusual or worsening pain, fever, persistent nausea and vomiting, bleeding, increase in swelling (especially in your legs), sudden weight gain, extreme dizziness, chest pain, increased drainage or redness from a wound or incision. Go to the emergency department if you experience a problem with breathing. Weights: If you have a history of swelling or shortness of breath, weigh yourself daily and notify your physician if you have a weight gain of two or more pounds in one day or 5 or more pounds in a week. If you experience any of the warning signs for stroke: Sudden numbness or weakness of the face, arm or leg; especially on one side of the body, sudden confusion, trouble speaking or understanding, sudden trouble seeing in one or both eyes, sudden trouble walking, dizziness, loss of balance or coordination, sudden sever headache with no cause; Call 911 or go to the emergency room. Stroke is a medical emergency. Some risk factors for stroke: Age, cigarette smoking, diabetes, excessive alcohol consumption, family history , high blood pressure, overweight, physical inactivity, prior stroke, heart attack, diagnosis of carotid artery stenosis or other artery disease. If you smoke, STOP: Smoking or tobacco use significantly increases your risk of heart and lung disease. Your chance of disease greatly increases if you continue to smoke. For more information, call the [place] tobacco quit line for smoking cessation 2 QUIT-NOW ( ) Referrals: El Carrillo DO [Primary Care Provider] - 03/29/18 9:30 am Prescriptions: Nitroglycerin 0.4 mg SL Q5MIN PRN 30 Days #30 tab.subl PRN Reason: Chest Pain Isosorbide MONOnitrate (24 HR) [Imdur] 30 mg PO DAILY 30 Days #30 tab.er.24h <Lee Eric - Last Filed: 03/21/18 14:43> Date of Encounter: 03/20/18 Time of Encounter: 15:00 - Attending Attestation I have personally performed a face to face evaluation on this patient. I have reviewed and agree with the care plan. History and Exam by me shows: CC: Chest pain HPI: Pt presents to ER with complaint of sudden onset mid sternal chest pain, occurred at rest, sharp stabbing sensation, radiated into both arms and neck, not associated with nausea, diaphoresis or shortness of breath, lasted approx 5 mins before pt called her son who called EMS. She continued to have chest pain , was relieved with one sl ntg squad arrived. She has not had reoccurrence of symptoms. She is now pain free, ambulatory in her room without complaints PMH: Reviewed ROS: Reviewed Labs, Xrays, LHC 11/17/17 reviewed PE: pt seen and examined, agree with findings as documented IMP/Plan: 1. Chest pain: relieved with one sl ntg, no reoccurrence, troponins and EKG unchanged 2. CAD: severe triple vessel CAD, status post multiple vessel revascularization 11/27, on optimal medical tx, reports is compliant with meds, no significant residual stenosis following PCI, continue medical tx. 3. 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 4. Anemia: appears acute, with 3 gm drop in H&H over last month, may be contributing to anginal pain, primary team evaluating. Assessment and Plan Discussion w patient/family: The assessment and plan as outlined above was discussed with the patient and/or family members who expressed understanding and agreement. All questions were answered. Thank you for involving us in the care of your patient. Please call with any questions. History of Present Illness History of present illness: Ms. Alston is a 87 year old female All Systems Review: The remainder of the systems were reviewed and are negative Results 03/21/18 04:38 03/21/18 04:38 Lab Results 03/21/18 03/21/18 03/21/18 04:38 04:38 04:38 WBC 4.9 Hgb 11.0 L D Hct 33.4 L Plt Count 329 Sodium 137 Potassium 5.0 Chloride 109 H Carbon Dioxide 18 L BUN 38 H Creatinine 1.14 Glucose 76 Calcium 9.5 Magnesium 2.2 Troponin I 0.03
--- NOTE | 2018-03-20 19:04 | Electrocardiograph Report ---
[place] [id number] Test Date: 2018-03-19 Pat Name: Jennifer Alston Department: EXAM9 Room: 3B23 Gender: F Header Dock: : 1930 Requested By: Klaus Kenney Order Number: [id number] Reading MD: Rene Liao Measurements Intervals [place] Rate: 82 P: 33 CA: 185 QRS: -32 QRSD: 162 T: 100 QT: 446 QTc: 521 Interpretive Statements Sinus rhythm Left bundle branch block Electronically Signed On 03-20-2018 19:03:07 EDT by Rene Liao
--- NOTE | 2018-03-20 19:09 | Electrocardiograph Report ---
[place] [address] Test Date: 2018-03-20 Pat Name: Jennifer Alston Department: 113 Room: 3B23 Gender: F Cook Apprentice: : 1930 Requested By: Emeka Coley Order Number: [id number] Reading MD: Rene Liao Measurements Intervals [place] Rate: 82 P: 32 FL: 194 QRS: -49 QRSD: 173 T: 103 QT: 424 QTc: 462 Interpretive Statements SINUS RHYTHM MARKED LEFT AXIS DEVIATION LEFT BUNDLE BRANCH BLOCK Electronically Signed On 03-20-2018 19:07:30 EDT by Rene Liao
[2018-03-21 05:50] LABS: Hematocrit 33.4 % (35.3-44.9); Mean Corpuscular HGB Conc 32.9 g/dL (31.6-35.5); Mean Corpuscular Hemoglobin 32.9 pg (28.0-33.3); Mean Platelet Volume 9.8 fL (9.4-12.4); Platelet Count 329 K/mcL (140-400); Red Blood Count 3.34 M/mcL (3.82-4.97); Red Cell Distribution Width 12.5 % (11.5-14.5)
[2018-03-21 06:16] LABS: Calcium 9.5 mg/dL (8.6-10.3); Magnesium 2.2 mg/dL (1.6-2.6)
[2018-03-21 07:04] VITALS: BP 111/66
[2018-03-21] MEDS: Furosemide 20 MG TABLET PO SCH (08:07)
[2018-03-21] MEDS: Metoprolol XL (24 HR) Succ 25 MG TAB.ER.24H PO SCH (08:08)
[2018-03-21] MEDS: Lisinopril 20 MG TABLET PO SCH (08:08)
[2018-03-21] MEDS ORDERED: Aspirin Enteric Coated 81 MG Tablet PO SCH (09:00)
--- NOTE | 2018-03-21 09:57 | Discharge Summary ---
- NOTES TO OUTPATIENT PROVIDER Notes to Outpatient Provider: Follow with cardiology within 2-3 weeks of hospital discharge. Date of Encounter: 03/21/18 Time of Encounter: 09:55 - Discharge Diagnosis (1) Chest pain Priority: Secondary Status: Resolved Qualifiers: Chest pain type: precordial pain Qualified Code(s): R07.2 - Precordial pain (2) Elevated troponin Priority: Secondary Status: Acute Assessment and Plan: Multifactorial in this patient with significant CAD possible NSTEMI vs demand ischemia. EKG with LBBB, similar to ekg on 02/24/18. (3) Anemia Priority: Secondary Status: Chronic Qualifiers: Anemia type: B12 deficiency Vitamin B12 deficiency anemia type: other B12 deficiency Qualified Code(s): D51.8 - Other vitamin B12 deficiency anemias (4) HTN (hypertension) Priority: Secondary Status: Chronic Qualifiers: Hypertension type: essential hypertension Qualified Code(s): I10 - Essential (primary) hypertension (5) DVT prophylaxis Priority: Secondary Status: Acute (6) Systolic CHF with reduced left ventricular function, NYHA class 3 Priority: Primary Status: Acute (7) CKD (chronic kidney disease) Priority: Secondary Status: Chronic Qualifiers: Chronic kidney disease stage: stage 3 (moderate) Qualified Code(s): N18.3 - Chronic kidney disease, stage 3 (moderate) (8) Severe protein-calorie malnutrition Priority: Secondary Status: Chronic Hospital course: Ms. Alston is a 87 year old female past medical history of CAD status post PCI in 11/2017, hypertension, CAD, systolic heart failure, B12 deficiency, presented to the ED with 20 minute history of chest pain. Sudden onset, substernal, sharp , non-radiating, relieved with nitro, no aggravating factors. Due to patient significant history of CAD, and presentation of chest pain and elevated trops, cardiology was consulted. They recommended to continue medical management. Patient acute symptoms on presentation has resolved and patient is hemodynamically stable to be discharged home. - Time Spent with Patient Total time spent providing and/or coordinating discharge services: Less than 30 minutes - Discharge Medications Prescriptions: Nitroglycerin 0.4 mg SL Q5MIN PRN 30 Days #30 tab.subl PRN Reason: Chest Pain Isosorbide MONOnitrate (24 HR) [Imdur] 30 mg PO DAILY 30 Days #30 tab.er.24h Home Medications: Ferrous Sulfate 325 mg PO BIDWM #60 tablet 06/26/17 [Rx] Lisinopril [Zestril] 20 mg PO DAILY 07/12/17 [History] Omeprazole [PriLOSEC] 40 mg PO DAILY 07/12/17 [History] Tramadol HCl [Ultram] 50 mg PO BID PRN 11/14/17 [History] Aspirin 81 mg PO DAILY #30 tab.chew 11/18/17 [Rx] Atorvastatin [Lipitor] 80 mg PO HS #30 tablet 11/18/17 [Rx] Clopidogrel [Plavix] 75 mg PO DAILY #30 11/18/17 [Rx] Furosemide [Lasix] 20 mg PO DAILY #30 tablet 11/18/17 [Rx] Metoprolol XL (24 HR) Succ [Toprol Xl] 25 mg PO DAILY #30 tab.er.24h 11/18/17 [ Rx] Zolpidem [Ambien] 10 mg PO HS 12/01/17 [History] Isosorbide MONOnitrate (24 HR) [Imdur] 30 mg PO DAILY 30 Days #30 tab.er.24h 03/29 [Rx] Nitroglycerin 0.4 mg SL Q5MIN PRN 30 Days #30 tab.subl 03/21/18 [Rx] Allergies/Adverse Reactions: 3 Allergy/AdvReac Type Severity Reaction Status Date / Time Iodinated Contrast- Oral and Allergy Chest Pain Verified 11/30/17 14:39 IV Dye Penicillins Allergy Rash Verified 11/30/17 14:39 Date of admission: 03/20/18 01:04 Primary care physician: Amauri Carrillo DO Consults: 03/20/18 08:12 Consult to Cardiology [CONS] Routine Comment: Consulting Provider: Cardiology Jeni Reason for Consult: atypical chest pain with trop 0.04, recent PCI 11/2017 with ZO to OM and mRCA Call Completed: Yes - Constitutional Vitals: Temp Pulse Resp BP Pulse Ox 98.0 F 75 16 111/66 98 03/21/18 07:03 03/21/18 07:03 03/21/18 07:03 03/21/18 07:03 03/21/18 07:03 Exam: General: Alert and orientedx4. In no distress Skin: Normal color, no rash, no lesions. senile purpura on the lower extr. HEENT: No dentition, EOM, pupils equal, round and reactive. Cardiovascular: RRR, Normal S1 & S2, no rubs, murmurs or gallops. Lungs: CTA bl/, no wheezes or crackles. Abdomen: Soft, non-tender, no rigidity. Extremities: No deformity, no edema or tenderness, no joint swelling or clubbing. Neurological: Normal cognition and motor skills. Poor hearing. Rest of the physical exam is non contributory - Patient Status Disposition: Home, Self-Care Condition: Good Functional capacity at discharge: uses cane/walker Overall status at discharge: patient is back to baseline - Discharge Instructions Instructions: Nitroglycerin, Rapid Release (By mouth), Chest Pain (DC) Follow Up With: El Carrillo DO [Primary Care Provider] - 03/29/18 9:30 am Additional Instructions: Follow-up appointments: If there is not an appointment listed below, please call your physician and schedule a follow-up appointment. If you have congestive heart failure and your symptoms return, make an appointment with your physician. Medication List: Carry an up to date list of medications you are taking at all time. We have given you an updated medication list including any new medications that you have been prescribed. Please provide that list to your primary provider Symptoms: If your condition changes or you experience any of the following symptoms, notify your physician immediately: Unusual or worsening pain, fever, persistent nausea and vomiting, bleeding, increase in swelling (especially in your legs), sudden weight gain, extreme dizziness, chest pain, increased drainage or redness from a wound or incision. Go to the emergency department if you experience a problem with breathing. Weights: If you have a history of swelling or shortness of breath, weigh yourself daily and notify your physician if you have a weight gain of two or more pounds in one day or 5 or more pounds in a week. If you experience any of the warning signs for stroke: Sudden numbness or weakness of the face, arm or leg; especially on one side of the body, sudden confusion, trouble speaking or understanding, sudden trouble seeing in one or both eyes, sudden trouble walking, dizziness, loss of balance or coordination, sudden sever headache with no cause; Call 911 or go to the emergency room. Stroke is a medical emergency. Some risk factors for stroke: Age, cigarette smoking, diabetes, excessive alcohol consumption, family history , high blood pressure, overweight, physical inactivity, prior stroke, heart attack, diagnosis of carotid artery stenosis or other artery disease. If you smoke, STOP: Smoking or tobacco use significantly increases your risk of heart and lung disease. Your chance of disease greatly increases if you continue to smoke. For more information, call the [place] tobacco quit line for smoking cessation 4 QUIT-NOW ( ) - Diet and Activity Activity: resume usual activities as tolerated Diet: advance to your usual diet
--- NOTE | 2018-03-21 10:38 | Physician Discharge Referral ---
Home Health/Hosp Referral Info Transfer to: Home Health - Diagnosis (1) Elevated troponin Priority: Secondary Status: Acute (2) Chest pain Priority: Primary Status: Resolved (3) Anemia Priority: Secondary Status: Chronic (4) HTN (hypertension) Priority: Secondary Status: Chronic (5) DVT prophylaxis Priority: Secondary Status: Acute (6) Systolic CHF with reduced left ventricular function, NYHA class 3 Priority: Secondary Status: Acute (7) CKD (chronic kidney disease) Priority: Secondary Status: Chronic - Respiratory Orders None Smoking Cessation: Smoking cessation has been advised. For more information, call the [place] [employer] Quit Line at 1-718-IZLA-NOW. - Diet/Nutrition Diet/Nutrition Orders: Regular - Activity Activity Orders: Ambulate, Walker - Services Needed Following services are medically necessary services: Nursing - Transfer Medications Prescriptions: Nitroglycerin 0.4 mg SL Q5MIN PRN 30 Days #30 tab.subl PRN Reason: Chest Pain Home Medications: Ferrous Sulfate 325 mg PO BIDWM #60 tablet 06/26/17 [Rx] Lisinopril [Zestril] 20 mg PO DAILY 07/12/17 [History] Omeprazole [PriLOSEC] 40 mg PO DAILY 07/12/17 [History] Tramadol HCl [Ultram] 50 mg PO BID PRN 11/14/17 [History] Aspirin 81 mg PO DAILY #30 tab.chew 11/18/17 [Rx] Atorvastatin [Lipitor] 80 mg PO HS #30 tablet 11/18/17 [Rx] Clopidogrel [Plavix] 75 mg PO DAILY #30 11/18/17 [Rx] Furosemide [Lasix] 20 mg PO DAILY #30 tablet 11/18/17 [Rx] Metoprolol XL (24 HR) Succ [Toprol Xl] 25 mg PO DAILY #30 tab.er.24h 11/18/17 [ Rx] Zolpidem [Ambien] 10 mg PO HS 12/01/17 [History] Nitroglycerin 0.4 mg SL Q5MIN PRN 30 Days #30 tab.subl 03/21/18 [Rx] Allergies/Adverse Reactions: 3 Allergy/AdvReac Type Severity Reaction Status Date / Time Iodinated Contrast- Oral and Allergy Chest Pain Verified 11/30/17 14:39 IV Dye Penicillins Allergy Rash Verified 11/30/17 14:39 Certification: Further, I certify that my clinical findings support that this patient is homebound (i.e. absences from home require considerable and taxing effort and are for medical reasons or adventism services or infrequently or short duration when for other reasons) because: Homebound Reason: Patient requires assistance of a person or device to safely leave home Attestation: My signature below is to certify that this patient is under my care and that I, or nurse practitioner, or a physician's real estate administrative assistant working with me, has a face-to -face encounter with this patient.
[2018-03-21] MEDS ORDERED: Isosorbide MONOnitrate (24 HR) 30 MG TAB.ER.24H PO SCH (12:30)
--- NOTE | 2018-03-21 13:12 | Cardiology Progress Note ---
Date of Encounter: 03/21/18 Time of Encounter: 10:10 Assessment and Plan (1) Elevated troponin Current Visit: No Status: Acute Mild troponin elevation--0.04, 0.05, 0.03. Reports x1 episode of chest discomfort, resolved after 1 NTG tablet. No recurrent chest pain. ECG shows LBBB--old. Recent multivessel PCI in November 2017 (PCI to RCA, Om, LAD). Has existing moderate , non-obstructive CAD, EF 25%. Reports has been compliant with DAPT (asa and plavix). [place] reviewed images with interventionalist (Dr. Chante Mishra) 03/20/18; no residual high risk or severe lesions identified. Recommend medical management for now. Repeat TTE this admit shows EF 30-35% with global dysfunction. Mild improvement from prior eval. Continue medical management with addition of low dose imdur. Out-pt f/u. Cardiology will sign off. (2) CAD (coronary artery disease) Current Visit: No Status: Chronic Asa, statin, BB, plavix. Plan as above. Qualifiers: Coronary Disease-Associated Artery/Lesion type: [place] artery [place] vs. transplanted heart: [place] heart Associated angina: with stable angina Qualified Code(s): I25.118 - Atherosclerotic heart disease of [place] coronary artery with other forms of angina pectoris Discussion w patient/family: The assessment and plan as outlined above was discussed with the patient and/or family members who expressed understanding and agreement. All questions were answered. Thank you for involving us in the care of your patient. Please call with any questions. Subjective Principal diagnosis: Chest pain Interval history: Ms. Alston states chest pain is resolved. No new complaints. Objective General: Conversant, No Apparent Distress, Other (Very TLING[place] & HAIDA) HEENT: Atraumatic, Normocephaly, Mucus Membranes Moist Neck: No JVD, Normal carotid pulses Cardiac: Reg Rate and Rhythm, Normal S1 and S2, No Murmur Lungs: Normal Breath Sounds, No Wheeze, Rales, Rhonchi Neuro: Alert and responsive, No focal deficits noted Abdomen: Soft, Non-Tender Skin: No rashes noted on visualized skin Musculoskeletal: No Chest Wall Tenderness Extremities: No Clubbing, No Cyanosis, No Edema, Normal Pulses Results 03/21/18 04:38 03/21/18 04:38 Lab Results 03/21/18 03/21/1803/21/18 04:38 04:38 04:38 WBC 4.9 Hgb 11.0 L D Hct 33.4 L Plt Count 329 Sodium 137 Potassium 5.0 Chloride 109 H Carbon Dioxide 18 L BUN 38 H Creatinine 1.14 Glucose 76 Calcium 9.5 Magnesium 2.2 Troponin I 0.03 - Imaging and Cardiology Echo: report reviewed - EKG Interpretation EKG results cardiology: personally reviewed Consult Discharge Plan - Plan Referrals: El Carrillo DO [Primary Care Provider] - 03/29/18 9:30 am Prescriptions: Nitroglycerin 0.4 mg SL Q5MIN PRN 30 Days #30 tab.subl PRN Reason: Chest Pain
== END 2018-03-21 16:31 | disposition home or self-care (01) ==
LOC: 3BNU 22:32 → EMEROOARM 22:32 → SUATTDRO 03-20 01:04 → 3BNU 03-20 01:27
PROVIDERS: ADMIT Family Medicine; ATTEND Internal Medicine

== ENCOUNTER 2018-12-28 03:20 | Inpatient (IN) ==
[2018-12-28] MEDS ORDERED: Aspirin 81 MG TAB.CHEW PO ONE (03:31)
[2018-12-28] MEDS ORDERED: Morphine Sulfate 2 MG/ML SYRINGE IVP ONE (03:32)
[2018-12-28 04:45] LABS: BUN/Creatinine Ratio 18 (6-26); Blood Urea Nitrogen 23 mg/dL (8-23); Calcium 9.3 mg/dL (8.6-10.3); Carbon Dioxide 24 mEq/L (23-29); Chloride 103 mEq/L (98-107); Glucose 105 mg/dL (70-105); Osmolality,Calculated 304 (280-300); Potassium 3.7 mEq/L (3.5-5.1); Sodium 145 mEq/L (136-145); eGFR For African Americans 49 (> 60); eGFR For Non-African Americans 41 (> 60)
[2018-12-28 04:46] LABS: Troponin I < 0.03 ng/mL (< 0.04)
--- NOTE | 2018-12-28 05:03 | Emergency Department Note ---
Disposition Clinical Impression: Chest pain Qualifiers: Chest pain type: unspecified Qualified Code(s): R07.9 - Chest pain, unspecified Disposition: Admitted As Inpatient Condition: Good Referrals: El Carrillo DO [Primary Care Provider] - Forms: ED Satisfaction Letter Time of Disposition: 06:30 Chest Pain HPI - General Chief Complaint: ED Chest Pain Stated Complaint: chest pain Time Seen by Provider: 12/28/18 03:31 Source: patient, EMS Limitations: no limitations Vital Signs Reviewed: Yes Nursing Notes Reviewed: Yes - History of Present Illness HPI Narrative: 87-year-old female presents with chest pain. She states this awoke her from sleep approximately 10 PM. She attempted to take 3 nitroglycerin at home but states there is no relief. She describes it as sharp, radiating 8 out of 10. S he describes it radiating into her left arm and jaw. She states that she felt nauseous and threw up one time. She denies any cough, fever, shortness of breath, abdominal pain, weakness. Severity scale (1-10): 5 - Related Data Home Medications Medication Instructions Recorded Confirmed Lisinopril [Zestril] 20 mg PO DAILY 07/12/17 12/28/18 Omeprazole [PriLOSEC] 20 mg PO BID 07/12/17 12/28/18 Tramadol HCl [Ultram] 50 mg PO Q8H PRN 11/14/17 12/28/18 Zolpidem [Ambien] 10 mg PO HS PRN 12/01/17 12/28/18 Docusate Sodium [Stool Softener] 100 - 300 mg PO DAILY PRN 06/21/18 12/28/18 Menthol [Biofreeze] 1 appl TP BID PRN 06/21/18 12/28/18 Atorvastatin [Lipitor] 40 mg PO BID 10/09/18 12/28/18 Ferrous Sulfate [High Potency Iron] 27 mg PO DAILY 10/09/18 12/28/18 Aspirin 81 mg PO BID 12/28/18 12/28/18 Metoprolol Succinate [Toprol Xl] 25 mg PO DAILY 12/28/18 12/28/18 Previous Rx's Medication Instructions Recorded Clopidogrel [Plavix] 75 mg PO DAILY #30 11/18/17 Furosemide [Lasix] 20 mg PO DAILY #30 tablet 11/18/17 Nitroglycerin 0.4 mg SL Q5MIN PRN 30 Days #30 03/21/18 tab.subl MDD X3 DOSES CALL 911 Allergies Allergy/AdvReac Type Severity Reaction Status Date / Time Iodinated Contrast- Oral and Allergy Chest Pain Verified 10/09/18 18:47 IV Dye Penicillins Allergy Rash Verified 10/09/18 18:47 All systems ED: reviewed and negative except as stated. Review of Systems: As Per HPI Constitutional: Denies: fever Eyes: Denies: eye pain ENT ED: Denies: ear pain, throat pain Cardiovascular: Reports: as per HPI Respiratory: Denies: dyspnea, wheezes Gastrointestinal: Denies: abdominal pain, nausea, vomiting Genitourinary: Denies: dysuria Musculoskeletal: Denies: back pain Integumentary: Denies: rash Endocrine: Denies: fatigue Hematological/Lymphatic: Denies: easy bleeding Allergic/Immunologic: Denies: facial swelling Chest Pain PMH - Past Medical History Medical history: Reports: cardiomyopathy, CHF, coronary artery disease, DVT, hyperlipidemia, hypertension, myocardial infarction, renal disease, other Surgical history: Reports: angioplasty/stent, appendectomy, cholecystectomy, or thopedic, other, other Psychiatric history: Reports: anxiety, depression FIRESETTER history: Reports: no FIRESETTER history - Social History Smoking Status: Former smoker Alcohol use: Reports: none Drug use: Reports: none Physical Exam - General Limitations: no limitations General appearance: alert, in no apparent distress - Head Head exam: atraumatic, normocephalic - Eye Eye exam: Present: normal appearance, EOMI - ENT ENT exam: mucous membranes moist, other ([id number]) - Neck Neck exam: Present: normal inspection, full ROM - Chest Chest inspection: Present: symmetric chest wall rise. Absent: tenderness - Respiratory Respiratory exam: Present: normal lung sounds bilaterally. Absent: respiratory distress - Cardiovascular Cardiovascular exam: Present: regular rate, normal rhythm - Abdominal Exam Abdominal exam: Present: soft, Non-Tender - Extremities Exam Extremities exam: Present: full ROM - Expanded Upper Extremity Exam Shoulder exam: Present: tenderness - Back Exam Back exam: Present: full ROM. Absent: CVA tenderness (R), CVA tenderness (L) - Neurological Exam Neurological exam: Present: alert - Psychiatric Psychiatric exam: Present: normal affect, normal mood - Skin Skin exam: Present: warm, dry, intact, normal color. Absent: rash, cyanosis, diaphoresis Course Course Narrative: Patient is an 87-year-old female that arrives via squad with complaint of chest pain. She is known history of CAD, CHF, hypertension. She does describe radiation of the pain to her left upper extremity and her jaw. She did have one episode of vomiting. She denies any shortness of breath. Patient seen and examined. she is alert and oriented and answers questions appropriately no acute distress. EKG shows sinus rhythm heart rate 77 left bundle branch block with no new ischemic changes. Left bundle branch block is not new. Aspirin ordered. Analgesics ordered. Workup initiated. - Reevaluation(s) Reevaluation #1: Patient's chest x-ray unremarkable. Labwork appears to be at baseline, no elevated troponin. Patient's pain improved after troponin. Patient does describe substernal chest pain, radiating up to her jaw and shoulder. She compares it to her past episodes of heart issues, most recently approx 6 months ago when she did have NSTEMI on her work up. She has a HEART score of 5. Patient discussed with attending Dr. Dexter who also had face time with patient and agreed with admission for chest pain. Time: 05:45 Reevaluation #2: Patient discussed with and accepted by hospitalist Dr. Devlin Time: 06:30 Vital Signs Temperature 98.0 F 12/28/18 03:23 Pulse Rate 78 12/28/18 03:23 Respiratory Rate 18 12/28/18 03:23 Blood Pressure 178/86 12/28/18 03:23 O2 Sat by Pulse Oximetry 99 12/28/18 03:23 Temperature 98.0 F 12/28/18 03:23 Pulse Rate 76 12/28/18 05:03 Respiratory Rate 16 12/28/18 05:03 Blood Pressure 170/62 12/28/18 05:03 O2 Sat by Pulse Oximetry 98 12/28/18 05:03 Oxygen Delivery Oxygen Delivery Room Air Chest Pain - MDM Narrative Medical decision making narrative: Chest X-Ray 12/28/18 03:31 IMPRESSION: No acute disease. D/ / Wayne Gray MD / Wayne Gray MD Interpreting Provider: Wayne Gray MD Shoulder X-Ray 12/28/18 05:23 IMPRESSION: Reverse left shoulder arthroplasty with no acute abnormality identified. D/ / Wayne Gray MD / Wayne Gray MD Interpreting Provider: Wayne Gray MD Laboratory Tests 12/28/18 12/28/18 12/28/18 04:00 04:56 04:56 WBC 6.1 RBC 3.39 L Hgb 11.4 L Hct 36.0 MCV 106.2 H MCH 33.6 H MCHC 31.7 RDW 14.1 Plt Count 256 MPV 9.6 Immature Gran % 0.3 Seg Neutrophils % 43.6 Lymphocytes % 30.6 Monocytes % 13.4 Eosinophils % 10.8 Basophils % 1.3 Neutrophils # 2.7 Lymphocytes # 1.9 Monocytes # 0.8 Eosinophils # 0.7 H Basophils # 0.1 PT 11.9 INR 1.0 APTT 32.0 Sodium 145 Potassium 3.7 Chloride 103 Carbon Dioxide 24 BUN 23 Creatinine 1.25 H Est GFR ( Amer) 49 L Est GFR (Non-Af Amer) 41 L BUN/Creatinine Ratio 18 Glucose 105 Calculated Osmolality 304 H Calcium 9.3 Troponin I < 0.03 - Lab Data Lab results reviewed: Yes I reviewed the patient's lab results. Result diagrams: 12/28/18 04:56 12/28/18 04:00 Lab Results 12/28/18 12/28/18 12/28/18 Range/Units 04:00 04:56 04:56 WBC 6.1 (4.3-11.1) K/mcL RBC 3.39 L (3.82-4.97) M/mcL Hgb 11.4 L (11.5-15.4) g/dL Hct 36.0 (35.3-44.9) % MCV 106.2 H (83.0-100.0) fL MCH 33.6 H (28.0-33.3) pg MCHC 31.7 (31.6-35.5) g/dL RDW 14.1 (11.5-14.5) % Plt Count 256 (140-400) K/mcL MPV 9.6 (9.4-12.4) fL Immature Gran % 0.3 (0-4) % Seg Neutrophils % 43.6 % Lymphocytes % 30.6 % Monocytes % 13.4 % Eosinophils % 10.8 % Basophils % 1.3 % Neutrophils # 2.7 (1.6-8.9) K/mcL Lymphocytes # 1.9 (0.6-4.6) K/mcL Monocytes # 0.8 (0.0-1.3) K/mcL Eosinophils # 0.7 H (0.0-0.6) K/mcL Basophils # 0.1 (0.0-0.2) K/mcL PT 11.9 (9.4-12.1) Seconds INR 1.0 APTT 32.0 (26.0-36.0) Seconds Sodium 145 (136-145) mEq/L Potassium 3.7 (3.5-5.1) mEq/L Chloride 103 (98-107) mEq/L Carbon Dioxide 24 (23-29) mEq/L BUN 23 (8-23) mg/dL Creatinine 1.25 H (0.60-1.20) mg/dL Est GFR ( Amer) 49 L (> 60) Est GFR (Non-Af Amer) 41 L (> 60) BUN/Creatinine Ratio 18 (6-26) Glucose 105 (70-105) mg/dL Calculated Osmolality 304 H (280-300) Calcium 9.3 (8.6-10.3) mg/dL Troponin I < 0.03 (< 0.04) ng/mL - Radiology Data Radiology results reviewed: Yes I reviewed the patient's radiology results. - EKG Data EKG attestation: Yes I reviewed and interpreted this EKG. Heart Score - Score History: Moderately Suspicious EKG: Normal Age: Greater than 65 Risk Factors: Equal/Greater than 3 risk factor or history of atherosclerotic disease Troponin: Less than normal limit HEART Score Total: 5
[2018-12-28 05:07] LABS: Basophils # 0.1 K/mcL (0.0-0.2); Basophils % 1.3 %; Eosinophils # 0.7 K/mcL (0.0-0.6); Eosinophils % 10.8 %; Hemoglobin 11.4 g/dL (11.5-15.4); Immature Granulocytes % 0.3 % (0-4); Lymphocytes # 1.9 K/mcL (0.6-4.6); Lymphocytes % 30.6 %; Mean Corpuscular HGB Conc 31.7 g/dL (31.6-35.5); Mean Corpuscular Hemoglobin 33.6 pg (28.0-33.3); Mean Corpuscular Volume 106.2 fL (83.0-100.0); Mean Platelet Volume 9.6 fL (9.4-12.4); Monocytes # 0.8 K/mcL (0.0-1.3); Monocytes % 13.4 %; Neutrophils # 2.7 K/mcL (1.6-8.9); Platelet Count 256 K/mcL (140-400); Red Blood Count 3.39 M/mcL (3.82-4.97); Red Cell Distribution Width 14.1 % (11.5-14.5); Segmented Neutrophils % 43.6 %; White Blood Count 6.1 K/mcL (4.3-11.1)
[2018-12-28 05:15] LABS: Prothrombin Time 11.9 Seconds (9.4-12.1)
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
[2018-12-28] MEDS ORDERED: traMADol 50 MG TABLET PO PRN (08:38)
[2018-12-28] MEDS ORDERED: Nitroglycerin 0.4 MG TAB.SUBL SL PRN (08:38)
[2018-12-28] MEDS ORDERED: (Menthol [Biofreeze] 1 APPL) TP PRN (08:38)
--- NOTE | 2018-12-28 08:39 | Internal Med History&Physical ---
Date of Encounter: 12/28/18 Time of Encounter: 08:34 Internal Medicine - H&P: HPI History of present illness: Ms. Alston is a 87 year old female with history of CHF EF 30-35%, ischemic cardiomyopathy, DVT not on AC due to GI bleed/anemia, hypertension, CKD presents for squeezing chest pain. She took 3 nitro at home every 5 min without relief. Rated 8 out of 10 in severity with radiation to bilateral arms and jaws with numbness/tingling in the right hand. She also complained of nausea with one episode of vomiting. She was admitted for chest pain 6 months ago and had LHC done with no interventions. She is on DAPT currently. Denies fevers/chills, diarrhea/constipation. Past Med Surg Social Fam HX - Past Medical History Medical history: cardiomyopathy, CHF, coronary artery disease, DVT, hyperlipidemia, hypertension, myocardial infarction, renal disease, other Additional medical history: vertigo, spinal stenosis Psychiatric history: anxiety, depression - Past Surgical History Surgical History: angioplasty/stent, appendectomy, cholecystectomy, orthopedic, other, other Additional surgical history: BILATERAL CARPAL TUNNEL SURGERIES - Social History Smoking Status: Former smoker Smokeless Tobacco Status: No Alcohol use: none Drug use: none - Family History Father Family Member Ethnicity: Non- Living Status: Hx Family Cardiac Disorders: No Hx Family Respiratory Disorders: No Hx Family Cancer: No Mother Family Member Ethnicity: Non- Living Status: Hx Family Cardiac Disorders: Yes (Stroke) Hx Family Respiratory Disorders: No Hx Family Cancer: No Hx Family GI Disorders: No Hx Family Endocrine Disorder: No Hx Family Neuromuscular Disorders: No Hx Family Neurologic Disorders: Yes (CEREBRAL VASCULAR ACCIDENT.) Hx Family HEENT Disorders: No Hx Family Autoimmune Disorders: No Sister Family Member Ethnicity: Non- Living Status: Still Living Hx Family GI Disorders: Yes (Gallbladder) Brother Family Member Ethnicity: Non- Living Status: Hx Family Neurologic Disorders: Yes Internal Medicine - H&P: Meds Lisinopril [Zestril] 20 mg PO DAILY 07/12/17 [History] Omeprazole [PriLOSEC] 20 mg PO BID 07/12/17 [History] Tramadol HCl [Ultram] 50 mg PO Q8H PRN 11/14/17 [History] Clopidogrel [Plavix] 75 mg PO DAILY #30 11/18/17 [Rx] Furosemide [Lasix] 20 mg PO DAILY #30 tablet 11/18/17 [Rx] Zolpidem [Ambien] 10 mg PO HS PRN 12/01/17 [History] Nitroglycerin 0.4 mg SL Q5MIN PRN 30 Days #30 tab.subl MDD X3 DOSES CALL 911 03/21/18 [Rx] Docusate Sodium [Stool Softener] 100 - 300 mg PO DAILY PRN 06/21/18 [History] Menthol [Biofreeze] 1 appl TP BID PRN 06/21/18 [History] Atorvastatin [Lipitor] 40 mg PO BID 10/09/18 [History] Ferrous Sulfate [High Potency Iron] 27 mg PO DAILY 10/09/18 [History] Aspirin 81 mg PO BID 12/28/18 [History] Metoprolol Succinate [Toprol Xl] 25 mg PO DAILY 12/28/18 [History] Allergy/AdvReac Type Severity Reaction Status Date / Time Iodinated Contrast- Oral and Allergy Chest Pain Verified 10/09/18 18:47 IV Dye Penicillins Allergy Rash Verified 10/09/18 18:47 All Systems PM: A 10-system review of systems was performed and is negative for pertinent findings except as documented above in the HPI. - Constitutional Constitutional: no chills, no fever(s), no night sweats - EENT Eyes: no change in vision, no discharge, no pain, no photophobia Ears: no ear discharge, no ear pain, no tinnitus Nose, mouth and throat: no dysphagia, no nasal discharge, no neck pain, no sore throat - Cardiovascular Cardiovascular ROS IM: chest pain, no diaphoresis, no dyspnea, no lightheadedness, no palpitations, no syncope - Respiratory Respiratory: no cough, no dyspnea, no wheezing, no excessive phlegm production - Gastrointestinal Gastrointestinal: no abdominal pain, no diarrhea, no hematemesis, no hematochezia, no melena, no nausea, no vomiting - Genitourinary Genitourinary: no change in urinary stream, no dysuria, no flank pain, no hematuria - Musculoskeletal Musculoskeletal ROS IM: no numbness, no tingling - Integumentary Integumentary IM: no rash, no unusual bruising - Neurological Neurological ROS: no confusion, no convulsions, no focal weakness, no numbness, no tingling, no tremor(s) - Hematologic/Lymphatic Hematologic/Lymphatic: no easy bruising - Constitutional Vitals: Temp Pulse Resp BP Pulse Ox 98.0 F 77 14 167/76 97 12/28/18 07:18 12/28/18 07:18 12/28/18 07:18 12/28/18 07:18 12/28/18 07:18 Exam: Hard of hearing. . - Head Head exam: Present: atraumatic, normocephalic - Eye Eye exam: Present: PERRL, conjuntiva pink, sclera anicteric Pupils: Present: PERRL - Neck Neck exam general surgery: Present: supple, trachea midline. Absent: lymphadenopathy - Respiratory Respiratory exam: Present: CTAB. Absent: accessory muscle use, rales, rhonchi, wheezes Additional comments: Sternal tenderness with palpation, patient unsure if this is the same pain or different pain. - Cardiovascular Cardiovascular exam: Present: RRR, +S1, +S2. Absent: diastolic murmur, gallop, rubs, systolic murmur - GI/Abdominal GI/Abdominal exam: Present: normal bowel sounds, soft, no peritoneal signs. Absent: distended, tenderness - Extremities Exam Extremities exam: Present: warm, radial pulses palpable and symmetrical. Absent: calf tenderness, cyanotic, pedal edema - Neurological Exam Neurological exam: Present: CN II-XII intact, oriented X3, no focal deficits. Absent: pronater drift, facial droop, speech deficit - Skin Skin exam: Present: dry, intact Internal Med - H&P Results - Labs CBC & Chem 7: 12/28/18 04:56 12/28/18 04:00 Labs: Short CBC 12/28/18 Range/Units 04:56 WBC 6.1 (4.3-11.1) K/mcL Hgb 11.4 L (11.5-15.4) g/dL Hct 36.0 (35.3-44.9) % Plt Count 256 (140-400) K/mcL Neutrophils # 2.7 (1.6-8.9) K/mcL BMP 12/28/18 04:00 Sodium 145 Potassium 3.7 Chloride 103 Carbon Dioxide 24 BUN 23 Creatinine 1.25 H Glucose 105 Calcium 9.3 Cardiac Enzymes 12/28/18 Range/Units 04:00 Troponin I < 0.03 (< 0.04) ng/mL - Impressions ITS Impressions Chest X-Ray 12/28/18 03:31 IMPRESSION: No acute disease. D/ / Wayne Gray MD / Wayne Gray MD Interpreting Provider: Wayne Gray MD Shoulder X-Ray 12/28/18 05:23 IMPRESSION: Reverse left shoulder arthroplasty with no acute abnormality identified. D/ / Wayne Gray MD / Wayne Gray MD Interpreting Provider: Wayne Gray MD - Assessment and Plan (1) Chest pain Current Visit: Yes Status: Acute Assessment and plan: HEART score 5. EKG on admission shows no acute changes. Initial troponin negative. She has tenderness of sternum on exam but she cannot comfortably say if this is the same pain or not. Well's Score is 1.5, less likely PE. Based on her significant cardiac history, she will benefit from a Cardiology evaluation. Will also continue Nitro prn as well. Continue aspirin/Plavix. Cycle cardiac enzymes. Qualifiers: Chest pain type: unspecified Qualified Code(s): R07.9 - Chest pain, unspecified (2) CAD (coronary artery disease) Current Visit: No Status: Acute Qualifiers: Coronary Disease-Associated Artery/Lesion type: [place] artery [place] vs. transplanted heart: [place] heart Associated angina: angina presence unspecified Qualified Code(s): I25.10 - Atherosclerotic heart disease of [place] coronary artery without angina pectoris (3) Cardiomyopathy Current Visit: No Status: Acute Qualifiers: Cardiomyopathy type: unspecified Qualified Code(s): I42.9 - Cardiomyopathy, unspecified (4) DVT (deep venous thrombosis) Current Visit: No Status: Acute Assessment and plan: Has history of GI bleed not on anticoagulation but she is on dual antiplatelet therapy. Will continue and also use subcutaneous heparin at DVT prophylaxis dose and monitor closely for any signs of anemia. Qualifiers: DVT location: lower extremity Affected thrombotic vein of extremity: femoral Chronicity: acute Laterality: right Qualified Code(s): I82.411 - Acute embolism and thrombosis of right femoral vein (5) GERD (gastroesophageal reflux disease) Current Visit: No Status: Acute Qualifiers: Esophagitis presence: esophagitis presence not specified Qualified Code(s): K21.9 - Gastro-esophageal reflux disease without esophagitis (6) HTN (hypertension) Current Visit: No Status: Acute Assessment and plan: resume home medications Qualifiers: Hypertension type: essential hypertension Qualified Code(s): I10 - Essential (primary) hypertension (7) Hyperlipidemia Current Visit: No Status: Acute Qualifiers: Hyperlipidemia type: unspecified Qualified Code(s): E78.5 - Hyperlipidemia, unspecified (8) Systolic CHF with reduced left ventricular function, NYHA class 3 Current Visit: No Status: Acute Assessment and plan: No acute exacerbation. Continue beta lewis. Hold today's dose of lisinopril because of slight bump in creatinine, likely can resume tomorrow. (9) CAD (coronary artery disease) Current Visit: No Status: Chronic Qualifiers: Coronary Disease-Associated Artery/Lesion type: [place] artery [place] vs. transplanted heart: [place] heart Associated angina: with unstable angina Qualified Code(s): I25.110 - Atherosclerotic heart disease of [place] coronary artery with unstable angina pectoris (10) CKD (chronic kidney disease) stage 3, GFR 30-59 ml/min Current Visit: No Status: Chronic (11) GERD (gastroesophageal reflux disease) Current Visit: No Status: Chronic Qualifiers: Esophagitis presence: without esophagitis Qualified Code(s): K21.9 - Gastro-esophageal reflux disease without esophagitis (12) Severe protein-calorie malnutrition Current Visit: No Status: Chronic - Time Spent With Patient Total time spent is greater than 50% in coordination of care (as documented) at patient's floor/unit and/or counseling patient:
[2018-12-28] MEDS ORDERED: Naloxone 0.4 MG/ML INJ IVP PRN (08:45)
[2018-12-28] MEDS: Metoprolol XL (24 HR) Succ 25 MG TAB.ER.24H PO SCH (12:28)
[2018-12-28] MEDS: Furosemide 20 MG TABLET PO SCH (12:28)
--- NOTE | 2018-12-28 12:55 | Cardiology Consult Note ---
<Edgar Lira - Last Filed: 12/28/18 12:52> Date of Encounter: 12/28/18 Time of Encounter: 12:52 Assessment and Plan (1) Atypical chest pain Current Visit: No Status: Acute C/o atypical chest pain. Pain is reproducible on my exam. Suspect muscle skeletal pain. Troponin negative. EKG with no acute changes from previous. LHC 06/2018 revealed severe one vessel disease. 80 % stenosis in the distal RCA that was unamendable to PCI. Previous stents patent. No intervention recommended. EF 20%. TTE 03/2018 with LVEF 30-35%, global hypokinesis. TTE 06/30 EF 30-35%. Severe global dysfunction, No LV thrombus. Recommend trending troponin. Continue medical management. Asa, statin, bb, and restart imdur. Not clear if patient started from last h ospital stay. (2) CAD (coronary artery disease) Current Visit: No Status: Chronic H/o CAD with multiple prior PCI. Last C in June with no intervention. Severe stenosis not ammendable to PCI. Continue mm as described above. Qualifiers: Coronary Disease-Associated Artery/Lesion type: [place] artery [place] vs. transplanted heart: [place] heart Associated angina: with unstable angina Qualified Code(s): I25.110 - Atherosclerotic heart disease of [place] coronary artery with unstable angina pectoris (3) Systolic CHF with reduced left ventricular function, NYHA class 3 Current Visit: No Status: Acute Known ICMP. Currently euvolemic. Add aceI if kidney function improves. Discussion w patient/family: The assessment and plan as outlined above was discussed with the patient and/or family members who expressed understanding and agreement. All questions were answered. Thank you for involving us in the care of your patient. Please call with any questions. History of Present Illness Consult date: 12/28/18 Requesting physician: Dharmesh Junior Consult reason: chest pain Chief complaint: chest pain History of present illness: Ms. Alston is a 87 year old female with past medical history of CAD s/p multiple PCI, ICMP, HTN, HLD, anxiety, depression, CKD, anemia who presented to [facility] with complaints of chest pain. She c/o midsternal "soreness" that started last night. She took 3 SL NTG without relief. On my exam she continues to have pain that is reproducible. She notes poison danna rash on her chest. She is very [place]. I asked multiple times if she started the imdur that was recommended during her last hospital stay and she does not know. Past Med Surg Social Fam HX - Past Medical History Medical history: cardiomyopathy, CHF, coronary artery disease, DVT, hyperlipidemia, hypertension, myocardial infarction, renal disease, other Additional medical history: vertigo, spinal stenosis Psychiatric history: anxiety, depression - Past Surgical History Surgical History: angioplasty/stent, appendectomy, cholecystectomy, orthopedic, other, other Additional surgical history: BILATERAL CARPAL TUNNEL SURGERIES - Social History Smoking Status: Former smoker Smokeless Tobacco Status: No Alcohol use: none Drug use: none - Family History Father Family Member Ethnicity: Non- Living Status: Hx Family Cardiac Disorders: No Hx Family Respiratory Disorders: No Hx Family Cancer: No Mother Family Member Ethnicity: Non- Living Status: Hx Family Cardiac Disorders: Yes (Stroke) Hx Family Respiratory Disorders: No Hx Family Cancer: No Hx Family GI Disorders: No Hx Family Endocrine Disorder: No Hx Family Neuromuscular Disorders: No Hx Family Neurologic Disorders: Yes (CEREBRAL VASCULAR ACCIDENT.) Hx Family HEENT Disorders: No Hx Family Autoimmune Disorders: No Sister Family Member Ethnicity: Non- Living Status: Still Living Hx Family GI Disorders: Yes (Gallbladder) Brother Family Member Ethnicity: Non- Living Status: Hx Family Neurologic Disorders: Yes Medications and Allergies Lisinopril [Zestril] 20 mg PO DAILY 07/12/17 [History] Omeprazole [PriLOSEC] 20 mg PO BID 07/12/17 [History] Tramadol HCl [Ultram] 50 mg PO Q8H PRN 11/14/17 [History] Clopidogrel [Plavix] 75 mg PO DAILY #30 11/18/17 [Rx] Furosemide [Lasix] 20 mg PO DAILY #30 tablet 11/18/17 [Rx] Zolpidem [Ambien] 10 mg PO HS PRN 12/01/17 [History] Nitroglycerin 0.4 mg SL Q5MIN PRN 30 Days #30 tab.subl MDD X3 DOSES CALL 911 03/21/18 [Rx] Docusate Sodium [Stool Softener] 100 - 300 mg PO DAILY PRN 06/21/18 [History] Menthol [Biofreeze] 1 appl TP BID PRN 06/21/18 [History] Atorvastatin [Lipitor] 40 mg PO BID 10/09/18 [History] Ferrous Sulfate [High Potency Iron] 27 mg PO DAILY 10/09/18 [History] Aspirin 81 mg PO BID 12/28/18 [History] Metoprolol Succinate [Toprol Xl] 25 mg PO DAILY 12/28/18 [History] Allergy/AdvReac Type Severity Reaction Status Date / Time Iodinated Contrast- Oral and Allergy Chest Pain Verified 10/09/18 18:47 IV Dye Penicillins Allergy Rash Verified 10/09/18 18:47 All Systems Review: The remainder of the systems were reviewed and are negative Physical Examination Vital Signs, Last 4 Hours Temp Pulse Resp BP Pulse Ox 12/28/18 11:00 98.1 F 67 16 145/79 97 General: Conversant, No Apparent Distress, Other (Conversation limited by hearing) HEENT: Atraumatic, Normocephaly, Mucus Membranes Moist Neck: No JVD, Normal carotid pulses Cardiac: Reg Rate and Rhythm, Normal S1 and S2, No Murmur Lungs: Normal Breath Sounds, No Wheeze, Rales, Rhonchi Neuro: Alert and responsive, No focal deficits noted Abdomen: Soft, Non-Tender Skin: Other (multiple scabbed areas on her chest ) Musculoskeletal: No Chest Wall Tenderness Extremities: No Clubbing, No Cyanosis, No Edema, Normal Pulses Results 12/28/18 04:56 12/28/18 04:00 Lab Results 12/28/18 12/28/18 12/28/18 04:00 04:56 04:56 WBC 6.1 Hgb 11.4 L Hct 36.0 Plt Count 256 INR 1.0 APTT 32.0 Sodium 145 Potassium 3.7 Chloride 103 Carbon Dioxide 24 BUN 23 Creatinine 1.25 H Glucose 105 Calcium 9.3 Troponin I < 0.03 12/28/18 10:05 WBC Hgb Hct Plt Count INR APTT Sodium Potassium Chloride Carbon Dioxide BUN Creatinine Glucose Calcium Troponin I < 0.03 - Imaging and Cardiology Echo: report reviewed Cardiac cath: report reviewed - EKG Interpretation EKG results cardiology: personally reviewed Consult Discharge Plan - Plan Referrals: El Carrillo DO [Primary Care Provider] - (Appt has been requested. ) <Wang Kwan - Last Filed: 12/28/18 18:43> Date of Encounter: 12/28/18 - Attending Attestation I have personally performed a face to face evaluation on this patient. I have reviewed and agree with the care plan. History and Exam by me shows: 87-year-old female with history of coronary artery disease status post [facility] in June 2017 with patent stents in the left coronaries and severe disease in the distal RCA not amenable to PCI. She presents today with atypical reproducible chest pain different from her previous MIs. She is a poor historian due to hard of hearing. No significant EKG changes or elevated cardiac markers. Continue to optimize medical management for both coronary artery disease and just heart failure with known ejection fraction between 30 and 35%. ICD can be discussed as an outpatient Assessment and Plan Discussion w patient/family: The assessment and plan as outlined above was discussed with the patient and/or family members who expressed understanding and agreement. All questions were answered. Thank you for involving us in the care of your patient. Please call with any questions. History of Present Illness History of present illness: Ms. Alston is a 87 year old female All Systems Review: The remainder of the systems were reviewed and are negative Physical Examination Vital Signs, Last 4 Hours Temp Pulse Resp BP Pulse Ox 12/28/18 18:22 98.2 F 64 16 136/59 99 12/28/18 14:59 98.6 F 74 16 129/74 96 Results 12/28/18 04:56 12/28/18 04:00 Lab Results 12/28/18 12/28/18 12/28/18 04:00 04:56 04:56 WBC 6.1 Hgb 11.4 L Hct 36.0 Plt Count 256 INR 1.0 APTT 32.0 Sodium 145 Potassium 3.7 Chloride 103 Carbon Dioxide 24 BUN 23 Creatinine 1.25 H Glucose 105 Calcium 9.3 Troponin I < 0.03 12/28/18 12/28/18 10:05 15:46 WBC Hgb Hct Plt Count INR APTT Sodium Potassium Chloride Carbon Dioxide BUN Creatinine Glucose Calcium Troponin I < 0.03 < 0.03
--- NOTE | 2018-12-29 00:28 | Electrocardiograph Report ---
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
[2018-12-29 03:07] LABS: Calcium 8.9 mg/dL (8.6-10.3); Chol/HDL Ratio 2.8 (0-4.9); Potassium 3.5 mEq/L (3.5-5.1)
--- NOTE | 2018-12-29 09:12 | Discharge Summary ---
- NOTES TO OUTPATIENT PROVIDER Notes to Outpatient Provider: seen for CP- evaluated by cardiology recommended resuming Imdur patient had a syncopal episode switched to Ranexa was seen by neurology -suspect vasovagal follow-up with neurology in 2-3 weeks Date of Encounter: 12/31/18 Time of Encounter: 16:20 - Discharge Diagnosis (1) CKD (chronic kidney disease) stage 3, GFR 30-59 ml/min Priority: Secondary Status: Chronic (2) GERD (gastroesophageal reflux disease) Priority: Secondary Status: Chronic Qualifiers: Esophagitis presence: without esophagitis Qualified Code(s): K21.9 - Gastro-esophageal reflux disease without esophagitis (3) Systolic CHF with reduced left ventricular function, NYHA class 3 Priority: Secondary Status: Acute (4) CAD (coronary artery disease) Priority: Secondary Status: Chronic Qualifiers: Coronary Disease-Associated Artery/Lesion type: [place] artery [place] vs. transplanted heart: [place] heart Associated angina: with unstable angina Qualified Code(s): I25.110 - Atherosclerotic heart disease of [place] coronary artery with unstable angina pectoris (5) Hyperlipidemia Priority: Secondary Status: Acute Qualifiers: Hyperlipidemia type: unspecified Qualified Code(s): E78.5 - Hyperlipidemia, unspecified (6) Severe protein-calorie malnutrition Priority: Secondary Status: Chronic (7) Cardiomyopathy Priority: Secondary Status: Acute Qualifiers: Cardiomyopathy type: unspecified Qualified Code(s): I42.9 - Cardiomyopathy, unspecified (8) Chest pain Priority: Primary Status: Acute Qualifiers: Chest pain type: unspecified Qualified Code(s): R07.9 - Chest pain, unspecified (9) HTN (hypertension) Priority: Secondary Status: Acute Qualifiers: Hypertension type: essential hypertension Qualified Code(s): I10 - Essential (primary) hypertension (10) GERD (gastroesophageal reflux disease) Priority: Secondary Status: Acute Qualifiers: Esophagitis presence: esophagitis presence not specified Qualified Code(s): K21.9 - Gastro-esophageal reflux disease without esophagitis (11) CAD (coronary artery disease) Priority: Secondary Status: Acute Qualifiers: Coronary Disease-Associated Artery/Lesion type: [place] artery [place] vs. transplanted heart: [place] heart Associated angina: angina presence unspecified Qualified Code(s): I25.10 - Atherosclerotic heart disease of [place] coronary artery without angina pectoris Hospital course: Ms. Alston is a 87 year old female past medical history of CHF with EF of 3035% ischemic cardiomyopathy DVT not on before meals due to GI bleed/anemia hypertension CK D presented to [facility] after experiencing squeezing chest pain. She took 3 nitroglycerin at home without any relief scribing 8 out of 10 radiating to bilateral arms and jaw. She did have some nausea with 1 episode of vomiting. She was recently admitted with chest pain prior to 6 months ago and underwent LHC with no intervention is currently on DAPT therapy-chest x-ray with nothing acute shoulder x-ray with nothing acute troponins were negative 3 EKG with no ischemic changes are seen by cardiology recommending continued medical management including continuation of her Imdur. It appears that she has not been taking this medication. She was initiated on Imdur while in the hospital and experience an episode syncope while going to the bathroom. She did not lo se consciousness however she was incontinent of urine neurology was consulted - do not suspect seizure activity-suspect vasovagal/orthostatic changes. She did have positive orthostatics. Stopped Imdur and placed on Ranexa per cardiology recommendations cardiology recommending Lasix as needed she will need to follow- up with both cardiology and neurology as well as primary care provider. She was evaluated by PT OT with no needs identified she is currently hemodynamically stable at this time is ready for discharge. - Time Spent with Patient Total time spent providing and/or coordinating discharge services: - Discharge Medications Prescriptions: New Ranolazine [Ranexa] 500 mg PO BID #60 tab.er.12h Continued Omeprazole [PriLOSEC] 20 mg PO BID Lisinopril [Zestril] 20 mg PO DAILY Clopidogrel [Plavix] 75 mg PO DAILY #30 Zolpidem [Ambien] 10 mg PO HS PRN PRN Reason: Sleep Nitroglycerin 0.4 mg SL Q5MIN PRN 30 Days #30 tab.subl MDD X3 DOSES CALL 911 PRN Reason: Chest Pain Docusate Sodium [Stool Softener] 100 - 300 mg PO DAILY PRN PRN Reason: Constipation Menthol [Biofreeze] 1 appl TP BID PRN PRN Reason: Pain Atorvastatin [Lipitor] 40 mg PO DAILY Ferrous Sulfate [High Potency Iron] 27 mg PO DAILY Aspirin 81 mg PO BID Metoprolol Succinate [Toprol Xl] 25 mg PO DAILY Changed Furosemide [Lasix] 20 mg PO DAILY PRN #30 tablet PRN Reason: Edema Home Medications: Lisinopril [Zestril] 20 mg PO DAILY 07/12/17 [History] Omeprazole [PriLOSEC] 20 mg PO BID 07/12/17 [History] Clopidogrel [Plavix] 75 mg PO DAILY #30 11/18/17 [Rx] Zolpidem [Ambien] 10 mg PO HS PRN 12/01/17 [History] Nitroglycerin 0.4 mg SL Q5MIN PRN 30 Days #30 tab.subl MDD X3 DOSES CALL 911 03/21/18 [Rx] Docusate Sodium [Stool Softener] 100 - 300 mg PO DAILY PRN 06/21/18 [History] Menthol [Biofreeze] 1 appl TP BID PRN 06/21/18 [History] Atorvastatin [Lipitor] 40 mg PO DAILY 10/09/18 [History] Ferrous Sulfate [High Potency Iron] 27 mg PO DAILY 10/09/18 [History] Aspirin 81 mg PO BID 12/28/18 [History] Metoprolol Succinate [Toprol Xl] 25 mg PO DAILY 12/28/18 [History] Furosemide [Lasix] 20 mg PO DAILY PRN #30 tablet 12/31/18 [Rx] Ranolazine [Ranexa] 500 mg PO BID #60 tab.er.12h 12/31/18 [Rx] Allergies/Adverse Reactions: Allergy/AdvReac Type Severity Reaction Status Date / Time Iodinated Contrast- Oral and Allergy Chest Pain Verified 10/09/18 18:47 IV Dye Penicillins Allergy Rash Verified 10/09/18 18:47 Date of admission: 12/28/18 06:46 Primary care physician: Amauri Carrillo DO Consults: 12/28/18 09:22 Consult to Cardiology [CONS] Routine Comment: Consulting Provider: Cardiology Jeni Reason for Consult: chest pain Call Completed: No Discharging clinician: Irena Bah Anticipated date of discharge: 12/31/18 - Constitutional Vitals: Temp Pulse Resp BP Pulse Ox 98.2 F 68 15 170/71 98 12/29/18 07:38 12/29/18 07:38 12/29/18 07:38 12/29/18 07:38 12/29/18 07:38 Exam: Skin: Free of rash and discoloration. Eyes: Sclera is white. There is no discharge from eyes. ENMT: Oral/pharyngeal mucosa is normal in appearance. There is no discharge from nose or ears. Respiratory: Normal breath sounds with no crackles and wheezes bilaterally. CV: Heart is regular with no gallop or murmur. GI: Abdomen is flat and soft with no palpable mass or visceromegaly. : There is no tenderness in patient's flanks bilaterally. Neuro exam: He has good strength in upper and lower extremities. He has normal eye movements. Psychiatric: He has normal affect. His thought process is appropriate to the situation. - Patient Status Disposition: Home, Self-Care Condition: Good Functional capacity at discharge: independent ambulation Overall status at discharge: patient is back to baseline - Discharge Instructions Instructions: Chest Pain (DC) Follow Up With: El Carrillo DO [Primary Care Provider] - (Appt has been requested. ) - Diet and Activity Activity: increase activity as tolerated Diet: advance to your usual diet
[2018-12-29] MEDS ORDERED: Isosorbide MONOnitrate (24 HR) 60 MG TAB.ER.24H PO SCH (09:17)
[2018-12-29] MEDS: Furosemide 20 MG TABLET PO SCH (09:51)
[2018-12-29] MEDS: Aspirin 81 MG TAB.CHEW PO SCH ×2 (09:51→18:10)
[2018-12-29] MEDS: Metoprolol XL (24 HR) Succ 25 MG TAB.ER.24H PO SCH (09:51)
--- NOTE | 2018-12-29 11:12 | Event Note ---
Date of Encounter: 12/29/18 Time of Encounter: 11:12 Patient was seen and examined at bedside earlier this morning and she was doing while discussed with the patient discharge planning and for her to follow-up with cardiology as well as primary care provider. Notified per nursing staff the patient was in the bathroom 10 to have a bowel movement when she was found leaning up against the wall. service assistant attempted to sit patient back up and she was very limp. She then was incontinent of urine. Patient did arouse and stated that she did not feel well she did have a very large bowel movement prior to this episode. Upon assessment patient was alert and oriented and following commands repeatedly that she did not feel well 98 chest pain or shortness of breath denies any palpitations. Patient was taken downstairs for a stat CT of her head which was negative blood pressure was stable glucose was 120. We will cancel patient's discharge and monitor her overnight for syncopal episode
--- NOTE | 2018-12-29 14:22 | Internal Med Progress Note ---
Hospitalist Progress Note - Encounter Date of Encounter: 12/29/18 Time of Encounter: 14:22 - Subjective Interval History: Patient was seen and examined earlier this morning she had a syncopal episode while in the bathroom. CT of head was negative for anything acute. Blood pressure stable as well as glucose. Patient states that she did feel nauseated as if she is going to throw up however she is feeling better at this time. - Exam Vitals: Temp Pulse Resp BP Pulse Ox 97.8 F 70 16 127/72 95 12/29/18 11:16 12/29/18 11:16 12/29/18 11:16 12/29/18 11:16 12/29/18 11:16 Exam: Skin: Free of rash and discoloration. Eyes: Sclera is white. There is no discharge from eyes. ENMT: Oral/pharyngeal mucosa is normal in appearance. There is no discharge from nose or ears. Respiratory: Normal breath sounds with no crackles and wheezes bilaterally. CV: Heart is regular with no gallop or murmur. GI: Abdomen is flat and soft with no palpable mass or visceromegaly. : There is no tenderness in patient's flanks bilaterally. Neuro exam: He has good strength in upper and lower extremities. He has normal eye movements. Psychiatric: He has normal affect. His thought process is appropriate to the situation. - Assessment and Plan (1) CKD (chronic kidney disease) stage 3, GFR 30-59 ml/min Current Visit: No Status: Chronic Assessment and Plan: Appears to be stable at this time we will continue to monitor Avoid nephrotoxins (2) GERD (gastroesophageal reflux disease) Current Visit: No Status: Chronic Assessment and Plan: Continue with PPI (3) Systolic CHF with reduced left ventricular function, NYHA class 3 Current Visit: No Status: Acute Assessment and Plan: No acute exacerbation. Continue beta lewis. Hold today's dose of lisinopril because of slight bump in creatinine, likely can resume tomorrow. 12/29 We will continue with home medications (4) CAD (coronary artery disease) Current Visit: No Status: Chronic Assessment and Plan: Continue aspirin and beta lewis Imdur and statin (5) Hyperlipidemia Current Visit: No Status: Acute Assessment and Plan: Continuous statin (6) Severe protein-calorie malnutrition Current Visit: No Status: Chronic Assessment and Plan: Dietitian consulted for oral supplements (7) Cardiomyopathy Current Visit: No Status: Acute Assessment and Plan: TTE/06/30 EF of 3035% severe global dysfunction no LV thrombus continue with Lasix blocke LEATHA -can follow-up with cardiology as outpatient for discussion of pacemaker placement (8) Chest pain Current Visit: Yes Status: Acute Assessment and Plan: HEART score 5. EKG on admission shows no acute changes. Initial troponin negative. She has tenderness of sternum on exam but she cannot comfortably say if this is the same pain or not. Well's Score is 1.5, less likely PE. Based on her significant cardiac history, she will benefit from a Cardiology evaluation. Will also continue Nitro prn as well. Continue aspirin/Plavix. Cycle cardiac enzymes. 12/29 Troponins are negative EKG with no acute changes [facility] [place] 06/2018 revealed severe one vessel disease. 80 % stenosis in the distal RCA that was unamendable to PCI. Previous stents patent. No intervention recom mended. EF 20%. TTE 03/2018 with LVEF 30-35%, global hypokinesis. TTE 06/30 EF 30-35%. Severe global dysfunction, No LV thrombus. Cardiology was consulted recommending continue medical management aspirin and statin beta lewis restart Imdur (9) Syncope Current Visit: Yes Status: Acute Assessment and Plan: Patient had a syncopal episode while on the toilet-he was found by nursing staff-after patient had pulled call light-she was slumped over onto the wall once she was sat up she was incontinent of urine and no seizure activity noted- she aroused easily and stated that she did not feel well denied any chest pain or shortness of breath and unsure if she hit her head-patient had a large bowel movement prior to the episode suspect this may be vasovagal- Blood pressure was stable at 120/72 Blood glucose was [address] of head was negative Continue to monitor for now - Time Spent with Patient Total time spent is greater than 50% in coordination of care (as documented) at patient's floor/unit and/or counseling patient: Internal Medicine: Result - Labs CBC & Chem 7: 12/28/18 04:56 12/29/18 01:04 Labs: BMP 12/29/18 01:04 Sodium 138 Potassium 3.5 Chloride 104 Carbon Dioxide 24 BUN 22 Creatinine 1.12 Glucose 97 Calcium 8.9 Cardiac Enzymes 12/28/18 Range/Units 15:46 Troponin I < 0.03 (< 0.04) ng/mL - ABG Interpretation ABG results: PT/INR, D-dimer PT 11.9 Seconds (9.4-12.1) 12/28/18 04:56 - Impressions Impressions Head CT 12/29/18 11:10 IMPRESSION: No acute intracranial abnormality. D/ / Ignacio Calderon MD / Ignacio Calderon MD Interpreting Provider: Ignacio Calderon MD Consult Discharge Plan - Plan Instructions: Chest Pain (DC) Referrals: El Carrillo DO [Primary Care Provider] - (Appt has been requested. ) Prescriptions: Isosorbide MONOnitrate (24 HR) [Imdur] 60 mg PO DAILY #30 tab.er.24h (2) GERD (gastroesophageal reflux disease) Qualifiers: Esophagitis presence: without esophagitis Qualified Code(s): K21.9 - Gastro- esophageal reflux disease without esophagitis (4) CAD (coronary artery disease) Qualifiers: Coronary Disease-Associated Artery/Lesion type: [place] artery [place] vs. transplanted heart: [place] heart Associated angina: with unstable angina Qualified Code(s): I25.110 - Atherosclerotic heart disease of [place] coronary artery with unstable angina pectoris (5) Hyperlipidemia Qualifiers: Hyperlipidemia type: unspecified Qualified Code(s): E78.5 - Hyperlipidemia, unspecified (7) Cardiomyopathy Qualifiers: Cardiomyopathy type: unspecified Qualified Code(s): I42.9 - Cardiomyopathy, unspecified (8) Chest pain Qualifiers: Chest pain type: unspecified Qualified Code(s): R07.9 - Chest pain, unspecified (9) Syncope Qualifiers: Syncope type: unspecified Qualified Code(s): R55 - Syncope and collapse
[2018-12-30 05:48] LABS: Basophils # 0.1 K/mcL (0.0-0.2); Eosinophils # 0.6 K/mcL (0.0-0.6); Eosinophils % 7.7 %; Hematocrit 33.8 % (35.3-44.9); Hemoglobin 10.9 g/dL (11.5-15.4); Immature Granulocytes % 0.6 % (0-4); Lymphocytes # 2.3 K/mcL (0.6-4.6); Lymphocytes % 30.9 %; Mean Corpuscular HGB Conc 32.2 g/dL (31.6-35.5); Mean Corpuscular Hemoglobin 33.3 pg (28.0-33.3); Mean Corpuscular Volume 103.4 fL (83.0-100.0); Mean Platelet Volume 10.1 fL (9.4-12.4); Monocytes # 1.1 K/mcL (0.0-1.3); Neutrophils # 3.3 K/mcL (1.6-8.9); Platelet Count 265 K/mcL (140-400); Red Blood Count 3.27 M/mcL (3.82-4.97); Segmented Neutrophils % 44.8 %; White Blood Count 7.3 K/mcL (4.3-11.1)
[2018-12-30 06:06] LABS: Calcium 9.1 mg/dL (8.6-10.3); Potassium 3.3 mEq/L (3.5-5.1)
[2018-12-30] MEDS: Lisinopril 20 MG TABLET PO SCH (08:50)
[2018-12-30] MEDS: Metoprolol XL (24 HR) Succ 25 MG TAB.ER.24H PO SCH (08:50)
[2018-12-30] MEDS: Aspirin 81 MG TAB.CHEW PO SCH ×2 (08:50→17:55)
[2018-12-30] MEDS: Furosemide 20 MG TABLET PO SCH (08:50)
--- NOTE | 2018-12-30 08:55 | Internal Med Progress Note ---
Hospitalist Progress Note - Encounter Date of Encounter: 12/30/18 Time of Encounter: 08:52 - Subjective Interval History: She was seen and examined at bedside patient to have a syncopal episode yesterday today she is in much better blood pressures are stable no focal deficits-discussed with patient treatment plan which includes a carotid duplex as well as EEG which are pending at this time patient expresses that she wants to go home since today is her birthday advised her that we will wait for results and if they are normal she will go home today - Exam Vitals: Temp Pulse Resp BP Pulse Ox 98.3 F 76 16 163/69 99 12/30/18 07:32 12/30/18 07:32 12/30/18 07:32 12/30/18 07:32 12/30/18 07:32 Exam: Skin: Free of rash and discoloration. Eyes: Sclera is white. There is no discharge from eyes. ENMT: Oral/pharyngeal mucosa is normal in appearance. There is no discharge from nose or ears. Respiratory: Normal breath sounds with no crackles and wheezes bilaterally. CV: Heart is regular with no gallop or murmur. GI: Abdomen is flat and soft with no palpable mass or visceromegaly. : There is no tenderness in patient's flanks bilaterally. Neuro exam: He has good strength in upper and lower extremities. He has normal eye movements. Psychiatric: He has normal affect. His thought process is appropriate to the situation. - Assessment and Plan (1) CKD (chronic kidney disease) stage 3, GFR 30-59 ml/min Current Visit: No Status: Chronic Assessment and Plan: Appears to be stable at this time we will continue to monitor Avoid nephrotoxins (2) GERD (gastroesophageal reflux disease) Current Visit: No Status: Chronic Assessment and Plan: Continue with PPI (3) Systolic CHF with reduced left ventricular function, NYHA class 3 Current Visit: No Status: Acute Assessment and Plan: No acute exacerbation. Continue beta lewis. Hold today's dose of lisinopril because of slight bump in creatinine, likely can resume tomorrow. 12/29 We will continue with home medications 12/30 Continue with home medications (4) CAD (coronary artery disease) Current Visit: No Status: Chronic Assessment and Plan: Continue aspirin and beta lewis Imdur and statin (5) Hyperlipidemia Current Visit: No Status: Acute Assessment and Plan: Continuous statin (6) Severe protein-calorie malnutrition Current Visit: No Status: Chronic Assessment and Plan: Dietitian consulted for oral supplements (7) Cardiomyopathy Current Visit: No Status: Acute Assessment and Plan: TTE/06/30 EF of 3035% severe global dysfunction no LV thrombus continue with Lasix blocke LEATHA -can follow-up with cardiology as outpatient for discussion of pacemaker placement (8) Chest pain Current Visit: Yes Status: Acute Assessment and Plan: HEART score 5. EKG on admission shows no acute changes. Initial troponin negative. She has tenderness of sternum on exam but she cannot comfortably say if this is the same pain or not. Well's Score is 1.5, less likely PE. Based on her significant cardiac history, she will benefit from a Cardiology evaluation. Will also continue Nitro prn as well. Continue aspirin/Plavix. Cycle cardiac enzymes. 12/29 Troponins are negative EKG with no acute changes [facility] 06/2018 revealed severe one vessel disease. 80 % stenosis in the distal RCA that was unamendable to PCI. Previous stents patent. No intervention recommended. EF 20%. TTE 03/2018 with LVEF 30-35%, global hypokinesis. TTE 06/30 EF 30-35%. Severe global dysfunction, No LV thrombus. Cardiology was consulted recommending continue medical management aspirin and statin beta lewis restart Imdur 12/30 Continue with current medications including aspirin and statin beta lewis and Imdur no chest pain however patient did have a syncopal episode yesterday (9) Syncope Current Visit: Yes Status: Acute Assessment and Plan: Patient had a syncopal episode while on the toilet-he was found by nursing staff-after patient had pulled call light-she was slumped over onto the wall once she was sat up she was incontinent of urine and no seizure activity noted- she aroused easily and stated that she did not feel well denied any chest pain or shortness of breath and unsure if she hit her head-patient had a large bowel movement prior to the episode suspect this may be vasovagal- Blood pressure was stable at 120/72 Blood glucose was 120 CT of head was negative Continue to monitor for now 12/30 No more episodes of syncope review of telemetry shows no arrhythmias overnight. Orthostatic vital signs pending EEG pending Carotid duplex pending Continue cardiac monitoring and will and with the patient - Time Spent with Patient Total time spent is greater than 50% in coordination of care (as documented) at patient's floor/unit and/or counseling patient: Internal Medicine: Result - Labs CBC & Chem 7: 12/30/18 05:20 12/30/18 05:20 Labs: Short CBC 12/30/18 Range/Units 05:20 WBC 7.3 (4.3-11.1) K/mcL Hgb 10.9 L (11.5-15.4) g/dL Hct 33.8 L (35.3-44.9) % Plt Count 265 (140-400) K/mcL Neutrophils # 3.3 (1.6-8.9) K/mcL BMP 12/30/18 05:20 Sodium 137 Potassium 3.3 L Chloride 104 Carbon Dioxide 26 BUN 26 H Creatinine 1.11 Glucose 100 Calcium 9.1 - ABG Interpretation ABG results: PT/INR, D-dimer PT 11.9 Seconds (9.4-12.1) 12/28/18 04:56 - Impressions Impressions Head CT 12/29/18 11:10 IMPRESSION: No acute intracranial abnormality. D/ / Ignacio Calderon MD / Ignacio Calderon MD Interpreting Provider: Ignacio Calderon MD Consult Discharge Plan - Plan Instructions: Chest Pain (DC) Referrals: El Carrillo DO [Primary Care Provider] - (Appt has been requested. ) Prescriptions: Isosorbide MONOnitrate (24 HR) [Imdur] 60 mg PO DAILY #30 tab.er.24h (2) GERD (gastroesophageal reflux disease) Qualifiers: Esophagitis presence: without esophagitis Qualified Code(s): K21.9 - Gastro- esophageal reflux disease without esophagitis (4) CAD (coronary artery disease) Qualifiers: Coronary Disease-Associated Artery/Lesion type: [place] artery [place] vs. transplanted heart: [place] heart Associated angina: with unstable angina Qualified Code(s): I25.110 - Atherosclerotic heart disease of [place] coronary artery with unstable angina pectoris (5) Hyperlipidemia Qualifiers: Hyperlipidemia type: unspecified Qualified Code(s): E78.5 - Hyperlipidemia, unspecified (7) Cardiomyopathy Qualifiers: Cardiomyopathy type: unspecified Qualified Code(s): I42.9 - Cardiomyopathy, unspecified (8) Chest pain Qualifiers: Chest pain type: unspecified Qualified Code(s): R07.9 - Chest pain, unspecified (9) Syncope Qualifiers: Syncope type: unspecified Qualified Code(s): R55 - Syncope and collapse
[2018-12-30] MEDS ORDERED: Isosorbide MONOnitrate (24 HR) 30 MG TAB.ER.24H PO SCH (09:00)
--- NOTE | 2018-12-30 11:59 | Neurology - Consult Note ---
Date of Encounter: 12/30/18 Time of Encounter: 11:53 Assessment and Plan (1) Syncope Current Visit: Yes Status: Acute This does not appear to be secondary to neurological disorder but she does have rather chronic gait difficulty without specific cause and may have been having chronic urinary incontinence and this would raise the possibility of cervical myelopathy with gait difficulty. Would recommend an MRI of cervical spine Carotid artery duplex A seizure is thought to be unlikely. Please continue medical and supportive care Qualifiers: Syncope type: unspecified Qualified Code(s): R55 - Syncope and collapse History of Present Illness Chief complaint: fall and uriinary incontinence HPI: Ms. Alston is a 88 year old female with CKD, ASHD, primary insomnia, HTN, CHF, hearing loss who was initially admitted due to chest pain. She was about to be discharged yesterday but developed a fall/?syncope with urinary incontinence. She was witnessed by nursing staff that she was unresponsive. No motor activity noted. She has no prior history of seizure. She states that she normally uses a walker to walk. She is hard of hearing but is able to provide her medical history. CT of head reviewed and showed no acute intracranial abnormality Past Med Surg Social Fam HX - Past Medical History Medical history: cardiomyopathy, CHF, coronary artery disease, DVT, hyperlipidemia, hypertension, myocardial infarction, renal disease, other Additional medical history: vertigo, spinal stenosis Psychiatric history: anxiety, depression - Past Surgical History Surgical History: angioplasty/stent, appendectomy, cholecystectomy, orthopedic, other, other Additional surgical history: BILATERAL CARPAL TUNNEL SURGERIES - Social History Smoking Status: Former smoker Smokeless Tobacco Status: No Alcohol use: none Drug use: none - Family History Father Family Member Ethnicity: Non- Living Status: Hx Family Cardiac Disorders: No Hx Family Respiratory Disorders: No Hx Family Cancer: No Mother Family Member Ethnicity: Non- Living Status: Hx Family Cardiac Disorders: Yes (Stroke) Hx Family Respiratory Disorders: No Hx Family Cancer: No Hx Family GI Disorders: No Hx Family Endocrine Disorder: No Hx Family Neuromuscular Disorders: No Hx Family Neurologic Disorders: Yes (CEREBRAL VASCULAR ACCIDENT.) Hx Family HEENT Disorders: No Hx Family Autoimmune Disorders: No Sister Family Member Ethnicity: Non- Living Status: Still Living Hx Family GI Disorders: Yes (Gallbladder) Brother Family Member Ethnicity: Non- Living Status: Hx Family Neurologic Disorders: Yes Medications and Allergies Lisinopril [Zestril] 20 mg PO DAILY 07/12/17 [History] Omeprazole [PriLOSEC] 20 mg PO BID 07/12/17 [History] Tramadol HCl [Ultram] 50 mg PO Q8H PRN 11/14/17 [History] Clopidogrel [Plavix] 75 mg PO DAILY #30 11/18/17 [Rx] Furosemide [Lasix] 20 mg PO DAILY #30 tablet 11/18/17 [Rx] Zolpidem [Ambien] 10 mg PO HS PRN 12/01/17 [History] Nitroglycerin 0.4 mg SL Q5MIN PRN 30 Days #30 tab.subl MDD X3 DOSES CALL 911 03/21/18 [Rx] Docusate Sodium [Stool Softener] 100 - 300 mg PO DAILY PRN 06/21/18 [History] Menthol [Biofreeze] 1 appl TP BID PRN 06/21/18 [History] Atorvastatin [Lipitor] 40 mg PO BID 10/09/18 [History] Ferrous Sulfate [High Potency Iron] 27 mg PO DAILY 10/09/18 [History] Aspirin 81 mg PO BID 12/28/18 [History] Metoprolol Succinate [Toprol Xl] 25 mg PO DAILY 12/28/18 [History] Isosorbide MONOnitrate (24 HR) [Imdur] 60 mg PO DAILY #30 tab.er.24h 12/29/18 [Rx] Allergy/AdvReac Type Severity Reaction Status Date / Time Iodinated Contrast- Oral and Allergy Chest Pain Verified 10/09/18 18:47 IV Dye Penicillins Allergy Rash Verified 10/09/18 18:47 All Systems: The remainder of the systems were reviewed and are negative - Constitutional Constitutional ROS IM: anorexia (no), chills (no), daytime sleepiness (no), fever(s) (no), headache(s) (no) - Nose, Mouth, Throat Nose, mouth and throat: abnormal hearing (yes), dizziness (no) - Cardiovascular Cardiovascular ROS IM: chest pain (yes) - Respiratory Respiratory IM: cough (no) - Gastrointestinal Gastrointestinal: abdominal pain (no) - Musculoskeletal Musculoskeletal ROS IM: abnormal gait (yes) - Neurological Neurological ROS: abnormal gait (yes), abnormal hearing (yes), abnormal movements (no), abnormal speech (no), behavioral changes (no), burning sensations (no), confusion (no), convulsions (no), disequilibrium (yes), dizziness - Psychiatric Psychiatric general PM: abnormal sleep pattern (no), auditory hallucinations (no) Physical Examination - Vital Signs Vital Signs: Initial Vital Signs Temp Pulse Resp BP Pulse Ox 98.0 F 78 18 178/86 99 12/28/18 03:23 12/28/18 03:23 12/28/18 03:23 12/28/18 03:23 12/28/18 03:23 - Constitutional General appearance: comfortable - Neurologic Sensorimotor examination: intact Detailed motor examination: grossly full strength in all extremities Motor examination - right side: 5/5: deltoids, biceps, triceps, wrist flexion, wrist extension, professor of environmental science, hip flexors, tibialis Anterior, quadriceps, toe extension (EHL), plantarflexion Motor examination - left side: 5/5: deltoids, biceps, triceps, wrist flexion, wrist extension, hip flexors, professor of environmental science, quadriceps, tibialis Anterior, toe extension (EHL), plantarflexion Detailed sensory examination: intact Posture: other (None) Reflexes: Biceps: 2+, Triceps: 2+, Brachioradialis: 2+, Patella: 2+, Achilles: 2+ Mental Status Examination: awake, alert, oriented to person, oriented to place, oriented to time, follows commands appropriately, answers questions appropriately, no agnosia, no aphasia, no aproxia Cranial nerve examination: PERRL, EOMI, visual larsen intact, corneal reflexes brisk symmetrically, sensory to face intact, mastication intact, no facial asymmetry is present, no dysarthria, hearing is intact symmetrically (Hearing loss noted bilaterally), soft palate elevates bilaterally upon phonation, gag reflex intact, flexes SCM and trapezius muscles symmetrically with full power, tongue protrudes midline, no atrophy or facial fasiculations present Results - Laboratory Findings CBC and BMP: 12/30/18 05:20 12/30/18 05:20 Abnormal lab findings: Abnormal lab results RBC 3.27 M/mcL (3.82-4.97) L 12/30/18 05:20 Hgb 10.9 g/dL (11.5-15.4) L 12/30/18 05:20 Hct 33.8 % (35.3-44.9) L 12/30/18 05:20 MCV 103.4 fL (83.0-100.0) H 12/30/18 05:20 MCH 33.6 pg (28.0-33.3) H 12/28/18 04:56 Eosinophils # 0.7 K/mcL (0.0-0.6) H 12/28/18 04:56 Potassium 3.3 mEq/L (3.5-5.1) L 12/30/18 05:20 BUN 26 mg/dL (8-23) H 12/30/18 05:20 Creatinine 1.25 mg/dL (0.60-1.20) H 12/28/18 04:00 Est GFR ( Amer) 56 (> 60) L 12/30/18 05:20 Est GFR (Non-Af Amer) 47 (> 60) L 12/30/18 05:20 POC Glucose 150 mg/dL (70-99) H 12/29/18 10:53 Calculated Osmolality 304 (280-300) H 12/28/18 04:00 HDL Cholesterol 38 mg/dL (40-59) L 12/29/18 01:04 - Diagnostic Findings Additional findings: CT OF THE HEAD WITHOUT CONTRAST 12/29/2018 12:10 pm TECHNIQUE: CT of the head was performed without the administration of intravenous contrast. Dose modulation, iterative reconstruction, and/or weight based adjustment of the mA/kV was utilized to reduce the radiation dose to as low as reasonably achievable. COMPARISON: CT 06/20/2017 HISTORY: ORDERING SYSTEM PROVIDED HISTORY: syncopal episode FINDINGS: BRAIN/VENTRICLES: There is no acute intracranial hemorrhage, mass effect or midline shift. No abnormal extra-axial fluid collection. The mckinley-white differentiation is maintained without evidence of an acute infarct. There is no evidence of hydrocephalus. Mild atrophic changes. Moderate periventricular and subcortical white matter hypoattenuation, likely representing small vessel ischemic disease. Incidentally noted cavum septum pellucidum et vergae. ORBITS: The visualized portion of the orbits demonstrate no acute abnormality. SINUSES: The visualized paranasal sinuses and mastoid air cells demonstrate no acute abnormality. SOFT TISSUES/SKULL: No acute abnormality of the visualized skull or soft tissues. CT/CT head/brain wo con IMPRESSION: No acute intracranial abnormality. D/ / Ignacio Calderon MD / Ignacio Calderon MD Interpreting Provider: Ignacio Calderon MD Consult Discharge Plan - Plan Instructions: Chest Pain (DC) Referrals: El Carrillo DO [Primary Care Provider] - (Appt has been requested. ) Prescriptions: Isosorbide MONOnitrate (24 HR) [Imdur] 60 mg PO DAILY #30 tab.er.24h
--- NOTE | 2018-12-30 12:14 | Internal Med Progress Note ---
Hospitalist Progress Note - Encounter Date of Encounter: 12/30/18 Time of Encounter: 12:14 - Exam Vitals: Temp Pulse Resp BP Pulse Ox 98.3 F 73 16 143/66 99 12/30/18 07:32 12/30/18 09:44 12/30/18 07:32 12/30/18 09:44 12/30/18 07:32 - Assessment and Plan (1) CKD (chronic kidney disease) stage 3, GFR 30-59 ml/min Current Visit: No Status: Chronic (2) GERD (gastroesophageal reflux disease) Current Visit: No Status: Chronic (3) Systolic CHF with reduced left ventricular function, NYHA class 3 Current Visit: No Status: Acute (4) CAD (coronary artery disease) Current Visit: No Status: Chronic (5) Hyperlipidemia Current Visit: No Status: Acute (6) Severe protein-calorie malnutrition Current Visit: No Status: Chronic (7) Cardiomyopathy Current Visit: No Status: Acute (8) Chest pain Current Visit: Yes Status: Acute (9) Syncope Current Visit: Yes Status: Acute - Time Spent with Patient Total time spent is greater than 50% in coordination of care (as documented) at patient's floor/unit and/or counseling patient: Internal Medicine: Result - Labs CBC & Chem 7: 12/30/18 05:20 12/30/18 05:20 Labs: Short CBC 12/30/18 Range/Units 05:20 WBC 7.3 (4.3-11.1) K/mcL Hgb 10.9 L (11.5-15.4) g/dL Hct 33.8 L (35.3-44.9) % Plt Count 265 (140-400) K/mcL Neutrophils # 3.3 (1.6-8.9) K/mcL BMP 12/30/18 05:20 Sodium 137 Potassium 3.3 L Chloride 104 Carbon Dioxide 26 BUN 26 H Creatinine 1.11 Glucose 100 Calcium 9.1 - ABG Interpretation ABG results: PT/INR, D-dimer PT 11.9 Seconds (9.4-12.1) 12/28/18 04:56 - Impressions Impressions Head CT 12/29/18 11:10 IMPRESSION: No acute intracranial abnormality. D/ / Ignacio Calderon MD / Ignacio Calderon MD Interpreting Provider: Ignacio Calderon MD Consult Discharge Plan - Plan Instructions: Chest Pain (DC) Referrals: El Carrillo DO [Primary Care Provider] - (Appt has been requested. ) Prescriptions: Isosorbide MONOnitrate (24 HR) [Imdur] 60 mg PO DAILY #30 tab.er.24h (2) GERD (gastroesophageal reflux disease) Qualifiers: Esophagitis presence: without esophagitis Qualified Code(s): K21.9 - Gastro- esophageal reflux disease without esophagitis (4) CAD (coronary artery disease) Qualifiers: Coronary Disease-Associated Artery/Lesion type: [place] artery [place] vs. tra nsplanted heart: [place] heart Associated angina: with unstable angina Qualified Code(s): I25.110 - Atherosclerotic heart disease of [place] coronary artery with unstable angina pectoris (5) Hyperlipidemia Qualifiers: Hyperlipidemia type: unspecified Qualified Code(s): E78.5 - Hyperlipidemia, unspecified (7) Cardiomyopathy Qualifiers: Cardiomyopathy type: unspecified Qualified Code(s): I42.9 - Cardiomyopathy, unspecified (8) Chest pain Qualifiers: Chest pain type: unspecified Qualified Code(s): R07.9 - Chest pain, unspecified (9) Syncope Qualifiers: Syncope type: unspecified Qualified Code(s): R55 - Syncope and collapse
[2018-12-31] MEDS ORDERED: Ranolazine 500 MG TAB.ER.12H PO SCH (09:00)
[2018-12-31] MEDS: Aspirin 81 MG TAB.CHEW PO SCH (10:07)
[2018-12-31] MEDS: Lisinopril 20 MG TABLET PO SCH (10:07)
[2018-12-31] MEDS: Metoprolol XL (24 HR) Succ 25 MG TAB.ER.24H PO SCH (10:07)
--- NOTE | 2018-12-31 10:46 | Neurology Progress Note ---
<Jonnie Christian - Last Filed: 12/31/18 10:41> Date of Encounter: 12/31/18 Time of Encounter: 10:42 Assessment and Plan (1) Syncope Current Visit: Yes Status: Acute No return of syncope overnight This occurred shortly after using the restroom; consider vasovagal event CT head s/p syncope is unremarkable Carotid duplex exam shows nonstenotic plaque bilaterally Concerns that gait difficulty may be 2/2 cervical myelopathy; unable to perform MRI d/t hardware -not recommending any additional neurological imaging at this time -f/u with Dr. Mauricio in 2-3 weeks -Otherwise continue with medical and supportive care -okay to d/c at the discretion of the primary team -Neurology will sign-off at this time. Please call should any urgent needs afia se. Okay to d/c form our perspective at the discretion of the primary team. Thank you for consulting [facility] Qualifiers: Syncope type: unspecified Qualified Code(s): R55 - Syncope and collapse Subjective Principal diagnosis: syncope Interval history: Seen in f/u for syncope. No return of syncope overnight. Neurologically she is intact without any focal findings. Objective - Constitutional Vitals: Temp Pulse Resp BP Pulse Ox 98.0 F 70 16 158/75 98 12/31/18 10:28 12/31/18 10:32 12/31/18 10:28 12/31/18 10:32 12/31/18 10:28 Exam: Sensorimotor examination: intact Detailed motor examination: grossly full strength in all extremities Motor examination - right side: 5/5: deltoids, biceps, triceps, wrist flexion, wrist extension, vocational director, hip flexors, tibialis Anterior, quadriceps, toe extension (EHL), plantarflexion Motor examination - left side: 5/5: deltoids, biceps, triceps, wrist flexion, wrist extension, hip flexors, vocational director, quadriceps, tibialis Anterior, toe extension (EHL), plantarflexion Detailed sensory examination: intact Posture: other (None) Reflexes: Biceps: 2+, Triceps: 2+, Brachioradialis: 2+, Patella: 2+, Achilles: 2+ Mental Status Examination: awake, alert, oriented to person, oriented to place, oriented to time, follows commands appropriately, answers questions appropriately, no agnosia, no aphasia, no aproxia Cranial nerve examination: PERRL, EOMI, visual larsen intact, corneal reflexes brisk symmetrically, sensory to face intact, mastication intact, no facial asymmetry is present, no dysarthria, hearing is intact symmetrically (Hearing loss noted bilaterally with significant hearing difficulty at baseline), soft palate elevates bilaterally upon phonation, flexes SCM and trapezius muscles symmetrically with full power, tongue protrudes midline, no atrophy or facial fasiculations present - Neurological Exam Sensorimotor examination: Present: intact Motor Examination: Present: grossly full strength in all extremities Motor examination - left side: 5/5: deltoids, biceps, triceps, wrist flexion, wrist extension, hip flexors, vocational director, quadriceps, tibialis Anterior, toe extension (EHL), plantarflexion Sensation intact: Present: intact Posture: Present: other (None) Mental Status Examination: Present: awake, alert, oriented to person, oriented to place, oriented to time, follows commands appropriately, answers questions appropriately, no agnosia, no aphasia, no aproxia Cranial nerve examination: Present: PERRL, EOMI, visual larsen intact, corneal reflexes brisk symmetrically, sensory to face intact, mastication intact, no facial asymmetry is present, no dysarthria, hearing is intact symmetrically (Hearing loss noted bilaterally), soft palate elevates bilaterally upon phonation, gag reflex intact, flexes SCM and trapezius muscles symmetrically with full power, tongue protrudes midline, no atrophy or facial fasiculations present Results - Laboratory Findings CBC and BMP: 12/30/18 05:20 12/30/18 05:20 Abnormal lab findings: Abnormal lab results RBC 3.27 M/mcL (3.82-4.97) L 12/30/18 05:20 Hgb 10.9 g/dL (11.5-15.4) L 12/30/18 05:20 Hct 33.8 % (35.3-44.9) L 12/30/18 05:20 MCV 103.4 fL (83.0-100.0) H 12/30/18 05:20 MCH 33.6 pg (28.0-33.3) H 12/28/18 04:56 Eosinophils # 0.7 K/mcL (0.0-0.6) H 12/28/18 04:56 Potassium 3.3 mEq/L (3.5-5.1) L 12/30/18 05:20 BUN 26 mg/dL (8-23) H 12/30/18 05:20 Creatinine 1.25 mg/dL (0.60-1.20) H 12/28/18 04:00 Est GFR ( Amer) 56 (> 60) L 12/30/18 05:20 Est GFR (Non-Af Amer) 47 (> 60) L 12/30/18 05:20 POC Glucose 150 mg/dL (70-99) H 12/29/18 10:53 Calculated Osmolality 304 (280-300) H 12/28/18 04:00 HDL Cholesterol 38 mg/dL (40-59) L 12/29/18 01:04 Consult Discharge Plan - Plan Instructions: Chest Pain (DC) Referrals: [facility] [Provider Group] (Office will call with date and time of appointment. ) El Carrillo DO [Primary Care Provider] - (Appt has been requested. ) Prescriptions: Ranolazine [Ranexa] 500 mg PO BID #60 tab.er.12h <Flaquito Navarro I - Last Filed: 12/31/18 16:46> Date of Encounter: 12/31/18 Assessment and Plan (1) Syncope Current Visit: Yes Status: Acute I have personally performed a face to face diagnostic evaluation, including HPI, EXAM, which is included in the Assesment and plan, which was discussed with Jonnie Christian CNP, I agree with the above outlined documentation. Patient seen and examined back to her baseline no focal neurological deficit so far workup has been negative All imaging studies as well as with her workup was reviewed Okay to discharge from neurology standpoint Flaquito Navarro MD. NeurologyI Qualifiers: Syncope type: unspecified Qualified Code(s): R55 - Syncope and collapse Objective - Constitutional Vitals: Temp Pulse Resp BP Pulse Ox 98.4 F 72 18 139/69 98 12/31/18 15:47 12/31/18 15:47 12/31/18 15:47 12/31/18 15:47 12/31/18 15:47 Results - Laboratory Findings CBC and BMP: 12/30/18 05:20 12/31/18 10:27 Abnormal lab findings: Abnormal lab results RBC 3.27 M/mcL (3.82-4.97) L 12/30/18 05:20 Hgb 10.9 g/dL (11.5-15.4) L 12/30/18 05:20 Hct 33.8 % (35.3-44.9) L 12/30/18 05:20 MCV 103.4 fL (83.0-100.0) H 12/30/18 05:20 MCH 33.6 pg (28.0-33.3) H 12/28/18 04:56 Eosinophils # 0.7 K/mcL (0.0-0.6) H 12/28/18 04:56 Potassium 3.3 mEq/L (3.5-5.1) L 12/30/18 05:20 BUN 26 mg/dL (8-23) H 12/30/18 05:20 Creatinine 1.25 mg/dL (0.60-1.20) H 12/28/18 04:00 Est GFR ( Amer) 56 (> 60) L 12/30/18 05:20 Est GFR (Non-Af Amer) 50 (> 60) L 12/31/18 10:27 POC Glucose 150 mg/dL (70-99) H 12/29/18 10:53 Calculated Osmolality 304 (280-300) H 12/28/18 04:00 HDL Cholesterol 38 mg/dL (40-59) L 12/29/18 01:04
--- NOTE | 2018-12-31 10:48 | Electrocardiograph Report ---
[address] [address] Test Date: 2018-12-29 Pat Name: Jennifer Alston Department: 113 Room: 3B22 Gender: F Extrusion Technician: : [id number] Requested By: Irena Bah Order Number: [id number] Reading MD: Jas Cardona Measurements Intervals [place] Rate: 73 P: 15 LA: 180 QRS: -48 QRSD: 168 T: 115 QT: 475 QTc: 501 Interpretive Statements SINUS RHYTHM MARKED LEFT AXIS DEVIATION LEFT BUNDLE BRANCH BLOCK Electronically Signed On 12-31-2018 10:46:38 EDT by Jas Cardona
[2018-12-31 11:23] LABS: BUN/Creatinine Ratio 21 (6-26); Blood Urea Nitrogen 22 mg/dL (8-23); Calcium 9.3 mg/dL (8.6-10.3); Carbon Dioxide 24 mEq/L (23-29); Chloride 104 mEq/L (98-107); Glucose 97 mg/dL (70-105); Osmolality,Calculated 287 (280-300); Potassium 3.6 mEq/L (3.5-5.1); Sodium 137 mEq/L (136-145); eGFR For African Americans > 60 (> 60); eGFR For Non-African Americans 50 (> 60)
--- NOTE | 2018-12-31 12:54 | Cardiology Progress Note ---
Date of Encounter: 12/31/18 Time of Encounter: 11:00 Assessment and Plan (1) Orthostatic hypotension Current Visit: Yes Status: Acute Per documentaion patient found unconscious on toilet slumped over with wall supporting her. Positive orthostatic vitals after event. Suspect vasovagal. Imdur and lasix held. Pt denies recurrent events. Recommended changing imdur to ranexa for chest pain. Currently euvolemic. Hold lasix and use PRN for edema. Repeat orthostatic vitals with improvement. 24 hour telemetry review. No significant pauses, bradycardia, or VT seen. NSR. Neuro eval pending. No further testing from cardiology standpoint. (2) Atypical chest pain Current Visit: No Status: Acute Initial c/o atypical chest pain. Pain was reproducible on my exam and associated with rash that patient says is poison danna. Suspect muscle skeletal pain. Troponin negative x3. EKG with no acute changes from previous. LHC 06/2018 revealed severe one vessel disease. 80 % stenosis in the distal RCA that was unamendable to PCI. Previous stents patent. No intervention recommended. EF 20%. TTE 03/2018 with LVEF 30-35%, global hypokinesis. TTE 06/30 EF 30-35%. Severe global dysfunction, No LV thrombus. Recommended continued medical management. Was not clear if pt was taking imdur that was prescribed in June. Restarted this hospital stay and stopped after she developed syncopal event and had positive orthostatic vitals.. Imdur stopped and ranexa started. Ortostatic b/p improved. Lasix also held. Pt denies recurrent symptoms. Asa, statin, bb. (3) CAD (coronary artery disease) Current Visit: No Status: Chronic H/o CAD with multiple prior PCI. Last LHC in June with no intervention. Severe stenosis not ammendable to PCI. Continue mm as described above. Qualifiers: Coronary Disease-Associated Artery/Lesion type: [place] artery [place] vs. transplanted heart: [place] heart Associated angina: with unstable angina Qualified Code(s): I25.110 - Atherosclerotic heart disease of [place] coronary artery with unstable angina pectoris (4) Systolic CHF with reduced left ventricular function, NYHA class 3 Current Visit: No Status: Acute Known ICMP. Currently euvolemic. On oral lasix that is now on hold for positive orthostasis. Would hold and use PRN for edema. Continue aceI and bb as tolerated. Discussion w patient/family: The assessment and plan as outlined above was discussed with the patient and/or family members who expressed understanding and agreement. All questions were answered. Thank you for involving us in the care of your patient. Please call with any questions. Subjective Principal diagnosis: syncope Interval history: Cardiology re-consulted for syncope during hospital stay. Pt found unconcious sitting on toilet slumped over. Reported to have large bowel movement. Imdur recently started and increased to documented home dose. Unclear if she was taking at home. Today patient is feeling better. Denies recurrent lig htheadedness or syncope. Orthostatic b/p improved. Objective Vital Signs, Last 4 Hours Temp Pulse Pulse Pulse Pulse Resp BP 12/31/18 10:32 70 69 70 12/31/18 10:28 98.0 F 70 16 158/75 BP BP BP Pulse Ox 12/31/18 10:32 158/75 148/77 146/66 12/31/18 10:28 98 General: Conversant, No Apparent Distress, Other (Very [place]) HEENT: Atraumatic, Normocephaly, Mucus Membranes Moist Neck: No JVD, Normal carotid pulses Cardiac: Reg Rate and Rhythm, Normal S1 and S2, No Murmur Lungs: Normal Breath Sounds, No Wheeze, Rales, Rhonchi Neuro: Alert and responsive, No focal deficits noted Abdomen: Soft, Non-Tender Skin: No rashes noted on visualized skin Musculoskeletal: No Chest Wall Tenderness Extremities: No Clubbing, No Cyanosis, No Edema, Normal Pulses Results 12/30/18 05:20 12/31/18 10:27 Lab Results 12/31/18 10:27 Sodium 137 Potassium 3.6 Chloride 104 Carbon Dioxide 24 BUN 22 Creatinine 1.05 Glucose 97 Calcium 9.3 - Imaging and Cardiology Echo: report reviewed Consult Discharge Plan - Plan Instructions: Chest Pain (DC) Referrals: El Carrillo DO [Primary Care Provider] - (Appt has been requested. )
[2018-12-31 15:50] VITALS: BP 139/69
== END 2018-12-31 18:00 | disposition home or self-care (01) | DRG 302 ==
LOC: 3BNU 03:20 → EMEROOARM 03:20 → 3BNU 06:57
PROVIDERS: ADMIT Internal Medicine; ATTEND Nurse Practitioner Acute Care

== ENCOUNTER 2019-02-03 02:43 | Observation (INO) ==
[2019-02-03] MEDS ORDERED: Ondansetron 4 MG/2 ML VIAL IVP ONE (03:11)
[2019-02-03] MEDS ORDERED: Morphine Sulfate 2 MG/ML SYRINGE IVP ONE (03:11)
[2019-02-03 04:05] LABS: Basophils # 0.1 K/mcL (0.0-0.2); Basophils % 1.4 %; Eosinophils # 0.7 K/mcL (0.0-0.6); Eosinophils % 10.3 %; Hematocrit 35.6 % (35.3-44.9); Hemoglobin 11.7 g/dL (11.5-15.4); Immature Granulocytes % 0.3 % (0-4); Mean Corpuscular HGB Conc 32.9 g/dL (31.6-35.5); Mean Corpuscular Volume 103.5 fL (83.0-100.0); Mean Platelet Volume 9.8 fL (9.4-12.4); Monocytes # 0.7 K/mcL (0.0-1.3); Monocytes % 11.6 %; Neutrophils # 2.8 K/mcL (1.6-8.9); Platelet Count 269 K/mcL (140-400); Red Blood Count 3.44 M/mcL (3.82-4.97); Red Cell Distribution Width 12.8 % (11.5-14.5); Segmented Neutrophils % 44.4 %; White Blood Count 6.3 K/mcL (4.3-11.1)
[2019-02-03 04:15] LABS: Prothrombin Time 11.5 Seconds (9.4-12.1)
[2019-02-03 04:17] LABS: Activated Partial Thrombo Time 32.8 Seconds (26.0-36.0)
[2019-02-03 04:24] LABS: Albumin 3.8 g/dL (3.5-5.7); Albumin/Globulin Ratio 1.3 (1.1-2.2); Bilirubin,Direct 0.1 mg/dL (0.0-0.2); Bilirubin,Indirect 0.2 mg/dL (0.0-1.2); Bilirubin,Total 0.3 mg/dL (0.3-1.0); Globulin 2.9 g/dL (2.4-3.5); Total Protein 6.7 g/dL (6.4-8.9)
[2019-02-03 04:26] LABS: BUN/Creatinine Ratio 26 (6-26); Blood Urea Nitrogen 28 mg/dL (8-23); Calcium 9.1 mg/dL (8.6-10.3); Carbon Dioxide 20 mEq/L (23-29); Chloride 107 mEq/L (98-107); Glucose 105 mg/dL (70-105); Osmolality,Calculated 290 (280-300); Potassium 3.7 mEq/L (3.5-5.1); Sodium 137 mEq/L (136-145); eGFR For African Americans 58 (> 60); eGFR For Non-African Americans 48 (> 60)
[2019-02-03 04:27] LABS: Troponin I < 0.03 ng/mL (< 0.04)
[2019-02-03] MEDS ORDERED: Aspirin 81 MG TAB.CHEW PO STA (04:49)
[2019-02-03] MEDS: Nitroglycerin 0.4 MG TAB.SUBL SL SCH ×3 (05:03→07:46)
[2019-02-03] MEDS ORDERED: Furosemide 20 MG TABLET PO PRN (09:18)
[2019-02-03] MEDS ORDERED: Nitroglycerin 0.4 MG TAB.SUBL SL PRN (09:18)
[2019-02-03] MEDS ORDERED: Methyl Salicylate/Menthol 28 GM TUBE TP PRN (09:18)
[2019-02-03] MEDS ORDERED: Ondansetron 4 MG/2 ML VIAL IVP PRN (09:22)
[2019-02-03] MEDS ORDERED: Acetaminophen 325 MG TABLET PO PRN (09:22)
[2019-02-03] MEDS ORDERED: *HR* HYDROcodone/Acet 5/325 mg TABLET PO PRN (09:22)
[2019-02-03] MEDS ORDERED: Naloxone 0.4 MG/ML INJ IVP PRN (09:22)
[2019-02-03] MEDS: Aspirin 81 MG TAB.CHEW PO SCH (20:50)
[2019-02-03] MEDS: Ranolazine 500 MG TAB.ER.12H PO SCH (20:50)
[2019-02-04 03:47] LABS: Basophils # 0.1 K/mcL (0.0-0.2); Basophils % 1.4 %; Eosinophils # 0.7 K/mcL (0.0-0.6); Eosinophils % 12.7 %; Hematocrit 35.4 % (35.3-44.9); Hemoglobin 11.7 g/dL (11.5-15.4); Immature Granulocytes % 0.2 % (0-4); Lymphocytes # 2.3 K/mcL (0.6-4.6); Lymphocytes % 39.8 %; Mean Corpuscular HGB Conc 33.1 g/dL (31.6-35.5); Mean Corpuscular Hemoglobin 34.3 pg (28.0-33.3); Mean Corpuscular Volume 103.8 fL (83.0-100.0); Mean Platelet Volume 9.7 fL (9.4-12.4); Monocytes # 0.7 K/mcL (0.0-1.3); Monocytes % 11.5 %; Platelet Count 247 K/mcL (140-400); Red Blood Count 3.41 M/mcL (3.82-4.97); Segmented Neutrophils % 34.4 %; White Blood Count 5.8 K/mcL (4.3-11.1)
[2019-02-04 04:00] LABS: Albumin 3.5 g/dL (3.5-5.7); Albumin/Globulin Ratio 1.3 (1.1-2.2); Bilirubin,Total 0.4 mg/dL (0.3-1.0); Calcium 9.1 mg/dL (8.6-10.3); Chol/HDL Ratio 3.2 (0-4.9); Globulin 2.8 g/dL (2.4-3.5); Phosphorous 3.2 mg/dL (2.7-4.5); Potassium 4.2 mEq/L (3.5-5.1); Total Protein 6.3 g/dL (6.4-8.9)
[2019-02-04] MEDS: Ranolazine 500 MG TAB.ER.12H PO SCH (09:00)
[2019-02-04] MEDS: Aspirin 81 MG TAB.CHEW PO SCH (09:00)
[2019-02-04] MEDS ORDERED: Lisinopril 20 MG TABLET PO SCH (09:00)
[2019-02-04] MEDS ORDERED: Metoprolol XL (24 HR) Succ 25 MG TAB.ER.24H PO SCH (09:00)
[2019-02-04 10:50] VITALS: BP 114/57
== END 2019-02-04 16:25 | disposition home or self-care (01) ==
LOC: EMEROOARM 02:43 → 3BNU 02:43
PROVIDERS: ADMIT Pediatrics; ATTEND Pediatrics

== ENCOUNTER 2019-05-20 01:37 | Observation (INO) ==
[2019-05-20] MEDS ORDERED: Aspirin 81 MG TAB.CHEW PO ONE (01:46)
[2019-05-20] MEDS ORDERED: Aspirin 81 MG TAB.CHEW PO STA (02:46)
[2019-05-20 04:02] LABS: Basophils # 0.1 K/mcL (0.0-0.2); Basophils % 1.3 %; Eosinophils # 0.4 K/mcL (0.0-0.6); Eosinophils % 6.1 %; Hematocrit 37.2 % (35.3-44.9); Hemoglobin 12.2 g/dL (11.5-15.4); Immature Granulocytes % 0.1 % (0-4); Lymphocytes # 1.9 K/mcL (0.6-4.6); Lymphocytes % 27.7 %; Mean Corpuscular HGB Conc 32.8 g/dL (31.6-35.5); Mean Corpuscular Hemoglobin 34.4 pg (28.0-33.3); Mean Corpuscular Volume 104.8 fL (83.0-100.0); Mean Platelet Volume 9.9 fL (9.4-12.4); Monocytes # 0.5 K/mcL (0.0-1.3); Monocytes % 7.9 %; Neutrophils # 3.9 K/mcL (1.6-8.9); Platelet Count 278 K/mcL (140-400); Red Blood Count 3.55 M/mcL (3.82-4.97); Red Cell Distribution Width 12.3 % (11.5-14.5); Segmented Neutrophils % 56.9 %; White Blood Count 6.9 K/mcL (4.3-11.1)
[2019-05-20 04:09] LABS: Prothrombin Time 11.4 Seconds (9.4-12.1)
[2019-05-20 04:11] LABS: Activated Partial Thrombo Time 28.8 Seconds (26.0-36.0)
[2019-05-20 04:20] LABS: BUN/Creatinine Ratio 23 (6-26); Blood Urea Nitrogen 23 mg/dL (8-23); Calcium 9.3 mg/dL (8.6-10.3); Carbon Dioxide 24 mEq/L (23-29); Chloride 107 mEq/L (98-107); Glucose 115 mg/dL (70-105); Osmolality,Calculated 297 (280-300); Potassium 3.5 mEq/L (3.5-5.1); Sodium 141 mEq/L (136-145); eGFR For African Americans > 60 (> 60); eGFR For Non-African Americans 54 (> 60)
[2019-05-20 04:21] LABS: Troponin I 0.03 ng/mL (< 0.04)
[2019-05-20] MEDS ORDERED: Naloxone 0.4 MG/ML INJ IVP PRN (09:46)
[2019-05-20] MEDS ORDERED: Acetaminophen IV 500 MG/50 ML INFUS..BTL IVPB ONE (09:48)
[2019-05-20] MEDS ORDERED: Furosemide 20 MG TABLET PO PRN (10:24)
[2019-05-21 05:59] LABS: Hematocrit 32.4 % (35.3-44.9); Mean Corpuscular Hemoglobin 34.6 pg (28.0-33.3); Mean Corpuscular Volume 101.9 fL (83.0-100.0); Mean Platelet Volume 10.2 fL (9.4-12.4); Platelet Count 257 K/mcL (140-400); Red Blood Count 3.18 M/mcL (3.82-4.97); Red Cell Distribution Width 12.2 % (11.5-14.5); White Blood Count 6.5 K/mcL (4.3-11.1)
[2019-05-21 06:18] LABS: BUN/Creatinine Ratio 24 (6-26); Blood Urea Nitrogen 22 mg/dL (8-23); Calcium 8.8 mg/dL (8.6-10.3); Carbon Dioxide 21 mEq/L (23-29); Chloride 108 mEq/L (98-107); Glucose 86 mg/dL (70-105); Osmolality,Calculated 295 (280-300); Potassium 3.5 mEq/L (3.5-5.1); Sodium 141 mEq/L (136-145); eGFR For African Americans > 60 (> 60); eGFR For Non-African Americans 59 (> 60)
[2019-05-21] MEDS ORDERED: Lisinopril 20 MG TABLET PO SCH (09:00)
[2019-05-21] MEDS ORDERED: Aspirin Enteric Coated 81 MG Tablet PO SCH (09:00)
[2019-05-21] MEDS ORDERED: Metoprolol XL (24 HR) Succ 25 MG TAB.ER.24H PO SCH (09:00)
[2019-05-21 10:55] VITALS: BP 129/82
== END 2019-05-21 14:37 | disposition home health service (06) ==
LOC: EMEROOARM 01:37 → 3BNU 01:37
PROVIDERS: ADMIT Internal Medicine; ATTEND Internal Medicine

== ENCOUNTER 2019-06-27 03:05 | Observation (INO) ==
[2019-06-27] MEDS ORDERED: Nitroglycerin 0.4 MG TAB.SUBL SL ONE (04:09)
[2019-06-27 04:32] LABS: Basophils # 0.1 K/mcL (0.0-0.2); Basophils % 1.8 %; Eosinophils # 0.7 K/mcL (0.0-0.6); Eosinophils % 11.6 %; Hematocrit 40.1 % (35.3-44.9); Immature Granulocytes % 0.2 % (0-4); Lymphocytes # 2.1 K/mcL (0.6-4.6); Mean Corpuscular HGB Conc 32.4 g/dL (31.6-35.5); Mean Corpuscular Hemoglobin 33.8 pg (28.0-33.3); Mean Corpuscular Volume 104.2 fL (83.0-100.0); Mean Platelet Volume 9.8 fL (9.4-12.4); Monocytes # 0.6 K/mcL (0.0-1.3); Neutrophils # 2.8 K/mcL (1.6-8.9); Platelet Count 244 K/mcL (140-400); Red Blood Count 3.85 M/mcL (3.82-4.97); Red Cell Distribution Width 11.2 % (11.5-14.5); Segmented Neutrophils % 44.4 %; White Blood Count 6.2 K/mcL (4.3-11.1)
[2019-06-27 04:50] LABS: BUN/Creatinine Ratio 24 (6-26); Blood Urea Nitrogen 27 mg/dL (8-23); Calcium 9.7 mg/dL (8.6-10.3); Carbon Dioxide 22 mEq/L (23-29); Chloride 106 mEq/L (98-107); Glucose 95 mg/dL (70-105); Osmolality,Calculated 291 (280-300); Potassium 3.6 mEq/L (3.5-5.1); Sodium 138 mEq/L (136-145); eGFR For African Americans 55 (> 60); eGFR For Non-African Americans 45 (> 60)
[2019-06-27 04:52] LABS: Troponin I < 0.03 ng/mL (< 0.04)
[2019-06-27] MEDS ORDERED: Acetaminophen 325 MG TABLET PO PRN (06:02)
[2019-06-27] MEDS ORDERED: Naloxone 0.4 MG/ML INJ IVP PRN (06:02)
[2019-06-27] MEDS ORDERED: Ondansetron 4 MG/2 ML VIAL IVP PRN (06:02)
[2019-06-27] MEDS ORDERED: Nitroglycerin 0.4 MG TAB.SUBL SL PRN (06:04)
[2019-06-27] MEDS ORDERED: 0.9 % Sodium Chloride 1,000 ML IVC SCH (06:15)
[2019-06-27 09:49] LABS: Magnesium 1.8 mg/dL (1.6-2.6)
[2019-06-27 10:31] LABS: Troponin I < 0.03 ng/mL (< 0.04)
[2019-06-27] MEDS: Aspirin Enteric Coated 81 MG Tablet PO SCH (11:19)
[2019-06-27] MEDS: Metoprolol XL (24 HR) Succ 25 MG TAB.ER.24H PO SCH (11:19)
[2019-06-27] MEDS: Lisinopril 20 MG TABLET PO SCH (14:22)
[2019-06-27] MEDS ORDERED: Perflutren Lipid Microsphere 1.3 ML in 0.9 % Sodium Chloride 8.7 ML IVP ONE (19:47)
[2019-06-27] MEDS: Nystatin POWDER 30 GM BOTTLE TP SCH (20:23)
[2019-06-28 02:49] LABS: Calcium 8.9 mg/dL (8.6-10.3); Potassium 4.5 mEq/L (3.5-5.1)
[2019-06-28 04:12] LABS: Basophils # 0.1 K/mcL (0.0-0.2); Basophils % 1.2 %; Eosinophils # 0.8 K/mcL (0.0-0.6); Eosinophils % 11.2 %; Hematocrit 35.6 % (35.3-44.9); Hemoglobin 11.9 g/dL (11.5-15.4); Immature Granulocytes % 0.1 % (0-4); Lymphocytes # 2.3 K/mcL (0.6-4.6); Lymphocytes % 33.3 %; Mean Corpuscular HGB Conc 33.4 g/dL (31.6-35.5); Mean Corpuscular Hemoglobin 33.6 pg (28.0-33.3); Mean Corpuscular Volume 100.6 fL (83.0-100.0); Mean Platelet Volume 9.7 fL (9.4-12.4); Monocytes # 0.8 K/mcL (0.0-1.3); Monocytes % 11.8 %; Neutrophils # 2.9 K/mcL (1.6-8.9); Platelet Count 237 K/mcL (140-400); Red Blood Count 3.54 M/mcL (3.82-4.97); Red Cell Distribution Width 11.3 % (11.5-14.5); Segmented Neutrophils % 42.4 %; White Blood Count 6.8 K/mcL (4.3-11.1)
[2019-06-28] MEDS: Aspirin Enteric Coated 81 MG Tablet PO SCH (08:05)
[2019-06-28] MEDS: Metoprolol XL (24 HR) Succ 25 MG TAB.ER.24H PO SCH (08:05)
[2019-06-28] MEDS: Lisinopril 20 MG TABLET PO SCH (08:05)
[2019-06-28] MEDS: Nystatin POWDER 30 GM BOTTLE TP SCH (08:08)
[2019-06-28] MEDS ORDERED: Isosorbide MONOnitrate (24 HR) 30 MG TAB.ER.24H PO SCH (09:10)
[2019-06-28 11:22] VITALS: BP 139/63
== END 2019-06-28 15:57 | disposition home or self-care (01) ==
LOC: CDU 03:05 → EMEROOARM 03:05 → SUATTDRO 05:19 → CDU 05:57 → 3BNU 12:56
PROVIDERS: ADMIT Internal Medicine; ATTEND Internal Medicine

== ENCOUNTER 2019-07-18 04:31 | Inpatient (IN) ==
[2019-07-18 05:09] LABS: Basophils # 0.1 K/mcL (0.0-0.2); Basophils % 1.8 %; Eosinophils # 0.7 K/mcL (0.0-0.6); Eosinophils % 10.5 %; Hematocrit 36.3 % (35.3-44.9); Hemoglobin 11.9 g/dL (11.5-15.4); Immature Granulocytes % 0.2 % (0-4); Lymphocytes # 2.4 K/mcL (0.6-4.6); Lymphocytes % 38.4 %; Mean Corpuscular HGB Conc 32.8 g/dL (31.6-35.5); Mean Corpuscular Hemoglobin 34.1 pg (28.0-33.3); Mean Platelet Volume 9.7 fL (9.4-12.4); Monocytes # 0.6 K/mcL (0.0-1.3); Monocytes % 9.7 %; Neutrophils # 2.4 K/mcL (1.6-8.9); Platelet Count 265 K/mcL (140-400); Red Blood Count 3.49 M/mcL (3.82-4.97); Red Cell Distribution Width 11.9 % (11.5-14.5); Segmented Neutrophils % 39.4 %; White Blood Count 6.2 K/mcL (4.3-11.1)
[2019-07-18 05:19] LABS: Prothrombin Time 11.6 Seconds (9.4-12.1)
[2019-07-18 05:31] LABS: Albumin 3.9 g/dL (3.5-5.7); Albumin/Globulin Ratio 1.3 (1.1-2.2); Bilirubin,Total 0.4 mg/dL (0.3-1.0); Calcium 9.4 mg/dL (8.6-10.3); Globulin 2.9 g/dL (2.4-3.5); Potassium 3.5 mEq/L (3.5-5.1); Total Protein 6.8 g/dL (6.4-8.9)
[2019-07-18 05:40] LABS: Troponin I 0.04 ng/mL (< 0.04)
[2019-07-18] MEDS ORDERED: Naloxone 0.4 MG/ML INJ IVP PRN (07:12)
[2019-07-18] MEDS ORDERED: Ondansetron 4 MG/2 ML VIAL IVP PRN (07:12)
[2019-07-18] MEDS ORDERED: Acetaminophen 325 MG TABLET PO PRN (07:12)
[2019-07-18] MEDS: Aspirin Enteric Coated 81 MG Tablet PO SCH (08:29)
[2019-07-18] MEDS ORDERED: Lisinopril 20 MG TABLET PO SCH (12:45)
[2019-07-18] MEDS: *HR* Heparin 5,000 UNIT/ML VIAL SQ SCH ×2 (14:55→21:17)
[2019-07-18] MEDS: Spironolactone 25 MG TABLET PO SCH (14:55)
[2019-07-19 01:56] LABS: Basophils # 0.1 K/mcL (0.0-0.2); Basophils % 1.8 %; Eosinophils # 0.5 K/mcL (0.0-0.6); Eosinophils % 8.7 %; Hematocrit 34.1 % (35.3-44.9); Immature Granulocytes % 0.2 % (0-4); Lymphocytes % 35.1 %; Mean Corpuscular HGB Conc 32.3 g/dL (31.6-35.5); Mean Corpuscular Hemoglobin 33.2 pg (28.0-33.3); Mean Platelet Volume 9.8 fL (9.4-12.4); Monocytes # 0.7 K/mcL (0.0-1.3); Monocytes % 12.9 %; Neutrophils # 2.3 K/mcL (1.6-8.9); Platelet Count 244 K/mcL (140-400); Red Blood Count 3.31 M/mcL (3.82-4.97); Red Cell Distribution Width 11.8 % (11.5-14.5); Segmented Neutrophils % 41.3 %; White Blood Count 5.6 K/mcL (4.3-11.1)
[2019-07-19 02:14] LABS: Calcium 9.1 mg/dL (8.6-10.3); Magnesium 1.8 mg/dL (1.6-2.6); Potassium 3.8 mEq/L (3.5-5.1)
[2019-07-19] MEDS: *HR* Heparin 5,000 UNIT/ML VIAL SQ SCH ×3 (05:35→21:54)
[2019-07-19] MEDS: Spironolactone 25 MG TABLET PO SCH (07:45)
[2019-07-19] MEDS: Aspirin Enteric Coated 81 MG Tablet PO SCH (07:45)
[2019-07-19] MEDS ORDERED: Lisinopril 20 MG TABLET PO SCH (09:00)
[2019-07-19] MEDS ORDERED: Metoprolol XL (24 HR) Succ 25 MG TAB.ER.24H PO SCH (09:00)
[2019-07-19] MEDS: Metoprolol XL (24 HR) Succ 50 MG TAB.ER.24H PO SCH (10:13)
[2019-07-19] MEDS: Isosorbide MONOnitrate (24 HR) 30 MG TAB.ER.24H PO SCH (17:44)
[2019-07-20] MEDS: *HR* Heparin 5,000 UNIT/ML VIAL SQ SCH (06:19)
[2019-07-20 06:40] LABS: Hematocrit 33.4 % (35.3-44.9); Hemoglobin 10.7 g/dL (11.5-15.4); Mean Corpuscular Hemoglobin 33.1 pg (28.0-33.3); Mean Corpuscular Volume 103.4 fL (83.0-100.0); Platelet Count 233 K/mcL (140-400); Red Blood Count 3.23 M/mcL (3.82-4.97); White Blood Count 5.3 K/mcL (4.3-11.1)
[2019-07-20 07:01] LABS: Calcium 9.2 mg/dL (8.6-10.3); Potassium 4.1 mEq/L (3.5-5.1)
[2019-07-20] MEDS ORDERED: Lisinopril 20 MG TABLET PO SCH (09:00)
[2019-07-20] MEDS: Isosorbide MONOnitrate (24 HR) 30 MG TAB.ER.24H PO SCH (10:02)
[2019-07-20] MEDS: Spironolactone 25 MG TABLET PO SCH (10:02)
[2019-07-20] MEDS: Aspirin Enteric Coated 81 MG Tablet PO SCH (10:02)
[2019-07-20] MEDS: Metoprolol XL (24 HR) Succ 50 MG TAB.ER.24H PO SCH (10:03)
[2019-07-20 11:18] VITALS: BP 124/53
== END 2019-07-20 12:40 | disposition home or self-care (01) | DRG 313 ==
LOC: 3BNU 04:31 → EMEROOARM 04:31 → SUATTDRO 06:44 → 3BNU 07:54
PROVIDERS: ADMIT Internal Medicine; ATTEND Internal Medicine

== ENCOUNTER 2019-09-07 02:27 | Observation (INO) ==
[2019-09-07 02:43] LABS: Basophils # 0.1 K/mcL (0.0-0.2); Basophils % 1.4 %; Eosinophils # 0.5 K/mcL (0.0-0.6); Eosinophils % 8.4 %; Hematocrit 34.4 % (35.3-44.9); Immature Granulocytes % 0.2 % (0-4); Lymphocytes # 2.5 K/mcL (0.6-4.6); Lymphocytes % 38.7 %; Mean Corpuscular Hemoglobin 32.2 pg (28.0-33.3); Mean Corpuscular Volume 100.6 fL (83.0-100.0); Mean Platelet Volume 9.3 fL (9.4-12.4); Monocytes # 0.8 K/mcL (0.0-1.3); Monocytes % 12.3 %; Neutrophils # 2.5 K/mcL (1.6-8.9); Platelet Count 232 K/mcL (140-400); Red Blood Count 3.42 M/mcL (3.82-4.97); Red Cell Distribution Width 12.7 % (11.5-14.5); White Blood Count 6.4 K/mcL (4.3-11.1)
[2019-09-07 03:02] LABS: Prothrombin Time 11.9 Seconds (9.4-12.1)
[2019-09-07] MEDS ORDERED: *HR* FentaNYL (PF) 100 MCG/2 ML VIAL IVP ONE (03:03)
[2019-09-07 03:04] LABS: Activated Partial Thrombo Time 28.5 Seconds (26.0-36.0)
[2019-09-07 03:07] LABS: BUN/Creatinine Ratio 28 (6-26); Blood Urea Nitrogen 33 mg/dL (8-23); Calcium 9.2 mg/dL (8.6-10.3); Carbon Dioxide 22 mEq/L (23-29); Chloride 109 mEq/L (98-107); Glucose 103 mg/dL (70-105); Osmolality,Calculated 290 (280-300); Potassium 3.7 mEq/L (3.5-5.1); Sodium 136 mEq/L (136-145); Troponin I < 0.03 ng/mL (< 0.04); eGFR For African Americans 52 (> 60); eGFR For Non-African Americans 43 (> 60)
[2019-09-07] MEDS ORDERED: Naloxone 0.4 MG/ML INJ IVP PRN (04:15)
[2019-09-07] MEDS ORDERED: Acetaminophen 325 MG TABLET PO PRN (04:37)
[2019-09-07] MEDS: *HR* Heparin 5,000 UNIT/ML VIAL SQ SCH ×2 (05:40→17:28)
[2019-09-07] MEDS ORDERED: lisinopriL 20 MG TABLET PO SCH ×3 (09:00→18:00)
[2019-09-07] MEDS: Isosorbide MONOnitrate (24 HR) 30 MG TAB.ER.24H PO SCH ×2 (09:20→09:21)
[2019-09-07] MEDS: Metoprolol XL (24 HR) Succ 50 MG TAB.ER.24H PO SCH (09:21)
[2019-09-07] MEDS: Spironolactone 25 MG TABLET PO SCH (09:21)
[2019-09-07] MEDS: Ranolazine 500 MG TAB.ER.12H PO SCH ×2 (09:22→20:09)
[2019-09-07] MEDS: predniSONE 20 MG TABLET PO SCH (15:55)
[2019-09-07] MEDS: Nystatin POWDER 30 GM BOTTLE TP SCH (20:09)
[2019-09-08] MEDS: *HR* Heparin 5,000 UNIT/ML VIAL SQ SCH (05:43)
[2019-09-08 06:45] VITALS: BP 150/66
[2019-09-08] MEDS ORDERED: Aspirin Enteric Coated 81 MG Tablet PO SCH (09:00)
[2019-09-08] MEDS: Isosorbide MONOnitrate (24 HR) 30 MG TAB.ER.24H PO SCH (09:03)
[2019-09-08] MEDS: Spironolactone 25 MG TABLET PO SCH (09:03)
[2019-09-08] MEDS: Metoprolol XL (24 HR) Succ 50 MG TAB.ER.24H PO SCH (09:03)
[2019-09-08] MEDS: Ranolazine 500 MG TAB.ER.12H PO SCH (09:03)
[2019-09-08] MEDS: predniSONE 20 MG TABLET PO SCH (09:03)
[2019-09-08] MEDS: Nystatin POWDER 30 GM BOTTLE TP SCH (09:04)
== END 2019-09-08 12:42 | disposition home or self-care (01) ==
LOC: 2ANU 02:27 → EMEROOARM 02:27 → 2ANU 04:38
PROVIDERS: ADMIT Student in an Organized Health Care Education/Training Program; ATTEND Student in an Organized Health Care Education/Training Program

== ENCOUNTER 2019-10-09 01:12 | Observation (INO) ==
[2019-10-09 01:59] LABS: Basophils # 0.1 K/mcL (0.0-0.2); Basophils % 1.4 %; Eosinophils # 0.6 K/mcL (0.0-0.6); Eosinophils % 12.5 %; Hemoglobin 11.8 g/dL (11.5-15.4); Immature Granulocytes % 0.2 % (0-4); Lymphocytes # 1.8 K/mcL (0.6-4.6); Lymphocytes % 36.7 %; Mean Corpuscular HGB Conc 31.9 g/dL (31.6-35.5); Mean Corpuscular Hemoglobin 33.3 pg (28.0-33.3); Mean Corpuscular Volume 104.5 fL (83.0-100.0); Mean Platelet Volume 9.6 fL (9.4-12.4); Monocytes # 0.7 K/mcL (0.0-1.3); Monocytes % 14.7 %; Neutrophils # 1.7 K/mcL (1.6-8.9); Platelet Count 351 K/mcL (140-400); Red Blood Count 3.54 M/mcL (3.82-4.97); Red Cell Distribution Width 13.4 % (11.5-14.5); Segmented Neutrophils % 34.5 %
[2019-10-09 02:04] LABS: Prothrombin Time 11.4 Seconds (9.4-12.1)
[2019-10-09 02:06] LABS: Activated Partial Thrombo Time 21.7 Seconds (26.0-36.0)
[2019-10-09 02:20] LABS: BUN/Creatinine Ratio 19 (6-26); Blood Urea Nitrogen 22 mg/dL (8-23); Calcium 9.1 mg/dL (8.6-10.3); Carbon Dioxide 22 mEq/L (23-29); Chloride 108 mEq/L (98-107); Glucose 112 mg/dL (70-105); Osmolality,Calculated 290 (280-300); Potassium 3.8 mEq/L (3.5-5.1); Sodium 138 mEq/L (136-145); eGFR For African Americans 54 (> 60); eGFR For Non-African Americans 44 (> 60)
[2019-10-09 02:21] LABS: Troponin I < 0.03 ng/mL (< 0.04)
[2019-10-09] MEDS ORDERED: Naloxone 0.4 MG/ML INJ IVP PRN (03:41)
[2019-10-09] MEDS ORDERED: Mag Hydrox/Al Hydrox/Simeth 30 ML UDC PO PRN (03:41)
[2019-10-09] MEDS ORDERED: Morphine Sulfate 2 MG/ML SYRINGE IVP PRN (03:49)
[2019-10-09] MEDS ORDERED: Acetaminophen 325 MG TABLET PO PRN (03:49)
[2019-10-09] MEDS: Nitroglycerin 0.4 MG TAB.SUBL SL PRN ×2 (04:40→04:56)
[2019-10-09] MEDS: lisinopriL 10 MG TABLET PO SCH ×2 (04:54→16:47)
[2019-10-09] MEDS: *HR* Heparin 5,000 UNIT/ML VIAL SQ SCH ×2 (04:57→16:47)
[2019-10-09] MEDS ORDERED: Regadenoson 0.4 MG/5 ML SYRINGE IVP ONE (06:17)
[2019-10-09 08:42] LABS: Troponin I 0.04 ng/mL (< 0.04)
[2019-10-09 08:43] LABS: Magnesium 1.7 mg/dL (1.6-2.6)
[2019-10-09] MEDS ORDERED: Isosorbide MONOnitrate (24 HR) 60 MG TAB.ER.24H PO SCH (09:00)
[2019-10-09 09:06] LABS: Thyroid Stimulating Hormone 1.654 mcIU/mL (0.340-5.600)
[2019-10-09] MEDS: Metoprolol XL (24 HR) Succ 50 MG TAB.ER.24H PO SCH (12:18)
[2019-10-09] MEDS: Nystatin POWDER 30 GM BOTTLE TP SCH ×2 (12:18→20:48)
[2019-10-09] MEDS: Spironolactone 25 MG TABLET PO SCH (12:18)
[2019-10-09] MEDS: Aspirin Enteric Coated 81 MG Tablet PO SCH (12:18)
[2019-10-09] MEDS: Isosorbide MONOnitrate (24 HR) 30 MG TAB.ER.24H PO SCH (12:21)
[2019-10-09] MEDS ORDERED: lisinopriL 10 MG TABLET PO SCH (18:00)
[2019-10-10 02:49] LABS: Albumin 3.4 g/dL (3.5-5.7); Albumin/Globulin Ratio 1.4 (1.1-2.2); Bilirubin,Total 0.4 mg/dL (0.3-1.0); Calcium 8.5 mg/dL (8.6-10.3); Globulin 2.4 g/dL (2.4-3.5); Potassium 4.2 mEq/L (3.5-5.1); Total Protein 5.8 g/dL (6.4-8.9)
[2019-10-10] MEDS: *HR* Heparin 5,000 UNIT/ML VIAL SQ SCH (05:35)
[2019-10-10 08:05] VITALS: BP 135/56
[2019-10-10] MEDS: Metoprolol XL (24 HR) Succ 50 MG TAB.ER.24H PO SCH (08:29)
[2019-10-10] MEDS: Spironolactone 25 MG TABLET PO SCH (08:29)
[2019-10-10] MEDS: Aspirin Enteric Coated 81 MG Tablet PO SCH (08:29)
[2019-10-10] MEDS: Isosorbide MONOnitrate (24 HR) 30 MG TAB.ER.24H PO SCH (08:29)
[2019-10-10] MEDS: Nystatin POWDER 30 GM BOTTLE TP SCH (08:29)
== END 2019-10-10 11:56 | disposition home or self-care (01) ==
LOC: 3ANU 01:12 → EMEROOARM 01:12 → 3BNU 03:25
PROVIDERS: ADMIT Family Medicine; ATTEND Family Medicine

== ENCOUNTER 2019-11-10 02:50 | Observation (INO) ==
[2019-11-10 03:50] LABS: Basophils # 0.1 K/mcL (0.0-0.2); Basophils % 0.9 %; Eosinophils # 0.6 K/mcL (0.0-0.6); Eosinophils % 8.6 %; Hematocrit 36.4 % (35.3-44.9); Hemoglobin 11.7 g/dL (11.5-15.4); Immature Granulocytes % 0.1 % (0-4); Lymphocytes # 1.8 K/mcL (0.6-4.6); Lymphocytes % 26.8 %; Mean Corpuscular HGB Conc 32.1 g/dL (31.6-35.5); Mean Corpuscular Hemoglobin 33.1 pg (28.0-33.3); Mean Corpuscular Volume 103.1 fL (83.0-100.0); Mean Platelet Volume 9.5 fL (9.4-12.4); Monocytes # 0.7 K/mcL (0.0-1.3); Monocytes % 10.7 %; Neutrophils # 3.6 K/mcL (1.6-8.9); Platelet Count 272 K/mcL (140-400); Red Blood Count 3.53 M/mcL (3.82-4.97); Red Cell Distribution Width 13.4 % (11.5-14.5); Segmented Neutrophils % 52.9 %; White Blood Count 6.8 K/mcL (4.3-11.1)
[2019-11-10 03:55] LABS: Bilirubin,Urine Negative (Negative); Blood,Urine Negative (Negative); Clarity,Urine Clear (Clear); Color,Urine Yellow (Yellow); Glucose,Urine (UA) Normal (Normal); Ketones,Urine Negative (Negative); Leukocyte Esterase,Urine Trace (Negative); Nitrite,Urine Negative (Negative); Protein,Urine Negative (Neg-Trace); Specific Gravity,Urine 1.012 (1.010-1.025); Urobilinogen,Urine Normal (Normal)
[2019-11-10 03:57] LABS: Prothrombin Time 10.9 Seconds (9.4-12.1)
[2019-11-10 03:57] LABS: Bacteria,Urine None Seen per hpf (None-Few); Hyaline Casts,Urine None Seen per lpf (None-Few); RBC,Urine 0-3 per hpf (0-3); Squamous Epithelial Cell,Urine Few per lpf (None-Few)
[2019-11-10 03:59] LABS: Activated Partial Thrombo Time 26.5 Seconds (26.0-36.0); D-Dimer 569 ng/mLFEU (0-500)
[2019-11-10 04:09] LABS: BUN/Creatinine Ratio 25 (6-26); Blood Urea Nitrogen 23 mg/dL (8-23); Calcium 9.3 mg/dL (8.6-10.3); Carbon Dioxide 19 mEq/L (23-29); Chloride 110 mEq/L (98-107); Glucose 108 mg/dL (70-105); Lipase 39 Units/L (11-82); Osmolality,Calculated 288 (280-300); Potassium 5.4 mEq/L (3.5-5.1); Sodium 137 mEq/L (136-145); Troponin I < 0.03 ng/mL (< 0.04); eGFR For African Americans > 60 (> 60); eGFR For Non-African Americans 58 (> 60)
[2019-11-10 05:06] LABS: BUN/Creatinine Ratio 23 (6-26); Blood Urea Nitrogen 23 mg/dL (8-23); Calcium 9.3 mg/dL (8.6-10.3); Carbon Dioxide 21 mEq/L (23-29); Chloride 111 mEq/L (98-107); Glucose 104 mg/dL (70-105); Osmolality,Calculated 292 (280-300); Potassium 3.5 mEq/L (3.5-5.1); Sodium 139 mEq/L (136-145); eGFR For African Americans > 60 (> 60); eGFR For Non-African Americans 53 (> 60)
[2019-11-10] MEDS ORDERED: *HR* Heparin 5,000 UNIT/ML VIAL IVP PRN ×2 (05:06)
[2019-11-10] MEDS ORDERED: *HR* Heparin 5,000 UNIT/ML VIAL IVP ONE (05:06)
[2019-11-10] MEDS ORDERED: Heparin 25,000 UNIT/250 ML D5W 25,000 UNIT/250 ML IV.SOLN IVC SCH (05:15)
[2019-11-10 05:32] LABS: Heparin anti-factor XA UFH < 0.04 IU/mL (0.30-0.70)
[2019-11-10] MEDS ORDERED: Naloxone 0.4 MG/ML INJ IVP PRN (06:40)
[2019-11-10] MEDS ORDERED: Ondansetron 4 MG/2 ML VIAL IVP PRN (06:40)
[2019-11-10] MEDS ORDERED: Mag Hydrox/Al Hydrox/Simeth 30 ML UDC PO PRN (06:40)
[2019-11-10] MEDS ORDERED: Nitroglycerin 0.4 MG TAB.SUBL SL PRN (06:46)
[2019-11-10] MEDS ORDERED: Morphine Sulfate 2 MG/ML SYRINGE IVP PRN (06:46)
[2019-11-10] MEDS: Isosorbide MONOnitrate (24 HR) 30 MG TAB.ER.24H PO SCH (08:35)
[2019-11-10] MEDS: Spironolactone 25 MG TABLET PO SCH (08:35)
[2019-11-10] MEDS: Aspirin Enteric Coated 81 MG Tablet PO SCH (08:35)
[2019-11-10] MEDS ORDERED: Metoprolol XL (24 HR) Succ 50 MG TAB.ER.24H PO SCH (09:00)
[2019-11-10] MEDS ORDERED: lisinopriL 10 MG TABLET PO SCH (18:00)
[2019-11-10] MEDS: lisinopriL 10 MG TABLET PO SCH (19:41)
[2019-11-10] MEDS: Acetaminophen 325 MG TABLET PO PRN (22:02)
[2019-11-11] MEDS: Acetaminophen 325 MG TABLET PO PRN (05:09)
[2019-11-11 06:59] VITALS: BP 166/68
[2019-11-11 08:00] LABS: Hemoglobin 11.6 g/dL (11.5-15.4); Mean Corpuscular HGB Conc 32.2 g/dL (31.6-35.5); Mean Corpuscular Hemoglobin 33.8 pg (28.0-33.3); Mean Platelet Volume 9.8 fL (9.4-12.4); Platelet Count 256 K/mcL (140-400); Red Blood Count 3.43 M/mcL (3.82-4.97); Red Cell Distribution Width 13.3 % (11.5-14.5); White Blood Count 5.2 K/mcL (4.3-11.1)
[2019-11-11] MEDS ORDERED: carvediloL 6.25 MG TABLET PO SCH ×2 (08:00→17:00)
[2019-11-11 08:21] LABS: BUN/Creatinine Ratio 25 (6-26); Blood Urea Nitrogen 25 mg/dL (8-23); Carbon Dioxide 21 mEq/L (23-29); Chloride 110 mEq/L (98-107); Glucose 93 mg/dL (70-105); Osmolality,Calculated 292 (280-300); Potassium 3.8 mEq/L (3.5-5.1); Sodium 139 mEq/L (136-145); eGFR For African Americans > 60 (> 60); eGFR For Non-African Americans 52 (> 60)
[2019-11-11] MEDS: Spironolactone 25 MG TABLET PO SCH (08:31)
[2019-11-11] MEDS: Isosorbide MONOnitrate (24 HR) 30 MG TAB.ER.24H PO SCH (08:31)
[2019-11-11] MEDS: Aspirin Enteric Coated 81 MG Tablet PO SCH (08:31)
[2019-11-11] MEDS: lisinopriL 10 MG TABLET PO SCH (08:32)
[2019-11-11] MEDS ORDERED: carvediloL 6.25 MG TABLET PO ONE (09:02)
[2019-11-11] MEDS ORDERED: lisinopriL 10 MG TABLET PO SCH (21:00)
== END 2019-11-11 12:56 | disposition home or self-care (01) ==
LOC: EMEROOARM 02:50 → 3BNU 02:50
PROVIDERS: ADMIT Family Medicine; ATTEND Family Medicine

== ENCOUNTER 2019-12-23 01:36 | Observation (INO) ==
[2019-12-23] MEDS ORDERED: Nitroglycerin 0.4 MG TAB.SUBL SL PRN (01:39)
[2019-12-23] MEDS ORDERED: Aspirin 81 MG TAB.CHEW PO ONE (01:39)
[2019-12-23 02:16] LABS: Basophils # 0.1 K/mcL (0.0-0.2); Basophils % 1.5 %; Eosinophils # 0.7 K/mcL (0.0-0.6); Eosinophils % 14.3 %; Hematocrit 32.2 % (35.3-44.9); Hemoglobin 10.1 g/dL (11.5-15.4); Immature Granulocytes % 0.2 % (0-4); Lymphocytes # 2.1 K/mcL (0.6-4.6); Lymphocytes % 41.2 %; Mean Corpuscular HGB Conc 31.4 g/dL (31.6-35.5); Mean Corpuscular Hemoglobin 33.6 pg (28.0-33.3); Mean Platelet Volume 9.8 fL (9.4-12.4); Monocytes # 0.7 K/mcL (0.0-1.3); Monocytes % 13.3 %; Neutrophils # 1.5 K/mcL (1.6-8.9); Platelet Count 235 K/mcL (140-400); Red Blood Count 3.01 M/mcL (3.82-4.97); Red Cell Distribution Width 13.4 % (11.5-14.5); Segmented Neutrophils % 29.5 %; White Blood Count 5.2 K/mcL (4.3-11.1)
[2019-12-23 02:17] LABS: Prothrombin Time 11.7 Seconds (9.4-12.1)
[2019-12-23 02:20] LABS: Activated Partial Thrombo Time 29.9 Seconds (26.0-36.0)
[2019-12-23 02:36] LABS: BUN/Creatinine Ratio 22 (6-26); Blood Urea Nitrogen 24 mg/dL (8-23); Calcium 8.4 mg/dL (8.6-10.3); Carbon Dioxide 19 mEq/L (23-29); Chloride 113 mEq/L (98-107); Glucose 106 mg/dL (70-105); Osmolality,Calculated 294 (280-300); Potassium 3.6 mEq/L (3.5-5.1); Sodium 140 mEq/L (136-145); Troponin I < 0.03 ng/mL (< 0.04); eGFR For African Americans 58 (> 60); eGFR For Non-African Americans 48 (> 60)
[2019-12-23] MEDS ORDERED: Morphine Sulfate 2 MG/ML SYRINGE IVP ONE (03:07)
[2019-12-23] MEDS ORDERED: Mag Hydrox/Al Hydrox/Simeth 30 ML UDC PO PRN (04:50)
[2019-12-23] MEDS ORDERED: Ondansetron 4 MG/2 ML VIAL IVP PRN (04:50)
[2019-12-23] MEDS ORDERED: Ibuprofen 400 MG TABLET PO PRN (04:50)
[2019-12-23] MEDS ORDERED: Naloxone 0.4 MG/ML INJ IVP PRN (04:50)
[2019-12-23] MEDS ORDERED: *HR* HYDROcodone/Acet 5/325 mg TABLET PO PRN (04:50)
[2019-12-23] MEDS ORDERED: Isosorbide MONOnitrate (24 HR) 30 MG TAB.ER.24H PO SCH (04:54)
[2019-12-23] MEDS: carvediloL 6.25 MG TABLET PO SCH ×2 (05:35→16:56)
[2019-12-23] MEDS: *HR* Heparin 5,000 UNIT/ML VIAL SQ SCH ×2 (05:35→16:56)
[2019-12-23] MEDS: Aspirin Enteric Coated 81 MG Tablet PO SCH (08:18)
[2019-12-23] MEDS: lisinopriL 20 MG TABLET PO SCH (08:18)
[2019-12-23] MEDS: Spironolactone 25 MG TABLET PO SCH (08:18)
[2019-12-23] MEDS: Nystatin POWDER 30 GM BOTTLE TP SCH ×2 (08:19→23:30)
[2019-12-23 21:20] LABS: Bacteria,Urine Few per hpf (None-Few); Bilirubin,Urine Negative (Negative); Blood,Urine Negative (Negative); Clarity,Urine Clear (Clear); Color,Urine Light-Yellow (Yellow); Glucose,Urine (UA) Normal (Normal); Ketones,Urine Negative (Negative); Leukocyte Esterase,Urine Large (Negative); Mucus,Urine Few per lpf (None-Few); Nitrite,Urine Negative (Negative); Protein,Urine Trace mg/dL (Neg-Trace); Specific Gravity,Urine 1.023 (1.010-1.025); Squamous Epithelial Cell,Urine Few per hpf (None-Few); Urobilinogen,Urine Normal (Normal); WBC,Urine 15-30 per hpf (0-3)
[2019-12-24] MEDS: *HR* Heparin 5,000 UNIT/ML VIAL SQ SCH (05:17)
[2019-12-24 07:11] LABS: Basophils # 0.1 K/mcL (0.0-0.2); Basophils % 1.9 %; Eosinophils # 0.9 K/mcL (0.0-0.6); Eosinophils % 15.3 %; Hematocrit 34.4 % (35.3-44.9); Hemoglobin 10.9 g/dL (11.5-15.4); Immature Granulocytes % 0.2 % (0-4); Lymphocytes # 2.5 K/mcL (0.6-4.6); Lymphocytes % 41.5 %; Mean Corpuscular HGB Conc 31.7 g/dL (31.6-35.5); Mean Corpuscular Hemoglobin 34.1 pg (28.0-33.3); Mean Corpuscular Volume 107.5 fL (83.0-100.0); Mean Platelet Volume 9.6 fL (9.4-12.4); Monocytes # 0.7 K/mcL (0.0-1.3); Monocytes % 11.6 %; Neutrophils # 1.8 K/mcL (1.6-8.9); Platelet Count 224 K/mcL (140-400); Red Cell Distribution Width 13.5 % (11.5-14.5); Segmented Neutrophils % 29.5 %; White Blood Count 5.9 K/mcL (4.3-11.1)
[2019-12-24 07:30] LABS: BUN/Creatinine Ratio 24 (6-26); Blood Urea Nitrogen 24 mg/dL (8-23); Carbon Dioxide 20 mEq/L (23-29); Chloride 111 mEq/L (98-107); Glucose 90 mg/dL (70-105); Osmolality,Calculated 290 (280-300); Potassium 3.9 mEq/L (3.5-5.1); Sodium 138 mEq/L (136-145); eGFR For African Americans > 60 (> 60); eGFR For Non-African Americans 52 (> 60)
[2019-12-24 07:34] LABS: Chol/HDL Ratio 2.7 (0-4.9); Magnesium 1.7 mg/dL (1.6-2.6)
[2019-12-24] MEDS: carvediloL 6.25 MG TABLET PO SCH (08:28)
[2019-12-24] MEDS: Spironolactone 25 MG TABLET PO SCH (08:28)
[2019-12-24] MEDS ORDERED: Furosemide 20 MG TABLET PO PRN (08:28)
[2019-12-24] MEDS: lisinopriL 20 MG TABLET PO SCH (08:28)
[2019-12-24] MEDS: Aspirin Enteric Coated 81 MG Tablet PO SCH (08:28)
[2019-12-24] MEDS: Nystatin POWDER 30 GM BOTTLE TP SCH (08:29)
[2019-12-24] MEDS ORDERED: Cyanocobalamin (B-12) 1,000 MCG TABLET PO SCH (09:00)
[2019-12-24] MEDS ORDERED: Regadenoson 0.4 MG/5 ML SYRINGE IVP ONE (09:00)
[2019-12-24] MEDS ORDERED: Isosorbide MONOnitrate (24 HR) 30 MG TAB.ER.24H PO SCH (11:00)
[2019-12-24] MEDS ORDERED: carvediloL 6.25 MG TABLET PO ONE (14:03)
[2019-12-24 15:00] VITALS: BP 142/68
[2019-12-24] MEDS ORDERED: carvediloL 25 MG TABLET PO SCH ×2 (17:00)
[2019-12-25] MEDS ORDERED: carvediloL 25 MG TABLET PO SCH (08:00)
== END 2019-12-24 15:59 | disposition home or self-care (01) ==
LOC: 3BNU 01:36 → EMEROOARM 01:36 → SUATTDRO 03:22 → 3BNU 03:58
PROVIDERS: ADMIT Family Medicine; ATTEND Internal Medicine

== ENCOUNTER 2020-01-25 00:51 | Observation (INO) ==
[2020-01-25 02:12] LABS: Basophils # 0.1 K/mcL (0.0-0.2); Basophils % 1.9 %; Eosinophils # 0.8 K/mcL (0.0-0.6); Eosinophils % 12.2 %; Hematocrit 35.6 % (35.3-44.9); Hemoglobin 10.9 g/dL (11.5-15.4); Immature Granulocytes % 0.2 % (0-4); Lymphocytes % 31.9 %; Mean Corpuscular HGB Conc 30.6 g/dL (31.6-35.5); Mean Corpuscular Hemoglobin 33.7 pg (28.0-33.3); Mean Corpuscular Volume 110.2 fL (83.0-100.0); Mean Platelet Volume 10.2 fL (9.4-12.4); Monocytes # 0.9 K/mcL (0.0-1.3); Monocytes % 14.3 %; Platelet Count 268 K/mcL (140-400); Red Blood Count 3.23 M/mcL (3.82-4.97); Red Cell Distribution Width 13.1 % (11.5-14.5); Segmented Neutrophils % 39.5 %; White Blood Count 6.2 K/mcL (4.3-11.1)
[2020-01-25 02:14] LABS: Neutrophils # 2.5 K/mcL (1.6-8.9)
[2020-01-25 02:25] LABS: Troponin I < 0.03 ng/mL (< 0.04)
[2020-01-25 02:51] LABS: BUN/Creatinine Ratio 19 (6-26); Blood Urea Nitrogen 20 mg/dL (8-23); Carbon Dioxide 24 mEq/L (23-29); Chloride 109 mEq/L (98-107); Glucose 112 mg/dL (70-105); Osmolality,Calculated 291 (280-300); Potassium 4.2 mEq/L (3.5-5.1); Sodium 139 mEq/L (136-145); eGFR For African Americans 59 (> 60); eGFR For Non-African Americans 49 (> 60)
[2020-01-25 03:05] LABS: Calcium 8.9 mg/dL (8.6-10.3); Creatine Kinase 23 Units/L (30-223); Uric Acid 6.1 mg/dL (2.3-7.6)
[2020-01-25 03:16] LABS: Bilirubin,Urine Negative (Negative); Blood,Urine Negative (Negative); Clarity,Urine Clear (Clear); Color,Urine Light-Yellow (Yellow); Glucose,Urine (UA) Normal (Normal); Ketones,Urine Negative (Negative); Leukocyte Esterase,Urine Trace (Negative); Nitrite,Urine Negative (Negative); Protein,Urine Negative (Neg-Trace); RBC,Urine 0-3 per hpf (0-3); Specific Gravity,Urine 1.018 (1.010-1.025); Squamous Epithelial Cell,Urine Few per hpf (None-Few); Urobilinogen,Urine Normal (Normal)
[2020-01-25] MEDS ORDERED: cephALEXin 250 MG CAPSULE PO ONE (03:38)
[2020-01-25] MEDS ORDERED: Furosemide 20 MG/2 ML VIAL IVP ONE (04:20)
[2020-01-25] MEDS ORDERED: Aspirin 81 MG TAB.CHEW PO ONE (04:41)
[2020-01-25] MEDS ORDERED: Naloxone 0.4 MG/ML INJ IVP PRN (05:43)
[2020-01-25] MEDS: *HR* Heparin 5,000 UNIT/ML VIAL SQ SCH ×2 (07:53→16:58)
[2020-01-25] MEDS: Nystatin POWDER 30 GM BOTTLE TP SCH ×3 (10:11→21:28)
[2020-01-25] MEDS ORDERED: Colchicine 0.6 MG TABLET PO ONE ×3 (10:22→18:44)
[2020-01-25] MEDS: predniSONE 20 MG TABLET PO SCH (10:57)
[2020-01-25] MEDS ORDERED: Acetaminophen 325 MG TABLET PO PRN (16:15)
[2020-01-25] MEDS ORDERED: Furosemide 20 MG TABLET PO PRN (16:15)
[2020-01-25] MEDS ORDERED: Nitroglycerin 0.4 MG TAB.SUBL SL PRN (16:15)
[2020-01-25] MEDS: carvediloL 25 MG TABLET PO SCH (16:57)
[2020-01-25] MEDS: lisinopriL 20 MG TABLET PO SCH (16:57)
[2020-01-25] MEDS: Furosemide 20 MG TABLET PO SCH (21:27)
[2020-01-26 04:27] LABS: Basophils % 0.2 %; Hemoglobin 10.8 g/dL (11.5-15.4); Immature Granulocytes % 0.6 % (0-4); Lymphocytes # 1.3 K/mcL (0.6-4.6); Lymphocytes % 25.9 %; Mean Corpuscular HGB Conc 32.7 g/dL (31.6-35.5); Mean Corpuscular Hemoglobin 34.2 pg (28.0-33.3); Mean Corpuscular Volume 104.4 fL (83.0-100.0); Mean Platelet Volume 9.9 fL (9.4-12.4); Monocytes # 0.4 K/mcL (0.0-1.3); Monocytes % 7.1 %; Neutrophils # 3.3 K/mcL (1.6-8.9); Platelet Count 259 K/mcL (140-400); Red Blood Count 3.16 M/mcL (3.82-4.97); Red Cell Distribution Width 12.9 % (11.5-14.5); Segmented Neutrophils % 66.2 %
[2020-01-26 04:44] LABS: Potassium 3.4 mEq/L (3.5-5.1)
[2020-01-26] MEDS: *HR* Heparin 5,000 UNIT/ML VIAL SQ SCH (05:10)
[2020-01-26 06:46] VITALS: BP 123/57
[2020-01-26] MEDS: lisinopriL 20 MG TABLET PO SCH (07:19)
[2020-01-26] MEDS: carvediloL 25 MG TABLET PO SCH (07:20)
[2020-01-26] MEDS: predniSONE 20 MG TABLET PO SCH (07:20)
[2020-01-26] MEDS: Furosemide 20 MG TABLET PO SCH (07:20)
[2020-01-26] MEDS: Nystatin POWDER 30 GM BOTTLE TP SCH (07:27)
[2020-01-26] MEDS ORDERED: Aspirin Enteric Coated 81 MG Tablet PO SCH (09:00)
[2020-01-26] MEDS ORDERED: Colchicine 0.6 MG TABLET PO SCH (09:00)
== END 2020-01-26 12:25 | disposition home or self-care (01) ==
LOC: 3BNU 00:51 → EMEROOARM 00:51 → 3BNU 05:32
PROVIDERS: ADMIT Internal Medicine; ATTEND Internal Medicine

== ENCOUNTER 2020-02-06 02:43 | Observation (INO) ==
[2020-02-06] MEDS ORDERED: Aspirin 325 MG TABLET PO ONE (02:48)
[2020-02-06] MEDS ORDERED: Nitroglycerin 0.4 MG TAB.SUBL SL PRN (02:48)
[2020-02-06 03:08] LABS: Basophils % 0.6 %; Eosinophils # 0.4 K/mcL (0.0-0.6); Eosinophils % 5.9 %; Hematocrit 35.5 % (35.3-44.9); Immature Granulocytes % 0.1 % (0-4); Lymphocytes # 2.2 K/mcL (0.6-4.6); Lymphocytes % 32.6 %; Mean Corpuscular Hemoglobin 32.8 pg (28.0-33.3); Mean Platelet Volume 10.3 fL (9.4-12.4); Monocytes # 0.7 K/mcL (0.0-1.3); Monocytes % 10.1 %; Neutrophils # 3.4 K/mcL (1.6-8.9); Platelet Count 200 K/mcL (140-400); Red Blood Count 3.35 M/mcL (3.82-4.97); Red Cell Distribution Width 13.4 % (11.5-14.5); Segmented Neutrophils % 50.7 %; White Blood Count 6.8 K/mcL (4.3-11.1)
[2020-02-06 03:14] LABS: Prothrombin Time 11.8 Seconds (9.4-12.1)
[2020-02-06 03:17] LABS: Activated Partial Thrombo Time 27.7 Seconds (26.0-36.0)
[2020-02-06 03:30] LABS: BUN/Creatinine Ratio 22 (6-26); Blood Urea Nitrogen 22 mg/dL (8-23); Calcium 8.8 mg/dL (8.6-10.3); Carbon Dioxide 23 mEq/L (23-29); Chloride 108 mEq/L (98-107); Glucose 102 mg/dL (70-105); Osmolality,Calculated 290 (280-300); Potassium 3.6 mEq/L (3.5-5.1); Sodium 138 mEq/L (136-145); eGFR For African Americans > 60 (> 60); eGFR For Non-African Americans 51 (> 60)
[2020-02-06 03:31] LABS: Troponin I < 0.03 ng/mL (< 0.04)
[2020-02-06] MEDS ORDERED: *HR* Heparin 5,000 UNIT/ML VIAL SQ SCH (06:00)
[2020-02-06 07:38] VITALS: BP 169/76
[2020-02-06] MEDS ORDERED: Nystatin Cream 15 GM TUBE TP SCH (09:00)
== END 2020-02-06 17:35 | disposition home or self-care (01) ==
LOC: EMEROOARM 02:43 → 3BNU 02:43 → SUATTDRO 04:10 → 3BNU 04:33
PROVIDERS: ADMIT Student in an Organized Health Care Education/Training Program; ATTEND Nurse Practitioner Adult Health

== ENCOUNTER 2020-03-14 01:28 | Inpatient (IN) ==
[2020-03-14] MEDS ORDERED: Aspirin 81 MG TAB.CHEW PO ONE (01:39)
[2020-03-14 01:58] LABS: Basophils # 0.1 K/mcL (0.0-0.2); Basophils % 1.4 %; Eosinophils # 0.5 K/mcL (0.0-0.6); Eosinophils % 6.8 %; Hematocrit 39.3 % (35.3-44.9); Hemoglobin 12.3 g/dL (11.5-15.4); Immature Granulocytes % 0.3 % (0-4); Lymphocytes # 2.5 K/mcL (0.6-4.6); Lymphocytes % 37.4 %; Mean Corpuscular HGB Conc 31.3 g/dL (31.6-35.5); Mean Corpuscular Volume 105.4 fL (83.0-100.0); Mean Platelet Volume 10.6 fL (9.4-12.4); Monocytes # 0.7 K/mcL (0.0-1.3); Monocytes % 9.9 %; Neutrophils # 2.9 K/mcL (1.6-8.9); Platelet Count 223 K/mcL (140-400); Red Blood Count 3.73 M/mcL (3.82-4.97); Red Cell Distribution Width 12.2 % (11.5-14.5); Segmented Neutrophils % 44.2 %; White Blood Count 6.7 K/mcL (4.3-11.1)
[2020-03-14] MEDS: Nitroglycerin 0.4 MG TAB.SUBL SL PRN ×2 (01:59→02:16)
[2020-03-14 02:03] LABS: Prothrombin Time 11.8 Seconds (9.4-12.1)
[2020-03-14 02:06] LABS: Activated Partial Thrombo Time 31.4 Seconds (26.0-36.0)
[2020-03-14 02:16] LABS: BUN/Creatinine Ratio 19 (6-26); Blood Urea Nitrogen 19 mg/dL (8-23); Calcium 9.1 mg/dL (8.6-10.3); Carbon Dioxide 22 mEq/L (23-29); Chloride 104 mEq/L (98-107); Glucose 99 mg/dL (70-105); Osmolality,Calculated 282 (280-300); Potassium 3.8 mEq/L (3.5-5.1); Sodium 135 mEq/L (136-145); Troponin I 0.04 ng/mL (< 0.04); eGFR For African Americans > 60 (> 60); eGFR For Non-African Americans 54 (> 60)
[2020-03-14] MEDS ORDERED: Naloxone 0.4 MG/ML INJ IVP PRN (04:27)
[2020-03-14] MEDS ORDERED: Famotidine 20 MG/2 ML VIAL IVP ONE (06:58)
[2020-03-14] MEDS ORDERED: Acetaminophen 325 MG TABLET PO PRN (07:50)
[2020-03-14] MEDS ORDERED: Nitroglycerin 0.4 MG TAB.SUBL SL PRN (07:50)
[2020-03-14] MEDS: Aspirin Enteric Coated 81 MG Tablet PO SCH (08:40)
[2020-03-14] MEDS: lisinopriL 20 MG TABLET PO SCH (08:40)
[2020-03-14] MEDS ORDERED: *HR* Heparin 5,000 UNIT/ML VIAL IVP PRN ×2 (09:06)
[2020-03-14 10:03] LABS: Hematocrit 39.1 % (35.3-44.9); Hemoglobin 12.3 g/dL (11.5-15.4); Mean Corpuscular HGB Conc 31.5 g/dL (31.6-35.5); Mean Corpuscular Hemoglobin 33.2 pg (28.0-33.3); Mean Corpuscular Volume 105.7 fL (83.0-100.0); Mean Platelet Volume 10.4 fL (9.4-12.4); Platelet Count 226 K/mcL (140-400); Red Cell Distribution Width 12.1 % (11.5-14.5); White Blood Count 5.5 K/mcL (4.3-11.1)
[2020-03-14 10:06] LABS: Prothrombin Time 11.6 Seconds (9.4-12.1)
[2020-03-14 10:09] LABS: Heparin anti-factor XA UFH < 0.04 IU/mL (0.30-0.70)
[2020-03-14] MEDS: Heparin 25,000UNIT/250ML 1/2NS 25,000 UNIT/250 ML IV.SOLN IVC SCH (11:10)
[2020-03-14 16:08] LABS: Bacteria,Urine Few per hpf (None-Few); Bilirubin,Urine Negative (Negative); Blood,Urine Small (Negative); Clarity,Urine Turbid (Clear); Color,Urine Yellow (Yellow); Glucose,Urine (UA) Normal (Normal); Ketones,Urine 10 mg/dL (Negative); Leukocyte Esterase,Urine Large (Negative); Mucus,Urine Few per lpf (None-Few); Nitrite,Urine Positive (Negative); Protein,Urine Trace mg/dL (Neg-Trace); Specific Gravity,Urine 1.016 (1.010-1.025); Squamous Epithelial Cell,Urine Few per hpf (None-Few); Urobilinogen,Urine Normal (Normal); WBC,Urine TNTC per hpf (0-3)
[2020-03-14] MEDS: cefTRIAXone 1,000 MG in 0.9 % Sodium Chloride Mini Bag 100 ML IVPB SCH (16:35)
[2020-03-14] MEDS ORDERED: *HR* Heparin 5,000 UNIT/ML VIAL SQ SCH (18:00)
[2020-03-15 01:20] LABS: Hematocrit 34.9 % (35.3-44.9); Hemoglobin 11.2 g/dL (11.5-15.4); Mean Corpuscular HGB Conc 32.1 g/dL (31.6-35.5); Mean Corpuscular Hemoglobin 33.2 pg (28.0-33.3); Mean Corpuscular Volume 103.6 fL (83.0-100.0); Mean Platelet Volume 10.6 fL (9.4-12.4); Platelet Count 211 K/mcL (140-400); Red Blood Count 3.37 M/mcL (3.82-4.97); Red Cell Distribution Width 12.1 % (11.5-14.5); White Blood Count 5.1 K/mcL (4.3-11.1)
[2020-03-15 01:43] LABS: Calcium 8.8 mg/dL (8.6-10.3); Potassium 3.3 mEq/L (3.5-5.1)
[2020-03-15] MEDS: lisinopriL 20 MG TABLET PO SCH (08:09)
[2020-03-15] MEDS: Aspirin Enteric Coated 81 MG Tablet PO SCH (08:10)
[2020-03-15] MEDS: Nystatin POWDER 30 GM BOTTLE TP SCH ×2 (08:14→22:30)
[2020-03-15] MEDS: Isosorbide MONOnitrate (24 HR) 60 MG TAB.ER.24H PO SCH (11:40)
[2020-03-15] MEDS: carvediloL 25 MG TABLET PO SCH (15:59)
[2020-03-15] MEDS: cefTRIAXone 1,000 MG in 0.9 % Sodium Chloride Mini Bag 100 ML IVPB SCH (15:59)
[2020-03-15] MEDS ORDERED: carvediloL 6.25 MG TABLET PO SCH (17:00)
[2020-03-16] MEDS: Heparin 25,000UNIT/250ML 1/2NS 25,000 UNIT/250 ML IV.SOLN IVC SCH ×2 (00:38→00:39)
[2020-03-16] MEDS ORDERED: Furosemide 20 MG TABLET PO PRN (07:37)
[2020-03-16] MEDS: Aspirin Enteric Coated 81 MG Tablet PO SCH (08:21)
[2020-03-16] MEDS: Isosorbide MONOnitrate (24 HR) 60 MG TAB.ER.24H PO SCH (08:21)
[2020-03-16] MEDS: lisinopriL 20 MG TABLET PO SCH (08:22)
[2020-03-16] MEDS: carvediloL 25 MG TABLET PO SCH (08:22)
[2020-03-16 08:27] LABS: Hemoglobin 10.5 g/dL (11.5-15.4); Mean Corpuscular HGB Conc 30.9 g/dL (31.6-35.5); Mean Corpuscular Hemoglobin 32.8 pg (28.0-33.3); Mean Corpuscular Volume 106.3 fL (83.0-100.0); Mean Platelet Volume 10.5 fL (9.4-12.4); Platelet Count 198 K/mcL (140-400); Red Cell Distribution Width 12.2 % (11.5-14.5); White Blood Count 5.7 K/mcL (4.3-11.1)
[2020-03-16 08:48] LABS: Calcium 8.8 mg/dL (8.6-10.3)
[2020-03-16] MEDS ORDERED: cephALEXin 500 MG CAPSULE PO SCH (09:00)
[2020-03-16] MEDS: Nystatin POWDER 30 GM BOTTLE TP SCH (09:41)
[2020-03-16 12:39] VITALS: BP 125/72
== END 2020-03-16 12:52 | disposition home or self-care (01) | DRG 281 ==
LOC: 3BNU 01:28 → EMEROOARM 01:28 → 3BNU 03:20
PROVIDERS: ADMIT Family Medicine; ATTEND Family Medicine

== ENCOUNTER 2020-03-26 01:47 | Inpatient (IN) ==
[2020-03-26 03:17] LABS: Basophils # 0.1 K/mcL (0.0-0.2); Basophils % 1.1 %; Eosinophils # 0.5 K/mcL (0.0-0.6); Hemoglobin 11.7 g/dL (11.5-15.4); Immature Granulocytes % 0.3 % (0-4); Lymphocytes # 2.2 K/mcL (0.6-4.6); Lymphocytes % 33.7 %; Mean Corpuscular HGB Conc 31.6 g/dL (31.6-35.5); Mean Corpuscular Hemoglobin 33.1 pg (28.0-33.3); Mean Corpuscular Volume 104.5 fL (83.0-100.0); Mean Platelet Volume 9.8 fL (9.4-12.4); Monocytes # 0.8 K/mcL (0.0-1.3); Monocytes % 12.7 %; Neutrophils # 2.9 K/mcL (1.6-8.9); Platelet Count 251 K/mcL (140-400); Red Blood Count 3.54 M/mcL (3.82-4.97); Red Cell Distribution Width 12.2 % (11.5-14.5); Segmented Neutrophils % 44.2 %; White Blood Count 6.6 K/mcL (4.3-11.1)
[2020-03-26 03:26] LABS: Activated Partial Thrombo Time 27.5 Seconds (26.0-36.0)
[2020-03-26 03:41] LABS: BUN/Creatinine Ratio 16 (6-26); Blood Urea Nitrogen 16 mg/dL (8-23); Calcium 9.6 mg/dL (8.6-10.3); Carbon Dioxide 24 mEq/L (23-29); Chloride 104 mEq/L (98-107); Glucose 93 mg/dL (70-105); Lipase 33 Units/L (11-82); Osmolality,Calculated 285 (280-300); Potassium 3.4 mEq/L (3.5-5.1); Sodium 137 mEq/L (136-145); eGFR For African Americans > 60 (> 60); eGFR For Non-African Americans 53 (> 60)
[2020-03-26 03:59] LABS: Troponin I 0.04 ng/mL (< 0.04)
[2020-03-26] MEDS ORDERED: Furosemide 40 MG/4 ML VIAL IVP ONE (04:22)
[2020-03-26] MEDS ORDERED: Naloxone 0.4 MG/ML INJ IVP PRN (05:21)
[2020-03-26 06:03] LABS: Bilirubin,Urine Negative (Negative); Blood,Urine Negative (Negative); Clarity,Urine Clear (Clear); Color,Urine Colorless (Yellow); Glucose,Urine (UA) Normal (Normal); Ketones,Urine Negative (Negative); Leukocyte Esterase,Urine Trace (Negative); Nitrite,Urine Negative (Negative); PH,Urine 6.5 pH Units (5.0-8.0); Protein,Urine Negative (Neg-Trace); Specific Gravity,Urine 1.007 (1.010-1.025); Squamous Epithelial Cell,Urine Few per hpf (None-Few); Urobilinogen,Urine Normal (Normal); WBC,Urine 0-3 per hpf (0-3)
[2020-03-26] MEDS ORDERED: Acetaminophen 325 MG TABLET PO PRN (07:11)
[2020-03-26] MEDS ORDERED: Perflutren Lipid Microsphere 1.3 ML in 0.9 % Sodium Chloride 8.7 ML IVP PRN (07:21)
[2020-03-26] MEDS ORDERED: Nitroglycerin 0.4 MG TAB.SUBL SL PRN ×2 (08:01→15:09)
[2020-03-26 10:35] LABS: Magnesium 2.3 mg/dL (1.6-2.6); Troponin I 0.05 ng/mL (< 0.04)
[2020-03-26] MEDS ORDERED: Furosemide 20 MG TABLET PO PRN (15:09)
[2020-03-26] MEDS: *HR* Heparin 5,000 UNIT/ML VIAL SQ SCH (16:40)
[2020-03-26] MEDS: Nystatin POWDER 30 GM BOTTLE TP SCH ×2 (16:41→19:40)
[2020-03-26] MEDS: carvediloL 25 MG TABLET PO SCH (16:41)
[2020-03-27 02:32] LABS: Hematocrit 37.6 % (35.3-44.9); Hemoglobin 11.9 g/dL (11.5-15.4); Mean Corpuscular HGB Conc 31.6 g/dL (31.6-35.5); Mean Corpuscular Volume 104.2 fL (83.0-100.0); Mean Platelet Volume 10.1 fL (9.4-12.4); Platelet Count 249 K/mcL (140-400); Red Blood Count 3.61 M/mcL (3.82-4.97); Red Cell Distribution Width 12.4 % (11.5-14.5); White Blood Count 6.5 K/mcL (4.3-11.1)
[2020-03-27 02:47] LABS: Calcium 9.5 mg/dL (8.6-10.3); Magnesium 2.2 mg/dL (1.6-2.6); Phosphorous 3.7 mg/dL (2.7-4.5); Potassium 3.7 mEq/L (3.5-5.1)
[2020-03-27] MEDS: *HR* Heparin 5,000 UNIT/ML VIAL SQ SCH ×2 (05:35→16:34)
[2020-03-27] MEDS: Isosorbide MONOnitrate (24 HR) 60 MG TAB.ER.24H PO SCH (08:55)
[2020-03-27] MEDS: Aspirin Enteric Coated 81 MG Tablet PO SCH (08:55)
[2020-03-27] MEDS: lisinopriL 20 MG TABLET PO SCH (08:55)
[2020-03-27] MEDS: Nystatin POWDER 30 GM BOTTLE TP SCH ×2 (08:55→21:03)
[2020-03-27] MEDS: carvediloL 25 MG TABLET PO SCH ×2 (08:55→16:34)
[2020-03-27] MEDS ORDERED: 0.9 % Sodium Chloride 1,000 ML IVC SCH (15:15)
[2020-03-27] MEDS: Artificial Tears SOLN 15 ML BOTTLE BOTH EYES SCH ×2 (16:34→21:02)
[2020-03-27] MEDS ORDERED: CLEAR EYES NATURAL TEARS 15 ML BOTTLE BOTH EYES SCH (17:00)
[2020-03-28 03:44] LABS: Calcium 9.3 mg/dL (8.6-10.3); Magnesium 2.2 mg/dL (1.6-2.6); Phosphorous 3.4 mg/dL (2.7-4.5); Potassium 4.1 mEq/L (3.5-5.1)
[2020-03-28] MEDS: *HR* Heparin 5,000 UNIT/ML VIAL SQ SCH (05:41)
[2020-03-28 05:48] LABS: Hematocrit 38.8 % (35.3-44.9); Hemoglobin 12.3 g/dL (11.5-15.4); Mean Corpuscular HGB Conc 31.7 g/dL (31.6-35.5); Mean Corpuscular Hemoglobin 33.9 pg (28.0-33.3); Mean Corpuscular Volume 106.9 fL (83.0-100.0); Mean Platelet Volume 10.7 fL (9.4-12.4); Platelet Count 247 K/mcL (140-400); Red Blood Count 3.63 M/mcL (3.82-4.97); Red Cell Distribution Width 12.4 % (11.5-14.5); White Blood Count 6.3 K/mcL (4.3-11.1)
[2020-03-28] MEDS: Isosorbide MONOnitrate (24 HR) 60 MG TAB.ER.24H PO SCH (08:00)
[2020-03-28] MEDS: carvediloL 25 MG TABLET PO SCH (08:00)
[2020-03-28] MEDS: Aspirin Enteric Coated 81 MG Tablet PO SCH (08:00)
[2020-03-28] MEDS: lisinopriL 20 MG TABLET PO SCH (08:00)
[2020-03-28] MEDS: Artificial Tears SOLN 15 ML BOTTLE BOTH EYES SCH ×2 (08:01→14:08)
[2020-03-28] MEDS: Nystatin POWDER 30 GM BOTTLE TP SCH (08:15)
[2020-03-28] MEDS ORDERED: 0.9 % Sodium Chloride 1,000 ML IVC SCH (08:45)
[2020-03-28 10:47] VITALS: BP 130/72
== END 2020-03-28 15:00 | disposition home or self-care (01) | DRG 291 ==
LOC: EMEROOARM 01:47 → 2ANU 01:47 → SUATTDRO 04:39 → 2ANU 05:10
PROVIDERS: ADMIT Internal Medicine; ATTEND Internal Medicine

== ENCOUNTER 2020-04-03 11:10 | Inpatient (IN) ==
[2020-04-03] MEDS ORDERED: Ondansetron 4 MG/2 ML VIAL IVP ONE (11:22)
[2020-04-03] MEDS: Nitroglycerin 0.4 MG TAB.SUBL SL SCH ×2 (11:35→18:41)
[2020-04-03 12:03] LABS: Basophils # 0.1 K/mcL (0.0-0.2); Basophils % 1.6 %; Eosinophils # 0.4 K/mcL (0.0-0.6); Eosinophils % 7.5 %; Hematocrit 38.2 % (35.3-44.9); Immature Granulocytes % 0.2 % (0-4); Lymphocytes % 34.9 %; Mean Corpuscular HGB Conc 31.4 g/dL (31.6-35.5); Mean Corpuscular Hemoglobin 32.8 pg (28.0-33.3); Mean Corpuscular Volume 104.4 fL (83.0-100.0); Mean Platelet Volume 10.3 fL (9.4-12.4); Monocytes # 0.6 K/mcL (0.0-1.3); Monocytes % 11.4 %; Neutrophils # 2.5 K/mcL (1.6-8.9); Platelet Count 242 K/mcL (140-400); Red Blood Count 3.66 M/mcL (3.82-4.97); Segmented Neutrophils % 44.4 %; White Blood Count 5.6 K/mcL (4.3-11.1)
[2020-04-03 12:10] LABS: Prothrombin Time 11.9 Seconds (9.4-12.1)
[2020-04-03 12:13] LABS: Activated Partial Thrombo Time 27.6 Seconds (26.0-36.0)
[2020-04-03 12:47] LABS: BUN/Creatinine Ratio 16 (6-26); Blood Urea Nitrogen 17 mg/dL (8-23); Calcium 9.4 mg/dL (8.6-10.3); Carbon Dioxide 23 mEq/L (23-29); Chloride 106 mEq/L (98-107); Glucose 96 mg/dL (70-105); Osmolality,Calculated 287 (280-300); Potassium 4.1 mEq/L (3.5-5.1); Sodium 138 mEq/L (136-145); Troponin I < 0.03 ng/mL (< 0.04); eGFR For African Americans > 60 (> 60); eGFR For Non-African Americans 50 (> 60)
[2020-04-03] MEDS ORDERED: Naloxone 0.4 MG/ML INJ IVP PRN (17:04)
[2020-04-03] MEDS ORDERED: Furosemide 20 MG/2 ML VIAL IVP ONE (17:07)
[2020-04-03] MEDS ORDERED: Furosemide 20 MG TABLET PO ONE (17:17)
[2020-04-03] MEDS ORDERED: Nitroglycerin 0.4 MG TAB.SUBL SL PRN (17:32)
[2020-04-03] MEDS: *HR* Heparin 5,000 UNIT/ML VIAL SQ SCH (18:39)
[2020-04-03] MEDS: Artificial Tears SOLN 15 ML BOTTLE BOTH EYES SCH (20:48)
[2020-04-03] MEDS ORDERED: carvediloL 25 MG TABLET PO SCH (21:00)
[2020-04-03 23:25] LABS: Hematocrit 38.4 % (35.3-44.9); Hemoglobin 12.5 g/dL (11.5-15.4); Mean Corpuscular HGB Conc 32.6 g/dL (31.6-35.5); Mean Corpuscular Hemoglobin 33.5 pg (28.0-33.3); Mean Corpuscular Volume 102.9 fL (83.0-100.0); Mean Platelet Volume 10.1 fL (9.4-12.4); Platelet Count 245 K/mcL (140-400); Red Blood Count 3.73 M/mcL (3.82-4.97)
[2020-04-04] MEDS: *HR* Heparin 5,000 UNIT/ML VIAL SQ SCH ×2 (04:53→17:35)
[2020-04-04 04:59] LABS: Basophils # 0.1 K/mcL (0.0-0.2); Basophils % 0.9 %; Eosinophils # 0.1 K/mcL (0.0-0.6); Eosinophils % 1.4 %; Hematocrit 39.6 % (35.3-44.9); Hemoglobin 12.2 g/dL (11.5-15.4); Immature Granulocytes % 0.5 % (0-4); Lymphocytes # 1.3 K/mcL (0.6-4.6); Lymphocytes % 19.5 %; Mean Corpuscular HGB Conc 30.8 g/dL (31.6-35.5); Mean Corpuscular Hemoglobin 32.5 pg (28.0-33.3); Mean Corpuscular Volume 105.6 fL (83.0-100.0); Mean Platelet Volume 10.3 fL (9.4-12.4); Monocytes # 0.4 K/mcL (0.0-1.3); Monocytes % 6.9 %; Neutrophils # 4.5 K/mcL (1.6-8.9); Platelet Count 236 K/mcL (140-400); Red Blood Count 3.75 M/mcL (3.82-4.97); Red Cell Distribution Width 12.2 % (11.5-14.5); Segmented Neutrophils % 70.8 %; White Blood Count 6.4 K/mcL (4.3-11.1)
[2020-04-04 05:12] LABS: Calcium 9.1 mg/dL (8.6-10.3); Potassium 3.6 mEq/L (3.5-5.1)
[2020-04-04 07:39] LABS: Magnesium 1.7 mg/dL (1.6-2.6)
[2020-04-04] MEDS: Aspirin Enteric Coated 81 MG Tablet PO SCH (08:52)
[2020-04-04] MEDS: Artificial Tears SOLN 15 ML BOTTLE BOTH EYES SCH ×4 (08:52→19:56)
[2020-04-04] MEDS ORDERED: lisinopriL 20 MG TABLET PO SCH (09:00)
[2020-04-04] MEDS ORDERED: Isosorbide MONOnitrate (24 HR) 60 MG TAB.ER.24H PO SCH (09:00)
[2020-04-04] MEDS ORDERED: 0.9 % Sodium Chloride 250 ML IVC SCH (12:15)
[2020-04-04] MEDS: Acetaminophen 325 MG TABLET PO PRN (15:44)
[2020-04-05 03:47] LABS: Basophils # 0.1 K/mcL (0.0-0.2); Basophils % 1.2 %; Eosinophils # 0.5 K/mcL (0.0-0.6); Eosinophils % 7.7 %; Hematocrit 36.9 % (35.3-44.9); Hemoglobin 11.8 g/dL (11.5-15.4); Immature Granulocytes % 0.2 % (0-4); Lymphocytes # 2.3 K/mcL (0.6-4.6); Lymphocytes % 38.9 %; Mean Corpuscular Hemoglobin 33.3 pg (28.0-33.3); Mean Corpuscular Volume 104.2 fL (83.0-100.0); Mean Platelet Volume 10.4 fL (9.4-12.4); Monocytes # 0.7 K/mcL (0.0-1.3); Monocytes % 12.3 %; Neutrophils # 2.4 K/mcL (1.6-8.9); Platelet Count 214 K/mcL (140-400); Red Blood Count 3.54 M/mcL (3.82-4.97); Red Cell Distribution Width 12.1 % (11.5-14.5); Segmented Neutrophils % 39.7 %; White Blood Count 5.9 K/mcL (4.3-11.1)
[2020-04-05 04:06] LABS: Potassium 3.6 mEq/L (3.5-5.1)
[2020-04-05] MEDS: *HR* Heparin 5,000 UNIT/ML VIAL SQ SCH ×2 (04:59→17:53)
[2020-04-05] MEDS ORDERED: 0.9 % Sodium Chloride 500 ML IVC SCH (08:30)
[2020-04-05] MEDS: Aspirin Enteric Coated 81 MG Tablet PO SCH (10:06)
[2020-04-05] MEDS: Artificial Tears SOLN 15 ML BOTTLE BOTH EYES SCH ×4 (10:06→20:42)
[2020-04-05] MEDS: Acetaminophen 325 MG TABLET PO PRN (11:06)
[2020-04-05] MEDS: Nystatin POWDER 30 GM BOTTLE TP SCH ×2 (14:44→20:42)
[2020-04-06 03:45] LABS: Calcium 8.9 mg/dL (8.6-10.3)
[2020-04-06] MEDS ORDERED: *HR* Metoprolol 5 MG/5 ML VIAL IVP ONE (04:07)
[2020-04-06] MEDS ORDERED: atenoloL 25 MG TABLET PO ONE (04:21)
[2020-04-06] MEDS: *HR* Heparin 5,000 UNIT/ML VIAL SQ SCH (04:24)
[2020-04-06 04:26] LABS: Basophils % 1.1 %; Mean Platelet Volume 10.9 fL (9.4-12.4); Red Cell Distribution Width 11.9 % (11.5-14.5)
[2020-04-06 04:28] LABS: Basophils # 0.1 K/mcL (0.0-0.2); Eosinophils # 0.5 K/mcL (0.0-0.6); Eosinophils % 8.4 %; Hematocrit 36.8 % (35.3-44.9); Hemoglobin 12.1 g/dL (11.5-15.4); Immature Granulocytes % 0.2 % (0-4); Immature Platelets 6.1 % (1.1-6.1); Lymphocytes # 1.9 K/mcL (0.6-4.6); Lymphocytes % 30.4 %; Mean Corpuscular HGB Conc 32.9 g/dL (31.6-35.5); Mean Corpuscular Hemoglobin 33.8 pg (28.0-33.3); Mean Corpuscular Volume 102.8 fL (83.0-100.0); Monocytes # 0.7 K/mcL (0.0-1.3); Monocytes % 10.7 %; Neutrophils # 3.1 K/mcL (1.6-8.9); Platelet Count 194 K/mcL (140-400); Red Blood Count 3.58 M/mcL (3.82-4.97); Segmented Neutrophils % 49.2 %; White Blood Count 6.3 K/mcL (4.3-11.1)
[2020-04-06 05:00] LABS: Platelet Estimate Normal (Normal)
[2020-04-06] MEDS: Artificial Tears SOLN 15 ML BOTTLE BOTH EYES SCH ×2 (07:51→13:13)
[2020-04-06] MEDS: Aspirin Enteric Coated 81 MG Tablet PO SCH (07:51)
[2020-04-06] MEDS: Nystatin POWDER 30 GM BOTTLE TP SCH (07:54)
[2020-04-06 11:07] VITALS: BP 146/54
== END 2020-04-06 16:28 | disposition home health service (06) | DRG 291 ==
LOC: EMEROOARM 11:10 → 3BNU 11:10
PROVIDERS: ADMIT Internal Medicine; ATTEND Internal Medicine

== ENCOUNTER 2020-12-03 07:39 | Inpatient (IN) ==
[2020-12-03] MEDS ORDERED: 0.9 % Sodium Chloride 1,000 ML IVC STA (08:26)
[2020-12-03 09:04] LABS: Basophils # 0.1 K/mcL (0.0-0.2); Basophils % 1.5 %; Eosinophils # 0.2 K/mcL (0.0-0.6); Eosinophils % 6.2 %; Hematocrit 36.5 % (35.3-44.9); Immature Granulocytes % 0.3 % (0-4); Lymphocytes # 1.4 K/mcL (0.6-4.6); Lymphocytes % 42.3 %; Mean Corpuscular HGB Conc 32.9 g/dL (31.6-35.5); Mean Corpuscular Hemoglobin 32.8 pg (28.0-33.3); Mean Corpuscular Volume 99.7 fL (83.0-100.0); Mean Platelet Volume 10.5 fL (9.4-12.4); Monocytes # 0.4 K/mcL (0.0-1.3); Monocytes % 11.2 %; Neutrophils # 1.3 K/mcL (1.6-8.9); Platelet Count 175 K/mcL (140-400); Red Blood Count 3.66 M/mcL (3.82-4.97); Red Cell Distribution Width 12.7 % (11.5-14.5); Segmented Neutrophils % 38.5 %; White Blood Count 3.4 K/mcL (4.3-11.1)
[2020-12-03 09:23] LABS: BUN/Creatinine Ratio 19 (6-26); Blood Urea Nitrogen 20 mg/dL (8-23); Calcium 9.2 mg/dL (8.6-10.3); Carbon Dioxide 24 mEq/L (23-29); Chloride 109 mEq/L (98-107); Glucose 117 mg/dL (70-105); Osmolality,Calculated 288 (280-300); Potassium 3.7 mEq/L (3.5-5.1); Sodium 137 mEq/L (136-145); eGFR For African Americans > 60 (> 60); eGFR For Non-African Americans 50 (> 60)
[2020-12-03 09:24] LABS: Albumin 3.5 g/dL (3.5-5.7); Albumin/Globulin Ratio 1.5 (1.1-2.2); Bilirubin,Direct 0.1 mg/dL (0.0-0.2); Bilirubin,Indirect 0.3 mg/dL (0.0-1.0); Bilirubin,Total 0.4 mg/dL (0.3-1.0); Globulin 2.3 g/dL (2.4-3.5); Magnesium 1.8 mg/dL (1.6-2.6); Total Protein 5.8 g/dL (6.4-8.9)
[2020-12-03] MEDS: 0.9 % Sodium Chloride 1,000 ML IVC SCH ×2 (09:38→21:02)
[2020-12-03] MEDS ORDERED: Ondansetron 4 MG/2 ML VIAL IVP PRN (10:40)
[2020-12-03] MEDS ORDERED: *HR* HYDROcodone/Acet 5/325 mg TABLET PO PRN (10:40)
[2020-12-03] MEDS ORDERED: Naloxone 0.4 MG/ML INJ IVP PRN (10:40)
[2020-12-03 10:58] LABS: Bacteria,Urine Few per hpf (None-Few); Bilirubin,Urine Negative (Negative); Blood,Urine Moderate (Negative); Clarity,Urine Turbid (Clear); Color,Urine Light-Yellow (Yellow); Glucose,Urine (UA) Normal (Normal); Hyaline Casts,Urine Few per lpf (None Seen); Ketones,Urine Negative (Negative); Leukocyte Esterase,Urine Moderate (Negative); Nitrite,Urine Positive (Negative); PH,Urine 5.5 pH Units (5.0-8.0); Protein,Urine Negative (Neg-Trace); RBC,Urine 15-30 per hpf (0-3); Specific Gravity,Urine 1.016 (1.010-1.025); Squamous Epithelial Cell,Urine Few per hpf (None-Few); Urobilinogen,Urine Normal (Normal); WBC,Urine 15-30 per hpf (0-3)
[2020-12-03] MEDS: levoFLOXacin 750 MG/150 ML 750 MG/150 ML BAG IVPB SCH (13:12)
[2020-12-03] MEDS: Gabapentin 300 MG CAPSULE PO SCH ×2 (13:12→21:03)
[2020-12-03] MEDS: *HR* Heparin 5,000 UNIT/ML VIAL SQ SCH (17:35)
[2020-12-04] MEDS: 0.9 % Sodium Chloride 1,000 ML IVC SCH ×2 (05:25→17:28)
[2020-12-04] MEDS: *HR* Heparin 5,000 UNIT/ML VIAL SQ SCH ×2 (05:26→17:31)
[2020-12-04 05:56] LABS: Alanine Aminotransferase 5 Units/L (7-52); Albumin 2.9 g/dL (3.5-5.7); Albumin/Globulin Ratio 1.3 (1.1-2.2); Alkaline Phosphatase 47 Units/L (34-104); Aspartate Amino Transferase 14 Units/L (13-39); BUN/Creatinine Ratio 16 (6-26); Bilirubin,Total 0.4 mg/dL (0.3-1.0); Blood Urea Nitrogen 15 mg/dL (8-23); Calcium 8.3 mg/dL (8.6-10.3); Carbon Dioxide 22 mEq/L (23-29); Chloride 111 mEq/L (98-107); Globulin 2.2 g/dL (2.4-3.5); Glucose 85 mg/dL (70-105); Magnesium 1.6 mg/dL (1.6-2.6); Osmolality,Calculated 294 (280-300); Phosphorous 2.4 mg/dL (2.7-4.5); Potassium 3.5 mEq/L (3.5-5.1); Sodium 142 mEq/L (136-145); Total Protein 5.1 g/dL (6.4-8.9); eGFR For African Americans > 60 (> 60); eGFR For Non-African Americans 57 (> 60)
[2020-12-04] MEDS: Gabapentin 300 MG CAPSULE PO SCH ×2 (07:50→20:18)
[2020-12-04 09:39] LABS: Hematocrit 38.3 % (35.3-44.9); Hemoglobin 12.5 g/dL (11.5-15.4); Mean Corpuscular HGB Conc 32.6 g/dL (31.6-35.5); Mean Corpuscular Volume 101.1 fL (83.0-100.0); Mean Platelet Volume 10.7 fL (9.4-12.4); Platelet Count 176 K/mcL (140-400); Red Blood Count 3.79 M/mcL (3.82-4.97); White Blood Count 4.3 K/mcL (4.3-11.1)
[2020-12-04] MEDS: Calcium Gluconate 1gm/50mL 1 GM/50 ML BAG IVPB SCH ×2 (11:46→12:39)
[2020-12-04] MEDS ORDERED: Carbamide Peroxide 150 DROP/15 ML BOTTLE BOTH EARS ONE (12:01)
[2020-12-04] MEDS ORDERED: Carbamide Peroxide 150 DROP/15 ML BOTTLE RIGHT EAR ONE (12:01)
[2020-12-04] MEDS ORDERED: Nitroglycerin 0.4 MG TAB.SUBL SL PRN (19:03)
[2020-12-04] MEDS ORDERED: carvediloL 25 MG TABLET PO SCH (19:15)
[2020-12-04] MEDS ORDERED: carvediloL 25 MG TABLET PO ONE (20:30)
[2020-12-04] MEDS ORDERED: D5% in Water 1,000 ML IVC PRN (21:26)
[2020-12-04] MEDS ORDERED: *HR* Dextrose 50 % in Water (Vial) 50 ML VIAL IVP PRN (21:26)
[2020-12-04] MEDS ORDERED: Dextrose Gel 15 GM/37.5 ML TUBE PO PRN ×2 (21:26)
[2020-12-05] MEDS: *HR* Heparin 5,000 UNIT/ML VIAL SQ SCH ×2 (04:52→17:34)
[2020-12-05] MEDS: 0.9 % Sodium Chloride 1,000 ML IVC SCH ×4 (04:53→21:53)
[2020-12-05] MEDS: Isosorbide MONOnitrate (24 HR) 60 MG TAB.ER.24H PO SCH (07:54)
[2020-12-05] MEDS: carvediloL 25 MG TABLET PO SCH ×2 (07:55→16:09)
[2020-12-05] MEDS: Multivit/Ca/Min/Fe/FA 1 TAB TABLET PO SCH (07:55)
[2020-12-05] MEDS: lisinopriL 20 MG TABLET PO SCH (07:55)
[2020-12-05] MEDS: Gabapentin 300 MG CAPSULE PO SCH ×2 (07:55→21:54)
[2020-12-05] MEDS ORDERED: Ergocalciferol (VIT D2) 50,000 UNIT (1.25MG) CAP PO SCH (09:00)
[2020-12-05 09:12] LABS: Hematocrit 35.7 % (35.3-44.9); Hemoglobin 11.4 g/dL (11.5-15.4); Mean Corpuscular HGB Conc 31.9 g/dL (31.6-35.5); Mean Corpuscular Hemoglobin 32.1 pg (28.0-33.3); Mean Corpuscular Volume 100.6 fL (83.0-100.0); Mean Platelet Volume 10.6 fL (9.4-12.4); Platelet Count 158 K/mcL (140-400); Red Blood Count 3.55 M/mcL (3.82-4.97); White Blood Count 4.7 K/mcL (4.3-11.1)
[2020-12-05 09:17] LABS: BUN/Creatinine Ratio 20 (6-26); Blood Urea Nitrogen 16 mg/dL (8-23); Calcium 8.2 mg/dL (8.6-10.3); Carbon Dioxide 21 mEq/L (23-29); Chloride 112 mEq/L (98-107); Glucose 96 mg/dL (70-105); Magnesium 1.7 mg/dL (1.6-2.6); Osmolality,Calculated 291 (280-300); Phosphorous 2.3 mg/dL (2.7-4.5); Potassium 3.7 mEq/L (3.5-5.1); Sodium 140 mEq/L (136-145); eGFR For African Americans > 60 (> 60); eGFR For Non-African Americans > 60 (> 60)
[2020-12-05] MEDS: levoFLOXacin 750 MG/150 ML 750 MG/150 ML BAG IVPB SCH (11:12)
[2020-12-05] MEDS: Calcium Gluconate 1gm/50mL 1 GM/50 ML BAG IVPB SCH ×2 (15:03→16:09)
[2020-12-06] MEDS: *HR* Heparin 5,000 UNIT/ML VIAL SQ SCH ×3 (06:29→16:54)
[2020-12-06] MEDS: Isosorbide MONOnitrate (24 HR) 60 MG TAB.ER.24H PO SCH (08:01)
[2020-12-06] MEDS: Gabapentin 300 MG CAPSULE PO SCH ×2 (08:03→20:04)
[2020-12-06] MEDS: Multivit/Ca/Min/Fe/FA 1 TAB TABLET PO SCH (08:03)
[2020-12-06] MEDS: 0.9 % Sodium Chloride 1,000 ML IVC SCH ×3 (08:03→20:06)
[2020-12-06] MEDS: lisinopriL 20 MG TABLET PO SCH (08:03)
[2020-12-06] MEDS: carvediloL 25 MG TABLET PO SCH ×2 (08:03→16:55)
[2020-12-06 08:35] LABS: BUN/Creatinine Ratio 21 (6-26); Blood Urea Nitrogen 16 mg/dL (8-23); Carbon Dioxide 20 mEq/L (23-29); Chloride 116 mEq/L (98-107); Glucose 92 mg/dL (70-105); Magnesium 1.8 mg/dL (1.6-2.6); Osmolality,Calculated 289 (280-300); Phosphorous 2.9 mg/dL (2.7-4.5); Potassium 4.4 mEq/L (3.5-5.1); Sodium 139 mEq/L (136-145); eGFR For African Americans > 60 (> 60); eGFR For Non-African Americans > 60 (> 60)
[2020-12-06 09:50] LABS: Hematocrit 35.1 % (35.3-44.9); Hemoglobin 11.2 g/dL (11.5-15.4); Mean Corpuscular HGB Conc 31.9 g/dL (31.6-35.5); Mean Corpuscular Hemoglobin 32.7 pg (28.0-33.3); Mean Corpuscular Volume 102.6 fL (83.0-100.0); Platelet Count 142 K/mcL (140-400); Red Blood Count 3.42 M/mcL (3.82-4.97); Red Cell Distribution Width 13.4 % (11.5-14.5); White Blood Count 4.3 K/mcL (4.3-11.1)
[2020-12-06] MEDS: Calcium Gluconate 1gm/50mL 1 GM/50 ML BAG IVPB SCH ×2 (16:54→17:30)
[2020-12-06] MEDS: Lactobacillus 1 EACH CAP.SPRINK PO SCH (20:04)
[2020-12-07] MEDS: 0.9 % Sodium Chloride 1,000 ML IVC SCH ×2 (03:04→05:11)
[2020-12-07] MEDS: *HR* Heparin 5,000 UNIT/ML VIAL SQ SCH (05:12)
[2020-12-07 06:19] LABS: Hematocrit 36.2 % (35.3-44.9); Hemoglobin 11.9 g/dL (11.5-15.4); Mean Corpuscular HGB Conc 32.9 g/dL (31.6-35.5); Mean Corpuscular Volume 100.3 fL (83.0-100.0); Mean Platelet Volume 10.6 fL (9.4-12.4); Platelet Count 159 K/mcL (140-400); Red Blood Count 3.61 M/mcL (3.82-4.97); Red Cell Distribution Width 13.4 % (11.5-14.5); White Blood Count 6.2 K/mcL (4.3-11.1)
[2020-12-07 06:54] LABS: BUN/Creatinine Ratio 23 (6-26); Blood Urea Nitrogen 17 mg/dL (8-23); Calcium 8.4 mg/dL (8.6-10.3); Carbon Dioxide 19 mEq/L (23-29); Chloride 112 mEq/L (98-107); Glucose 86 mg/dL (70-105); Osmolality,Calculated 283 (280-300); Phosphorous 2.8 mg/dL (2.7-4.5); Potassium 4.4 mEq/L (3.5-5.1); Sodium 136 mEq/L (136-145); eGFR For African Americans > 60 (> 60); eGFR For Non-African Americans > 60 (> 60)
[2020-12-07 07:54] LABS: Folate 10.3 ng/mL (3.0-16.0)
[2020-12-07] MEDS ORDERED: Cyanocobalamin (B-12) 1,000 MCG TABLET PO SCH (09:00)
[2020-12-07] MEDS ORDERED: Nystatin Cream 15 GM TUBE TP SCH (09:00)
[2020-12-07] MEDS: Gabapentin 300 MG CAPSULE PO SCH (09:34)
[2020-12-07] MEDS: Isosorbide MONOnitrate (24 HR) 60 MG TAB.ER.24H PO SCH (09:35)
[2020-12-07] MEDS: Multivit/Ca/Min/Fe/FA 1 TAB TABLET PO SCH (09:35)
[2020-12-07] MEDS: carvediloL 25 MG TABLET PO SCH (09:35)
[2020-12-07] MEDS: lisinopriL 20 MG TABLET PO SCH (09:35)
[2020-12-07] MEDS: Lactobacillus 1 EACH CAP.SPRINK PO SCH (09:35)
[2020-12-07] MEDS: Calcium Gluconate 1gm/50mL 1 GM/50 ML BAG IVPB SCH ×2 (09:36→14:33)
[2020-12-07] MEDS ORDERED: Calcium Gluconate 1gm/50mL 1 GM/50 ML BAG IVPB SCH (13:00)
[2020-12-07 15:24] VITALS: BP 156/68
== END 2020-12-07 16:15 | disposition home or self-care (01) | DRG 551 ==
LOC: 3ANU 07:39 → EMEROOARM 07:39 → SUATTDRO 10:24 → 3ANU 11:50
PROVIDERS: ADMIT Internal Medicine; ATTEND Internal Medicine

== ENCOUNTER 2021-06-26 23:17 | Observation (INO) ==
[2021-06-27] MEDS ORDERED: Aspirin 81 MG TAB.CHEW PO ONE (00:16)
[2021-06-27 00:38] LABS: Basophils # 0.1 K/mcL (0.0-0.2); Basophils % 1.4 %; Eosinophils # 1.3 K/mcL (0.0-0.6); Eosinophils % 20.3 %; Hematocrit 31.8 % (35.3-44.9); Hemoglobin 10.1 g/dL (11.5-15.4); Immature Granulocytes % 0.3 % (0-4); Lymphocytes # 2.5 K/mcL (0.6-4.6); Lymphocytes % 38.7 %; Mean Corpuscular HGB Conc 31.8 g/dL (31.6-35.5); Mean Corpuscular Hemoglobin 32.8 pg (28.0-33.3); Mean Corpuscular Volume 103.2 fL (83.0-100.0); Mean Platelet Volume 10.4 fL (9.4-12.4); Monocytes % 9.9 %; Neutrophils # 1.9 K/mcL (1.6-8.9); Platelet Count 193 K/mcL (140-400); Red Blood Count 3.08 M/mcL (3.82-4.97); Red Cell Distribution Width 12.1 % (11.5-14.5); Segmented Neutrophils % 29.4 %; White Blood Count 6.5 K/mcL (4.3-11.1)
[2021-06-27 00:44] LABS: Monocytes # 0.6 K/mcL (0.0-1.3)
[2021-06-27 00:57] LABS: Alanine Aminotransferase 8 Units/L (7-52); Albumin 3.5 g/dL (3.5-5.7); Albumin/Globulin Ratio 1.5 (1.1-2.2); Alkaline Phosphatase 68 Units/L (34-104); Aspartate Amino Transferase 17 Units/L (13-39); BUN/Creatinine Ratio 30 (6-26); Bilirubin,Direct 0.1 mg/dL (0.0-0.2); Bilirubin,Indirect 0.1 mg/dL (0.0-1.0); Bilirubin,Total 0.2 mg/dL (0.3-1.0); Blood Urea Nitrogen 29 mg/dL (8-23); Calcium 9.2 mg/dL (8.6-10.3); Carbon Dioxide 25 mEq/L (23-29); Chloride 108 mEq/L (98-107); Globulin 2.4 g/dL (2.4-3.5); Glucose 96 mg/dL (70-105); Osmolality,Calculated 294 (280-300); Potassium 4.2 mEq/L (3.5-5.1); Sodium 139 mEq/L (136-145); Total Protein 5.9 g/dL (6.4-8.9); Troponin I < 0.03 ng/mL (< 0.04); eGFR For African Americans > 60 (> 60); eGFR For Non-African Americans 54 (> 60)
[2021-06-27 00:59] LABS: Platelet Estimate Normal (Normal)
[2021-06-27] MEDS ORDERED: Naloxone 0.4 MG/ML INJ IVP PRN (02:35)
[2021-06-27] MEDS ORDERED: Melatonin 3 MG TABLET PO PRN (02:35)
[2021-06-27 03:53] LABS: Influenza A PCR Negative (Negative); Influenza B PCR Negative (Negative); Resp. Syncytial Virus PCR Negative (Negative); SARS-CoV-2 by PCR (In House) Negative (Negative)
[2021-06-27] MEDS ORDERED: Nystatin Cream 15 GM TUBE TP SCH (05:00)
[2021-06-27 07:30] LABS: % Iron Saturation 39 % (15-50); Iron 73 mcg/dL (50-170); Transferrin 133 mg/dL (203-362)
[2021-06-27 07:31] LABS: Magnesium 1.7 mg/dL (1.6-2.6); Phosphorous 2.8 mg/dL (2.7-4.5)
[2021-06-27 07:34] VITALS: BP 151/70; PULSE 64; TEMP 98.1; O2SAT 99
[2021-06-27 07:35] LABS: Troponin I 0.04 ng/mL (< 0.04)
[2021-06-27 07:49] LABS: Ferritin 269 ng/mL (10-120)
[2021-06-27] MEDS ORDERED: carvediloL 6.25 MG TABLET PO SCH (08:00)
[2021-06-27 08:03] LABS: Folate > 22.3 ng/mL (3.0-16.0); Vitamin B12 910 pg/mL (250-1100)
[2021-06-27] MEDS ORDERED: Aspirin 81 MG TAB.CHEW PO SCH (09:00)
[2021-06-27] MEDS ORDERED: Isosorbide MONOnitrate (24 HR) 30 MG TAB.ER.24H PO SCH (10:30)
== END 2021-06-27 12:57 | disposition home or self-care (01) ==
LOC: EMEROOARM 23:17 → 3BNU 23:17
PROVIDERS: ADMIT Student in an Organized Health Care Education/Training Program; ATTEND Student in an Organized Health Care Education/Training Program